=== PATIENT | male | born 1945 | race Hispanic/Latino ===

== ENCOUNTER 2016-12-13 19:35 | Inpatient (IN) | payer MEDICARE, OTHER ==
[2016-12-13] MEDS ORDERED: Insulin Regular 100 units/ml SC STA (20:04)
[2016-12-13] MEDS ORDERED: Sodium Chloride 0.9% 1,000 ML IV STA (20:04)
[2016-12-13 20:28] LABS: BASO % 0.2 % (0.0-2.0); EOS % 0.3 % (0.0-4.0); HEMATOCRIT 36.6 % (35.0-51.0); LYMPH # 0.8 K/uL (1.0-4.3); LYMPH % 7.2 % (20.0-40.0); MEAN CELL VOLUME 82.1 fl (80.0-94.0); MEAN CORPUSCULAR HEMOGLOBIN 26.8 pg (27.0-31.0); MEAN CORPUSCULAR HGB CONC 32.7 g/dL (33.0-37.0); MEAN PLATELET VOLUME 7.2 fl (7.2-11.7); MONO # 0.7 K/uL (0.0-0.8); MONO % 5.7 % (0.0-10.0); NEUT # 9.9 K/uL (1.8-7.0); NEUT % 86.6 % (50.0-75.0); PLATELET COUNT 243 K/uL (130-400); RED CELL DISTRIBUTION WIDTH 15.2 % (11.5-14.5); WHITE BLOOD COUNT 11.4 K/uL (4.8-10.8)
[2016-12-13 20:39] LABS: ALB/GLOB RATIO 1.5 (1.0-2.1); ALKALINE PHOSPHATASE 73 U/L (38-126); ALT/SGPT 30 U/L (21-72); AST/SGOT 16 U/L (17-59); BILIRUBIN,TOTAL 0.3 mg/dl (0.2-1.3); BLOOD UREA NITROGEN 22 mg/dl (9-20); CALCIUM 8.9 mg/dL (8.4-10.2); CARBON DIOXIDE 24 mmol/L (22-30); CHLORIDE 103 mmol/L (98-107); GFR AFRICAN-AMERICAN > 60; GLUCOSE,RANDOM 258 mg/dL (75-110); SODIUM 137 mmol/l (132-148); TOTAL PROTEIN 5.9 G/DL (6.3-8.2)
--- NOTE | 2016-12-13 20:40 | CT ---
EXAM: CT Head Without Intravenous Contrast CLINICAL HISTORY: 71 years old, male; Injury or trauma; Fall; Initial encounter; Blunt trauma (contusions or hematomas); Consciousness not specified; Injury details: Found on floor at home; Patient HX: Diabetic TECHNIQUE: Axial computed tomography images of the head/brain without intravenous contrast. All CT scans at this facility use one or more dose reduction techniques, viz.: automated exposure control; ma/kV adjustment per patient size (including targeted exams where dose is matched to indication; i.e. head); or iterative reconstruction technique. Coronal and sagittal reformatted images were created and reviewed. COMPARISON: CT - HEAD W/O CONTRAST 03/12/2016 5:18:06 PM FINDINGS: Brain: No acute intracranial hemorrhage. Age-appropriate periventricular white matter disease. No edema. Ventricles: Age-appropriate ventriculomegaly. Bones: No acute displaced fracture. Sinuses: Unremarkable as visualized. No acute sinusitis. Mastoid air cells: Unremarkable as visualized. No mastoid effusion. IMPRESSION: No acute intracranial hemorrhage, or suspicious mass effect.
--- NOTE | 2016-12-13 21:01 | ED PDOC ---
HPI: Altered Mental Status Time Seen by Provider: 12/13/16 19:45 Chief Complaint (Nursing): Altered Mental Status Chief Complaint (Provider): AMS History Per: Patient, Family History/Exam Limitations: None Onset/Duration Of Symptoms: Mins Onset Of Symptoms: <3 Hours Current Symptoms Are (Timing): Gone Now Usual Baseline: Alert Oriented Exacerbating Factor(s): Diabetic Additional Complaint(s): The pt is a 71yo male, pmhx of type 2 DM, depression, chronic renal disease, is brought to the ED by EMS for evaluation s/p a syncopal episode. Pt is accompanied by his sister, who reports that another family member of the pt's witnessed the pt "pass out." Pt reports he was feeling dizzy and passed out; he denies any head injury or pain and reports he is unsure of what happened. Pt was given sugar in the field but did not have an accuchek performed. Currently in ED, pt has a sugar level greater than 500. Pt denies any headache, vomiting or pain. He denies any other medical complaints. Past Medical History Reviewed: Historical Data, Nursing Documentation, Vital Signs Vital Signs: Last Vital Signs Temp 97.6 F 12/13/16 19:37 Pulse 84 12/13/16 19:37 Resp 16 12/13/16 19:37 BP 112/60 12/13/16 19:37 Pulse Ox 96 12/13/16 19:37 - Medical History PMH: CVA (Possible), Diabetes, HTN, Chronic Kidney Disease - Surgical History Surgical History: No Surg Hx - Family History Family History: States: Unknown Family Hx - Social History Current smoker - smoking cessation education provided: No Alcohol: None Drugs: Denies - Home Medications Home Medications: Ambulatory Orders Medication Instructions Recorded Tamsulosin [Flomax] 0.4 mg PO DAILY 03/12/16 Venlafaxine [Effexor XR] 150 mg PO BID 03/12/16 metFORMIN [glucOPHAGE] 500 mg PO BID 03/12/16 Enalapril Maleate [Vasotec] 5 mg PO BID 12/13/16 GlipiZIDE [Glucotrol] 5 mg PO BIDAC 12/13/16 - Allergies Allergies/Adverse Reactions: Allergies Allergy/AdvReac Type Severity Reaction Status Date / Time No Known Allergies Allergy Verified 03/22/16 16:40 Review of Systems ROS Statement: Except As Marked, All Systems Reviewed And Found Negative Gastrointestinal: Negative for: Nausea, Vomiting Neurological: Positive for: Altered Mental Status (loss of consciousness). Negative for: Headache Physical Exam - Reviewed Nursing Documentation Reviewed: Yes Vital Signs Reviewed: Yes - Physical Exam Appears: Positive for: Non-toxic, No Acute Distress Skin: Positive for: Normal Color (multiple tattoos and body piercings noted), Warm Eye Exam: Positive for: Normal appearance, EOMI, PERRL Neck: Positive for: Normal, Supple Cardiovascular/Chest: Positive for: Regular Rate, Rhythm Respiratory: Positive for: Normal Breath Sounds. Negative for: Accessory Muscle Use, Respiratory Distress Gastrointestinal/Abdominal: Positive for: Normal Exam, Soft. Negative for: Tenderness Extremity: Positive for: Normal ROM. Negative for: Pedal Edema, Calf Tenderness , Deformity, Swelling Neurologic/Psych: Positive for: Alert, handbag parts cutter II-XII (normal), Oriented, Mood/ Affect (normal), Cerebellar Tests (normal), Gait (steady). Negative for: Motor/ Sensory Deficits, Aphasia, Facial Droop - Laboratory Results Result Diagrams: 12/13/16 20:12 12/13/16 20:12 - ECG ECG: Positive for: Interpreted By Me, Viewed By Me ECG Rhythm: Positive for: Sinus Rhythm. Negative for: ST/T Changes Interpretation Of ECG: LVH Rate: 76 O2 Sat by Pulse Oximetry: 96 (RA) Pulse Ox Interpretation: Normal Medical Decision Making Medical Decision Making: Time: 1999 Impression: R/o DKA, intracranial process Plan: -- Labs -- IV NS 1L, 200ml/hr -- Human Insulin 6 units -- CT Head --Reassess Time: [address] Cooley who primary doc labs shows elevate sugar (but came down with the insulin from gr thatn 500 to 200s on the chemistry. no anion gap noted. cxr appears no infilrate pt without urine sample yet pt appear comfortable in NAD, moving all 4 extremities Time: [address] Rudy Menjivar who is covering for Dr. Cooley, and Dr. Menjivar has accepted the pt. he will place further orders Scribe Attestation: Documented by Carli Booker acting as a scribe for Kristi Lopez MD Provider Scribe Attestation: All medical record entries made by the Scribe were at my direction and personally dictated by me. I have reviewed the chart and agree that the record accurately reflects my personal performance of the history, physical exam, medical decision making, and the department course for this patient. I have also personally directed, reviewed, and agree with the discharge instructions and disposition. Disposition - Clinical Impression Clinical Impression: Syncope - Patient ED Disposition Is Patient to be Admitted: Yes Counseled Patient/Family Regarding: Studies Performed, Diagnosis, Need For Followup - Disposition Disposition: Routine/Home Disposition Time: 21:00 Condition: IMPROVED
[2016-12-13 21:05] LABS: NEUTROPHIL 86 % (42-75); TOTAL CELLS COUNTED 100
[2016-12-13 21:40] LABS: VENOUS BLOOD GAS BASE EXCESS 0.3 mmol/L (0.0-2.0); VENOUS BLOOD GAS PCO2 42 mmHg (40-60); VENOUS BLOOD PH 7.39 (7.32-7.43)
[2016-12-13] MEDS: Insulin Regular 100 units/ml SC SCH (22:47)
--- NOTE | 2016-12-14 07:30 | RAD ---
HISTORY: chest pain COMPARISON: Chest radiographs 03/29/2016. FINDINGS: LUNGS: No acute infiltrate seen once again. There is elevation the right hemidiaphragm which is increased in the current image. Limited fibrotic changes in the medial right base. PLEURA: No significant pleural effusion identified, no pneumothorax apparent. CARDIOVASCULAR: Normal. OSSEOUS STRUCTURES: No significant abnormalities. VISUALIZED UPPER ABDOMEN: Normal. OTHER FINDINGS: None. IMPRESSION: No acute cardiopulmonary disease. Fibrotic changes in the medial right base as well as elevated right hemidiaphragm.
[2016-12-14 07:33] LABS: HEMATOCRIT 35.7 % (35.0-51.0); MEAN CELL VOLUME 82.5 fl (80.0-94.0); MEAN CORPUSCULAR HGB CONC 32.8 g/dL (33.0-37.0); RED CELL DISTRIBUTION WIDTH 14.7 % (11.5-14.5); WHITE BLOOD COUNT 8.9 K/uL (4.8-10.8)
[2016-12-14 07:38] LABS: BLOOD UREA NITROGEN 23 mg/dl (9-20); CALCIUM 8.8 mg/dL (8.4-10.2); CARBON DIOXIDE 27 mmol/L (22-30); CHLORIDE 104 mmol/L (98-107); GFR AFRICAN-AMERICAN > 60; GLUCOSE,RANDOM 99 mg/dL (75-110); SODIUM 140 mmol/l (132-148)
[2016-12-14] MEDS: Venlafaxine 150 mg ER Cap PO SCH ×2 (08:49→16:14)
[2016-12-14] MEDS: Insulin Regular 100 units/ml SC SCH ×4 (08:56→22:12)
--- NOTE | 2016-12-14 11:18 | CP.PCM.HP ---
History of Present Illness - History of Present Illness History of Present Illness: The pt is a 71yo male, pmhx of type 2 DM, depression, chronic renal disease, is brought to the ED by EMS for evaluation s/p a syncopal episode. Pt is accompanied by his sister, who reports that another family member of the pt's witnessed the pt "pass out." Pt reports he was feeling dizzy and passed out; he denies any head injury or pain and reports he is unsure of what happened. Pt was given sugar in the field but did not have an accuchek performed. Currently in ED, pt has a sugar level greater than 500. Pt denies any headache, vomiting or pain. He denies any other medical complaints. CVA, Diabetes, HTN, former smoker Present on Admission - Present on Admission Any Indicators Present on Admission: Yes History of Uncontrolled Diabetes: Yes Review of Systems - Review of Systems Systems not reviewed;Unavailable: Altered Mental Status - EENT Ears: Ear Pain Past Patient History - Past Medical History & Family History Past Medical History?: Yes - Past Social History Smoking Status: Former Smoker Alcohol: None Drugs: Denies - CARDIAC Hx Hypertension: Yes - PULMONARY Hx Respiratory Disorders: No - NEUROLOGICAL Hx Neurological Disorder: Yes Hx Syncope: Yes - HEENT Hx HEENT Problems: Yes (mastoiditis) Hx Sinusitis: Yes - RENAL Hx Chronic Kidney Disease: Yes - ENDOCRINE/METABOLIC Hx Endocrine Disorders: Yes Hx Diabetes Mellitus Type 2: Yes - HEMATOLOGICAL/ONCOLOGICAL Hx Blood Disorders: No - INTEGUMENTARY Hx Dermatological Problems: No - MUSCULOSKELETAL/RHEUMATOLOGICAL Hx Musculoskeletal Disorders: Yes Hx Falls: Yes - GASTROINTESTINAL Hx Gastrointestinal Disorders: No - GENITOURINARY/GYNECOLOGICAL Hx Genitourinary Disorders: Yes Hx Prostate Problems: Yes - PSYCHIATRIC Hx Psychophysiologic Disorder: Yes Hx Depression: Yes Hx Substance Use: No - SURGICAL HISTORY Hx Surgeries: No - ANESTHESIA Hx Anesthesia: Yes Hx Anesthesia Reactions: No Hx Malignant Hyperthermia: No Meds Allergies/Adverse Reactions: Allergies Allergy/AdvReac Type Severity Reaction Status Date / Time No Known Allergies Allergy Verified 03/22/16 16:40 Physical Exam - Constitutional Appears: Confused - Head Exam Head Exam: NORMAL INSPECTION - Eye Exam Eye Exam: Normal appearance - Neck Exam Neck exam: Positive for: Normal Inspection - Cardiovascular Exam Cardiovascular Exam: REGULAR RHYTHM Results - Vital Signs Recent Vital Signs: Last Vital Signs Temp 98.7 F 12/14/16 08:00 Pulse 66 12/14/16 08:00 Resp 20 12/14/16 08:00 BP 218/89 H 12/14/16 08:00 Pulse Ox 95 12/14/16 08:00 - Labs Result Diagrams: 12/14/16 07:05 12/14/16 07:05 Labs: Laboratory Results - last 24 hr 12/14/16 12/14/16 12/14/16 05:46 07:05 07:05 WBC 8.9 RBC 4.33 L Hgb 11.7 L Hct 35.7 MCV 82.5 MCH 27.0 MCHC 32.8 L RDW 14.7 H Plt Count 258 Sodium 140 Potassium 4.0 Chloride 104 Carbon Dioxide 27 Anion Gap 13 BUN 23 H Creatinine 1.4 Est GFR ( Amer) > 60 Est GFR (Non-Af Amer) 50 POC Glucose (mg/dL) 73 Random Glucose 99 Calcium 8.8 Assessment & Plan (1) Syncope Status: Acute (2) Depression Status: Acute (3) Essential (primary) hypertension Status: Acute (4) Type 2 diabetes mellitus with diabetic chronic kidney disease Status: Acute
[2016-12-14] MEDS: Metoprolol Succinate 100 mg XL Tab PO SCH (11:45)
[2016-12-14] MEDS: Enoxaparin 40 mg Syringe SC SCH (14:05)
--- NOTE | 2016-12-14 14:19 | US ---
PROCEDURE: Duplex ultrasound of the carotid and vertebral arteries. HISTORY: syncope COMPARISON: None available. TECHNIQUE: Grayscale and duplex Doppler evaluation of the cervical carotid and vertebral arteries were performed. The common carotid, carotid bifurcations and cervical ICA and proximal ECA were evaluated. The vertebral arteries were evaluated for gross patency and direction. FINDINGS: RIGHT CAROTID ARTERIES: Common Carotid Artery: Widely patent. Maximal flow velocity of 63.8 cm/s. Carotid Bifurcation: Minimal atherosclerotic plaque is seen at the right carotid bulb. Internal Carotid Artery:Widely patent. Maximal flow velocity of 66.1 cm/s. External Carotid Artery (proximal branches): Widely patent. Maximal flow velocity of 104.8 cm/s. ICA/CCA Ratio: 1.0 LEFT CAROTID ARTERIES: Common Carotid Artery: Widely patent. Maximal flow velocity of 43.5 cm/s. Carotid Bifurcation: A mild amount of atherosclerotic plaque is identified at the left carotid bulb. Internal Carotid Artery:Widely patent. Maximal flow velocity of 87.1 cm/s. External Carotid Artery (proximal branches): Widely patent. Maximal flow velocity of 108.1 cm/s. ICA/CCA Ratio: 1.0 VERTEBRAL ARTERIES: Right Vertebral Artery: Patent. Antegrade flow. Left Vertebral Artery: Patent. Antegrade flow. OTHER FINDINGS: None. IMPRESSION: Limit carotid bulbar atherosclerosis is appreciated at the left greater than right sides with no significant stenosis of the bilateral common or internal carotid arteries once again. No significant interval change appreciated grossly.
[2016-12-14 16:10] LABS: RBC URINE 2 /hpf (0-3); URINE BILIRUBIN NEGATIVE (NEGATIVE); URINE BLOOD NEGATIVE (NEGATIVE); URINE COLOR YELLOW (YELLOW); URINE GLUCOSE (UA) 50 mg/dL (Normal); URINE KETONE TRACE mg/dL (NEGATIVE); URINE LEUKOCYTE ESTERASE NEG Leu/uL (Negative); URINE PROTEIN >=500 mg/dL (NEGATIVE); URINE UROBILINOGEN 0.2-1.0 mg/dL (0.2-1.0); WBC URINE 2 /hpf (0-5)
[2016-12-14 16:15] LABS: URINE BACTERIA FEW (<OCC)
[2016-12-14] MEDS ORDERED: EnalaprilAT 1.25 mg/ml Inj IVP ONE (22:21)
[2016-12-15] MEDS ORDERED: Enalaprilat 2.5 MG/2 ML IVP STA (02:33)
--- NOTE | 2016-12-15 03:32 | CON ---
DATE: 12/14/2016 NEUROLOGY CONSULT CHIEF COMPLAINT: Syncope. HISTORY OF PRESENT ILLNESS: This is a 71-year-old man, known to me from his previous admission back in 03/2016, with history of hypertension, dyslipidemia, history of bradycardia secondary to BP medications, history of type 2 diabetes mellitus, chronic renal disease, reported to having a syncopal episode. Apparently, the patient stated that he felt dizzy, intensive lightheaded, and passed out. No seizure-like activity was noted. His blood sugar was greater than 500. He is unsure of what actually had happened, but was lightheaded prior. It was witnessed by his sister. Apparently, his blood pressure is currently systolically elevated. The hemoglobin A1c is 6.9. Initial blood glucose of 73. PAST MEDICAL HISTORY: History of type 2 diabetes mellitus, hypertension, dyslipidemia, and chronic renal insufficiency. REVIEW OF SYSTEMS: A 14-point review of system is negative except in the HPI. FAMILY HISTORY: Noncontributory. SOCIAL HISTORY: No illicit drug use, smoking, no EtOH abuse. MEDICATIONS: Reviewed by nurse per reconciliation sheet. ALLERGIES: NO KNOWN DRUG ALLERGIES. PHYSICAL EXAMINATION VITAL SIGNS: Temperature of 98.6, pulse rate 81, blood pressure 117/98, respiratory rate 20, and oxygen saturation 95% on room air. GENERAL EXAM: The patient sitting up in bed, in no acute distress. HEENT: Head is atraumatic and normocephalic. PERRLA. Extraocular muscles intact. NECK: Supple. No JVD. No adenopathy noted. LUNGS: Clear to auscultation. No adventitious sounds. HEART: S1 and S2. Normal rate and rhythm. No murmur, rubs, or gallops. ABDOMEN: Soft, nontender, nondistended. Bowel sounds present. EXTREMITIES: No clubbing. No cyanosis. Peripheral pulses 2+ felt bilaterally. There are multiple tattoos over his body. NEUROLOGIC EXAM: The patient is alert and oriented to person, place, month, and year. Speech is fluent without any errors. Cranial nerves II through XII intact. Motor exam: Moves all extremities equally. Strength is 5/5 in both upper and lower extremities. No pronator drift . Sensory exam: Decreased light touch and pinprick up to the calves bilaterally. Decreased vibration of the toes. DTRs are 2+ throughout and 1 at the ankle. Coordination: [id number]-[id number] intact. Gait deferred for now. LABORATORY DATA: A1c is 6.9. Sodium is 140, potassium 4, chloride of 104, carbon dioxide of 27, BUN of 22, creatinine 1.4, and random glucose of 99. ASSESSMENT AND PLAN: This is a 71-year-old male with a history of hypertension, dyslipidemia, type 2 diabetes mellitus,and chronic renal insufficiency. He had syncopal episode. He was lightheaded and had passed out. The patient was given D50 in the field, but did not have an Accu-Chek and he came in with a sugar level of greater than 500 and now it is stabilized. His A1c is 6.9. At this time, his syncope seems more like a possible vasovagal superimposed on a metabolic derangement, likely hypoglycemia. At this time, recommend, 1. Keep his blood sugars to 140 to 180. Avoid hypoglycemic and hyperglycemic accelerations. 2. Keep his systolic blood pressure between 130 to 140. 3. Advised diabetic diet. 4. Continue present cardiac management. Thank you for this consult. He can follow with me as an outpatient. He is neurologically stable. Terry Lawson MD
[2016-12-15] MEDS: Insulin Regular 100 units/ml SC SCH ×3 (08:20→22:01)
[2016-12-15] MEDS: Enoxaparin 40 mg Syringe SC SCH (08:32)
[2016-12-15] MEDS: Metoprolol Succinate 100 mg XL Tab PO SCH (08:33)
[2016-12-15] MEDS: Venlafaxine 150 mg ER Cap PO SCH ×2 (08:33→16:49)
--- NOTE | 2016-12-15 11:12 | CP.PCM.PN ---
Subjective - Date & Time of Evaluation Date of Evaluation: 12/15/16 Time of Evaluation: 10:00 - Subjective Subjective: only c/o feeling weak BS being regulated But need endocinology consult DR Lawson's note apprec BP still running high will increase enalapril to 10mg BID Objective - Vital Signs/Intake and Output Vital Signs (last 24 hours): Temp Pulse Resp BP Pulse Ox 98.1 F 58 L 18 213/94 H 98 12/15/16 08:00 12/15/16 08:33 12/15/16 08:00 12/15/16 08:33 12/15/16 08:00 - Medications Medications: Current Medications Acetaminophen (Tylenol 325mg Tab) 650 mg PO Q4 PRN PRN Reason: Pain, moderate (4-7) Acetaminophen (Tylenol 325mg Tab) 650 mg PO Q4 PRN PRN Reason: Fever >100.4 F Enalapril Maleate (Vasotec) 10 mg PO BID [facility] Enoxaparin Sodium (Lovenox) 40 mg SC DAILY [facility] PRN Reason: Protocol Last Admin: 12/15/16 08:32 Dose: 40 mg Glipizide (Glucotrol) 5 mg PO BIDAC [facility] Last Admin: 12/15/16 08:33 Dose: 5 mg Insulin Human Regular (Humulin R) 0 units SC [facility] PRN Reason: Protocol Last Admin: 12/15/16 08:20 Dose: Not Given Metformin HCl (Glucophage) 500 mg PO BID [facility] Last Admin: 12/15/16 08:33 Dose: 500 mg Metoprolol Succinate (Toprol Xl) 100 mg PO DAILY [facility] Last Admin: 12/15/16 08:33 Dose: 100 mg Tamsulosin HCl (Flomax) 0.4 mg PO DAILY [facility] Last Admin: 12/15/16 08:34 Dose: 0.4 mg Venlafaxine HCl (Effexor Xr) 150 mg PO BID [facility] Last Admin: 12/15/16 08:33 Dose: 150 mg - Labs Labs: 12/14/16 07:05 12/14/16 07:05 Assessment and Plan (1) Syncope Status: Acute (2) Depression Status: Acute (3) Essential (primary) hypertension Status: Acute (4) Type 2 diabetes mellitus with diabetic chronic kidney disease Status: Acute
--- NOTE | 2016-12-15 11:18 | PQF GENQUE ---
Dr. 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 Indicators present [] Specify: [] [] Specify: [] [] Specify: [] [] Specify: [] Location in the medical record that reflects the above clinical findings: [] Treatment Provided: [] PHYSICIAN'S RESPONSE Stage 1 Based on your medical judgment of the clinical indicators outlined above please clarify the following: []x Practitioner response [] If unable to determine, please check the box, sign and date. Present On Admission (POA) Indicator: [] Present at the time of admission [] Not present at the time of admission [] Clinically Undetermined In responding to this query, please exercise your independent professional judgment. The fact that a question is asked does not imply that any particular answer is desired or expected. Thank you for your clarification on this documentation. If you have any questions please call. * Thank you, Chiqui Zuniga RN BSN ext. #[phone] MTDD
--- NOTE | 2016-12-15 12:07 | CARD ---
APPROVED REPORT EXAM: Two-dimensional and M-mode echocardiogram with Doppler and color Doppler. Other Information Quality : GoodRhythm : NSR INDICATION Syncope 2D DIMENSIONS IVSd1.56 (0.7-1.1cm)LVDd4.83 (3.9-5.9cm) LVOT Diameter2.39 (1.8-2.4cm)PWd1.34 (0.7-1.1cm) IVSs1.57 (0.8-1.2cm)LVDs3.79 (2.5-4.0cm) FS (%) 21.4 %PWs1.50 (0.8-1.2cm) M-Mode DIMENSIONS Left Atrium (MM)5.04 (2.5-4.0cm)IVSd1.51 (0.7-1.1cm) Aortic Root4.08 (2.2-3.7cm)LVDd6.51 (4.0-5.6cm) Aortic Cusp Exc.1.51 (1.5-2.0cm)PWd1.58 (0.7-1.1cm) IVSs2.24 cmFS (%) 42 % LVDs3.79 (2.0-3.8cm)PWs2.02 cm Aortic Valve AoV Peak Xqhurube634.7cm/sAoV VTI43.4cmAO Peak GR.21mmHg LVOT Peak Kewojkmr02.0cm/sLVOT VTI21.35cmAO Mean GR.11mmHg AGAPITO (VMAX)0.14fu4RCQ (VTI)1.02cm2 Mitral Valve MV E Lefcindw97.0cm/sMV DECEL EHKH262jgVR A Dyhffgsl90.9cm/s MV ALS20zcN/A ratio0.6MVA (PHT)2.88cm2 TDI Lateral E' Peak V5.62cm/sMedial E' Peak V4.07cm/sE/Lateral E'10.0 E/Medial E'13.8 LEFT VENTRICLE The left ventricle is normal size. There is mild concentric left ventricular hypertrophy. The left ventricular function is normal. The left ventricular ejection fraction is 60% There is normal LV segmental wall motion. Transmitral Doppler flow pattern is Grade I-abnormal relaxation pattern. No left ventricle thrombus noted on this study. There is no ventricular septal defect visualized. There is no left ventricular aneurysm. There is no mass noted in the left ventricle. RIGHT VENTRICLE The right ventricle is normal size. There is normal right ventricular wall thickness. The right ventricular systolic function is normal. ATRIA The left atrium size is normal. The right atrium size is normal. The interatrial septum is intact with no evidence for an atrial septal defect. AORTIC VALVE The aortic valve is moderately to severely calcified. There is mild aortic regurgitation. There is mild valvular aortic stenosis. Calculated aortic valve area is 1.8 cm2 with maximum pressure gradient of 20 mmHg and mean pressure gradient of 11 mmHg. There is no aortic valvular vegetation. MITRAL VALVE Mitral annular calcification is mild to moderate. There is no evidence of mitral valve prolapse. There is no mitral valve stenosis. There is no mitral valve regurgitation noted. TRICUSPID VALVE The tricuspid valve is normal in structure and function. There is no tricuspid valve regurgitation noted. There is no tricuspid valve prolapse or vegetation. There is no tricuspid valve stenosis. PULMONIC VALVE The pulmonary valve is normal in structure and function. There is no pulmonic valvular regurgitation. There is no pulmonic valvular stenosis. GREAT VESSELS The aortic root is normal in size. The ascending aorta is normal in size. The IVC is normal in size and collapses >50% with inspiration. PERICARDIAL EFFUSION The pericardium appears normal. There is no pleural effusion. <Conclusion> Normal LV Systolic Function Mild Aortic Valve Stenosis AGAPITO 1.8 cm2 Mild Concentric LVH Impaired Diastolic Relaxation
--- NOTE | 2016-12-15 16:00 | CON ---
ENDOCRINOLOGY CONSULT LOCATION: Room 410. HISTORY OF PRESENT ILLNESS: This is a 71-year-old male with known history of type 2 diabetes and hypertension and admitted here with a recent altered mental status and a recent syncopal event witnessed by the family member and is now being referred for endocrine evaluation and management. PAST MEDICAL HISTORY: As mentioned above, history of type 2 diabetes currently on a combination of metformin given as 500 mg b.i.d. and glipizide given as 5 mg b.i.d. before meals as ordered, history of hypertension and dyslipidemia, history of a previous CVA with no overt residual weakness. History of generalized anxiety and depression, also history of chronic kidney disease. FAMILY HISTORY: Positive for diabetes and hypertension. SOCIAL HISTORY: The patient has supportive family, has a prior history of smoking but quit many years ago. REVIEW OF SYSTEMS: As mentioned above, admits to generalized body weakness with easy fatigability and tiredness and suboptimal energy level. Also admits to episodic bouts of dizziness and lightheadedness, worse on the day of admission. No chest pains or palpitations or PND. His oral intake is variable and suboptimal with nausea, dyspepsia, and vague upper abdominal pain. PHYSICAL EXAMINATION: GENERAL: This is an average built male in no apparent distress. VITAL SIGNS: Blood pressure of 150/90, pulse of 70 beats per minute, regular, temperature 98, respirations 20. Height is 6 feet, weight is 210 pounds. HEENT: Head normocephalic. Eyes: Anicteric with pink conjunctivae. Funduscopy not possible at this time. Ears, nose, and throat otherwise normal. NECK: Supple. Thyroid gland is normal in size. No carotid bruits or cervical adenopathy. CARDIOPULMONARY: Some adynamic precordium. S1 and S2 is rapid and regular. LUNGS: Showed scattered rhonchi. ABDOMEN: Flat, soft with positive bowel sounds. EXTREMITIES: No peripheral edema. Pulses are +2 bilaterally. LABORATORY: Chemistry showed a BUN of 22, sodium 137, potassium 4.0, chloride 103, CO2 of 24, glucose 258, and creatinine 1.3. His hemoglobin A1c is 6.9%. The glucose levels have ranged from 83 to 104 and 171 mg/dL. ASSESSMENT: This is a 71-year-old male with uncontrolled and decompensated type 2 diabetes presenting here with altered mental status and syncopal event and now being referred for diabetic management because of extremes of glycemic fluctuations and possible underlying episode of symptomatic hypoglycemia, although there is no actual documentation as there was no fingerstick glucose done by the paramedics just prior to admission. However, on admission here, his glucose levels were extremely elevated with glucose values over 500 probably related to a rebound hyperglycemic acceleration after D50 bolus injection as noted. There is also evidence of underlying chronic kidney disease and most likely related to underlying diabetic and hypertensive nephrosclerosis. PLAN OF MANAGEMENT: We will prudently discontinue his metformin especially in the light of underlying chronic kidney disease and observe his glycemic fluctuations thereof. We will continue the glipizide given as 5 mg b.i.d. before meals, and we will titrate incrementally as indicated to optimize his metabolic control. We will also hold off any kind of basal insulin for now and modify actually the low-dose correction scale using Humalog insulin as given to obviate hypoglycemia and detailed orders have been given. We will titrate incrementally as indicated to optimize metabolic control. We will follow. Caroline Garrett MD
[2016-12-16] MEDS ORDERED: Enalaprilat 2.5 MG/2 ML IVP ONE (04:14)
[2016-12-16 06:53] LABS: ALB/GLOB RATIO 1.4 (1.0-2.1); ALKALINE PHOSPHATASE 75 U/L (38-126); ALT/SGPT 30 U/L (21-72); AST/SGOT 17 U/L (17-59); BILIRUBIN,TOTAL 0.5 mg/dl (0.2-1.3); BLOOD UREA NITROGEN 26 mg/dl (9-20); CALCIUM 9.1 mg/dL (8.4-10.2); CARBON DIOXIDE 26 mmol/L (22-30); CHLORIDE 102 mmol/L (98-107); CHOLESTEROL 235 mg/dL (0-199); GFR AFRICAN-AMERICAN > 60; GLUCOSE,RANDOM 134 mg/dL (75-110); SODIUM 138 mmol/l (132-148); TOTAL PROTEIN 6.6 G/DL (6.3-8.2)
[2016-12-16 06:54] LABS: HEMATOCRIT 39.9 % (35.0-51.0); MEAN CELL VOLUME 82.6 fl (80.0-94.0); MEAN CORPUSCULAR HEMOGLOBIN 27.4 pg (27.0-31.0); MEAN CORPUSCULAR HGB CONC 33.2 g/dL (33.0-37.0); RED CELL DISTRIBUTION WIDTH 14.8 % (11.5-14.5); WHITE BLOOD COUNT 8.5 K/uL (4.8-10.8)
[2016-12-16 06:56] LABS: POTASSIUM 3.8 MMOL/L (3.6-5.0)
[2016-12-16] MEDS: Insulin Regular 100 units/ml SC SCH ×4 (07:04→22:08)
[2016-12-16 07:16] LABS: THYROID STIMULATING HORMONE 3.07 mIU/ML (0.46-4.68)
[2016-12-16] MEDS: Venlafaxine 150 mg ER Cap PO SCH ×2 (09:09→16:35)
[2016-12-16] MEDS: Metoprolol Succinate 100 mg XL Tab PO SCH (09:09)
[2016-12-16] MEDS: Enoxaparin 40 mg Syringe SC SCH (09:10)
--- NOTE | 2016-12-16 10:05 | CP.PCM.PN ---
Subjective - Date & Time of Evaluation Date of Evaluation: 12/16/16 Time of Evaluation: 09:00 - Subjective Subjective: BP still running high This is a chronic problem Metoprolol bein held 2* to bradycardia Clonidine 0.[address] Garrett's note apprec Objective - Vital Signs/Intake and Output Vital Signs (last 24 hours): Temp Pulse Resp BP Pulse Ox 98.7 F 50 L 18 214/103 H 97 12/16/16 08:18 12/16/16 09:09 12/16/16 08:18 12/16/16 09:09 12/16/16 08:18 - Medications Medications: Current Medications Acetaminophen (Tylenol 325mg Tab) 650 mg PO Q4 PRN PRN Reason: Pain, moderate (4-7) Acetaminophen (Tylenol 325mg Tab) 650 mg PO Q4 PRN PRN Reason: Fever >100.4 F Clonidine HCl (Catapres) 0.1 mg PO BID [facility] Last Admin: 12/16/16 09:09 Dose: 0.1 mg Enalapril Maleate (Vasotec) 10 mg PO BID [facility] Last Admin: 12/16/16 09:09 Dose: 10 mg Enoxaparin Sodium (Lovenox) 40 mg SC DAILY [facility] PRN Reason: Protocol Last Admin: 12/16/16 09:10 Dose: 40 mg Glipizide (Glucotrol) 5 mg PO BIDAC [facility] Last Admin: 12/16/16 09:10 Dose: 5 mg Insulin Human Regular (Humulin R) 0 units SC [facility] PRN Reason: Protocol Last Admin: 12/16/16 07:04 Dose: Not Given Metoprolol Succinate (Toprol Xl) 100 mg PO DAILY [facility] Last Admin: 12/16/16 09:09 Dose: Not Given Tamsulosin HCl (Flomax) 0.4 mg PO DAILY [facility] Last Admin: 12/16/16 09:10 Dose: 0.4 mg Venlafaxine HCl (Effexor Xr) 150 mg PO BID [facility] Last Admin: 12/16/16 09:09 Dose: 150 mg - Labs Labs: 12/16/16 05:00 12/16/16 05:00 Assessment and Plan (1) Syncope Status: Acute (2) Depression Status: Acute (3) Essential (primary) hypertension Status: Acute (4) Type 2 diabetes mellitus with diabetic chronic kidney disease Status: Acute
[2016-12-17] MEDS: Insulin Regular 100 units/ml SC SCH ×4 (06:37→21:30)
--- NOTE | 2016-12-17 08:15 | PN ---
ENDO FOLLOWUP NOTE LOCATION: Room #210. SUMMARY: This is a 71-year-old male with uncontrolled type 2 diabetes, presenting here with extremes of glycemic fluctuations with possible initial bout of hypoglycemia, although there was no documentation available at this time. His latest chemistry is no abdominal pain. Also, admits to variable oral intake as noted. His latest glucose levels have ranged from 122 to 132 mg/dL. His latest chemistry showed a BUN of 26, sodium 138, potassium 3.8, chloride 102, CO2 of 26, glucose and creatinine 1.2. The latest glucose level at lunch time was 330 mg/dL. So at this time, we will add Januvia given as 50 mg once daily in the morning as ordered. We will continue the low-dose correction scale using Regular insulin. We will obtain . We will obtain serial chemistries and supplement accordingly as needed. We will also increase the low-dose glipizide at this time . We will titrate incremental as indicated to optimize metabolic control. Caroline Garrett MD
[2016-12-17] MEDS: Metoprolol Succinate 100 mg XL Tab PO SCH (10:00)
[2016-12-17] MEDS: Enoxaparin 40 mg Syringe SC SCH (10:01)
[2016-12-17] MEDS: Venlafaxine 150 mg ER Cap PO SCH ×2 (10:01→17:02)
--- NOTE | 2016-12-17 11:29 | CARD ---
APPROVED REPORT EKG Measurement Heart [id number] <Conclusion> Sinus bradycardia with 1st degree AV block Voltage criteria for left ventricular hypertrophy Inferior infarct, age undetermined Anteroseptal infarct, age undetermined T wave abnormality, consider lateral ischemia Abnormal ECG
--- NOTE | 2016-12-17 11:34 | CP.PCM.PN ---
Subjective - Date & Time of Evaluation Date of Evaluation: 12/17/16 Time of Evaluation: 10:00 - Subjective Subjective: pt claims he feels sl better less vertigo although BP still running high will increase clonidine to 0.2 mg BID and add lasix Objective - Vital Signs/Intake and Output Vital Signs (last 24 hours): Temp Pulse Resp BP Pulse Ox 97.9 F 51 L 18 216/95 H 95 12/17/16 08:00 12/17/16 10:00 12/17/16 08:00 12/17/16 10:00 12/17/16 08:00 - Medications Medications: Current Medications Acetaminophen (Tylenol 325mg Tab) 650 mg PO Q4 PRN PRN Reason: Pain, moderate (4-7) Acetaminophen (Tylenol 325mg Tab) 650 mg PO Q4 PRN PRN Reason: Fever >100.4 F Atorvastatin Calcium (Lipitor) 20 mg PO HS [facility] Clonidine HCl (Catapres) 0.2 mg PO BID [facility] Last Admin: 12/17/16 10:02 Dose: 0.2 mg Enalapril Maleate (Vasotec) 10 mg PO BID [facility] Last Admin: 12/17/16 10:02 Dose: 10 mg Enoxaparin Sodium (Lovenox) 40 mg SC DAILY [facility] PR[facility] Reason: Protocol Last Admin: 12/17/16 10:01 Dose: 40 mg Glipizide (Glucotrol) 5 mg PO BIDAC [facility] Last Admin: 12/17/16 10:01 Dose: 5 mg Insulin Human Regular (Humulin R) 0 units SC [facility] PRN Reason: Protocol Last Admin: 12/17/16 06:37 Dose: Not Given Metoprolol Succinate (Toprol Xl) 100 mg PO DAILY [facility] Last Admin: 12/17/16 10:00 Dose: Not Given Sitagliptin Phosphate (Januvia) 50 mg PO ACB [facility] Last Admin: 12/17/16 10:01 Dose: 50 mg Tamsulosin HCl (Flomax) 0.4 mg PO DAILY [facility] Last Admin: 12/17/16 10:01 Dose: 0.4 mg Venlafaxine HCl (Effexor Xr) 150 mg PO BID [facility] Last Admin: 12/17/16 10:01 Dose: 150 mg - Labs Labs: 12/16/16 05:00 12/16/16 05:00 Assessment and Plan (1) Syncope Status: Acute (2) Depression Status: Acute (3) Essential (primary) hypertension Status: Acute (4) Type 2 diabetes mellitus with diabetic chronic kidney disease Status: Acute
--- NOTE | 2016-12-18 01:54 | PN ---
DATE: ENDO FOLLOWUP NOTE LOCATION: Room 410. This is a 71-year-old male with recent uncontrolled type 2 diabetes presenting here with a syncopal episode and is now being followed closely for metabolic management. His glycemic levels are fluctuating, but improved and the glucose values have ranged from 154-232 mg/dL, it was 148 at pre-breakfast time this morning as noted. So at this time we will continue the modified dual oral hypoglycemic drug therapy as given with the addition of Januvia given as 50 mg once daily and glipizide given as 5 mg b.i.d. before meals as ordered. We will continue the low-dose correction scale using Humalog insulin as given. We will obtain serial chemistries and supplement accordingly as needed. We will consider the addition of basal insulin only if fasting hyperglycemic levels supervene as noted. For now, we will continue the dual oral hypoglycemic drug therapy as ordered. We will follow and advise accordingly. Caroline Garrett MD
[2016-12-18] MEDS: Insulin Regular 100 units/ml SC SCH ×4 (06:33→22:21)
--- NOTE | 2016-12-18 08:11 | CP.PCM.PN ---
Subjective - Date & Time of Evaluation Date of Evaluation: 12/18/16 Time of Evaluation: 08:00 - Subjective Subjective: BP slowly coming down will increase Clonidine to 0.3mg BID Less vertigo today Objective - Vital Signs/Intake and Output Vital Signs (last 24 hours): Temp Pulse Resp BP Pulse Ox 98.6 F 59 L 18 190/83 H 97 12/18/16 05:11 12/18/16 05:11 12/18/16 05:11 12/18/16 05:11 12/18/16 05:11 - Medications Medications: Current Medications Acetaminophen (Tylenol 325mg Tab) 650 mg PO Q4 PRN PRN Reason: Pain, moderate (4-7) Acetaminophen (Tylenol 325mg Tab) 650 mg PO Q4 PRN PRN Reason: Fever >100.4 F Atorvastatin Calcium (Lipitor) 20 mg PO HS [facility] Last Admin: 12/17/16 21:28 Dose: 20 mg Clonidine HCl (Catapres) 0.3 mg PO BID [facility] Enalapril Maleate (Vasotec) 10 mg PO Q12 [facility] Last Admin: 12/17/16 21:28 Dose: 10 mg Enoxaparin Sodium (Lovenox) 40 mg SC DAILY [facility] PRN Reason: Protocol Last Admin: 12/17/16 10:01 Dose: 40 mg Glipizide (Glucotrol) 5 mg PO BIDAC [facility] Last Admin: 12/17/16 17:02 Dose: 5 mg Insulin Human Regular (Humulin R) 0 units SC [facility] PRN Reason: Protocol Last Admin: 12/18/16 06:33 Dose: Not Given Metoprolol Succinate (Toprol Xl) 100 mg PO DAILY [facility] Last Admin: 12/17/16 10:00 Dose: Not Given Sitagliptin Phosphate (Januvia) 50 mg PO ACB [facility] Last Admin: 12/17/16 10:01 Dose: 50 mg Tamsulosin HCl (Flomax) 0.4 mg PO DAILY [facility] Last Admin: 12/17/16 10:01 Dose: 0.4 mg Venlafaxine HCl (Effexor Xr) 150 mg PO BID [facility] Last Admin: 12/17/16 17:02 Dose: 150 mg - Labs Labs: 12/16/16 05:00 12/16/16 05:00 Assessment and Plan (1) Syncope Status: Acute (2) Depression Status: Acute (3) Essential (primary) hypertension Status: Acute (4) Type 2 diabetes mellitus with diabetic chronic kidney disease Status: Acute
[2016-12-18] MEDS: Enoxaparin 40 mg Syringe SC SCH (08:51)
[2016-12-18] MEDS: Venlafaxine 150 mg ER Cap PO SCH ×2 (08:51→17:12)
[2016-12-18] MEDS: Metoprolol Succinate 100 mg XL Tab PO SCH (08:52)
--- NOTE | 2016-12-18 17:04 | PN ---
ROOM: 410 This is a 71-year-old male with recent uncontrolled type 2 diabetes, presenting here with precordial chest pain and undergoing cardiac workup and management as noted and is also being followed closely for metabolic management. His glucose values are fluctuating but improved and the latest levels have ranged from 139 to 168 and 217 mg/dL. His latest overnight glucose levels have ranged from 154-232 mg/dL and the latest chemistry showed a BUN of 26, sodium 138, potassium 3.8, chloride 102, CO2 26, glucose 134 and creatinine 1.2. So, at this time, we will continue the dual oral hypoglycemic drug therapy as given with Januvia given as 50 mg once daily before breakfast and Glucotrol given as 5 mg b.i.d. before meals as ordered. We will continue the low dose correction scale using regular insulin as ordered. We will obtain serial chemistries and supplement accordingly as needed. We will follow. Caroline Garrett MD
[2016-12-19] MEDS ORDERED: Labetalol 5 mg/ml Inj 20ML IVP STA (06:03)
[2016-12-19] MEDS: Enoxaparin 40 mg Syringe SC SCH (08:31)
[2016-12-19] MEDS: Venlafaxine 150 mg ER Cap PO SCH ×2 (08:33→20:44)
[2016-12-19] MEDS: Insulin Regular 100 units/ml SC SCH ×3 (08:33→22:08)
[2016-12-19] MEDS: Metoprolol Succinate 100 mg XL Tab PO SCH (08:37)
--- NOTE | 2016-12-19 09:45 | CP.PCM.PN ---
Subjective - Date & Time of Evaluation Date of Evaluation: 12/19/16 Time of Evaluation: 08:00 - Subjective Subjective: BP still running high because of bradycardia cannot increase Metoprolol will add diovan 80mg Daily Objective - Vital Signs/Intake and Output Vital Signs (last 24 hours): Temp Pulse Resp BP Pulse Ox 97.9 F 65 18 212/72 H 98 12/19/16 08:21 12/19/16 08:37 12/19/16 08:21 12/19/16 08:37 12/19/16 08:21 - Medications Medications: Current Medications Acetaminophen (Tylenol 325mg Tab) 650 mg PO Q4 PRN PRN Reason: Pain, moderate (4-7) Acetaminophen (Tylenol 325mg Tab) 650 mg PO Q4 PRN PRN Reason: Fever >100.4 F Atorvastatin Calcium (Lipitor) 20 mg PO HS [facility] Last Admin: 12/18/16 22:21 Dose: 20 mg Clonidine HCl (Catapres) 0.3 mg PO BID [facility] Last Admin: 12/19/16 08:29 Dose: 0.3 mg Enalapril Maleate (Vasotec) 10 mg PO Q12 [facility] Last Admin: 12/19/16 08:36 Dose: 10 mg Enoxaparin Sodium (Lovenox) 40 mg SC DAILY [facility] PRN Reason: Protocol Last Admin: 12/19/16 08:31 Dose: 40 mg Glipizide (Glucotrol) 5 mg PO BIDAC [facility] Last Admin: 12/19/16 08:31 Dose: 5 mg Insulin Human Regular (Humulin R) 0 units SC A[facility]S [facility] PRN Reason: Protocol Last Admin: 12/19/16 08:33 Dose: Not Given Metoprolol Succinate (Toprol Xl) 100 mg PO DAILY [facility] Last Admin: 12/19/16 08:37 Dose: 100 mg Sitagliptin Phosphate (Januvia) 50 mg PO ACB [facility] Last Admin: 12/19/16 08:32 Dose: 50 mg Tamsulosin HCl (Flomax) 0.4 mg PO DAILY [facility] Last Admin: 12/19/16 08:31 Dose: 0.4 mg Valsartan (Diovan) 80 mg PO DAILY [facility] Venlafaxine HCl (Effexor Xr) 150 mg PO BID [facility] Last Admin: 12/19/16 08:33 Dose: 150 mg - Labs Labs: 12/16/16 05:00 12/16/16 05:00 Assessment and Plan (1) Syncope Status: Acute (2) Depression Status: Acute (3) Essential (primary) hypertension Status: Acute (4) Type 2 diabetes mellitus with diabetic chronic kidney disease Status: Acute
--- NOTE | 2016-12-19 15:15 | PN ---
ENDOCRINOLOGY FOLLOWUP NOTE LOCATION: Room #410. SUBJECTIVE: This is a 71-year-old male admitted with syncopal episode and now being followed closely for metabolic management. His glycemic values are much improved at this time and the latest glucose levels have ranged from 139 to 184 and 224 mg/dL, so at this time, we will continue the dual oral hypoglycemic drug therapy as given with Januvia given as 50 mg once daily and glipizide given as 10 mg b.i.d. before meals as ordered. We will titrate incrementally as indicated to optimize metabolic control. We will obtain serum chemistries and supplement accordingly as needed. We will follow. Caroline Garrett MD
[2016-12-20 08:09] LABS: HEMATOCRIT 37.3 % (35.0-51.0); MEAN CELL VOLUME 83.1 fl (80.0-94.0); MEAN CORPUSCULAR HEMOGLOBIN 27.5 pg (27.0-31.0); MEAN CORPUSCULAR HGB CONC 33.1 g/dL (33.0-37.0); RED CELL DISTRIBUTION WIDTH 14.8 % (11.5-14.5); WHITE BLOOD COUNT 7.7 K/uL (4.8-10.8)
[2016-12-20 08:18] LABS: BLOOD UREA NITROGEN 37 mg/dl (9-20); CALCIUM 9.2 mg/dL (8.4-10.2); CARBON DIOXIDE 27 mmol/L (22-30); CHLORIDE 102 mmol/L (98-107); GFR AFRICAN-AMERICAN > 60; GLUCOSE,RANDOM 173 mg/dL (75-110); POTASSIUM 4.7 MMOL/L (3.6-5.0); SODIUM 139 mmol/l (132-148)
[2016-12-20 08:41] VITALS: BMI 28.5
[2016-12-20] MEDS: Venlafaxine 150 mg ER Cap PO SCH ×2 (08:49→17:16)
[2016-12-20] MEDS: Insulin Regular 100 units/ml SC SCH ×4 (08:50→23:00)
[2016-12-20] MEDS: Enoxaparin 40 mg Syringe SC SCH (08:51)
--- NOTE | 2016-12-20 11:28 | CP.PCM.PN ---
Subjective - Date & Time of Evaluation Date of Evaluation: 12/20/16 Time of Evaluation: 10:00 - Subjective Subjective: because of persistent elevation of BP meds were readjusted BP after ambulation 151/78 Objective - Vital Signs/Intake and Output Vital Signs (last 24 hours): Temp Pulse Resp BP Pulse Ox 98.2 F 49 L 18 217/89 H 99 12/20/16 08:09 12/20/16 09:23 12/20/16 09:00 12/20/16 09:23 12/20/16 09:00 - Medications Medications: Current Medications Acetaminophen (Tylenol 325mg Tab) 650 mg PO Q4 PRN PRN Reason: Pain, moderate (4-7) Acetaminophen (Tylenol 325mg Tab) 650 mg PO Q4 PRN PRN Reason: Fever >100.4 F Atorvastatin Calcium (Lipitor) 20 mg PO HS [facility] Last Admin: 12/19/16 22:09 Dose: 20 mg Clonidine HCl (Catapres) 0.3 mg PO BID [facility] Last Admin: 12/20/16 09:23 Dose: 0.3 mg Enalapril Maleate (Vasotec) 10 mg PO Q12 [facility] Last Admin: 12/20/16 08:51 Dose: 10 mg Enoxaparin Sodium (Lovenox) 40 mg SC DAILY [facility] PRN Reason: Protocol Last Admin: 12/20/16 08:51 Dose: 40 mg Furosemide (Lasix) 40 mg PO DAILY [facility] Last Admin: 12/20/16 08:53 Dose: 40 mg Glipizide (Glucotrol) 5 mg PO BIDAC [facility] Last Admin: 12/20/16 08:50 Dose: 5 mg Insulin Human Regular (Humulin R) 0 units SC [facility] PRN Reason: Protocol Last Admin: 12/20/16 08:50 Dose: Not Given Sitagliptin Phosphate (Januvia) 50 mg PO ACB [facility] Last Admin: 12/20/16 08:51 Dose: 50 mg Tamsulosin HCl (Flomax) 0.4 mg PO DAILY [facility] Last Admin: 12/20/16 08:49 Dose: 0.4 mg Valsartan (Diovan) 160 mg PO DAILY [facility] Last Admin: 12/20/16 08:56 Dose: 160 mg Venlafaxine HCl (Effexor Xr) 150 mg PO BID [facility] Last Admin: 12/20/16 08:49 Dose: 150 mg - Labs Labs: 12/20/16 07:55 12/20/16 07:55 Assessment and Plan (1) Syncope Status: Acute (2) Depression Status: Acute (3) Essential (primary) hypertension Status: Acute (4) Type 2 diabetes mellitus with diabetic chronic kidney disease Status: Acute
--- NOTE | 2016-12-20 20:35 | PN ---
ENDOCRINOLOGY FOLLOWUP NOTE LOCATION: Room 410 DATE: 12/20/2016 SUBJECTIVE: This is a 71-year-old male admitted with a syncopal episode a month ago and neurological and cardiac workup at this time and is also being followed closely for metabolic management. His glycemic levels are fluctuating, but improved. LABORATORY DATA: The latest chemistry showed a BUN of 37, sodium 139, potassium 4.7, chloride 102, CO2 27, glucose 173, and creatinine 1.3. His glucose values are fluctuating and ranging from 162 to 242 mg/dL. ASSESSMENT AND PLAN: At this time, we will continue the Januvia giving 50 mg once daily as ordered. We will increase glipizide to 10 mg p.o. b.i.d. before meals as ordered. We will titrate incrementally as indicated to optimize metabolic control. We will also continue the low dose correction scale using regular insulin as given. We will titrate incrementally as indicated to optimize metabolic control. We will follow and advise accordingly. Caroline Garrett MD
[2016-12-21] MEDS: Insulin Regular 100 units/ml SC SCH ×4 (06:38→21:52)
[2016-12-21 07:23] LABS: HEMATOCRIT 38.5 % (35.0-51.0); MEAN CELL VOLUME 82.7 fl (80.0-94.0); MEAN CORPUSCULAR HEMOGLOBIN 27.3 pg (27.0-31.0); RED CELL DISTRIBUTION WIDTH 14.5 % (11.5-14.5); WHITE BLOOD COUNT 7.3 K/uL (4.8-10.8)
[2016-12-21 07:32] LABS: CALCIUM 9.3 mg/dL (8.4-10.2); POTASSIUM 4.9 MMOL/L (3.6-5.0)
[2016-12-21 07:43] LABS: T4 8.96 ug/dl (5.5-11.0)
[2016-12-21 07:56] LABS: THYROID STIMULATING HORMONE 3.9 mIU/ML (0.46-4.68)
--- NOTE | 2016-12-21 09:02 | CARD ---
APPROVED REPORT EKG Measurement Heart [id number] ME 216P9 [id number] <Conclusion> Sinus bradycardia with 1st degree AV block Voltage criteria for LVH Abnormal ECG
[2016-12-21] MEDS: Venlafaxine 150 mg ER Cap PO SCH ×2 (09:14→16:35)
[2016-12-21] MEDS: Enoxaparin 40 mg Syringe SC SCH (09:16)
--- NOTE | 2016-12-21 11:41 | CP.PCM.PN ---
Subjective - Date & Time of Evaluation Date of Evaluation: 12/21/16 Time of Evaluation: 11:00 - Subjective Subjective: feels wel c/o drainage from Left ear pt has Hx mastoiditis vasotec increased to 20mg BID will get ENT consult w/ DR Aj he has seen pt in the past Objective - Vital Signs/Intake and Output Vital Signs (last 24 hours): Temp Pulse Resp BP Pulse Ox 98.7 F 60 20 164/77 H 98 12/21/16 08:21 12/21/16 09:15 12/21/16 08:21 12/21/16 09:15 12/21/16 08:21 Intake and Output: 12/21/16 12/21/16 06:59 18:59 Intake Total 350 237 Balance 350 237 - Medications Medications: Current Medications Acetaminophen (Tylenol 325mg Tab) 650 mg PO Q4 PRN PRN Reason: Pain, moderate (4-7) Acetaminophen (Tylenol 325mg Tab) 650 mg PO Q4 PRN PRN Reason: Fever >100.4 F Atorvastatin Calcium (Lipitor) 20 mg PO HS [facility] Last Admin: 12/20/16 21:00 Dose: 20 mg Clonidine HCl (Catapres) 0.3 mg PO BID [facility] Last Admin: 12/21/16 09:15 Dose: 0.3 mg Enalapril Maleate (Vasotec) 20 mg PO Q12 [facility] Enoxaparin Sodium (Lovenox) 40 mg SC DAILY [facility] PRN Reason: Protocol Last Admin: 12/21/16 09:16 Dose: 40 mg Furosemide (Lasix) 40 mg PO DAILY [facility] Last Admin: 12/21/16 09:15 Dose: 40 mg Glipizide (Glucotrol) 10 mg PO BIDAC [facility] Last Admin: 12/21/16 09:14 Dose: 10 mg Insulin Human Regular (Humulin R) 0 units SC [facility] PRN Reason: Protocol Last Admin: 12/21/16 06:38 Dose: Not Given Sitagliptin Phosphate (Januvia) 50 mg PO ACB [facility] Last Admin: 12/21/16 09:13 Dose: 50 mg Tamsulosin HCl (Flomax) 0.4 mg PO DAILY [facility] Last Admin: 12/21/16 09:13 Dose: 0.4 mg Valsartan (Diovan) 160 mg PO DAILY [facility] Last Admin: 12/21/16 09:15 Dose: 160 mg Venlafaxine HCl (Effexor Xr) 150 mg PO BID [facility] Last Admin: 12/21/16 09:14 Dose: 150 mg - Labs Labs: 12/21/16 06:00 12/21/16 06:00 Assessment and Plan (1) Syncope Status: Acute (2) Depression Status: Acute (3) Essential (primary) hypertension Status: Acute (4) Type 2 diabetes mellitus with diabetic chronic kidney disease Status: Acute
--- NOTE | 2016-12-21 21:02 | PN ---
ENDO FOLLOWUP NOTE LOCATION: In room 410. SUBJECTIVE: This is a 71-year-old male with recent uncontrolled type 2 diabetes, presenting here with a syncopal episode and is now being followed closely for metabolic management. His oral intake remains variable at this time and the latest glucose values have improved as noted overnight. His glucose levels are ranging from 149 to 172 and 188 mg/dL. The latest chemistry showed a BUN of 37, sodium 139, potassium 4.9, chloride 102, CO2 of 30, glucose 149, and creatinine 1.6. So at this time, we will continue the dual oral hypoglycemic drug therapy as given with Januvia given as 50 mg once daily in the morning and glipizide given as 10 mg b.i.d. before meals as ordered. We will titrate incrementally as indicated to optimize metabolic control. We will follow and advise accordingly. Caroline Garrett MD
[2016-12-22] MEDS: Enoxaparin 40 mg Syringe SC SCH (09:15)
[2016-12-22] MEDS: Venlafaxine 150 mg ER Cap PO SCH ×2 (09:16→17:08)
[2016-12-22] MEDS: Insulin Regular 100 units/ml SC SCH ×4 (09:20→22:00)
--- NOTE | 2016-12-22 11:12 | CP.PCM.PN ---
Subjective - Date & Time of Evaluation Date of Evaluation: 12/22/16 Time of Evaluation: 10:00 - Subjective Subjective: feels well BP sl lower added norvasc 2.5mg daily Objective - Vital Signs/Intake and Output Vital Signs (last 24 hours): Temp Pulse Resp BP Pulse Ox 98.6 F 69 20 189/69 H 97 12/22/16 08:00 12/22/16 09:20 12/22/16 08:00 12/22/16 09:20 12/22/16 08:00 - Medications Medications: Current Medications Acetaminophen (Tylenol 325mg Tab) 650 mg PO Q4 PRN PRN Reason: Pain, moderate (4-7) Acetaminophen (Tylenol 325mg Tab) 650 mg PO Q4 PRN PRN Reason: Fever >100.4 F Amlodipine Besylate (Norvasc) 2.5 mg PO DAILY [facility] Last Admin: 12/22/16 09:20 Dose: 2.5 mg Atorvastatin Calcium (Lipitor) 20 mg PO HS [facility] Last Admin: 12/21/16 21:51 Dose: 20 mg Clonidine HCl (Catapres) 0.3 mg PO BID [facility] Last Admin: 12/22/16 09:16 Dose: 0.3 mg Enalapril Maleate (Vasotec) 20 mg PO Q12 [facility] Last Admin: 12/22/16 09:16 Dose: 20 mg Enoxaparin Sodium (Lovenox) 40 mg SC DAILY [facility] PRN Reason: Protocol Last Admin: 12/22/16 09:15 Dose: 40 mg Furosemide (Lasix) 40 mg PO DAILY [facility] Last Admin: 12/22/16 09:19 Dose: 40 mg Glipizide (Glucotrol) 10 mg PO BIDAC [facility] Last Admin: 12/22/16 09:15 Dose: 10 mg Insulin Human Regular (Humulin R) [address] [facility] PRN Reason: Protocol Last Admin: 12/22/16 09:20 Dose: Not Given Sitagliptin Phosphate (Januvia) 50 mg PO ACB [facility] Last Admin: 12/22/16 09:16 Dose: 50 mg Tamsulosin HCl (Flomax) 0.4 mg PO DAILY [facility] Last Admin: 12/22/16 09:16 Dose: 0.4 mg Valsartan (Diovan) 160 mg PO DAILY [facility] Last Admin: 12/22/16 09:15 Dose: 160 mg Venlafaxine HCl (Effexor Xr) 150 mg PO BID [facility] Last Admin: 12/22/16 09:16 Dose: 150 mg - Labs Labs: 12/21/16 06:00 12/21/16 06:00 Assessment and Plan (1) Syncope Status: Acute (2) Depression Status: Acute (3) Essential (primary) hypertension Status: Acute (4) Type 2 diabetes mellitus with diabetic chronic kidney disease Status: Acute
--- NOTE | 2016-12-22 16:04 | CP.PCM.PN ---
Subjective - Date & Time of Evaluation Date of Evaluation: 12/22/16 Time of Evaluation: 15:58 - Subjective Subjective: see below Objective - Vital Signs/Intake and Output Vital Signs (last 24 hours): Temp Pulse Resp BP Pulse Ox 97.8 F 69 20 176/89 H 96 12/22/16 12:00 12/22/16 12:00 12/22/16 12:00 12/22/16 12:00 12/22/16 12:00 - Medications Medications: Current Medications Acetaminophen (Tylenol 325mg Tab) 650 mg PO Q4 PRN PRN Reason: Pain, moderate (4-7) Acetaminophen (Tylenol 325mg Tab) 650 mg PO Q4 PRN PRN Reason: Fever >100.4 F Amlodipine Besylate (Norvasc) 2.5 mg PO DAILY [facility] Last Admin: 12/22/16 09:20 Dose: 2.5 mg Atorvastatin Calcium (Lipitor) 20 mg PO HS [facility] Last Admin: 12/21/16 21:51 Dose: 20 mg Clonidine HCl (Catapres) 0.3 mg PO BID [facility] Last Admin: 12/22/16 09:16 Dose: 0.3 mg Enalapril Maleate (Vasotec) 20 mg PO Q12 [facility] Last Admin: 12/22/16 09:16 Dose: 20 mg Enoxaparin Sodium (Lovenox) 40 mg SC DAILY [facility] PRN Reason: Protocol Last Admin: 12/22/16 09:15 Dose: 40 mg Furosemide (Lasix) 40 mg PO DAILY [facility] Last Admin: 12/22/16 09:19 Dose: 40 mg Glipizide (Glucotrol) 10 mg PO BIDAC [facility] Last Admin: 12/22/16 09:15 Dose: 10 mg Insulin Human Regular (Humulin R) 0 units SC [facility] PRN Reason: Protocol Last Admin: 12/22/16 13:25 Dose: Not Given Sitagliptin Phosphate (Januvia) 50 mg PO ACB [facility] Last Admin: 12/22/16 09:16 Dose: 50 mg Tamsulosin HCl (Flomax) 0.4 mg PO DAILY [facility] Last Admin: 12/22/16 09:16 Dose: 0.4 mg Valsartan (Diovan) 160 mg PO DAILY [facility] Last Admin: 12/22/16 09:15 Dose: 160 mg Venlafaxine HCl (Effexor Xr) 150 mg PO BID [facility] Last Admin: 12/22/16 09:16 Dose: 150 mg - Labs Labs: 12/21/16 06:00 12/21/16 06:00 Assessment and Plan - Assessment and Plan (Free Text) Assessment: Chief Complaint ear discomfort History of Present Illness 71 y/o male known to me now admitted with sncope and uncontrolled HTN. I am asked to see him for evaluation of left ear discomfort for one week. Past Medical History Allergies NKDA Exam awake, alert ,comfortable left auricle normal; lobule deformed from prior piercing left EAC narrow (baseline anatomy) face symmetric
--- NOTE | 2016-12-22 21:51 | PN ---
ENDO FOLLOWUP NOTE LOCATION: In room 418. This is a 71-year-old male with recent uncontrolled type 2 diabetes, now being followed closely for metabolic management. His glycemic levels are fluctuating, but much improved at this time and the latest glucose levels have ranged from 120 to 192 and 213 mg/dL. His latest chemistry showed a BUN of 37, sodium 139, potassium 4.9, chloride 102, CO2 of 30, glucose 149 and creatinine 1.6. So at this time, we will continue the dual oral hypoglycemic drug therapy as given with Januvia given as 50 mg once daily and glipizide given as 10 mg b.i.d. as ordered. We will titrate incrementally as indicated to optimize metabolic control. We will obtain serial chemistries and supplement accordingly needed. We will follow. Caroline Garrett MD
[2016-12-23 05:55] LABS: BLOOD UREA NITROGEN 38 mg/dl (9-20); CALCIUM 8.7 mg/dL (8.4-10.2); CARBON DIOXIDE 25 mmol/L (22-30); CHLORIDE 105 mmol/L (98-107); GFR AFRICAN-AMERICAN > 60; GLUCOSE,RANDOM 144 mg/dL (75-110); POTASSIUM 4.3 MMOL/L (3.6-5.0); SODIUM 138 mmol/l (132-148)
[2016-12-23] MEDS: Insulin Regular 100 units/ml SC SCH ×4 (06:56→22:59)
[2016-12-23] MEDS: Venlafaxine 150 mg ER Cap PO SCH ×2 (08:26→17:13)
[2016-12-23] MEDS: Enoxaparin 40 mg Syringe SC SCH (08:27)
--- NOTE | 2016-12-23 11:20 | CP.PCM.PN ---
Subjective - Date & Time of Evaluation Date of Evaluation: 12/23/16 Time of Evaluation: 10:00 - Subjective Subjective: Less dizzy ambulates w/ assistance DR Aj's note apprec Systolic BP ~ 190 will increase Norvasc Objective - Vital Signs/Intake and Output Vital Signs (last 24 hours): Temp Pulse Resp BP Pulse Ox 98.2 F 61 18 193/76 H 99 12/23/16 08:01 12/23/16 08:28 12/23/16 08:01 12/23/16 08:28 12/23/16 08:01 - Medications Medications: Current Medications Acetaminophen (Tylenol 325mg Tab) 650 mg PO Q4 PRN PRN Reason: Pain, moderate (4-7) Acetaminophen (Tylenol 325mg Tab) 650 mg PO Q4 PRN PRN Reason: Fever >100.4 F Amlodipine Besylate (Norvasc) 5 mg PO DAILY [facility] Atorvastatin Calcium (Lipitor) 20 mg PO HS [facility] Last Admin: 12/22/16 21:35 Dose: 20 mg Clonidine HCl (Catapres) 0.3 mg PO BID [facility] Last Admin: 12/23/16 08:27 Dose: 0.3 mg Enalapril Maleate (Vasotec) 20 mg PO Q12 [facility] Last Admin: 12/23/16 08:28 Dose: 20 mg Enoxaparin Sodium (Lovenox) 40 mg SC DAILY [facility] PRN Reason: Protocol Last Admin: 12/23/16 08:27 Dose: 40 mg Furosemide (Lasix) 40 mg PO DAILY [facility] Last Admin: 12/23/16 08:27 Dose: 40 mg Glipizide (Glucotrol) 10 mg PO BIDAC [facility] Last Admin: 12/23/16 08:26 Dose: 10 mg Insulin Human Regular (Humulin R) 0 units SC [facility] PRN Reason: Protocol Last Admin: 12/23/16 06:56 Dose: Not Given Sitagliptin Phosphate (Januvia) 50 mg PO ACB [facility] Last Admin: 12/23/16 08:27 Dose: 50 mg Tamsulosin HCl (Flomax) 0.4 mg PO DAILY [facility] Last Admin: 12/23/16 08:26 Dose: 0.4 mg Valsartan (Diovan) 160 mg PO DAILY [facility] Last Admin: 12/23/16 08:28 Dose: 160 mg Venlafaxine HCl (Effexor Xr) 150 mg PO BID [facility] Last Admin: 12/23/16 08:26 Dose: 150 mg - Labs Labs: 12/21/16 06:00 12/23/16 04:45 Assessment and Plan (1) Syncope Status: Acute (2) Depression Status: Acute (3) Essential (primary) hypertension Status: Acute (4) Type 2 diabetes mellitus with diabetic chronic kidney disease Status: Acute
--- NOTE | 2016-12-23 12:36 | US ---
PROCEDURE: Ultrasound of the Kidneys with duplex Doppler evaluation HISTORY: r/o MARY ALICE COMPARISON: None available. TECHNIQUE: Sonogram of the kidneys. FINDINGS: RIGHT KIDNEY: Measures: 11.3 cm. Normal in size, contour and echogenicity. Septated lower pole cortical cyst, 3.2 x 5.5 x 5.5 cm. Multiple additional cysts are noted. There is a mid renal cortical cyst, exophytic, measuring 2.0 by 1.5 by 1.0 cm. There is a 2nd exophytic mid renal cortical cyst, 2.3 x 1.3 x 1.5 cm. There is a parapelvic cyst measuring 1 point 1 x 1.2 x 1.1 cm. There is no solid mass. There is no calculus or hydronephrosis. LEFT KIDNEY: Measures: 11.8 cm. Normal in size, contour and echogenicity. No stone, solid mass lesion or hydronephrosis visualized. OTHER FINDINGS: Peak aortic systolic velocity: 76.5 cm/sec Measurements of the peak systolic renal artery velocity are as follows: Right renal artery: Proximal: 156.9 cm/sec Mid: 108.1 Distal: 108.1 Renal/aortic ratio: 2.1 Left renal artery: Proximal: 102.1 cm/sec Mid: 142.3 cm/sec Distal: 99.5 Renal/aortic ratio: 1.9 Please note that the renal artery waveforms are normal in appearance bilaterally. IMPRESSION: No sonographic evidence of renal arterial stenosis bilaterally.
--- NOTE | 2016-12-23 13:24 | CP.PCM.CON ---
History of Present Illness - History of Present Illness History of Present Illness: Psychiatry consult called to evaluate for depression CC: "They are trying to control my blood pressure." HPI: 71yo male, pmhx of type 2 DM, depression, chronic renal disease, htn, admitted s/p syncopal episode. Patient reports a history of depression but denies currently feeling depressed. He denies anxiety. He reports normal appetite. He denies paranoia/delusions/hallucinations/roxanna/obsession/ compulsions. Denies suicidal ideation/plan/intent. Denies HI. PMHx: DM, HTN, chronic renal disease, depression, h/o CVA PPHx: Denies h/o psychiatric admissions or suicide attempts. Reports a history of depression several years ago and did not recall when he was started on Effexor. ALL: NKDA SHx: Lives w/ his daughter. 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 Former smoker, denies drugs/ etoh. FHx: Denies family h/o mental illness MSE: A+ O x 3, calm/cooperative, speech normal, +many tattoos on his body, including over his eyelids, mood/affect-neutral, patient told jokes frequently during the interview, no hallucinations, thought process- linear/coherent, thought content- no delusions, no SI/HI, I/J fair, impulse control good, psychomotor normal. Impression: 71 yo male w/ history of DM, HTN, Chronic renal disease, h/o depression, currently psychiatrically stable. -Continue Effexor at current dosage for depression -No acute inpatient psychiatric admission indicated Past Patient History - Past Medical History & Family History Past Medical History?: Yes - Past Social History Smoking Status: Former Smoker Alcohol: None Drugs: Denies - CARDIAC Hx Hypertension: Yes - PULMONARY Hx Respiratory Disorders: No - NEUROLOGICAL Hx Neurological Disorder: Yes Hx Syncope: Yes - HEENT Hx HEENT Problems: Yes (mastoiditis) Hx Sinusitis: Yes - RENAL Hx Chronic Kidney Disease: Yes - ENDOCRINE/METABOLIC Hx Endocrine Disorders: Yes Hx Diabetes Mellitus Type 2: Yes - HEMATOLOGICAL/ONCOLOGICAL Hx Blood Disorders: No - INTEGUMENTARY Hx Dermatological Problems: No - MUSCULOSKELETAL/RHEUMATOLOGICAL Hx Musculoskeletal Disorders: Yes Hx Falls: Yes - GASTROINTESTINAL Hx Gastrointestinal Disorders: No - GENITOURINARY/GYNECOLOGICAL Hx Genitourinary Disorders: Yes Hx Prostate Problems: Yes - PSYCHIATRIC Hx Psychophysiologic Disorder: Yes Hx Depression: Yes Hx Substance Use: No - SURGICAL HISTORY Hx Surgeries: No - ANESTHESIA Hx Anesthesia: Yes Hx Anesthesia Reactions: No Hx Malignant Hyperthermia: No Meds Allergies/Adverse Reactions: Allergies Allergy/AdvReac Type Severity Reaction Status Date / Time No Known Allergies Allergy Verified 03/22/16 16:40 - Medications Medications: Current Medications Acetaminophen (Tylenol 325mg Tab) 650 mg PO Q4 PRN PRN Reason: Pain, moderate (4-7) Acetaminophen (Tylenol 325mg Tab) 650 mg PO Q4 PRN PRN Reason: Fever >100.4 F Amlodipine Besylate (Norvasc) 5 mg PO DAILY [facility] Atorvastatin Calcium (Lipitor) 20 mg PO HS [facility] Last Admin: 12/22/16 21:35 Dose: 20 mg Clonidine HCl (Catapres) 0.3 mg PO BID [facility] Last Admin: 12/23/16 08:27 Dose: 0.3 mg Enalapril Maleate (Vasotec) 20 mg PO Q12 [facility] Last Admin: 12/23/16 08:28 Dose: 20 mg Enoxaparin Sodium (Lovenox) 40 mg SC DAILY [facility] PRN Reason: Protocol Last Admin: 12/23/16 08:27 Dose: 40 mg Furosemide (Lasix) 40 mg PO DAILY [facility] Last Admin: 12/23/16 08:27 Dose: 40 mg Glipizide (Glucotrol) 10 mg PO BIDAC [facility] Last Admin: 12/23/16 08:26 Dose: 10 mg Insulin Human Regular (Humulin R) 0 units SC [facility] PRN Reason: Protocol Last Admin: 12/23/16 06:56 Dose: Not Given Sitagliptin Phosphate (Januvia) 50 mg PO ACB [facility] Last Admin: 12/23/16 08:27 Dose: 50 mg Tamsulosin HCl (Flomax) 0.4 mg PO DAILY [facility] Last Admin: 12/23/16 08:26 Dose: 0.4 mg Valsartan (Diovan) 160 mg PO DAILY [facility] Last Admin: 12/23/16 08:28 Dose: 160 mg Venlafaxine HCl (Effexor Xr) 150 mg PO BID [facility] Last Admin: 12/23/16 08:26 Dose: 150 mg Results - Vital Signs Recent Vital Signs: Last Vital Signs Temp 97.4 F L 12/23/16 12:07 Pulse 59 L 12/23/16 12:07 Resp 18 12/23/16 12:07 BP 134/78 12/23/16 12:07 Pulse Ox 99 12/23/16 12:07 - Labs Result Diagrams: 12/21/16 06:00 12/23/16 04:45 Labs: Laboratory Results - last 24 hr 12/22/16 12/22/16 12/23/16 15:59 21:30 04:45 Sodium 138 Potassium 4.3 Chloride 105 Carbon Dioxide 25 Anion Gap 13 BUN 38 H Creatinine 1.4 Est GFR ( Amer) > 60 Est GFR (Non-Af Amer) 50 POC Glucose (mg/dL) 192 H 196 H Random Glucose 144 H Calcium 8.7 12/23/16 12/23/16 05:03 11:43 Sodium Potassium Chloride Carbon Dioxide Anion Gap BUN Creatinine Est GFR ( Amer) Est GFR (Non-Af Amer) POC Glucose (mg/dL) 129 H 233 H Random Glucose Calcium
--- NOTE | 2016-12-24 01:29 | PN ---
ENDOCRINOLOGY FOLLOWUP NOTE DATE: LOCATION: Room 418. This is a 71-year-old male with recent uncontrolled type 2 diabetes presenting here with syncope and undergoing cardiac workup and management as noted and is now being followed closely also for metabolic management. His glycemic levels are fluctuating, but improved. The latest glucose levels have ranged from 129 to 233 mg/dL. His latest chemistries include a BUN of 38, sodium 138, potassium 4.3, chloride 105, CO2 of 25, glucose 144, and creatinine 1.4, so at this time we will continue dual-oral hypoglycemic drug therapy as given with Januvia, given as 50 mg once daily and glipizide given as 10 mg b.i.d. before meals as ordered. We will titrate incrementally as indicated to optimize metabolic control. We will also obtain serial chemistry and supplement accordingly as needed. We will follow. Caroline Garrett MD
[2016-12-24] MEDS: Insulin Regular 100 units/ml SC SCH ×4 (06:44→22:02)
[2016-12-24] MEDS: Enoxaparin 40 mg Syringe SC SCH (09:12)
[2016-12-24] MEDS: Venlafaxine 150 mg ER Cap PO SCH ×2 (09:14→16:31)
--- NOTE | 2016-12-24 11:37 | CP.PCM.PN ---
Subjective - Date & Time of Evaluation Date of Evaluation: 12/24/16 Time of Evaluation: 11:00 - Subjective Subjective: no complaints Renal US: no renal artery stenosis BP: 185/76 will increase Norvasc to 10 md daily will transfer to [facility]-surg Objective - Vital Signs/Intake and Output Vital Signs (last 24 hours): Temp Pulse Resp BP Pulse Ox 97.7 F 60 18 185/76 H 97 12/24/16 08:00 12/24/16 09:13 12/24/16 08:00 12/24/16 09:15 12/24/16 08:00 - Medications Medications: Current Medications Acetaminophen (Tylenol 325mg Tab) 650 mg PO Q4 PRN PRN Reason: Pain, moderate (4-7) Acetaminophen (Tylenol 325mg Tab) 650 mg PO Q4 PRN PRN Reason: Fever >100.4 F Amlodipine Besylate (Norvasc) 5 mg PO DAILY [facility] Last Admin: 12/24/16 09:13 Dose: 5 mg Atorvastatin Calcium (Lipitor) 20 mg PO HS [facility] Last Admin: 12/23/16 21:23 Dose: 20 mg Clonidine HCl (Catapres) 0.3 mg PO BID [facility] Last Admin: 12/24/16 09:13 Dose: 0.3 mg Enalapril Maleate (Vasotec) 20 mg PO Q12 [facility] Last Admin: 12/24/16 09:13 Dose: 20 mg Enoxaparin Sodium (Lovenox) 40 mg SC DAILY [facility] PRN Reason: Protocol Last Admin: 12/24/16 09:12 Dose: 40 mg Furosemide (Lasix) 40 mg PO DAILY [facility] Last Admin: 12/24/16 09:15 Dose: 40 mg Glipizide (Glucotrol) 10 mg PO BIDAC [facility] Last Admin: 12/24/16 09:14 Dose: 10 mg Insulin Human Regular (Humulin R) 0 units SC [facility] PRN Reason: Protocol Last Admin: 12/24/16 06:44 Dose: Not Given Sitagliptin Phosphate (Januvia) 50 mg PO ACB [facility] Last Admin: 12/24/16 09:13 Dose: 50 mg Tamsulosin HCl (Flomax) 0.4 mg PO DAILY [facility] Last Admin: 12/24/16 09:14 Dose: 0.4 mg Valsartan (Diovan) 160 mg PO DAILY [facility] Last Admin: 12/24/16 09:14 Dose: 160 mg Venlafaxine HCl (Effexor Xr) 150 mg PO BID [facility] Last Admin: 12/24/16 09:14 Dose: 150 mg - Labs Labs: 12/21/16 06:00 12/23/16 04:45 Assessment and Plan (1) Syncope Status: Acute (2) Depression Status: Acute (3) Essential (primary) hypertension Status: Acute (4) Type 2 diabetes mellitus with diabetic chronic kidney disease Status: Acute
--- NOTE | 2016-12-24 15:30 | PQF GENQUE ---
Dr. Cooley, Please clarify the stage of the chronic kidney disease: Stage 1 Stage 2 (mild) Stage 3 (moderate) Stage 4 (severe) Stage 5 Other (please specify) Clinically unable to determine Unknown This form is a permanent part of the medical record Clarification of your documentation is requested to better reflect the severity of illness and intensity of treatment of your patient. Indicators present [] Specify: [] [] Specify: [] [] Specify: [] [] Specify: [] Location in the medical record that reflects the above clinical findings: [] Treatment Provided: [] PHYSICIAN'S RESPONSE Based on your medical judgment of the clinical indicators outlined above please clarify the following: [x] Practitioner response [] If unable to determine, please check the box, sign and date. Present On Admission (POA) Indicator: Stage 1 [] Present at the time of admission [] Not present at the time of admission [] Clinically Undetermined In responding to this query, please exercise your independent professional judgment. The fact that a question is asked does not imply that any particular answer is desired or expected. Thank you for your clarification on this documentation. If you have any questions please call. * Thank you, Chiqui Zuniga RN BSN ext. #[phone]: Valentine RAYA
--- NOTE | 2016-12-25 01:34 | PN ---
ENDO FOLLOWUP NOTE DATE: LOCATION: Room 418. SUBJECTIVE: This is a 71-year-old male with recent uncontrolled type 2 diabetes now being followed closely for metabolic management. His glycemic levels are fluctuating, but improved and the latest glucose levels have ranged from 164 to 184 and 293 mg/dL. His glucose level was 78 early this afternoon as noted. The latest glucose now at bedtime is 239 mg/dL. So, at this time, we will continue the dual oral hypoglycemic drug therapy as given with Januvia given as 50 mg once daily and Glucotrol given as 10 mg p.o. b.i.d. before meals as ordered. We will titrate incrementally as indicated to optimize metabolic control. We will follow and advise accordingly. Caroline Garrett MD
[2016-12-25] MEDS: Insulin Regular 100 units/ml SC SCH ×4 (06:47→21:30)
[2016-12-25] MEDS: Venlafaxine 150 mg ER Cap PO SCH ×2 (08:30→17:05)
[2016-12-25] MEDS ORDERED: Influenza Vaccine 18yr & older 0.5 ML/45 MCG SYR IM ONE (11:10)
--- NOTE | 2016-12-25 20:38 | PN ---
ENDO FOLLOWUP NOTE DATE: LOCATION: Room 664. HISTORY: This is a 71-year-old male with recent uncontrolled type 2 diabetes, now being followed closely for metabolic management. His glycemic levels are fluctuating but much improved at this time and his oral intake although quite variable, remains suboptimal as per the nursing staff. His latest glucose levels have ranged from 105 to 183 and 320 mg/dl. It was 148 fasting glucose this morning as noted. The latest chemistry showed a BUN of 38, sodium 138, potassium 4.3, chloride 105, CO2 of 25, glucose 144 and creatinine 1.4. PLAN: So at this time, we will continue the dual oral hypoglycemic drug therapy as given with glipizide given as 10 mg b.i.d. before meals as ordered with Januvia given as 50 mg once daily as given. We will titrate incrementally as indicated to optimize metabolic control. We will follow and advise accordingly. Caroline Garrett MD
[2016-12-26 07:11] LABS: BASO % 0.4 % (0.0-2.0); EOS # 0.2 K/uL (0.0-0.7); EOS % 3.5 % (0.0-4.0); HEMATOCRIT 38.2 % (35.0-51.0); LYMPH # 1.5 K/uL (1.0-4.3); LYMPH % 21.6 % (20.0-40.0); MEAN CELL VOLUME 82.6 fl (80.0-94.0); MEAN CORPUSCULAR HEMOGLOBIN 27.7 pg (27.0-31.0); MEAN CORPUSCULAR HGB CONC 33.5 g/dL (33.0-37.0); MEAN PLATELET VOLUME 7.5 fl (7.2-11.7); MONO # 0.7 K/uL (0.0-0.8); MONO % 10.7 % (0.0-10.0); NEUT # 4.4 K/uL (1.8-7.0); NEUT % 63.8 % (50.0-75.0); RED CELL DISTRIBUTION WIDTH 14.7 % (11.5-14.5); WHITE BLOOD COUNT 6.9 K/uL (4.8-10.8)
[2016-12-26 07:21] LABS: ALB/GLOB RATIO 1.4 (1.0-2.1); ALKALINE PHOSPHATASE 64 U/L (38-126); ALT/SGPT 29 U/L (21-72); AST/SGOT 19 U/L (17-59); BILIRUBIN,TOTAL 0.4 mg/dl (0.2-1.3); BLOOD UREA NITROGEN 35 mg/dl (9-20); CALCIUM 8.8 mg/dL (8.4-10.2); CARBON DIOXIDE 25 mmol/L (22-30); CHLORIDE 101 mmol/L (98-107); GFR AFRICAN-AMERICAN > 60; GLUCOSE,RANDOM 169 mg/dL (75-110); POTASSIUM 4.5 MMOL/L (3.6-5.0); SODIUM 137 mmol/l (132-148); TOTAL PROTEIN 6.2 G/DL (6.3-8.2)
[2016-12-26] MEDS: Insulin Regular 100 units/ml SC SCH ×4 (08:54→22:13)
[2016-12-26] MEDS: Venlafaxine 150 mg ER Cap PO SCH ×2 (08:55→16:34)
[2016-12-26 11:49] LABS: METANEPHRINES <25 pg/mL (<=57); TOTAL METANEPHRINES 44 pg/mL (<=205)
[2016-12-26 15:14] LABS: ALDO/PRA RATIO 27.3 Ratio (0.9-28.9)
[2016-12-27 07:31] VITALS: BP 177/67; PULSE 53; RESP 20; TEMP 97.9; O2SAT 94
--- NOTE | 2016-12-27 08:21 | PN ---
DATE: ENDO FOLLOWUP NOTE LOCATION: Room 664. This is a 71-year-old male presenting here with syncope and now undergoing neurological workup at this time and is also being followed closely for metabolic management. He also has extremes of glycemic fluctuations also related to the variability of his oral intake as noted. The glucose levels today have ranged from 186 to 195 mg/dL. The latest chemistry showed a BUN of 35, sodium 137, potassium 4.5, chloride 101, CO2 is 25, glucose 169 and creatinine 1.3. So at this time, we will continue the dual oral hypoglycemic drug therapy as given with Januvia given at 50 mg once daily and glipizide given as 10 mg b.i.d. before meals as ordered. We will titrate incrementally as indicated to optimize metabolic control. We will follow and advise accordingly. Caroline Garrett MD
[2016-12-27] MEDS: Venlafaxine 150 mg ER Cap PO SCH (08:44)
[2016-12-27] MEDS: Insulin Regular 100 units/ml SC SCH ×2 (08:46→11:14)
[2016-12-27] MEDS ORDERED: Enoxaparin 40 mg Syringe SC SCH (09:45)
--- NOTE | 2016-12-27 11:21 | CP.PCM.PN ---
Subjective - Date & Time of Evaluation Date of Evaluation: 12/27/16 Time of Evaluation: 10:00 - Subjective Subjective: fells well BP systolic 177 will increase Diovan to 320mg daily candidate for TCU? Objective - Vital Signs/Intake and Output Vital Signs (last 24 hours): Temp Pulse Resp BP Pulse Ox 97.9 F 53 L 20 177/67 H 94 L 12/27/16 07:30 12/27/16 07:30 12/27/16 07:30 12/27/16 08:45 12/27/16 07:30 - Medications Medications: Current Medications Acetaminophen (Tylenol 325mg Tab) 650 mg PO Q4 PRN PRN Reason: Pain, moderate (4-7) Acetaminophen (Tylenol 325mg Tab) 650 mg PO Q4 PRN PRN Reason: Fever >100.4 F Amlodipine Besylate (Norvasc) 10 mg PO DAILY [facility] Last Admin: 12/27/16 08:46 Dose: 10 mg Atorvastatin Calcium (Lipitor) 20 mg PO HS [facility] Last Admin: 12/26/16 22:14 Dose: 20 mg Clonidine HCl (Catapres) 0.3 mg PO BID [facility] Last Admin: 12/27/16 08:45 Dose: 0.3 mg Enalapril Maleate (Vasotec) 20 mg PO Q12 [facility] Last Admin: 12/27/16 08:44 Dose: 20 mg Enoxaparin Sodium (Lovenox) 40 mg SC DAILY [facility] PRN Reason: Protocol Furosemide (Lasix) 40 mg PO DAILY [facility] Last Admin: 12/27/16 08:45 Dose: 40 mg Glipizide (Glucotrol) 10 mg PO BIDAC [facility] Last Admin: 12/27/16 08:45 Dose: 10 mg Insulin Human Regular (Humulin R) 0 units SC [facility] PRN Reason: Protocol Last Admin: 12/27/16 11:14 Dose: Not Given Sitagliptin Phosphate (Januvia) 50 mg PO ACB [facility] Last Admin: 12/27/16 08:45 Dose: 50 mg Tamsulosin HCl (Flomax) 0.4 mg PO DAILY [facility] Last Admin: 12/27/16 08:44 Dose: 0.4 mg Venlafaxine HCl (Effexor Xr) 150 mg PO BID [facility] Last Admin: 12/27/16 08:44 Dose: 150 mg - Labs Labs: 12/26/16 06:00 12/26/16 07:00 Assessment and Plan (1) Syncope Status: Acute (2) Depression Status: Acute (3) Essential (primary) hypertension Status: Acute (4) Type 2 diabetes mellitus with diabetic chronic kidney disease Status: Acute
--- NOTE | 2016-12-27 16:50 | PN ---
DATE: ENDO FOLLOWUP NOTE In room 664. SUBJECTIVE: This is a 71-year-old male admitted here with syncope and currently being followed closely by cardiology and neurology at this time and is also being followed closely for metabolic management because of recent hyperglycemic accelerations as noted thereof. His latest chemistries at this time showed a BUN of 35, sodium 137, potassium 4.5, chloride 101, CO2 of 25, glucose 169 and creatinine 1.3. His glucose levels have ranged from 161-192 and 238 mg/dL. Because of the variability of his oral intake, we will continue the same dual oral hypoglycemic drug therapy as given with glipizide given as 10 mg b.i.d. and Januvia as 50 mg once daily as ordered. We will titrate incremental as indicated, optimize metabolic control. We will follow and advise accordingly. Caroline Garrett MD
--- NOTE | 2016-12-28 10:15 | PQF GENQUE ---
Dr. Cooley pt was admitted for syncope. If known what is the cause or source ? This form is a permanent part of the medical record Clarification of your documentation is requested to better reflect the severity of illness and intensity of treatment of your patient. Indicators present [] Specify: [] [] Specify: [] [] Specify: [] [] Specify: [] Location in the medical record that reflects the above clinical findings: [] Treatment Provided: [] PHYSICIAN'S RESPONSE Based on your medical judgment of the clinical indicators outlined above please clarify the following: [x] Practitioner response Syncope secondary to elevated BS [] If unable to determine, please check the box, sign and date. Present On Admission (POA) Indicator: [] Present at the time of admission [] Not present at the time of admission [] Clinically Undetermined In responding to this query, please exercise your independent professional judgment. The fact that a question is asked does not imply that any particular answer is desired or expected. Thank you for your clarification on this documentation. If you have any questions please call:[ ] * Thank you, [ ]Darcy [facility] [employer] information [employer] supervisor [place]
--- NOTE | 2016-12-28 10:55 | CP.PCM.DIS ---
Provider - Provider Date of Admission: 12/13/16 21:49 Attending physician: Rohan Cooley MD Time Spent in preparation of Discharge (in minutes): 50 Diagnosis - Discharge Diagnosis (1) Syncope Status: Acute (2) Depression Status: Acute (3) Essential (primary) hypertension Status: Acute (4) Type 2 diabetes mellitus with diabetic chronic kidney disease Status: Acute Hospital Course - Lab Results Lab Results: Micro Results 12/14/16 16:05 Urine,Clean Catch Urine Culture - Final No Growth (<1,000 CFU/ML) Most Recent Lab Values WBC 6.9 K/uL (4.8-10.8) 12/26/16 06:00 RBC 4.62 Mil/uL (4.40-5.90) 12/26/16 06:00 Hgb 12.8 g/dL (12.0-18.0) 12/26/16 06:00 Hct 38.2 % (35.0-51.0) 12/26/16 06:00 MCV 82.6 fl (80.0-94.0) 12/26/16 06:00 MCH 27.7 pg (27.0-31.0) 12/26/16 06:00 MCHC 33.5 g/dL (33.0-37.0) 12/26/16 06:00 RDW 14.7 % (11.5-14.5) H 12/26/16 06:00 Plt Count 268 K/uL (130-400) 12/26/16 06:00 MPV 7.5 fl (7.2-11.7) 12/26/16 06:00 Neut % (Auto) 63.8 % (50.0-75.0) 12/26/16 06:00 Lymph % (Auto) 21.6 % (20.0-40.0) 12/26/16 06:00 [place] % (Auto) 10.7 % (0.0-10.0) H 12/26/16 06:00 Eos % (Auto) 3.5 % (0.0-4.0) 12/26/16 06:00 Baso % (Auto) 0.4 % (0.0-2.0) 12/26/16 06:00 Neut # 4.4 K/uL (1.8-7.0) 12/26/16 06:00 Lymph # 1.5 K/uL (1.0-4.3) 12/26/16 06:00 [place] # 0.7 K/uL (0.0-0.8) 12/26/16 06:00 Eos # 0.2 K/uL (0.0-0.7) 12/26/16 06:00 Baso # 0.0 K/uL (0.0-0.2) 12/26/16 06:00 Neutrophils % (Manual) 86 % (42-75) H 12/13/16 20:12 Lymphocytes % (Manual) 8 % (20-50) L 12/13/16 20:12 Monocytes % (Manual) 6 % (0-10) 12/13/16 20:12 Platelet Estimate Normal (NORMAL) 12/13/16 20:12 pO2 40 mm/Hg (30-55) 12/13/16 21:32 VBG pH 7.39 (7.32-7.43) 12/13/16 21:32 VBG pCO2 42 mmHg (40-60) 12/13/16 21:32 VBG HCO3 24.5 mmol/L 12/13/16 21:32 VBG Total CO2 26.7 mmol/L (22-28) 12/13/16 21:32 VBG O2 Sat (Calc) 80.8 % (40-65) H 12/13/16 21:32 VBG Base Excess 0.3 mmol/L (0.0-2.0) 12/13/16 21:32 VBG Potassium 3.8 mmol/L (3.6-5.2) 12/13/16 21:32 Sodium 140.0 mmol/L (132-148) 12/13/16 21:32 Chloride 108.0 mmol/L (98-107) H 12/13/16 21:32 Glucose 131 mg/dL (75-110) H 12/13/16 21:32 Lactate 2.8 mmol/L (0.7-2.1) H 12/13/16 21:32 FiO2 21.0 % 12/13/16 21:32 Blood Gas Comments Lactate 2.8 12/13/16 21:32 Crit Value Called To marilu Ovalle 12/13/16 21:32 Crit Value Called By Barber 12/13/16 21:32 Crit Value Read Back Y 12/13/16 21:32 Blood Gas Notified Time 213812/13/16 21:32 Sodium 137 mmol/l (132-148) 12/26/16 07:00 Potassium 4.5 MMOL/L (3.6-5.0) 12/26/16 07:00 Chloride 101 mmol/L (98-107) 12/26/16 07:00 Carbon Dioxide 25 mmol/L (22-30) 12/26/16 07:00 Anion Gap 15 (10-20) 12/26/16 07:00 BUN 35 mg/dl (9-20) H 12/26/16 07:00 Creatinine 1.3 mg/dL (0.8-1.5) 12/26/16 07:00 Est GFR ( Amer) > 60 12/26/16 07:00 Est GFR (Non-Af Amer) 54 12/26/16 07:00 POC Glucose (mg/dL) 238 mg/dL (65-110) H 12/27/16 10:41 Random Glucose 169 mg/dL (75-110) H 12/26/16 07:00 Hemoglobin A1c 6.9 % (4.2-6.5) H D 12/14/16 12:10 Lactic Acid 1.5 MMOL/L (0.7-2.1) 12/15/16 10:30 Calcium 8.8 mg/dL (8.4-10.2) 12/26/16 07:00 Total Bilirubin 0.4 mg/dl (0.2-1.3) 12/26/16 07:00 AST 19 U/L (17-59) 12/26/16 07:00 ALT 29 U/L (21-72) 12/26/16 07:00 Alkaline Phosphatase 64 U/L (38-126) 12/26/16 07:00 Troponin I < 0.0120 ng/mL (0.00-0.120) 12/13/16 20:12 Total Protein 6.2 G/DL (6.3-8.2) L 12/26/16 07:00 Albumin 3.6 g/dL (3.5-5.0) 12/26/16 07:00 Globulin 2.6 gm/dL (2.2-3.9) 12/26/16 07:00 Albumin/Globulin Ratio 1.4 (1.0-2.1) 12/26/16 07:00 Triglycerides 173 mg/DL (0-149) H 12/16/16 05:00 Cholesterol 235 mg/dL (0-199) H 12/16/16 05:00 LDL Cholesterol Direct 142 mg/dL (0-129) H 12/16/16 05:00 HDL Cholesterol 43 MG/DL (30-70) 12/16/16 05:00 Renin 0.22 ng/mL/h (0.25-5.82) L 12/23/16 08:56 Aldosterone 6 ng/dL 12/23/16 08:56 Aldosterone/Renin Ratio 27.3 Ratio (0.9-28.9) 12/23/16 08:56 Thyroxine (T4) 8.96 ug/dl (5.5-11.0) 12/21/16 06:00 Total T3 1.04 nmol/L (1.49-2.60) L 12/21/16 06:00 TSH 3rd Generation 3.90 mIU/ML (0.46-4.68) 12/21/16 06:00 PTH Intact Whole Molec 58 pg/mL (14-64) 12/23/16 08:43 Cortisol AM Sample 13.4 ug/dL (4.46-22.7) 12/23/16 08:43 ACTH 12 pg/mL (6-50) 12/23/16 08:43 Plasma Metanephrine <25 pg/mL (<=57) 12/23/16 08:43 Plasma Normetanephrine 44 pg/mL (<=148) 12/23/16 08:43 Plas Total Metaneph 44 pg/mL (<=205) 12/23/16 08:43 Venous Blood Potassium 3.8 mmol/L (3.6-5.2) 12/13/16 21:32 Urine Color Yellow (YELLOW) 12/14/16 09: Urine Clarity Slighty-cloudy (Clear) 12/14/16 09:17 Urine pH 5.0 (5.0-8.0) 12/14/16 09:17 Ur Specific Sparks 1.022 (1.003-1.030) 12/14/16 09:17 Urine Protein >=500 mg/dL (NEGATIVE) 12/14/16 09:17 Urine Glucose (UA) 50 mg/dL (Normal) 12/14/16 09:17 Urine Ketones Trace mg/dL (NEGATIVE) 12/14/16 09:17 Urine Blood Negative (NEGATIVE) 12/14/16 09:17 Urine Nitrate Negative (NEGATIVE) 12/14/16 09:17 Urine Bilirubin Negative (NEGATIVE) 12/14/16 09:17 Urine Urobilinogen 0.2-1.0 mg/dL (0.2-1.0) 12/14/16 09:17 Ur Leukocyte Esterase Neg Alphonso/uL (Negative) 12/14/16 09:17 Urine RBC (Auto) 2 /hpf (0-3) 12/14/16 09:17 Urine Microscopic WBC 2 /hpf (0-5) 12/14/16 09: Ur Squamous Epith Cells < 1 /hpf (0-5) 12/14/16 09:17 Urine Bacteria Few (<OCC) H 12/14/16 09:17 - Hospital Course Hospital Course: The pt is a 71yo male, pmhx of type 2 DM, depression, chronic renal disease, is brought to the ED by EMS for evaluation s/p a syncopal episode. Pt is accompanied by his sister, who reports that another family member of the pt's witnessed the pt "pass out." Pt reports he was feeling dizzy and passed out; he denies any head injury or pain and reports he is unsure of what happened. Pt was given sugar in the field but did not have an accuchek performed. Currently in ED, pt has a sugar level greater than 500. Pt denies any headache, vomiting or pain. He denies any other medical complaints. CVA, Diabetes, HTN, former smoker - Date & Time of H&P Date of H&P: 12/28/16 Time of H&P: 10:00 Discharge Exam - Head Exam Head Exam: NORMAL INSPECTION Discharge Plan - Follow Up Plan Condition: GOOD Instructions: Syncope (DC)
== END 2016-12-27 15:26 | disposition home or self-care (01) | DRG 639 ==
LOC: H.ER 19:35 → H.ERHOLD 21:49 → H.TEL 22:38 → H.MEDSURG1 12-25 11:48
PROVIDERS: ADMIT Internal Medicine Cardiovascular Disease; ATTEND Internal Medicine Cardiovascular Disease
PROC: 3E0234Z Introduction of Serum, Toxoid and Vaccine into Muscle, Percutaneous Approach (ICD-10-PCS; principal; 2016-12-25)
DX: E11.65 Type 2 diabetes mellitus with hyperglycemia (principal); E11.22 Type 2 diabetes mellitus with diabetic chronic kidney disease; R00.1 Bradycardia, unspecified; I12.9 Hypertensive chronic kidney disease with stage 1 through stage 4 chronic kidney disease, or unspecified chronic kidney disease; R55 Syncope and collapse; E78.5 Hyperlipidemia, unspecified; N18.1 Chronic kidney disease, stage 1; Z86.73 Personal history of transient ischemic attack (TIA), and cerebral infarction without residual deficits; Z87.891 Personal history of nicotine dependence; Z23 Encounter for immunization; F32.9 Major depressive disorder, single episode, unspecified; F41.1 Generalized anxiety disorder; T44.7X5A Adverse effect of beta-adrenoreceptor antagonists, initial encounter

== ENCOUNTER 2016-12-27 14:39 | Inpatient (IN) | payer OTHER ==
[2016-12-27 14:59] VITALS: BMI 26.4
[2016-12-27] MEDS ORDERED: Dextrose 50% SYRINGE Inj (50 ml) IV PRN (15:39)
[2016-12-27] MEDS ORDERED: Glucagon Recombinant 1 mg Inj IM PRN (15:39)
[2016-12-27 16:15] VITALS: RESP 20
[2016-12-27] MEDS ORDERED: Oxycodone/Acetaminophen 5/325 mg Tab PO ONE (16:26)
[2016-12-27] MEDS: Insulin Regular 100 units/ml SC SCH ×2 (16:34→22:14)
[2016-12-27] MEDS: Venlafaxine 150 mg ER Cap PO SCH (16:37)
[2016-12-28] MEDS: Insulin Regular 100 units/ml SC SCH ×4 (06:59→21:17)
[2016-12-28] MEDS ORDERED: Pneumococcal 23-Valent Vaccine IM ONE (09:00)
[2016-12-28] MEDS: Venlafaxine 150 mg ER Cap PO SCH ×2 (09:39→16:35)
--- NOTE | 2016-12-28 10:52 | CP.PCM.HP ---
History of Present Illness - History of Present Illness History of Present Illness: 71 y/o w/m admitted with syncope secondary to hyperglycemia pt has had uncontrolled BP now on multiple meds The pt is a 71yo male, pmhx of type 2 DM, depression, chronic renal disease, is brought to the ED by EMS for evaluation s/p a syncopal episode. Pt is accompanied by his sister, who reports that another family member of the pt's witnessed the pt "pass out." Pt reports he was feeling dizzy and passed out; he denies any head injury or pain and reports he is unsure of what happened. Pt was given sugar in the field but did not have an accuchek performed. Currently in ED, pt has a sugar level greater than 500. Pt denies any headache, vomiting or pain. He denies any other medical complaints. CVA, Diabetes, HTN, former smoker Present on Admission - Present on Admission Any Indicators Present on Admission: Yes History of Uncontrolled Diabetes: Yes Past Patient History - Past Medical History & Family History Past Medical History?: Yes - Past Social History Smoking Status: Former Smoker - CARDIAC Hx Hypercholesterolemia: Yes Hx Hypertension: Yes - PULMONARY Hx Respiratory Disorders: No - NEUROLOGICAL Hx Neurological Disorder: Yes Hx Syncope: Yes - HEENT Hx HEENT Problems: Yes (mastoiditis) Hx Sinusitis: Yes - RENAL Hx Chronic Kidney Disease: Yes - ENDOCRINE/METABOLIC Hx Endocrine Disorders: Yes Hx Diabetes Mellitus Type 2: Yes - HEMATOLOGICAL/ONCOLOGICAL Hx Blood Disorders: No - INTEGUMENTARY Hx Dermatological Problems: No - MUSCULOSKELETAL/RHEUMATOLOGICAL Hx Musculoskeletal Disorders: Yes Hx Falls: Yes - GASTROINTESTINAL Hx Gastrointestinal Disorders: No - GENITOURINARY/GYNECOLOGICAL Hx Genitourinary Disorders: Yes Hx Prostate Problems: Yes - PSYCHIATRIC Hx Psychophysiologic Disorder: Yes Hx Depression: Yes Hx Substance Use: No - SURGICAL HISTORY Hx Surgeries: No - ANESTHESIA Hx Anesthesia: Yes Hx Anesthesia Reactions: No Hx Malignant Hyperthermia: No Meds Allergies/Adverse Reactions: Allergies Allergy/AdvReac Type Severity Reaction Status Date / Time No Known Allergies Allergy Verified 12/27/16 14:58 Results - Vital Signs Recent Vital Signs: Last Vital Signs Temp 97.2 F L 12/28/16 09:08 Pulse 55 L 12/28/16 09:32 Resp 20 12/28/16 09:08 BP 187/87 H 12/28/16 09:42 Pulse Ox 98 12/28/16 09:32 - Labs Labs: Laboratory Results - last 24 hr 12/27/16 12/27/16 12/28/16 16:04 20:55 06:53 POC Glucose (mg/dL) 146 H 222 H 132 H Assessment & Plan (1) CKD (chronic kidney disease) Status: Acute (2) CVA (cerebral vascular accident) Status: Acute (3) Depression Status: Acute (4) Syncope Status: Acute
[2016-12-28] MEDS: Enoxaparin 40 mg Syringe SC SCH (12:20)
[2016-12-29] MEDS: Insulin Regular 100 units/ml SC SCH ×4 (06:45→21:09)
[2016-12-29] MEDS: Venlafaxine 150 mg ER Cap PO SCH ×2 (08:23→16:57)
[2016-12-29] MEDS: Enoxaparin 40 mg Syringe SC SCH (08:24)
--- NOTE | 2016-12-29 11:41 | CP.PCM.PN ---
Subjective - Date & Time of Evaluation Date of Evaluation: 12/29/16 Time of Evaluation: 10:00 - Subjective Subjective: ambulates with PT No complaints bs: [address] Garrett Objective - Vital Signs/Intake and Output Vital Signs (last 24 hours): Temp Pulse Resp BP Pulse Ox 97.3 F L 77 20 152/66 H 98 12/29/16 07:50 12/29/16 10:46 12/29/16 07:50 12/29/16 10:46 12/29/16 10:46 - Medications Medications: Current Medications Amlodipine Besylate (Norvasc) 10 mg PO DAILY [facility] Last Admin: 12/29/16 08:21 Dose: 10 mg Atorvastatin Calcium (Lipitor) 20 mg PO HS [facility] Last Admin: 12/28/16 21:16 Dose: 20 mg Clonidine HCl (Catapres) 0.3 mg PO BID [facility] Last Admin: 12/29/16 08:22 Dose: 0.3 mg Dextrose (Dextrose 50% Inj) 0 ml IV STAT PRN; Protocol PRN Reason: Hyglycemia Protocol Dextrose (Glutose 15) 0 gm PO ONCE PRN; Protocol PRN Reason: Hypoglycemia Protocol Enalapril Maleate (Vasotec) 20 mg PO Q12 [facility] Last Admin: 12/29/16 08:21 Dose: 20 mg Enoxaparin Sodium (Lovenox) 40 mg SC DAILY [facility] PRN Reason: Protocol Last Admin: 12/29/16 08:24 Dose: 40 mg Furosemide (Lasix) 40 mg PO DAILY [facility] Last Admin: 12/29/16 08:23 Dose: 40 mg Glipizide (Glucotrol) 10 mg PO BIDAC [facility] Last Admin: 12/29/16 08:21 Dose: 10 mg Glucagon (Glucagen Diagnostic Kit) 0 mg IM STAT PRN; Protocol PRN Reason: Hypoglycemia Protocol Insulin Human Regular (Humulin R) 0 units SC ACHS [facility] PRN Reason: Protocol Last Admin: 12/29/16 06:45 Dose: 1 units Lactulose (Enulose) 20 gm PO DAILY PRN PRN Reason: Constipation Sitagliptin Phosphate (Januvia) 50 mg PO ACB [facility] Last Admin: 12/29/16 08:21 Dose: 50 mg Tamsulosin HCl (Flomax) 0.4 mg PO DAILY [facility] Last Admin: 12/29/16 08:22 Dose: 0.4 mg Valsartan (Diovan) 320 mg PO DAILY [facility] Last Admin: 12/29/16 08:22 Dose: 320 mg Venlafaxine HCl (Effexor Xr) 150 mg PO BID [facility] Last Admin: 12/29/16 08:23 Dose: 150 mg Assessment and Plan (1) CKD (chronic kidney disease) Status: Acute (2) CVA (cerebral vascular accident) Status: Acute (3) Depression Status: Acute (4) Syncope Status: Acute
--- NOTE | 2016-12-29 19:16 | PN ---
DATE: ENDO FOLLOWUP NOTE LOCATION: In room 710 U. SUBJECTIVE: This is a 71-year-old male with recent uncontrolled type 2 diabetes now being followed closely for metabolic management. His glycemic levels are fluctuating as with the variability of his oral intake as noted thereof. His glucose levels are ranging from 95-169 and 272 mg/dL. So at this time we will continue the dual oral hypoglycemic drug therapy as given with Januvia given as 50 mg once daily and glipizide given as 10 mg b.i.d. before meals as ordered. We will titrate incremental as indicated to optimize metabolic control. We will also obtain serial chemistries and supplement accordingly needed. We will follow. Caroline Garrett MD
[2016-12-30 05:11] LABS: ALB/GLOB RATIO 1.5 (1.0-2.1); ALKALINE PHOSPHATASE 67 U/L (38-126); ALT/SGPT 32 U/L (21-72); AST/SGOT 16 U/L (17-59); BILIRUBIN,TOTAL 0.3 mg/dl (0.2-1.3); BLOOD UREA NITROGEN 40 mg/dl (9-20); CALCIUM 9.2 mg/dL (8.4-10.2); CARBON DIOXIDE 27 mmol/L (22-30); CHLORIDE 104 mmol/L (98-107); GFR AFRICAN-AMERICAN > 60; GLUCOSE,RANDOM 150 mg/dL (75-110); POTASSIUM 4.6 MMOL/L (3.6-5.0); SODIUM 139 mmol/l (132-148)
[2016-12-30] MEDS: Insulin Regular 100 units/ml SC SCH ×4 (06:30→22:38)
[2016-12-30] MEDS: Venlafaxine 150 mg ER Cap PO SCH ×2 (08:08→17:25)
[2016-12-30] MEDS: Enoxaparin 40 mg Syringe SC SCH (08:08)
--- NOTE | 2016-12-30 10:56 | CP.PCM.PN ---
Subjective - Date & Time of Evaluation Date of Evaluation: 12/30/16 Time of Evaluation: 10:00 - Subjective Subjective: c/o constipation wants Fleets enema will order lactulose BID also Objective - Vital Signs/Intake and Output Vital Signs (last 24 hours): Temp Pulse Resp BP Pulse Ox 97.5 F L 70 20 153/82 H 98 12/30/16 08:05 12/30/16 08:07 12/30/16 08:05 12/30/16 08:07 12/30/16 08:05 - Medications Medications: Current Medications Amlodipine Besylate (Norvasc) 10 mg PO DAILY [facility] Last Admin: 12/30/16 08:06 Dose: 10 mg Atorvastatin Calcium (Lipitor) 20 mg PO HS [facility] Last Admin: 12/29/16 21:09 Dose: 20 mg Clonidine HCl (Catapres) 0.3 mg PO BID [facility] Last Admin: 12/30/16 08:07 Dose: 0.3 mg Dextrose (Dextrose 50% Inj) 0 ml IV STAT PRN; Protocol PRN Reason: Hyglycemia Protocol Dextrose (Glutose 15) 0 gm PO ONCE PRN; Protocol PRN Reason: Hypoglycemia Protocol Enalapril Maleate (Vasotec) 20 mg PO Q12 [facility] Last Admin: 12/30/16 08:06 Dose: 20 mg Enoxaparin Sodium (Lovenox) 40 mg SC DAILY [facility] PRN Reason: Protocol Last Admin: 12/30/16 08:08 Dose: 40 mg Furosemide (Lasix) 40 mg PO DAILY [facility] Last Admin: 12/30/16 08:07 Dose: 40 mg Glipizide (Glucotrol) 10 mg PO BIDAC [facility] Last Admin: 12/30/16 08:06 Dose: 10 mg Glucagon (Glucagen Diagnostic Kit) 0 mg IM STAT PRN; Protocol PRN Reason: Hypoglycemia Protocol Insulin Human Regular (Humulin R) 0 units SC ACHS [facility] PRN Reason: Protocol Last Admin: 12/30/16 06:30 Dose: Not Given Lactulose (Enulose) 20 gm PO DAILY PRN PRN Reason: Constipation Lactulose (Enulose) 20 gm PO BID PRN PRN Reason: Constipation Sitagliptin Phosphate (Januvia) 50 mg PO ACB [facility] Last Admin: 12/30/16 08:05 Dose: 50 mg Sodium Phosphate (Fleet Enema) 135 ml AR ONCE ONE Stop: 12/30/16 10:55 Tamsulosin HCl (Flomax) 0.4 mg PO DAILY [facility] Last Admin: 12/30/16 08:08 Dose: 0.4 mg Valsartan (Diovan) 320 mg PO DAILY [facility] Last Admin: 12/30/16 08:08 Dose: 320 mg Venlafaxine HCl (Effexor Xr) 150 mg PO BID [facility] Last Admin: 12/30/16 08:08 Dose: 150 mg - Labs Labs: 12/30/16 04:30 Assessment and Plan (1) CKD (chronic kidney disease) Status: Acute (2) CVA (cerebral vascular accident) Status: Acute (3) Depression Status: Acute (4) Syncope Status: Acute
--- NOTE | 2016-12-30 19:28 | PN ---
ENDO FOLLOWUP NOTE DATE: ROOM: [address] [place] [address]. SUBJECTIVE: This is a 71-year-old male with recent uncontrolled type 2 diabetes, now being followed closely for metabolic management. His glycemic levels are fluctuating but improved and the latest glucose levels have ranged from 172 to 195 and 202 mg/dL. His latest chemistry showed a BUN of 40, sodium 139, potassium 4.6, chloride 104, CO2 27, glucose 150, creatinine 1.4. PLAN: So, at this time, we will continue the same dual oral hypoglycemic drug regimen to allow for dose equilibration and keep him on the glipizide given as 10 mg b.i.d. before meals and Januvia given as 50 mg once daily as ordered. We will continue the low-dose correction scale using regular insulin as given. We will titrate incremental as indicated to optimize metabolic control. We will follow up with you. Caroline Garrett MD
[2016-12-31] MEDS: Insulin Regular 100 units/ml SC SCH ×4 (06:50→22:27)
[2016-12-31] MEDS: Venlafaxine 150 mg ER Cap PO SCH ×2 (08:15→17:08)
[2016-12-31] MEDS: Enoxaparin 40 mg Syringe SC SCH (08:17)
--- NOTE | 2017-01-01 00:31 | PN ---
DATE: ENDO FOLLOWUP NOTE LOCATION: Room [address] [place] [address]. SUBJECTIVE: This is a 71-year-old male with recent uncontrolled type 2 diabetes, now with improving glycemic levels, although has occasional glycemic fluctuations as noted thereof. LABORATORY DATA: His latest chemistry showed a BUN of 40, sodium 139, potassium 4.6, chloride 104, CO2 of 27, glucose 150 and creatinine 1.4. His glucose levels today have ranged from 139-195 and 277 mg/dL. So at this time, we will continue the dual oral hypoglycemic drug therapy as ordered with glipizide given as 10 mg b.i.d. before meals and Januvia given as 50 mg once daily as ordered. There is increasing renal insufficiency with marked azotemia related to the intercurrent diuretic therapy as given. We will obtain serial chemistries and supplement accordingly needed. We will follow. Caroline Garrett MD
[2017-01-01] MEDS: Insulin Regular 100 units/ml SC SCH ×4 (06:54→21:01)
[2017-01-01] MEDS: Venlafaxine 150 mg ER Cap PO SCH ×2 (08:40→16:21)
--- NOTE | 2017-01-02 02:01 | PN ---
ENDO FOLLOWUP NOTE DATE: LOCATION: Room 710 [facility]. SUBJECTIVE: This is a 71-year-old male with recent uncontrolled type 2 diabetes, now with improving glycemic profile and improving oral intake as noted thereof. His glycemic values today have ranged from 144, 163, and 179 mg/dl. His latest chemistries showed a BUN of 40, sodium 139, potassium 4.6, chloride 104, CO2 27, glucose 150 and creatinine 1.4. So at this time, we will continue the same dual oral hypoglycemic drug therapy to allow for dose equilibration and keep him on the Januvia given as 50 mg daily and glipizide given as 10 mg b.i.d. before meals as ordered. We will titrate incrementally as indicated to optimize metabolic control. We will follow with you. Caroline Garrett MD
[2017-01-02] MEDS: Insulin Regular 100 units/ml SC SCH ×4 (06:59→21:03)
[2017-01-02] MEDS: Venlafaxine 150 mg ER Cap PO SCH ×2 (08:10→16:30)
--- NOTE | 2017-01-02 09:32 | CP.PCM.PN ---
Subjective - Date & Time of Evaluation Date of Evaluation: 01/02/17 Time of Evaluation: 09:00 - Subjective Subjective: Pt doing well resting in bed spoke with him and family about getting out of the house and walking when he goes home he admits he sits at home all day no desire to go out also family told me he does not adhere to diabetic diet at home eats what he wants!!! Objective - Vital Signs/Intake and Output Vital Signs (last 24 hours): Temp Pulse Resp BP Pulse Ox 97.3 F L 56 L 20 176/71 H 96 01/02/17 08:13 01/02/17 08:13 01/02/17 08:13 01/02/17 08:13 01/02/17 08:13 - Medications Medications: Current Medications Amlodipine Besylate (Norvasc) 10 mg PO DAILY [facility] Last Admin: 01/02/17 08:07 Dose: 10 mg Atorvastatin Calcium (Lipitor) 20 mg PO HS [facility] Last Admin: 01/01/17 20:59 Dose: 20 mg Clonidine HCl (Catapres) 0.3 mg PO BID [facility] Last Admin: 01/02/17 08:10 Dose: 0.3 mg Dextrose (Dextrose 50% Inj) 0 ml IV STAT PRN; Protocol PRN Reason: Hyglycemia Protocol Dextrose (Glutose 15) 0 gm PO ONCE PRN; Protocol PRN Reason: Hypoglycemia Protocol Enalapril Maleate (Vasotec) 20 mg PO Q12 [facility] Last Admin: 01/02/17 08:10 Dose: 20 mg Enoxaparin Sodium (Lovenox) 40 mg SC DAILY [facility] PRN Reason: Protocol Furosemide (Lasix) 40 mg PO DAILY [facility] Last Admin: 01/02/17 08:10 Dose: 40 mg Glipizide (Glucotrol) 10 mg PO BIDAC [facility] Last Admin: 01/02/17 06:48 Dose: 10 mg Glucagon (Glucagen Diagnostic Kit) 0 mg IM STAT PRN; Protocol PRN Reason: Hypoglycemia Protocol Insulin Human Regular (Humulin R) 0 units SC [facility] PRN Reason: Protocol Last Admin: 01/02/17 06:59 Dose: Not Given Lactulose (Enulose) 20 gm PO DAILY PRN PRN Reason: Constipation Last Admin: 01/01/17 08:40 Dose: 20 gm Lactulose (Enulose) 20 gm PO BID PRN PRN Reason: Constipation Sitagliptin Phosphate (Januvia) 50 mg PO ACB [facility] Last Admin: 01/02/17 06:48 Dose: 50 mg Tamsulosin HCl (Flomax) 0.4 mg PO DAILY [facility] Last Admin: 01/02/17 08:10 Dose: 0.4 mg Valsartan (Diovan) 320 mg PO DAILY [facility] Last Admin: 01/02/17 08:10 Dose: 320 mg Venlafaxine HCl (Effexor Xr) 150 mg PO BID [facility] Last Admin: 01/02/17 08:10 Dose: 150 mg - Labs Labs: 12/30/16 04:30 Assessment and Plan (1) CKD (chronic kidney disease) Status: Acute (2) CVA (cerebral vascular accident) Status: Acute (3) Depression Status: Acute (4) Syncope Status: Acute
[2017-01-02] MEDS: Enoxaparin 40 mg Syringe SC SCH (11:34)
[2017-01-03] MEDS: Insulin Regular 100 units/ml SC SCH ×3 (06:34→16:58)
[2017-01-03] MEDS: Venlafaxine 150 mg ER Cap PO SCH ×2 (08:37→17:07)
[2017-01-03] MEDS: Enoxaparin 40 mg Syringe SC SCH (08:40)
--- NOTE | 2017-01-03 10:03 | PN ---
ENDO FOLLOWUP NOTE This is a 71-year-old male with uncontrolled type 2 diabetes; now being followed closely for metabolic management. His oral intake remains quite valuable at this time and episodic glycemic fluctuations as noted. His glucose levels have ranged from 123 to 179 and 220 mg/dL. So, at this time, we will continue the same dose oral hypoglycemic drug regimen as ordered with Glucotrol to control given as 10 mg p.o. b.i.d. before meals and Januvia given as 50 mg once daily in the morning as ordered. We will titrate accordingly to optimize metabolic control. We will follow with you. Caroline Garrett MD
--- NOTE | 2017-01-03 11:42 | CP.PCM.PN ---
Subjective - Date & Time of Evaluation Date of Evaluation: 01/03/17 Time of Evaluation: 10:00 - Subjective Subjective: No complaints BS +/- controlled ambulates with PT Objective - Vital Signs/Intake and Output Vital Signs (last 24 hours): Temp Pulse Resp BP Pulse Ox 97.8 F 60 20 135/70 99 01/03/17 08:05 01/03/17 08:37 01/03/17 08:05 01/03/17 08:39 01/03/17 08:05 - Medications Medications: Current Medications Amlodipine Besylate (Norvasc) 10 mg PO DAILY [facility] Last Admin: 01/03/17 08:35 Dose: 10 mg Atorvastatin Calcium (Lipitor) 20 mg PO HS [facility] Last Admin: 01/02/17 21:02 Dose: 20 mg Clonidine HCl (Catapres) 0.3 mg PO BID [facility] Last Admin: 01/03/17 08:37 Dose: 0.3 mg Dextrose (Dextrose 50% Inj) 0 ml IV STAT PRN; Protocol PRN Reason: Hyglycemia Protocol Dextrose (Glutose 15) 0 gm PO ONCE PRN; Protocol PRN Reason: Hypoglycemia Protocol Enalapril Maleate (Vasotec) 20 mg PO Q12 [facility] Last Admin: 01/03/17 08:39 Dose: 20 mg Enoxaparin Sodium (Lovenox) 40 mg SC DAILY [facility] PRN Reason: Protocol Last Admin: 01/03/17 08:40 Dose: 40 mg Furosemide (Lasix) 40 mg PO DAILY [facility] Last Admin: 01/03/17 08:39 Dose: 40 mg Glipizide (Glucotrol) 10 mg PO BIDAC [facility] Last Admin: 01/03/17 06:34 Dose: 10 mg Glucagon (Glucagen Diagnostic Kit) 0 mg IM STAT PRN; Protocol PRN Reason: Hypoglycemia Protocol Insulin Human Regular (Humulin R) 0 units SC [facility] PRN Reason: Protocol Last Admin: 01/03/17 06:34 Dose: Not Given Lactulose (Enulose) 20 gm PO DAILY PRN PRN Reason: Constipation Last Admin: 01/01/17 08:40 Dose: 20 gm Lactulose (Enulose) 20 gm PO BID PRN PRN Reason: Constipation Sitagliptin Phosphate (Januvia) 50 mg PO ACB [facility] Last Admin: 01/03/17 06:34 Dose: 50 mg Tamsulosin HCl (Flomax) 0.4 mg PO DAILY [facility] Last Admin: 01/03/17 08:35 Dose: 0.4 mg Valsartan (Diovan) 320 mg PO DAILY [facility] Last Admin: 01/03/17 08:37 Dose: 320 mg Venlafaxine HCl (Effexor Xr) 150 mg PO BID [facility] Last Admin: 01/03/17 08:37 Dose: 150 mg - Labs Labs: 12/30/16 04:30 Assessment and Plan (1) CKD (chronic kidney disease) Status: Acute (2) CVA (cerebral vascular accident) Status: Acute (3) Depression Status: Acute (4) Syncope Status: Acute
--- NOTE | 2017-01-03 19:41 | PN ---
ENDO FOLLOWUP NOTE DATE: LOCATION: In room [address] [place] [address]. SUBJECTIVE: This is a 71-year-old male with known history of type 2 diabetes, hypertension, currently being followed closely for metabolic management. His glycemic levels are fluctuating but much improved at this time and the latest glucose levels have ranged from 143 to 160 and 209 mg/dL. PLAN: So at this time, we will continue the same dual oral hypoglycemic drug therapy as given with glipizide given as 10 mg b.i.d. before meals and Januvia given as 50 mg once daily as ordered. We will titrate incrementally as indicated to optimize metabolic control. We will obtain serial chemistries and supplement accordingly as needed. We will follow with you. Caroline Garrett MD
[2017-01-04] MEDS: Insulin Regular 100 units/ml SC SCH (06:45)
[2017-01-04 07:07] LABS: BASO % 0.4 % (0.0-2.0); EOS # 0.3 K/uL (0.0-0.7); EOS % 4.5 % (0.0-4.0); HEMATOCRIT 39.3 % (35.0-51.0); LYMPH # 1.8 K/uL (1.0-4.3); LYMPH % 28.4 % (20.0-40.0); MEAN CELL VOLUME 82.8 fl (80.0-94.0); MEAN CORPUSCULAR HEMOGLOBIN 27.2 pg (27.0-31.0); MEAN CORPUSCULAR HGB CONC 32.9 g/dL (33.0-37.0); MEAN PLATELET VOLUME 7.8 fl (7.2-11.7); MONO # 0.9 K/uL (0.0-0.8); MONO % 14.1 % (0.0-10.0); NEUT # 3.3 K/uL (1.8-7.0); NEUT % 52.6 % (50.0-75.0); NRBC % 0.4 % (0.0-0.0); RED CELL DISTRIBUTION WIDTH 14.3 % (11.5-14.5); WHITE BLOOD COUNT 6.2 K/uL (4.8-10.8)
[2017-01-04 07:23] LABS: ALB/GLOB RATIO 1.5 (1.0-2.1); BILIRUBIN,TOTAL 0.3 mg/dl (0.2-1.3); CALCIUM 9.3 mg/dL (8.4-10.2); TOTAL PROTEIN 6.2 G/DL (6.3-8.2)
[2017-01-04 07:46] VITALS: BP 166/75; PULSE 56; TEMP 97.6; O2SAT 98
[2017-01-04] MEDS: Enoxaparin 40 mg Syringe SC SCH (08:36)
[2017-01-04] MEDS: Venlafaxine 150 mg ER Cap PO SCH (08:36)
--- NOTE | 2017-01-04 12:48 | CP.PCM.DIS ---
Provider - Provider Date of Admission: 12/27/16 15:02 Attending physician: Rohan Cooley MD Primary care physician: Nicolás Cooley Consults: Gerry Time Spent in preparation of Discharge (in minutes): 55 Diagnosis - Discharge Diagnosis (1) CKD (chronic kidney disease) Status: Acute (2) CVA (cerebral vascular accident) Status: Acute (3) Depression Status: Acute (4) Syncope Status: Acute Hospital Course - Lab Results Lab Results: Most Recent Lab Values WBC 6.2 K/uL (4.8-10.8) 01/04/17 06:20 RBC 4.75 Mil/uL (4.40-5.90) 01/04/17 06:20 Hgb 12.9 g/dL (12.0-18.0) 01/04/17 06:20 Hct 39.3 % (35.0-51.0) 01/04/17 06:20 MCV 82.8 fl (80.0-94.0) 01/04/17 06:20 MCH 27.2 pg (27.0-31.0) 01/04/17 06:20 MCHC 32.9 g/dL (33.0-37.0) L 01/04/17 06:20 RDW 14.3 % (11.5-14.5) 01/04/17 06:20 Plt Count 198 K/uL (130-400) 01/04/17 06:20 MPV 7.8 fl (7.2-11.7) 01/04/17 06:20 Neut % (Auto) 52.6 % (50.0-75.0) 01/04/17 06:20 Lymph % (Auto) 28.4 % (20.0-40.0) 01/04/17 06:20 Caroline % (Auto) 14.1 % (0.0-10.0) H 01/04/17 06:20 Eos % (Auto) 4.5 % (0.0-4.0) H 01/04/17 06:20 Baso % (Auto) 0.4 % (0.0-2.0) 01/04/17 06:20 Neut # 3.3 K/uL (1.8-7.0) 01/04/17 06:20 Lymph # 1.8 K/uL (1.0-4.3) 01/04/17 06:20 Caroline # 0.9 K/uL (0.0-0.8) H 01/04/17 06:20 Eos # 0.3 K/uL (0.0-0.7) 01/04/17 06:20 Baso # 0.0 K/uL (0.0-0.2) 01/04/17 06:20 Sodium 144 mmol/l (132-148) 01/04/17 06:20 Potassium 5.0 MMOL/L (3.6-5.0) 01/04/17 06:20 Chloride 101 mmol/L (98-107) 01/04/17 06:20 Carbon Dioxide 31 mmol/L (22-30) H 01/04/17 06:20 Anion Gap 17 (10-20) 01/04/17 06:20 BUN 36 mg/dl (9-20) H 01/04/17 06:20 Creatinine 1.6 mg/dL (0.8-1.5) H 01/04/17 06:20 Est GFR ( Amer) 52 01/04/17 06:20 Est GFR (Non-Af Amer) 43 01/04/17 06:20 POC Glucose (mg/dL) 183 mg/dL (65-110) H 01/04/17 11:15 Random Glucose 105 mg/dL (75-110) 01/04/17 06:20 Calcium 9.3 mg/dL (8.4-10.2) 01/04/17 06:20 Total Bilirubin 0.3 mg/dl (0.2-1.3) 01/04/17 06:20 AST 30 U/L (17-59) 01/04/17 06:20 ALT 44 U/L (21-72) 01/04/17 06:20 Alkaline Phosphatase 72 U/L (38-126) 01/04/17 06:20 Total Protein 6.2 G/DL (6.3-8.2) L 01/04/17 06:20 Albumin 3.7 g/dL (3.5-5.0) 01/04/17 06:20 Globulin 2.5 gm/dL (2.2-3.9) 01/04/17 06:20 Albumin/Globulin Ratio 1.5 (1.0-2.1) 01/04/17 06:20 - Hospital Course Hospital Course: The pt is a 71yo male, pmhx of type 2 DM, depression, chronic renal disease, is brought to the ED by EMS for evaluation s/p a syncopal episode. Pt is accompanied by his sister, who reports that another family member of the pt's witnessed the pt "pass out." Pt reports he was feeling dizzy and passed out; he denies any head injury or pain and reports he is unsure of what happened. Pt was given sugar in the field but did not have an accuchek performed. Currently in ED, pt has a sugar level greater than 500. Pt denies any headache, vomiting or pain. He denies any other medical complaints. CVA, Diabetes, HTN, former smoker - Date & Time of H&P Date of H&P: 01/04/17 Time of H&P: 12:47 Discharge Plan - Follow Up Plan Instructions: Syncope (DC) Referrals: Rohan Cooley MD [Family Provider] -
--- NOTE | 2017-01-04 19:37 | PN ---
LOCATION: Room 710, [facility]. SUBJECTIVE: This is a 71-year-old male with recent uncontrolled type 2 diabetes, now being followed closely for metabolic management. His glycemic levels are fluctuating, but much improved at this time. The latest glucose levels have ranged from 100 to 183 mg/dL. His latest chemistry showed a BUN of 36, sodium 144, potassium 5.0, chloride 111, CO2 of 31, glucose 105, and creatinine 1.6. So, at this time, we will continue with dual oral hypoglycemic drug therapy at the present with Januvia 50 mg once daily as ordered. We will continue also the glipizide given at 10 mg b.i.d. before meals as ordered. We will titrate incrementally as indicated to optimize metabolic control. We will also continue the low-dose correction scale using regular insulin as given. We will follow . Caroline Garrett MD
== END 2017-01-04 15:30 | disposition home or self-care (01) | DRG 312 ==
LOC: H.TCU 15:02
PROVIDERS: ADMIT Internal Medicine Cardiovascular Disease; ATTEND Internal Medicine Cardiovascular Disease
PROC: F08Z4FZ Home Management Treatment using Assistive, Adaptive, Supportive or Protective Equipment (ICD-10-PCS; 2016-12-27)
PROC: F07Z9FZ Gait Training/Functional Ambulation Treatment using Assistive, Adaptive, Supportive or Protective Equipment (ICD-10-PCS; 2016-12-27)
PROC: F07L6FZ Therapeutic Exercise Treatment of Musculoskeletal System - Lower Back / Lower Extremity using Assistive, Adaptive, Supportive or Protective Equipment (ICD-10-PCS; 2016-12-27)
PROC: F08Z1ZZ Dressing Techniques Treatment (ICD-10-PCS; 2016-12-27)
PROC: 3E0234Z Introduction of Serum, Toxoid and Vaccine into Muscle, Percutaneous Approach (ICD-10-PCS; principal; 2016-12-28)
DX: R55 Syncope and collapse (principal); E11.22 Type 2 diabetes mellitus with diabetic chronic kidney disease; E11.65 Type 2 diabetes mellitus with hyperglycemia; F32.9 Major depressive disorder, single episode, unspecified; I12.9 Hypertensive chronic kidney disease with stage 1 through stage 4 chronic kidney disease, or unspecified chronic kidney disease; N18.9 Chronic kidney disease, unspecified; K59.00 Constipation, unspecified; Z87.891 Personal history of nicotine dependence; Z86.73 Personal history of transient ischemic attack (TIA), and cerebral infarction without residual deficits; Z23 Encounter for immunization; Z79.84 Long term (current) use of oral hypoglycemic drugs

== ENCOUNTER 2017-04-14 14:42 | Inpatient (IN) | payer MEDICARE, OTHER ==
[2017-04-14 14:42] VITALS: BMI 26.4
--- NOTE | 2017-04-14 15:22 | ED PDOC ---
Syncope/Near Syncope/Dizziness Time Seen by Provider: 04/14/17 15:08 Chief Complaint (Nursing): Dizziness/Lightheaded Chief Complaint (Provider): Near syncope History Per: Patient History/Exam Limitations: no limitations Additional Complaint(s): Patient is a 71 y/o male with a past medical history of hypertension and diabetes brought to the emergency department by EMS for dizziness and near syncope today. States that he has been feeling sick for the past several days and complains of pain to his scalp and a mild headache. Also notes a mild ongoing cough for many months. Patient also notes that he is negative for HIV and hepatitis. Denies trauma, fever, neck pain, vomiting, diarrhea, chest pain, shortness of breath, or other complaints. PCP: Dr. Rohan Cooley Past Medical History Reviewed: Historical Data, Nursing Documentation, Vital Signs Vital Signs: Last Vital Signs Temp 97.8 F 04/14/17 14:44 Pulse 73 04/14/17 14:44 Resp 18 04/14/17 14:44 BP 131/74 04/14/17 14:44 Pulse Ox 100 04/14/17 14:44 - Medical History PMH: CVA (Possible), Depression, Diabetes, HTN, Hypercholesterolemia, Chronic Kidney Disease - Family History Family History: States: Unknown Family Hx - Social History Current smoker - smoking cessation education provided: No Ex-Smoker (has not smoked in the last 12 months): No Alcohol: None - Home Medications Home Medications: Ambulatory Orders Medication Instructions Recorded Tamsulosin [Flomax] 0.4 mg PO DAILY 03/12/16 Venlafaxine [Effexor XR] 150 mg PO BID 03/12/16 GlipiZIDE [Glucotrol] 5 mg PO BIDAC 12/13/16 Atorvastatin [Lipitor] 20 mg PO HS tab 12/27/16 Enalapril Maleate [Vasotec] 20 mg PO Q12 tab 12/27/16 Furosemide [Lasix] 40 mg PO DAILY tab 12/27/16 SITagliptin [Januvia] 50 mg PO ACB tab 12/27/16 Valsartan [Diovan] 320 mg PO DAILY tab 12/27/16 Acyclovir [Zovirax 500 mg Inj] 500 mg IV Q8 #21 vial 04/18/17 Clindamycin 600mg/50ml NS [Cleocin 600 mg IVPB Q8 #21 bag 04/18/17 in Normal Saline] Enoxaparin [Lovenox] 40 mg SC DAILY syr 04/18/17 Gabapentin [Neurontin] 300 mg PO HS cap 04/18/17 Lactobacillus Acidophilus [Bacid 1 cap PO BID cap 04/18/17 Acidophilus] Silver Sulfadiazine 1% 20 gm 1 ea TOP TID 04/18/17 [Silvadene 1% 20 gm] carBAMazepine [Tegretol] 200 mg PO BID tab 04/18/17 oxyCODONE/Acetaminophen [Percocet 1 tab PO Q6 PRN tab 04/18/17 5/325 mg Tab] - Allergies Allergies/Adverse Reactions: Allergies Allergy/AdvReac Type Severity Reaction Status Date / Time No Known Allergies Allergy Verified 04/18/17 16:26 Review of Systems ROS Statement: Except As Marked, All Systems Reviewed And Found Negative Constitutional: Negative for: Fever Cardiovascular: Negative for: Chest Pain Respiratory: Negative for: Shortness of Breath Gastrointestinal: Negative for: Nausea, Vomiting, Diarrhea Musculoskeletal: Positive for: Other (scalp pain). Negative for: Neck Pain Neurological: Positive for: Dizziness, Other (near syncope) Physical Exam - Reviewed Nursing Documentation Reviewed: Yes Vital Signs Reviewed: Yes - Physical Exam Appears: Positive for: Non-toxic Head Exam: Positive for: NORMOCEPHALIC (with multiple tattoos to face including eyeball tattoos to eyelids bilaterally. unilateral extensive erythematous and vesicular lesions to scalp. Periauricular lesions in front of left ear. No lesions to face or nose noted) Skin: Positive for: Pallor (mild), Rash (lesions approach midline but do not cross midline of scalp) Eye Exam: Positive for: Normal appearance, PERRL Neck: Positive for: Normal, Supple Cardiovascular/Chest: Positive for: Regular Rate, Rhythm. Negative for: Murmur Respiratory: Positive for: Normal Breath Sounds. Negative for: Accessory Muscle Use, Respiratory Distress Gastrointestinal/Abdominal: Positive for: Normal Exam, Soft. Negative for: Tenderness Extremity: Positive for: Normal ROM. Negative for: Pedal Edema Neurologic/Psych: Positive for: Alert, Oriented (x3) - Laboratory Results Result Diagrams: 04/18/17 09:20 04/18/17 09:25 - ECG O2 Sat by Pulse Oximetry: 100 (RA) Pulse Ox Interpretation: Normal Medical Decision Making Medical Decision Making: Time: 15:16 Initial impression: Near syncope Initial plan: VBG Shock Panel Head CT without contrast EKG Alcohol serum CMP Creatine Phosphokinase Troponin CBC Partial Thromboplastin Prothrombin Time Chest X-ray Urinalysis Zovirax 800 mg IVPB Rapid HIV screening Reevaluation Will perform workup for syncope with suspicion for herpes zoster to scalp. Will also initiate bloodwork and check HIV status. Scribe Attestation: Documented by Arleth Gama, acting as a scribe for Gumaro Medrano III, DO. Provider Scribe Attestation: All medical record entries made by the Scribe were at my direction and personally dictated by me. I have reviewed the chart and agree that the record accurately reflects my personal performance of the history, physical exam, medical decision making, and the department course for this patient. I have also personally directed, reviewed, and agree with the discharge instructions and disposition. Disposition - Clinical Impression Clinical Impression: Dizziness - Patient ED Disposition Is Patient to be Admitted: Transfer of Care - Disposition Disposition: Transfer of Care Disposition Time: 15:40 Condition: STABLE Patient Signed Over To: Kristi Lopez Handoff Comments: CT scan and labs pending
--- NOTE | 2017-04-14 15:44 | ED PDOC ---
- Laboratory Results Result Diagrams: 04/16/17 09:50 04/16/17 09:50 - ECG O2 Sat by Pulse Oximetry: 100 (RA) Pulse Ox Interpretation: Normal Medical Decision Making Medical Decision Makin:40 Patient signed over to me from Dr. Medrano. Head CT scan and labs pending. 16:17 Chest x-ray reviewed. Findings noted as follows: FINDINGS: LUNGS: The lungs are clear. There is linear scarring in the right mid lung. No focal consolidation PLEURA: No significant pleural effusion identified, no pneumothorax apparent. CARDIOVASCULAR: Normal. OSSEOUS STRUCTURES: No significant abnormalities. VISUALIZED UPPER ABDOMEN: Normal. OTHER FINDINGS: There is chronic elevation of the right hemidiaphragm. IMPRESSION: No active pulmonary disease. 16:[address] reviewed. Findings noted as follows: FINDINGS: HEMORRHAGE: No intracranial hemorrhage. BRAIN: There are mild chronic microangiopathic changes. No mass, mass effect or abnormal extra-axial fluid collection. There are coarse atherosclerotic calcifications in the cavernous carotid arteries. VENTRICLES: There is mild age-related global parenchymal volume loss and proportionate enlargement of the ventricles and cortical sulci. CALVARIUM: There is no calvarial fracture. There is moderate left parietal and posterior vertex peak soft tissue swelling/fluid. PARANASAL SINUSES: Unremarkable as visualized. No significant inflammatory changes. MASTOID AIR CELLS: Unremarkable as visualized. No inflammatory changes. OTHER FINDINGS: None. IMPRESSION: No acute intracranial abnormality. Moderate left parietal and posterior vertex deep soft tissue swelling/fluid. Mild chronic microangiopathic changes and mild age-related global parenchymal volume loss. 17:07 Dr. Cooley is paged. 17:41 Dr. Cooley is paged again. 17:[address] Cooley who agrees to admit patient. Will consult with Dr. Lawson neurology 18:[address] Lawson who recommends gabapentin 400 mg at night and tegretol 200 bid. Scribe Attestation: Documented by Arleth Gama, acting as a scribe for Kristi Lopez MD. Provider Scribe Attestation: All medical record entries made by the Scribe were at my direction and personally dictated by me. I have reviewed the chart and agree that the record accurately reflects my personal performance of the history, physical exam, medical decision making, and the department course for this patient. I have also personally directed, reviewed, and agree with the discharge instructions and disposition. Disposition Counseled Patient/Family Regarding: Studies Performed, Diagnosis, Need For Followup - Clinical Impression Clinical Impression: Dizziness - POA Present On Arrival: None - Disposition Disposition: Admitted as In-Patient Disposition Time: 17:00 Condition: STABLE
[2017-04-14 15:57] LABS: BASO % 0.3 % (0.0-2.0); EOS # 0.1 K/uL (0.0-0.7); EOS % 0.8 % (0.0-4.0); HEMOGLOBIN 13.8 g/dL (12.0-18.0); LYMPH # 0.9 K/uL (1.0-4.3); LYMPH % 13.6 % (20.0-40.0); MEAN CORPUSCULAR HEMOGLOBIN 26.9 pg (27.0-31.0); MEAN CORPUSCULAR HGB CONC 32.8 g/dL (33.0-37.0); MEAN PLATELET VOLUME 7.5 fl (7.2-11.7); MONO # 0.8 K/uL (0.0-0.8); MONO % 12.2 % (0.0-10.0); NEUT # 4.9 K/uL (1.8-7.0); NEUT % 73.1 % (50.0-75.0); NRBC % 0.1 % (0.0-0.0); RBC 5.13 Mil/uL (4.40-5.90); RED CELL DISTRIBUTION WIDTH 14.4 % (11.5-14.5); WHITE BLOOD COUNT 6.7 K/uL (4.8-10.8)
[2017-04-14 16:04] LABS: VENOUS BLOOD GAS BASE EXCESS -1.7 mmol/L (0.0-2.0); VENOUS BLOOD GAS PCO2 50 mmHg (40-60); VENOUS BLOOD GAS PO2 25 mm/Hg (30-55); VENOUS BLOOD PH 7.31 (7.32-7.43)
[2017-04-14 16:09] LABS: INR 1.1 (0.9-1.2); PARTIAL THROMBOPLASTIN TIME 33.8 Seconds (25.6-37.1); PROTHROMBIN TIME 11.7 Seconds (9.8-13.1)
--- NOTE | 2017-04-14 16:18 | RAD ---
HISTORY: Cough and weakness COMPARISON: 12/13/2016. FINDINGS: LUNGS: The lungs are clear. There is linear scarring in the right mid lung. No focal consolidation PLEURA: No significant pleural effusion identified, no pneumothorax apparent. CARDIOVASCULAR: Normal. OSSEOUS STRUCTURES: No significant abnormalities. VISUALIZED UPPER ABDOMEN: Normal. OTHER FINDINGS: There is chronic elevation of the right hemidiaphragm. IMPRESSION: No active pulmonary disease.
[2017-04-14 16:19] LABS: ALB/GLOB RATIO 1.2 (1.0-2.1); ALBUMIN 3.5 g/dL (3.5-5.0); ALT/SGPT 37 U/L (21-72); AST/SGOT 19 U/L (17-59); BLOOD UREA NITROGEN 24 mg/dl (9-20); CALCIUM 8.4 mg/dL (8.4-10.2); GFR AFRICAN-AMERICAN > 60; GFR NON-AFRICAN AMERICAN > 60
--- NOTE | 2017-04-14 16:56 | CT ---
PROCEDURE: CT HEAD WITHOUT CONTRAST. HISTORY: headache, L scalp lesions likely zoster COMPARISON: 12/13/2016 TECHNIQUE: Axial computed tomography images were obtained through the head/brain without intravenous contrast. Radiation dose: Total exam DLP = 917.83 mGy-cm. This CT exam was performed using one or more of the following dose reduction techniques: Automated exposure control, adjustment of the mA and/or kV according to patient size, and/or use of iterative reconstruction technique. FINDINGS: HEMORRHAGE: No intracranial hemorrhage. BRAIN: There are mild chronic microangiopathic changes. No mass, mass effect or abnormal extra-axial fluid collection. There are coarse atherosclerotic calcifications in the cavernous carotid arteries. VENTRICLES: There is mild age-related global parenchymal volume loss and proportionate enlargement of the ventricles and cortical sulci. CALVARIUM: There is no calvarial fracture. There is moderate left parietal and posterior vertex peak soft tissue swelling/fluid. PARANASAL SINUSES: Unremarkable as visualized. No significant inflammatory changes. MASTOID AIR CELLS: Unremarkable as visualized. No inflammatory changes. OTHER FINDINGS: None. IMPRESSION: No acute intracranial abnormality. Moderate left parietal and posterior vertex deep soft tissue swelling/fluid. Mild chronic microangiopathic changes and mild age-related global parenchymal volume loss.
[2017-04-14] MEDS ORDERED: carBAMazepine Chew Tab 100 MG Chew Tab ONE (20:50)
[2017-04-15 05:14] LABS: CALCIUM 8.5 mg/dL (8.4-10.2)
[2017-04-15 05:15] LABS: HEMOGLOBIN 13.3 g/dL (12.0-18.0); MEAN CELL VOLUME 81.8 fl (80.0-94.0); MEAN CORPUSCULAR HEMOGLOBIN 26.8 pg (27.0-31.0); MEAN CORPUSCULAR HGB CONC 32.8 g/dL (33.0-37.0); RBC 4.98 Mil/uL (4.40-5.90); RED CELL DISTRIBUTION WIDTH 14.3 % (11.5-14.5); WHITE BLOOD COUNT 6.3 K/uL (4.8-10.8)
--- NOTE | 2017-04-15 07:23 | CP.PCM.HP ---
History of Present Illness - History of Present Illness History of Present Illness: 71 y/o male brought to the emergency department by EMS for dizziness and near syncope today. States that he has been feeling sick for the past several days and complains of pain to his scalp and a mild headache. Also notes a mild ongoing cough for many months. Patient also notes that he is negative for HIV and hepatitis. Denies trauma, fever, neck pain, vomiting, diarrhea, chest pain, shortness of breath, or other complaints. Also, c/o purulent vescicular rash @Left scalp has had it ~1 month PMH: Hypertension DM II CVA Depression EKG: NSR no change from prior EKG's Troponin: neg Present on Admission - Present on Admission Any Indicators Present on Admission: No Past Patient History - Infectious Disease Hx of Infectious Diseases: None - Past Medical History & Family History Past Medical History?: Yes - Past Social History Smoking Status: Former Smoker - CARDIAC Hx Hypercholesterolemia: Yes Hx Hypertension: Yes - PULMONARY Hx Respiratory Disorders: No - NEUROLOGICAL Hx Neurological Disorder: Yes HX Cerebrovascular Accident: Yes - HEENT Hx HEENT Problems: Yes (mastoiditis) - RENAL Hx Chronic Kidney Disease: Yes - ENDOCRINE/METABOLIC Hx Endocrine Disorders: Yes Hx Diabetes Mellitus Type 2: Yes - HEMATOLOGICAL/ONCOLOGICAL Hx Blood Disorders: No Hx AIDS: No Hx Human Immunodeficiency Virus (HIV): No - INTEGUMENTARY Hx Dermatological Problems: No - MUSCULOSKELETAL/RHEUMATOLOGICAL Hx Musculoskeletal Disorders: Yes Hx Falls: No - GASTROINTESTINAL Hx Gastrointestinal Disorders: No - GENITOURINARY/GYNECOLOGICAL Hx Genitourinary Disorders: Yes - PSYCHIATRIC Hx Depression: Yes Hx Substance Use: No - SURGICAL HISTORY Hx Surgeries: No - ANESTHESIA Hx Anesthesia: Yes Hx Anesthesia Reactions: No Hx Malignant Hyperthermia: No Has any member of the family had a problem w/ anesthesia?: No Meds Allergies/Adverse Reactions: Allergies Allergy/AdvReac Type Severity Reaction Status Date / Time No Known Allergies Allergy Verified 04/14/17 14:44 Results - Vital Signs Recent Vital Signs: Last Vital Signs Temp 98.7 F 04/15/17 05:01 Pulse 80 04/15/17 05:01 Resp 18 04/15/17 05:01 BP 186/94 H 04/15/17 05:01 Pulse Ox 95 04/15/17 05:01 - Labs Result Diagrams: 04/15/17 04:40 04/15/17 04:40 Labs: Laboratory Results - last 24 hr 04/14/17 04/14/17 04/14/17 15:45 15:50 15:50 WBC 6.7 RBC 5.13 Hgb 13.8 Hct 42.1 MCV 82.0 MCH 26.9 L MCHC 32.8 L RDW 14.4 Plt Count 175 MPV 7.5 Neut % (Auto) 73.1 Lymph % (Auto) 13.6 L [place] % (Auto) 12.2 H Eos % (Auto) 0.8 Baso % (Auto) 0.3 Neut # 4.9 Lymph # 0.9 L [place] # 0.8 Eos # 0.1 Baso # 0.0 PT INR APTT pO2 VBG pH VBG pCO2 VBG HCO3 VBG Total CO2 VBG O2 Sat (Calc) VBG Base Excess VBG Potassium Glucose Lactate FiO2 Sodium 135 Potassium 4.2 Chloride 104 Carbon Dioxide 23 Anion Gap 12 BUN 24 H Creatinine 1.1 Est GFR ( Amer) > 60 Est GFR (Non-Af Amer) > 60 POC Glucose (mg/dL) 150 H Random Glucose 185 H Calcium 8.4 Total Bilirubin 0.4 AST 19 ALT 37 Alkaline Phosphatase 68 Total Creatine Kinase 34 L Troponin I 0.0200 Total Protein 6.5 Albumin 3.5 Globulin 3.0 Albumin/Globulin Ratio 1.2 Venous Blood Potassium Alcohol, Quantitative < 10 HIV-1 Ab Rapid Screen 04/14/17 04/14/17 04/14/17 15:50 15:50 16:01 WBC RBC Hgb Hct MCV MCH MCHC RDW Plt Count MPV Neut % (Auto) Lymph % (Auto) [place] % (Auto) Eos % (Auto) Baso % (Auto) Neut # Lymph # [place] # Eos # Baso # PT 11.7 INR 1.1 APTT 33.8 pO2 25 L VBG pH 7.31 L VBG pCO2 50 VBG HCO3 22.0 VBG Total CO2 26.7 VBG O2 Sat (Calc) 44.4 VBG Base Excess -1.7 L VBG Potassium 4.0 Glucose 194 H Lactate 1.4 FiO2 21.0 Sodium 135.0 Potassium Chloride 107.0 Carbon Dioxide Anion Gap BUN Creatinine Est GFR ( Amer) Est GFR (Non-Af Amer) POC Glucose (mg/dL) Random Glucose Calcium Total Bilirubin AST ALT Alkaline Phosphatase Total Creatine Kinase Troponin I Total Protein Albumin Globulin Albumin/Globulin Ratio Venous Blood Potassium 4.0 Alcohol, Quantitative HIV-1 Ab Rapid Screen Non reactive 04/14/17 04/15/17 04/15/17 21:36 04:40 04:40 WBC 6.3 RBC 4.98 Hgb 13.3 Hct 40.7 MCV 81.8 MCH 26.8 L MCHC 32.8 L RDW 14.3 Plt Count 192 MPV Neut % (Auto) Lymph % (Auto) [place] % (Auto) Eos % (Auto) Baso % (Auto) Neut # Lymph # [place] # Eos # Baso # PT INR APTT pO2 VBG pH VBG pCO2 VBG HCO3 VBG Total CO2 VBG O2 Sat (Calc) VBG Base Excess VBG Potassium Glucose Lactate FiO2 Sodium 139 Potassium 3.8 Chloride 105 Carbon Dioxide 26 Anion Gap 12 BUN 24 H Creatinine 1.5 Est GFR ( Amer) 56 Est GFR (Non-Af Amer) 46 POC Glucose (mg/dL) 144 H Random Glucose 157 H Calcium 8.5 Total Bilirubin AST ALT Alkaline Phosphatase Total Creatine Kinase Troponin I Total Protein Albumin Globulin Albumin/Globulin Ratio Venous Blood Potassium Alcohol, Quantitative HIV-1 Ab Rapid Screen 04/15/17 05:49 WBC RBC Hgb Hct MCV MCH MCHC RDW Plt Count MPV Neut % (Auto) Lymph % (Auto) [place] % (Auto) Eos % (Auto) Baso % (Auto) Neut # Lymph # [place] # Eos # Baso # PT INR APTT pO2 VBG pH VBG pCO2 VBG HCO3 VBG Total CO2 VBG O2 Sat (Calc) VBG Base Excess VBG Potassium Glucose Lactate FiO2 Sodium Potassium Chloride Carbon Dioxide Anion Gap BUN Creatinine Est GFR ( Amer) Est GFR (Non-Af Amer) POC Glucose (mg/dL) 173 H Random Glucose Calcium Total Bilirubin AST ALT Alkaline Phosphatase Total Creatine Kinase Troponin I Total Protein Albumin Globulin Albumin/Globulin Ratio Venous Blood Potassium Alcohol, Quantitative HIV-1 Ab Rapid Screen Assessment & Plan (1) Syncope Status: Acute (2) Essential (primary) hypertension Status: Acute (3) Type 2 diabetes mellitus with diabetic chronic kidney disease Status: Acute (4) Depression Status: Acute
[2017-04-15 09:19] LABS: URINE BILIRUBIN NEGATIVE (NEGATIVE); URINE BLOOD NEGATIVE (NEGATIVE); URINE CLARITY SLIGHTY-CLOUDY (Clear); URINE COLOR YELLOW (YELLOW); URINE GLUCOSE (UA) 50 mg/dL (Normal); URINE LEUKOCYTE ESTERASE NEG Leu/uL (Negative); URINE NITRATE NEGATIVE (NEGATIVE); URINE PROTEIN 100 mg/dL (NEGATIVE); URINE UROBILINOGEN 0.2-1.0 mg/dL (0.2-1.0)
--- NOTE | 2017-04-15 10:40 | CARD ---
APPROVED REPORT EKG Measurement Heart [id number] <Conclusion> Sinus rhythm with 1st degree AV block Left axis deviation Incomplete right bundle branch block Voltage criteria for left ventricular hypertrophy Inferior infarct, age undetermined Anteroseptal infarct, age undetermined ST & T wave abnormality, consider lateral ischemia Abnormal ECG
--- NOTE | 2017-04-15 10:50 | CARD ---
APPROVED REPORT EKG Measurement Heart [id number] <Conclusion> Normal sinus rhythm Incomplete right bundle branch block
[2017-04-15] MEDS: Clindamycin 600mg/50ml NS 600 MG/50 ML BAG IVPB SCH ×2 (12:09→16:23)
[2017-04-15] MEDS: Acyclovir 500 MG in Sodium Chloride 0.9% 100 ML IVPB SCH ×2 (12:17→16:28)
[2017-04-15] MEDS: Enoxaparin 40 mg Syringe SC SCH (13:55)
--- NOTE | 2017-04-15 14:29 | CP.PCM.PN ---
Subjective - Date & Time of Evaluation Date of Evaluation: 04/15/16 Time of Evaluation: 14:30 - Subjective Subjective: i d note patient seen ,chart reviewed . 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 ,appropriate care done HERPES ZOSTER c autoreinfection Full consult dictated Objective - Vital Signs/Intake and Output Vital Signs (last 24 hours): Temp Pulse Resp BP Pulse Ox 97.5 F L 77 18 204/100 H 96 04/15/17 12:10 04/15/17 12:23 04/15/17 12:10 04/15/17 12:23 04/15/17 12:10 - Medications Medications: Current Medications Atorvastatin Calcium (Lipitor) 20 mg PO HS [facility] Enalapril Maleate (Vasotec) 20 mg PO Q12 [facility] Last Admin: 04/15/17 08:15 Dose: 20 mg Enoxaparin Sodium (Lovenox) 40 mg SC DAILY [facility] PRN Reason: Protocol Last Admin: 04/15/17 13:55 Dose: 40 mg Furosemide (Lasix) 40 mg PO DAILY [facility] Last Admin: 04/15/17 08:16 Dose: 40 mg Glipizide (Glucotrol) 5 mg PO BIDAC [facility] Hydralazine HCl (Apresoline) 10 mg IV Q6 PRN PRN Reason: other Last Admin: 04/15/17 12:23 Dose: 10 mg Acyclovir 500 mg/ Sodium (Chloride) 100 mls @ 100 mls/hr IVPB Q8 [facility] PRN Reason: Protocol Last Admin: 04/15/17 12:17 Dose: 100 mls/hr Clindamycin Phosphate (Cleocin In Normal Saline) 600 mg in 50 mls @ 50 mls/hr IVPB Q8 [facility] PRN Reason: Protocol Last Admin: 04/15/17 12:09 Dose: 50 mls/hr Silver Sulfadiazine (Silvadene 1% 20 Gm) 20 ea TOP TID [facility] Sitagliptin Phosphate (Januvia) 50 mg PO ACB [facility] Last Admin: 04/15/17 13:54 Dose: 50 mg Tamsulosin HCl (Flomax) 0.4 mg PO DAILY [facility] Last Admin: 04/15/17 13:54 Dose: 0.4 mg Valsartan (Diovan) 320 mg PO DAILY [facility] Last Admin: 04/15/17 08:16 Dose: 320 mg Venlafaxine HCl (Effexor Xr) 150 mg PO DAILY [facility] - Labs Labs: 04/15/17 04:40 04/15/17 04:40 PT 11.7 Seconds (9.8-13.1) 04/14/17 15:50 INR 1.1 (0.9-1.2) 04/14/17 15:50 APTT 33.8 Seconds (25.6-37.1) 04/14/17 15:50
--- NOTE | 2017-04-15 14:54 | PQF GENQUE ---
Dr. Cooley, Etiology of Syncope? if known after the work up is completed OR: Unable to determine This form is a permanent part of the medical record Clarification of your documentation is requested to better reflect the severity of illness and intensity of treatment of your patient. Indicators present [] Specify: [] [] Specify: [] [] Specify: [] [] Specify: [] Location in the medical record that reflects the above clinical findings: [] Treatment Provided: [] PHYSICIAN'S RESPONSE Based on your medical judgment of the clinical indicators outlined above please clarify the following: [] Practitioner response [] If unable to determine, please check the box, sign and date. Present On Admission (POA) Indicator: [] Present at the time of admission [] Not present at the time of admission [] Clinically Undetermined In responding to this query, please exercise your independent professional judgment. The fact that a question is asked does not imply that any particular answer is desired or expected. Thank you for your clarification on this documentation. If you have any questions please call. * Thank you, Chiqui Zuniga RN ext. #[phone] MTDD
--- NOTE | 2017-04-15 14:58 | PQF GENQUE ---
Dr. Cooley, Please clarify the stage of the chronic kidney disease: Stage 1 Stage 2 (mild) Stage 3 (moderate) Stage 4 (severe) Stage 5 Other (please specify) H and P: dxs. include: Type 2 diabetes mellitus with diabetic chronic kidney disease BUN:24->24 Creatinine:1.1-.1.5 Est GFR ( Am/Non-Af Amer);>60/>60--> 56/46 This form is a permanent part of the medical record Clarification of your documentation is requested to better reflect the severity of illness and intensity of treatment of your patient. Indicators present [] Specify: [] [] Specify: [] [] Specify: [] [] Specify: [] Location in the medical record that reflects the above clinical findings: [] Treatment Provided: [] PHYSICIAN'S RESPONSE Based on your medical judgment of the clinical indicators outlined above please clarify the following: [] Practitioner response [] If unable to determine, please check the box, sign and date. Present On Admission (POA) Indicator: [] Present at the time of admission [] Not present at the time of admission [] Clinically Undetermined In responding to this query, please exercise your independent professional judgment. The fact that a question is asked does not imply that any particular answer is desired or expected. Thank you for your clarification on this documentation. If you have any questions please call. * Thank you, Chiqui Zuniga RN ext. #[phone] MTDD
[2017-04-15] MEDS: Silver Sulfadiazine 1% Cream (20 gm) TOP SCH (16:29)
[2017-04-15] MEDS: Venlafaxine 150 mg ER Cap PO SCH (16:30)
--- NOTE | 2017-04-15 18:59 | CON ---
DATE: 04/15/2017 NEUROLOGY CONSULTATION CHIEF COMPLAINT: Left scalp lesion, left headache, and left facial pain. HISTORY OF PRESENT ILLNESS: This is a 71-year-old man who is well known to me from past medical history with history of type 2 diabetes mellitus, chronic renal insufficiency, hypertension, dyslipidemia, history of syncopal episodes in the past who present with a left scalp pain to the left face where there is left scalp lesion seen, which is tender to touch and painful. He was having headaches in the left parietofrontal area as well. CAT scan of the head showed no acute intracranial abnormalities, just moderate left parietal posterior vertex deep soft tissue swelling from underlying what seems like to me herpes zoster. Currently ID is on board, he has been on silver sulfadiazine as well as he is on acylovir. He will be placed on gabapentin 300 mg p.o. q.h.s. and Tegretol 200 mg p.o. b.i.d. for neuropathic relief. No focal weakness of the extremities. PAST MEDICAL HISTORY: Type 2 diabetes mellitus, hypertension, dyslipidemia, syncope. REVIEW OF SYSTEMS: A 14-point review of systems is negative except for the HPI. FAMILY HISTORY: Noncontributory. SOCIAL HISTORY: No illicit drug use, smoking or EtOH abuse. MEDICATIONS: Reviewed by nurse reconciliation sheet. ALLERGIES: NO KNOWN DRUG ALLERGIES. PHYSICAL EXAMINATION: VITAL SIGNS: Temperature 98, pulse rate of 88, blood pressure 186/80, respiratory rate 20, oxygen saturation 95% on room air. GENERAL: Patient is sitting up in bed, in no acute distress. HEENT: Head is atraumatic, normocephalic. PERRLA. Extraocular muscles intact. NECK: Supple. No JVD. No adenopathy noted. LUNGS: Clear to auscultation. No adventitious sounds. HEART: S1, S2, normal rate and rhythm. No murmurs, rubs or gallops. ABDOMEN: Soft, nontender, nondistended. Bowel sounds present. EXTREMITIES: No clubbing. No cyanosis. Peripheral pulses 2+ felt bilaterally. He has multiple tattoos all over his body. NEUROLOGIC: The patient is alert and oriented to person, place, month, and year. Speech is fluent without any errors. Cranial nerves II through XII intact. Motor exam: Moves all extremities equally. Strength is 5/5 both upper and lower extremities. No pronator drift. Sensory exam: Decreased light touch and pinprick up to the calves bilaterally. Decreased vibration of the toes. DTRs are 2+ throughout and 1 at the ankle. Coordination: [id number] intact. Gait is deferred for now. LABORATORY DATA: Sodium 139, potassium 3.8, chloride 105, carbon dioxide 26, BUN 24, creatinine 1.5, random glucose of 157, A1c 6.9. ASSESSMENT AND PLAN: This is a 71-year-old man, history of type 2 diabetes mellitus, chronic renal insufficiency, hypertension, history of syncopal episode, who presented with left scalp lesions, left scalp pain, especially in the left parietal area followed by left facial pain, all of which is secondarily related to herpes zoster infection causing neuropathic pain. At this time, recommend: 1. Tegretol 200 mg p.o. b.i.d. 2. Gabapentin 300 mg p.o. at bedtime for neuropathic relief. 3. Keep his blood pressure between 130 to 140s. 4. Keep his blood sugars between 140 to 180s. 5. Lipitor for dyslipidemia. Continue current present medical management. Thank you for this consult. Terry Lawson MD
[2017-04-16] MEDS: Acyclovir 500 MG in Sodium Chloride 0.9% 100 ML IVPB SCH ×3 (01:00→16:49)
[2017-04-16] MEDS: Clindamycin 600mg/50ml NS 600 MG/50 ML BAG IVPB SCH ×3 (01:01→16:51)
[2017-04-16] MEDS: Silver Sulfadiazine 1% Cream (20 gm) TOP SCH ×3 (09:37→16:47)
[2017-04-16] MEDS: Venlafaxine 150 mg ER Cap PO SCH (09:37)
[2017-04-16] MEDS: Enoxaparin 40 mg Syringe SC SCH (09:37)
[2017-04-16 10:05] LABS: HEMOGLOBIN 14.2 g/dL (12.0-18.0); MEAN CELL VOLUME 81.7 fl (80.0-94.0); MEAN CORPUSCULAR HEMOGLOBIN 27.2 pg (27.0-31.0); MEAN CORPUSCULAR HGB CONC 33.3 g/dL (33.0-37.0); RBC 5.23 Mil/uL (4.40-5.90); RED CELL DISTRIBUTION WIDTH 14.9 % (11.5-14.5); WHITE BLOOD COUNT 5.4 K/uL (4.8-10.8)
[2017-04-16 10:22] LABS: BLOOD UREA NITROGEN 25 mg/dl (9-20); CALCIUM 8.8 mg/dL (8.4-10.2); GFR AFRICAN-AMERICAN > 60; GFR NON-AFRICAN AMERICAN 50
--- NOTE | 2017-04-16 11:38 | CP.PCM.PN ---
Subjective - Date & Time of Evaluation Date of Evaluation: 04/16/17 Time of Evaluation: 10:00 - Subjective Subjective: DR Pham's note appreciated Dx: Herpes Zoster w/ 2* infection BP: still running high I have increased the Hydralizine to 20mg IV Q6h Objective - Vital Signs/Intake and Output Vital Signs (last 24 hours): Temp Pulse Resp BP Pulse Ox 97.4 F L 61 18 228/80 H 98 04/16/17 08:00 04/16/17 09:38 04/16/17 08:00 04/16/17 09:38 04/16/17 08:00 - Medications Medications: Current Medications Atorvastatin Calcium (Lipitor) 20 mg PO HS [facility] Last Admin: 04/15/17 22:09 Dose: 20 mg Carbamazepine (Tegretol) 200 mg PO BID [facility] Last Admin: 04/16/17 09:37 Dose: 200 mg Enalapril Maleate (Vasotec) 20 mg PO Q12 [facility] Last Admin: 04/16/17 09:36 Dose: 20 mg Enoxaparin Sodium (Lovenox) 40 mg SC DAILY [facility] PRN Reason: Protocol Last Admin: 04/16/17 09:37 Dose: 40 mg Furosemide (Lasix) 40 mg PO DAILY [facility] Last Admin: 04/16/17 09:36 Dose: 40 mg Gabapentin (Neurontin) 300 mg PO HS [facility] Last Admin: 04/15/17 22:09 Dose: 300 mg Glipizide (Glucotrol) 5 mg PO BIDAC [facility] Last Admin: 04/16/17 09:36 Dose: 5 mg Hydralazine HCl (Apresoline) 20 mg IV Q6 [facility] Acyclovir 500 mg/ Sodium (Chloride) 100 mls @ 100 mls/hr IVPB Q8 [facility] PRN Reason: Protocol Last Admin: 04/16/17 09:35 Dose: 100 mls/hr Clindamycin Phosphate (Cleocin In Normal Saline) 600 mg in 50 mls @ 50 mls/hr IVPB Q8 [facility] PRN Reason: Protocol Last Admin: 04/16/17 09:34 Dose: 50 mls/hr Silver Sulfadiazine (Silvadene 1% 20 Gm) 0 ea TOP TID [facility] Last Admin: 04/16/17 09:37 Dose: 1 applic Sitagliptin Phosphate (Januvia) 50 mg PO ACB [facility] Last Admin: 04/16/17 09:36 Dose: 50 mg Tamsulosin HCl (Flomax) 0.4 mg PO DAILY [facility] Last Admin: 04/16/17 09:36 Dose: 0.4 mg Valsartan (Diovan) 320 mg PO DAILY [facility] Last Admin: 04/16/17 09:37 Dose: 320 mg Venlafaxine HCl (Effexor Xr) 150 mg PO DAILY [facility] Last Admin: 04/16/17 09:37 Dose: 150 mg - Labs Labs: 04/16/17 09:50 04/16/17 09:50 PT 11.7 Seconds (9.8-13.1) 04/14/17 15:50 INR 1.1 (0.9-1.2) 04/14/17 15:50 APTT 33.8 Seconds (25.6-37.1) 04/14/17 15:50 Assessment and Plan (1) Syncope Status: Acute (2) Essential (primary) hypertension Status: Acute (3) Type 2 diabetes mellitus with diabetic chronic kidney disease Status: Acute (4) Depression Status: Acute
[2017-04-16] MEDS ORDERED: Oxycodone/Acetaminophen 5/325 mg Tab PO ONE (19:00)
[2017-04-17] MEDS: Acyclovir 500 MG in Sodium Chloride 0.9% 100 ML IVPB SCH ×3 (00:33→17:24)
[2017-04-17] MEDS: Clindamycin 600mg/50ml NS 600 MG/50 ML BAG IVPB SCH ×3 (00:34→17:25)
[2017-04-17] MEDS: Venlafaxine 150 mg ER Cap PO SCH (10:39)
[2017-04-17] MEDS: Enoxaparin 40 mg Syringe SC SCH (10:40)
[2017-04-17] MEDS: Silver Sulfadiazine 1% Cream (20 gm) TOP SCH ×3 (10:43→17:27)
[2017-04-17] MEDS: Oxycodone/Acetaminophen 5/325 mg Tab PO PRN ×2 (10:55→17:40)
--- NOTE | 2017-04-17 11:50 | CP.PCM.PN ---
Subjective - Date & Time of Evaluation Date of Evaluation: 04/17/17 Time of Evaluation: 10:00 - Subjective Subjective: pt c/o pain @ left scalp 2* to shingles on IV antibiotics Rx with Percocet BP: 184/66 Objective - Vital Signs/Intake and Output Vital Signs (last 24 hours): Temp Pulse Resp BP Pulse Ox 99.1 F 84 20 184/66 H 94 L 04/17/17 08:15 04/17/17 10:39 04/17/17 08:15 04/17/17 10:39 04/17/17 08:15 - Medications Medications: Current Medications Atorvastatin Calcium (Lipitor) 20 mg PO HS [facility] Last Admin: 04/16/17 21:37 Dose: 20 mg Carbamazepine (Tegretol) 200 mg PO BID [facility] Last Admin: 04/17/17 10:39 Dose: 200 mg Enalapril Maleate (Vasotec) 20 mg PO Q12 [facility] Last Admin: 04/17/17 10:38 Dose: 20 mg Enoxaparin Sodium (Lovenox) 40 mg SC DAILY [facility] PRN Reason: Protocol Last Admin: 04/17/17 10:40 Dose: 40 mg Furosemide (Lasix) 40 mg PO DAILY [facility] Last Admin: 04/17/17 10:38 Dose: 40 mg Gabapentin (Neurontin) 300 mg PO HS [facility] Last Admin: 04/16/17 21:37 Dose: 300 mg Glipizide (Glucotrol) 5 mg PO BIDAC [facility] Last Admin: 04/17/17 10:39 Dose: 5 mg Hydralazine HCl (Apresoline) 20 mg IV Q6 [facility] Last Admin: 04/17/17 10:39 Dose: 20 mg Acyclovir 500 mg/ Sodium (Chloride) 100 mls @ 100 mls/hr IVPB Q8 [facility] PRN Reason: Protocol Last Admin: 04/17/17 10:43 Dose: 100 mls/hr Clindamycin Phosphate (Cleocin In Normal Saline) 600 mg in 50 mls @ 50 mls/hr IVPB Q8 [facility] PRN Reason: Protocol Last Admin: 04/17/17 10:42 Dose: 50 mls/hr Oxycodone/Acetaminophen (Percocet 5/325 Mg Tab) 1 tab PO Q6 PRN PRN Reason: Pain, moderate (4-7) Stop: 04/19/17 18:57 Last Admin: 04/17/17 10:55 Dose: 1 tab Silver Sulfadiazine (Silvadene 1% 20 Gm) 0 ea TOP TID [facility] Last Admin: 04/17/17 10:43 Dose: 1 applic Sitagliptin Phosphate (Januvia) 50 mg PO ACB [facility] Last Admin: 04/17/17 10:38 Dose: 50 mg Tamsulosin HCl (Flomax) 0.4 mg PO DAILY [facility] Last Admin: 04/17/17 10:38 Dose: 0.4 mg Valsartan (Diovan) 320 mg PO DAILY [facility] Last Admin: 04/17/17 10:38 Dose: 320 mg Venlafaxine HCl (Effexor Xr) 150 mg PO DAILY [facility] Last Admin: 04/17/17 10:39 Dose: 150 mg - Labs Labs: 04/16/17 09:50 04/16/17 09:50 PT 11.7 Seconds (9.8-13.1) 04/14/17 15:50 INR 1.1 (0.9-1.2) 04/14/17 15:50 APTT 33.8 Seconds (25.6-37.1) 04/14/17 15:50 Assessment and Plan (1) Syncope Status: Acute (2) Essential (primary) hypertension Status: Acute (3) Type 2 diabetes mellitus with diabetic chronic kidney disease Status: Acute (4) Depression Status: Acute
--- NOTE | 2017-04-17 18:17 | CP.PCM.PN ---
Subjective - Date & Time of Evaluation Date of Evaluation: 04/17/16 Time of Evaluation: 18:16 - Subjective Subjective: I D NOTE LABS NOTED AWAIT VZ TESTING RENAL FUNCTION IS SO FAR STABLE CONTINUE SAME RX MUST CHECK c IT IF CONSULT DICTATED IS IN SYSTEM Objective - Vital Signs/Intake and Output Vital Signs (last 24 hours): Temp Pulse Resp BP Pulse Ox 97.8 F 91 H 18 144/65 93 L 04/17/17 16:08 04/17/17 17:26 04/17/17 16:08 04/17/17 17:26 04/17/17 16:08 - Medications Medications: Current Medications Atorvastatin Calcium (Lipitor) 20 mg PO HS [facility] Last Admin: 04/16/17 21:37 Dose: 20 mg Carbamazepine (Tegretol) 200 mg PO BID [facility] Last Admin: 04/17/17 17:27 Dose: 200 mg Enalapril Maleate (Vasotec) 20 mg PO Q12 [facility] Last Admin: 04/17/17 10:38 Dose: 20 mg Enoxaparin Sodium (Lovenox) 40 mg SC DAILY [facility] PRN Reason: Protocol Last Admin: 04/17/17 10:40 Dose: 40 mg Furosemide (Lasix) 40 mg PO DAILY [facility] Last Admin: 04/17/17 10:38 Dose: 40 mg Gabapentin (Neurontin) 300 mg PO HS [facility] Last Admin: 04/16/17 21:37 Dose: 300 mg Glipizide (Glucotrol) 5 mg PO BIDAC [facility] Last Admin: 04/17/17 17:26 Dose: 5 mg Hydralazine HCl (Apresoline) 20 mg IV Q6 [facility] Last Admin: 04/17/17 17:26 Dose: 20 mg Acyclovir 500 mg/ Sodium (Chloride) 100 mls @ 100 mls/hr IVPB Q8 [facility] PRN Reason: Protocol Last Admin: 04/17/17 17:24 Dose: 100 mls/hr Clindamycin Phosphate (Cleocin In Normal Saline) 600 mg in 50 mls @ 50 mls/hr IVPB Q8 [facility] PRN Reason: Protocol Last Admin: 04/17/17 17:25 Dose: 50 mls/hr Oxycodone/Acetaminophen (Percocet 5/325 Mg Tab) 1 tab PO Q6 PRN PRN Reason: Pain, moderate (4-7) Stop: 04/19/17 18:57 Last Admin: 04/17/17 17:40 Dose: 1 tab Silver Sulfadiazine (Silvadene 1% 20 Gm) 0 ea TOP TID [facility] Last Admin: 04/17/17 17:27 Dose: 1 applic Sitagliptin Phosphate (Januvia) 50 mg PO ACB [facility] Last Admin: 04/17/17 10:38 Dose: 50 mg Tamsulosin HCl (Flomax) 0.4 mg PO DAILY [facility] Last Admin: 04/17/17 10:38 Dose: 0.4 mg Valsartan (Diovan) 320 mg PO DAILY [facility] Last Admin: 04/17/17 10:38 Dose: 320 mg Venlafaxine HCl (Effexor Xr) 150 mg PO DAILY [facility] Last Admin: 04/17/17 10:39 Dose: 150 mg - Labs Labs: 04/16/17 09:50 04/16/17 09:50 PT 11.7 Seconds (9.8-13.1) 04/14/17 15:50 INR 1.1 (0.9-1.2) 04/14/17 15:50 APTT 33.8 Seconds (25.6-37.1) 04/14/17 15:50
[2017-04-18] MEDS: Clindamycin 600mg/50ml NS 600 MG/50 ML BAG IVPB SCH ×2 (00:15→09:05)
[2017-04-18] MEDS: Acyclovir 500 MG in Sodium Chloride 0.9% 100 ML IVPB SCH ×2 (01:35→09:04)
[2017-04-18] MEDS ORDERED: Lactobacillus Acidophilus 500 MU Cap PO SCH (09:00)
[2017-04-18] MEDS: Enoxaparin 40 mg Syringe SC SCH (09:00)
[2017-04-18] MEDS: Silver Sulfadiazine 1% Cream (20 gm) TOP SCH ×2 (09:01→15:35)
[2017-04-18] MEDS: Venlafaxine 150 mg ER Cap PO SCH (09:02)
[2017-04-18] MEDS: Oxycodone/Acetaminophen 5/325 mg Tab PO PRN ×2 (09:22→15:28)
--- NOTE | 2017-04-18 09:31 | CON ---
DATE: INFECTIOUS DISEASE CONSULTATION LOCATION: He is in room 412, bed 1. HISTORY OF PRESENT ILLNESS: Patient is a 71-year-old male brought to the emergency room by EMS with dizziness and near syncopal episode. States he has been feeling sick for the past several days.States for the past week and a half to two weeks, he has been having pain on his scalp with headache and lesions noted behind his ear and on his neck. PAST MEDICAL HISTORY: Includes hypertension, diabetes, CVA, and depression. Of note, the rash on his face is a purulent, vesicular rash he has stated that he has had for at least a month. PHYSICAL EXAMINATION: HEENT: Head is normocephalic. He has vesicular crusted lesions on the left side of the scalp and left neck behind the ear that are painful. It would be unusual for him to have it this long unless these are just some crusted over and also the fact that he may have inoculated himself by scratching it; not known what he has The largest lesions appears one on his scalp and one on his left lateral neck area. GENERAL: He is alert, cooperative, and oriented to time and place. NECK: Previously noted as far as the skin findings. Neck is supple. LUNGS: Clear. HEART: Regular sinus rhythm. ABDOMEN: Soft. Positive bowel sounds. EXTREMITIES: No CCE. SKIN: Patient has significant tattooing all over his body and also his earlobes have had some kind of a disc that had been placed and that has been removed and they are markedly enlarged. The CT of the head shows no acute intracranial abnormality. Chest x-ray has no evidence of pneumonia. LABORATORY DATA: Labs show a white count of 6.7 and hemoglobin of 13.8. Chemistry shows sodium of 139, creatinine is 1.5 and GFR is greater than 60. ASSESSMENT AND PLAN: We will repeat renal functions tomorrow just to be sure in regard to his dose of acyclovir. His HIV is negative and by history his hepatitis C is negative. At present time, treatment is appropriate. I have added clindamycin to cover staph and other Gram-positives. He is already on acyclovir. I have added Silvadene cream topically and he is on all his other medications. A Varicella zoster titer has been ordered as well as herpes simplex virus titers. Darnell Pham MD [place]
[2017-04-18 09:32] LABS: MEAN CELL VOLUME 81.4 fl (80.0-94.0); MEAN CORPUSCULAR HEMOGLOBIN 27.1 pg (27.0-31.0); MEAN CORPUSCULAR HGB CONC 33.4 g/dL (33.0-37.0); RBC 4.78 Mil/uL (4.40-5.90); RED CELL DISTRIBUTION WIDTH 14.5 % (11.5-14.5); WHITE BLOOD COUNT 7.6 K/uL (4.8-10.8)
[2017-04-18 09:50] LABS: BLOOD UREA NITROGEN 25 mg/dl (9-20); CALCIUM 8.6 mg/dL (8.4-10.2); GFR AFRICAN-AMERICAN > 60; GFR NON-AFRICAN AMERICAN 50
--- NOTE | 2017-04-18 15:06 | CP.PCM.PCO ---
Assessment/Plan - Assessment and Plan (Free Text) Assessment: Patient on day 4 of iv acyclovir for shingles. To cont antivirals on TCU with contact precautions. Discussed with Infectious Disease.
[2017-04-18 15:28] VITALS: BP 168/76; PULSE 82; RESP 20; TEMP 98
--- NOTE | 2017-04-19 10:55 | CP.PCM.DIS ---
Provider - Provider Date of Admission: 04/14/17 17:55 Attending physician: Rohan Cooley MD Primary care physician: Dr Cooley Consults: Ankit Time Spent in preparation of Discharge (in minutes): 44 Diagnosis - Discharge Diagnosis (1) Herpes zoster Status: Acute (2) Syncope Status: Acute (3) Essential (primary) hypertension Status: Acute (4) Type 2 diabetes mellitus with diabetic chronic kidney disease Status: Acute (5) Depression Status: Acute Hospital Course - Lab Results Lab Results: Most Recent Lab Values WBC 7.6 K/uL (4.8-10.8) 04/18/17 09:20 RBC 4.78 Mil/uL (4.40-5.90) 04/18/17 09:20 Hgb 13.0 g/dL (12.0-18.0) 04/18/17 09:20 Hct 38.9 % (35.0-51.0) 04/18/17 09:20 MCV 81.4 fl (80.0-94.0) 04/18/17 09:20 MCH 27.1 pg (27.0-31.0) 04/18/17 09:20 MCHC 33.4 g/dL (33.0-37.0) 04/18/17 09:20 RDW 14.5 % (11.5-14.5) 04/18/17 09:20 Plt Count 249 K/uL (130-400) 04/18/17 09:20 MPV 7.5 fl (7.2-11.7) 04/14/17 15:50 Neut % (Auto) 73.1 % (50.0-75.0) 04/14/17 15:50 Lymph % (Auto) 13.6 % (20.0-40.0) L 04/14/17 15:50 Mercer % (Auto) 12.2 % (0.0-10.0) H 04/14/17 15:50 Eos % (Auto) 0.8 % (0.0-4.0) 04/14/17 15:50 Baso % (Auto) 0.3 % (0.0-2.0) 04/14/17 15:50 Neut # 4.9 K/uL (1.8-7.0) 01/04/18 15:50 Lymph # 0.9 K/uL (1.0-4.3) L 04/14/17 15:50 Mercer # 0.8 K/uL (0.0-0.8) 04/14/17 15:50 Eos # 0.1 K/uL (0.0-0.7) 04/14/17 15:50 Baso # 0.0 K/uL (0.0-0.2) 04/14/17 15:50 PT 11.7 Seconds (9.8-13.1) 04/14/17 15:50 INR 1.1 (0.9-1.2) 04/14/17 15:50 APTT 33.8 Seconds (25.6-37.1) 04/14/17 15:50 pO2 25 mm/Hg (30-55) L 04/14/17 16:01 VBG pH 7.31 (7.32-7.43) L 04/14/17 16:01 VBG pCO2 50 mmHg (40-60) 04/14/17 16:01 VBG HCO3 22.0 mmol/L 04/14/17 16:01 VBG Total CO2 26.7 mmol/L (22-28) 04/14/17 16:01 VBG O2 Sat (Calc) 44.4 % (40-65) 04/14/17 16:01 VBG Base Excess -1.7 mmol/L (0.0-2.0) L 04/14/17 16:01 VBG Potassium 4.0 mmol/L (3.6-5.2) 04/14/17 16:01 Sodium 135.0 mmol/L (132-148) 04/14/17 16:01 Chloride 107.0 mmol/L (98-107) 04/14/17 16:01 Glucose 194 mg/dL (75-110) H 04/14/17 16:01 Lactate 1.4 mmol/L (0.7-2.1) 04/14/17 16:01 FiO2 21.0 % 04/14/17 16:01 Sodium 140 mmol/l (132-148) 04/18/17 09:25 Potassium 3.8 MMOL/L (3.6-5.0) 04/18/17 09:25 Chloride 105 mmol/L (98-107) 04/18/17 09:25 Carbon Dioxide 27 mmol/L (22-30) 04/18/17 09:25 Anion Gap 12 (10-20) 04/18/17 09:25 BUN 25 mg/dl (9-20) H 04/18/17 09:25 Creatinine 1.4 mg/dl (0.8-1.5) 04/18/17 09:25 Est GFR ( Amer) > 60 04/18/17 09:25 Est GFR (Non-Af Amer) 50 04/18/17 09:25 POC Glucose (mg/dL) 168 mg/dL (65-110) H 04/18/17 16:59 Random Glucose 301 mg/dL (75-110) H 04/18/17 09:25 Calcium 8.6 mg/dL (8.4-10.2) 04/18/17 09:25 Total Bilirubin 0.4 mg/dl (0.2-1.3) 04/14/17 15:50 AST 19 U/L (17-59) 04/14/17 15:50 ALT 37 U/L (21-72) 04/14/17 15:50 Alkaline Phosphatase 68 U/L (38-126) 04/14/17 15:50 Total Creatine Kinase 34 U/L (55-170) L 04/14/17 15:50 Troponin I 0.0200 ng/mL (0.00-0.120) 04/14/17 15:50 Total Protein 6.5 G/DL (6.3-8.2) 04/14/17 15:50 Albumin 3.5 g/dL (3.5-5.0) 04/14/17 15:50 Globulin 3.0 gm/dL (2.2-3.9) 04/14/17 15:50 Albumin/Globulin Ratio 1.2 (1.0-2.1) 04/14/17 15:50 Venous Blood Potassium 4.0 mmol/L (3.6-5.2) 04/14/17 16:01 Urine Color Yellow (YELLOW) 04/15/17 09:04 Urine Clarity Slighty-cloudy (Clear) 04/15/17 09:04 Urine pH 5.0 (5.0-8.0) 04/15/17 09:04 Ur Specific [place] 1.027 (1.003-1.030) 04/15/17 09:04 Urine Protein 100 mg/dL (NEGATIVE) 04/15/17 09:04 Urine Glucose (UA) 50 mg/dL (Normal) 04/15/17 09:04 Urine Ketones 20 mg/dL (NEGATIVE) 04/15/17 09:04 Urine Blood Negative (NEGATIVE) 04/15/17 09:04 Urine Nitrate Negative (NEGATIVE) 04/15/17 09:04 Urine Bilirubin Negative (NEGATIVE) 04/15/17 09:04 Urine Urobilinogen 0.2-1.0 mg/dL (0.2-1.0) 04/15/17 09:04 Ur Leukocyte Esterase Neg Alphonso/uL (Negative) 04/15/17 09:04 Urine RBC (Auto) 1 /hpf (0-3) 04/15/17 09:04 Urine Microscopic WBC 1 /hpf (0-5) 04/15/17 09:04 Hyaline Casts 3-5 /hpf (0-2) H 04/15/17 09:04 Alcohol, Quantitative < 10 mg/dl (0-10) 04/14/17 15:50 HSV I IgG Ab <0.90 index 04/15/17 14:48 HSV II IgG <0.90 index 04/15/17 14:48 HIV-1 Ab Rapid Screen Non reactive (NON REAC) 04/14/17 15:50 - Hospital Course Hospital Course: 71 y/o male brought to the emergency department by EMS for dizziness and near syncope today. States that he has been feeling sick for the past several days and complains of pain to his scalp and a mild headache. Also notes a mild ongoing cough for many months. Patient also notes that he is negative for HIV and hepatitis. Denies trauma, fever, neck pain, vomiting, diarrhea, chest pain, shortness of breath, or other complaints. Also, c/o purulent vescicular rash @Left scalp has had it ~1 month.. Dx: Herpes Zoster PMH: Hypertension DM II CVA Depression Herpes Zoster EKG: NSR no change from prior EKG's Troponin: neg Discharge Exam - Head Exam Head Exam: NORMOCEPHALIC (with multiple tattoos to face including eyeball tattoos to eyelids bilaterally. unilateral extensive erythematous and vesicular lesions to scalp. Periauricular lesions in front of left ear. No lesions to face or nose noted) Discharge Plan - Discharge Medications Prescriptions: Clindamycin 600mg/50ml NS [Cleocin in Normal Saline] 600 mg IVPB Q8 #21 bag Acyclovir [Zovirax 500 mg Inj] 500 mg IV Q8 #21 vial - Follow Up Plan Condition: STABLE Disposition: TRANSF TO SNF Additional Instructions: pt. cleared for discharge to TCU today by and pt. will require Acyclovir/ Clinda IV f/u Varicella zoster titer results (spoke with cepraveena in Lab- sample send out to [facility]) Referrals: Rohan Cooley MD [Staff Provider] - Darnell Pham MD [Medical Doctor] -
[2017-04-20 14:48] VITALS: O2SAT 100
== END 2017-04-18 16:00 | DRG 74 ==
LOC: H.ER 14:42 → H.ERHOLD 17:55 → H.TEL 21:24
PROVIDERS: ADMIT Internal Medicine Cardiovascular Disease; ATTEND Internal Medicine Cardiovascular Disease
DX: B02.29 Other postherpetic nervous system involvement (principal); E11.22 Type 2 diabetes mellitus with diabetic chronic kidney disease; R55 Syncope and collapse; I12.9 Hypertensive chronic kidney disease with stage 1 through stage 4 chronic kidney disease, or unspecified chronic kidney disease; N18.9 Chronic kidney disease, unspecified; E78.5 Hyperlipidemia, unspecified; F32.9 Major depressive disorder, single episode, unspecified; Z86.73 Personal history of transient ischemic attack (TIA), and cerebral infarction without residual deficits; Z87.891 Personal history of nicotine dependence; Z79.899 Other long term (current) drug therapy; Z79.84 Long term (current) use of oral hypoglycemic drugs

== ENCOUNTER 2017-04-18 14:33 | Inpatient (IN) | payer OTHER ==
[2017-04-18 16:27] VITALS: BMI 30.1
[2017-04-18] MEDS ORDERED: Acyclovir 500 mg Inj IV SCH (18:00)
[2017-04-18] MEDS ORDERED: NORMAL SALINE IVPB SCH (18:15)
[2017-04-18] MEDS ORDERED: NS IVPB SCH (18:15)
[2017-04-18] MEDS ORDERED: CLINDAMYCIN IVPB SCH (18:15)
[2017-04-18 18:35] VITALS: RESP 20
[2017-04-18] MEDS: Acyclovir 500 MG in Sodium Chloride 0.9% 100 ML IV SCH (18:43)
[2017-04-18] MEDS: Clindamycin 600mg/50ml NS 600 MG/50 ML BAG IVPB SCH (18:44)
[2017-04-18] MEDS: Oxycodone/Acetaminophen 5/325 mg Tab PO PRN (19:29)
[2017-04-19] MEDS: Acyclovir 500 MG in Sodium Chloride 0.9% 100 ML IV SCH ×3 (00:48→17:03)
[2017-04-19] MEDS: Clindamycin 600mg/50ml NS 600 MG/50 ML BAG IVPB SCH ×3 (01:50→17:50)
[2017-04-19] MEDS: Lactobacillus Acidophilus 500 MU Cap PO SCH ×2 (08:40→17:00)
[2017-04-19] MEDS: Venlafaxine 150 mg ER Cap PO SCH (08:42)
[2017-04-19] MEDS: Enoxaparin 40 mg Syringe SC SCH (08:43)
[2017-04-19] MEDS: Oxycodone/Acetaminophen 5/325 mg Tab PO PRN ×3 (09:24→17:49)
[2017-04-19] MEDS ORDERED: Labetalol 5mg/ml (4ml) ONE (09:35)
[2017-04-19] MEDS ORDERED: Labetalol 5mg/ml (4ml) IVP STA (09:36)
--- NOTE | 2017-04-19 10:05 | PCM.RRT ---
<Randall Sapp - Last Filed: 04/19/17 16:41> PATTERN STORAGE CLERK Nurse Assessment - Situation PATTERN STORAGE CLERK Responder Arrival Time: 09:33 Location: U Room Number: 712-1 PATTERN STORAGE CLERK Reason for Call: Hypertension PATTERN STORAGE CLERK Called By: RN - IV IV Inserted during PATTERN STORAGE CLERK?: No - Respiratory Oxygen Delivery Method: Room Air Received Nebulizer Treatments: No Was the Patient Intubated?: No Was the Patient Placed on a Ventilator?: No - Medication Medications Administered During PATTERN STORAGE CLERK: Labetalol 20mg IV - Diagnostic Test Ordered EKG: Yes (no new changes) Chest X-Ray: No CT Scan: No - Stat Labs Ordered PATTERN STORAGE CLERK Stat Labs Ordered: TROPONIN PATTERN STORAGE CLERK Other Labs Ordered: CMP CPR started during PATTERN STORAGE CLERK?: No - Vital Signs Vital Signs: BP 212/81 HR 78 O2 Sat 95% RA Temp - - Brooke Coma Scale Coma Scale Eye Opening: Spontaneous Coma Scale Motor: Obeys Commands Movement Coma Scale Verbal: Oriented Coma Scale Total: 15 - Time PATTERN STORAGE CLERK Ended Time PATTERN STORAGE CLERK Ended: 09:48 - Vital Signs at end of PATTERN STORAGE CLERK Vital Signs at end of PATTERN STORAGE CLERK: BP 156/78 HR 65 O2 Sat 95% RA Temp - - Recommendations PATTERN STORAGE CLERK Level of Care Recommendations: Remain in current setting Notifications: Attending Physician - Neurological Status (Select all that apply): Alert, Responsive, Oriented, Verbal, Follows Commands - Respiratory Oxygen Delivery Method: Room Air - Constitutional Appears: No Acute Distress - Head Head Exam: ATRAUMATIC - Eyes Eye Exam: EOMI, Normal appearance, PERRL Plan - Assessment of Findings&Treatment Plan 71 year old male PMHx HTN, DM II, CVA, depression, herpes zoster had PATTERN STORAGE CLERK called by RN after becoming increasingly hypertensive despite being given antihypertensive medications. Vitals on arrival: BP 212/81 HR 78 O2 Sat 95% RA Temp - Plan Labetalol 20mg IV given EKG: ordered and reviewed Stat labs: CMP, Troponin f/u labs <Sandra Wang - Last Filed: 04/19/17 17:20> PATTERN STORAGE CLERK Nurse Assessment - Vital Signs Vital Signs: Rapid Response Vital Sign Blood Pressure 240/115 Pulse Rate 75 Respiratory Rate 20 Temperature 97.8 F Oxygen Saturation 97 - Vital Signs at end of PATTERN STORAGE CLERK Vital Signs at end of PATTERN STORAGE CLERK: Rapid Response End Vital Sign Blood Pressure 165/63 Pulse Rate 64 Respiratory Rate 20 Temperature 97.8 F O2 Sat by Pulse Oximetry 97 Attending/Attestation - Attestation I have personally seen and examined this patient.: Yes I have fully participated in the care of the patient.: Yes I have reviewed all pertinent clinical information, including history, physical exam and plan: Yes Notes (Text): 04/19/17 17:19 patient seen examined discussed with resident. agree with findings and plan as above. Discussed with Dr. Cooley, primary physician. troponins and EKG sent, subsequent management per primary admitting team.
[2017-04-19] MEDS: Silver Sulfadiazine 1% Cream (20 gm) TOP SCH ×3 (10:09→17:02)
[2017-04-19 10:28] LABS: ALBUMIN 3.3 g/dL (3.5-5.0); ALT/SGPT 36 U/L (21-72); AST/SGOT 19 U/L (17-59); BLOOD UREA NITROGEN 23 mg/dl (9-20); CALCIUM 8.6 mg/dL (8.4-10.2); GFR AFRICAN-AMERICAN > 60; GFR NON-AFRICAN AMERICAN 50
[2017-04-19 10:34] LABS: ALB/GLOB RATIO 1.2 (1.0-2.1)
--- NOTE | 2017-04-19 11:41 | CP.PCM.HP ---
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 was called this AM because of high BP Troponin +positive most likely 2* to high BP and infectious process Pt denies chest discomfort SOB Because of extreme scalp/facial pain I have increased the Percocet Also have added Labetolol BUT need to watch his HR Present on Admission - Present on Admission Any Indicators Present on Admission: No Past Patient History - Infectious Disease Hx of Infectious Diseases: None - Past Medical History & Family History Past Medical History?: Yes - Past Social History Smoking Status: Former Smoker - CARDIAC Hx Hypercholesterolemia: Yes Hx Hypertension: Yes - PULMONARY Hx Respiratory Disorders: No - NEUROLOGICAL HX Cerebrovascular Accident: Yes (possible) - HEENT Hx HEENT Problems: Yes (mastoiditis) - RENAL Hx Chronic Kidney Disease: Yes - ENDOCRINE/METABOLIC Hx Diabetes Mellitus Type 2: Yes - HEMATOLOGICAL/ONCOLOGICAL Hx Blood Disorders: No Hx AIDS: No Hx Human Immunodeficiency Virus (HIV): No - INTEGUMENTARY Hx Dermatological Problems: No - MUSCULOSKELETAL/RHEUMATOLOGICAL Hx Musculoskeletal Disorders: Yes Hx Falls: No - GASTROINTESTINAL Hx Gastrointestinal Disorders: No - GENITOURINARY/GYNECOLOGICAL Hx Genitourinary Disorders: Yes Hx Prostate Problems: Yes - PSYCHIATRIC Hx Depression: Yes Hx Substance Use: No - SURGICAL HISTORY Hx Surgeries: No - ANESTHESIA Hx Anesthesia: Yes Hx Anesthesia Reactions: No Hx Malignant Hyperthermia: No Meds Allergies/Adverse Reactions: Allergies Allergy/AdvReac Type Severity Reaction Status Date / Time No Known Allergies Allergy Verified 04/18/17 16:26 Results - Vital Signs Recent Vital Signs: Last Vital Signs Temp 97.9 F 04/19/17 10:13 Pulse 67 04/19/17 10:13 Resp 20 04/19/17 10:13 BP 244/104 H 04/19/17 10:13 Pulse Ox 95 04/19/17 10:13 - Labs Result Diagrams: 04/19/17 10:00 Labs: Laboratory Results - last 24 hr 04/18/17 04/19/17 04/19/17 20:32 06:11 09:33 Sodium Potassium Chloride Carbon Dioxide Anion Gap BUN Creatinine Est GFR ( Amer) Est GFR (Non-Af Amer) POC Glucose (mg/dL) 180 H 160 H 196 H Random Glucose Calcium Total Bilirubin AST ALT Alkaline Phosphatase Troponin I Total Protein Albumin Globulin Albumin/Globulin Ratio 04/19/17 04/19/17 10:00 11:07 Sodium 141 Potassium 3.5 L Chloride 104 Carbon Dioxide 26 Anion Gap 15 BUN 23 H Creatinine 1.4 Est GFR ( Amer) > 60 Est GFR (Non-Af Amer) 50 POC Glucose (mg/dL) 167 H Random Glucose 212 H Calcium 8.6 Total Bilirubin 0.2 AST 19 ALT 36 Alkaline Phosphatase 63 Troponin I 0.4630 H* Total Protein 6.2 L Albumin 3.3 L Globulin 2.9 Albumin/Globulin Ratio 1.2 Assessment & Plan (1) Essential (primary) hypertension Status: Acute (2) Herpes zoster Status: Acute (3) Dizziness Status: Acute (4) Type 2 diabetes mellitus with diabetic chronic kidney disease Status: Acute
[2017-04-20] MEDS: Acyclovir 500 MG in Sodium Chloride 0.9% 100 ML IV SCH ×3 (00:33→16:52)
[2017-04-20] MEDS: Clindamycin 600mg/50ml NS 600 MG/50 ML BAG IVPB SCH ×3 (01:37→18:15)
[2017-04-20] MEDS: Lactobacillus Acidophilus 500 MU Cap PO SCH ×2 (08:38→16:49)
[2017-04-20] MEDS: Silver Sulfadiazine 1% Cream (20 gm) TOP SCH ×3 (08:41→16:52)
[2017-04-20] MEDS: Venlafaxine 150 mg ER Cap PO SCH (08:43)
[2017-04-20] MEDS: Enoxaparin 40 mg Syringe SC SCH (08:43)
--- NOTE | 2017-04-20 10:50 | CARD ---
APPROVED REPORT EKG Measurement Heart [id number] <Conclusion> Sinus rhythm with 1st degree AV block Left axis deviation Incomplete right bundle branch block Left ventricular hypertrophy with repolarization abnormality Abnormal ECG
[2017-04-20] MEDS: Oxycodone/Acetaminophen 5/325 mg Tab PO PRN (10:51)
--- NOTE | 2017-04-20 11:11 | CARD ---
APPROVED REPORT EKG Measurement Heart [id number] <Conclusion> Sinus rhythm with 1st degree AV block Left axis deviation Incomplete right bundle branch block Left ventricular hypertrophy with repolarization abnormality Possible inferior infarct, age undetermined Abnormal ECG
--- NOTE | 2017-04-20 11:28 | CP.PCM.PN ---
Subjective - Date & Time of Evaluation Date of Evaluation: 04/20/17 Time of Evaluation: 10:00 - Subjective Subjective: Still c/o left scalp/face pain controlled slightly better with increased Percocet BP: ~ a little better controlled with Labetalol will probably need to increase it BUT need to monitor his HR Objective - Vital Signs/Intake and Output Vital Signs (last 24 hours): Temp Pulse Resp BP Pulse Ox 98.1 F 80 20 194/67 H 98 04/20/17 08:45 04/20/17 10:11 04/20/17 08:45 04/20/17 10:11 04/20/17 10:11 - Medications Medications: Current Medications Atorvastatin Calcium (Lipitor) 20 mg PO HS [facility] Last Admin: 04/19/17 20:59 Dose: 20 mg Carbamazepine (Tegretol) 200 mg PO BID [facility] Last Admin: 04/20/17 08:39 Dose: 200 mg Enalapril Maleate (Vasotec) 20 mg PO Q12 [facility] Last Admin: 04/20/17 08:39 Dose: 20 mg Enoxaparin Sodium (Lovenox) 40 mg SC DAILY [facility] PRN Reason: Protocol Last Admin: 04/20/17 08:43 Dose: 40 mg Furosemide (Lasix) 40 mg PO DAILY [facility] Last Admin: 04/20/17 08:42 Dose: 40 mg Gabapentin (Neurontin) 300 mg PO HS [facility] Last Admin: 04/19/17 20:59 Dose: 300 mg Glipizide (Glucotrol) 5 mg PO BIDAC [facility] Last Admin: 04/20/17 06:46 Dose: 5 mg Acyclovir 500 mg/ Sodium (Chloride) 100 mls @ 100 mls/hr IV Q8 [facility] Last Admin: 04/20/17 08:39 Dose: 100 mls/hr Clindamycin Phosphate (Cleocin In Normal Saline) 600 mg in 50 mls @ 50 mls/hr IVPB Q8@0200,1000,1800 [facility] Last Admin: 04/20/17 10:01 Dose: 50 mls/hr Labetalol HCl (Trandate) 100 mg PO BID [facility] Lactobacillus Acidophilus (Bacid Acidophilus) 1 cap PO BID [facility] Last Admin: 04/20/17 08:38 Dose: 1 cap Oxycodone/Acetaminophen (Percocet 5/325 Mg Tab) 1 tab PO Q6 PRN PRN Reason: Pain, moderate (4-7) Stop: 04/21/17 11:22 Last Admin: 04/19/17 09:24 Dose: 1 tab Oxycodone/Acetaminophen (Percocet 5/325 Mg Tab) 2 tab PO Q4 PRN PRN Reason: Pain, moderate (4-7) Stop: 04/22/17 11:23 Last Admin: 04/20/17 10:51 Dose: 2 tab Silver Sulfadiazine (Silvadene 1% 20 Gm) 1 ea TOP TID [facility] Last Admin: 04/20/17 08:41 Dose: 1 u Sitagliptin Phosphate (Januvia) 50 mg PO ACB [facility] Last Admin: 04/20/17 06:46 Dose: 50 mg Tamsulosin HCl (Flomax) 0.4 mg PO DAILY [facility] Last Admin: 04/20/17 08:42 Dose: 0.4 mg Valsartan (Diovan) 320 mg PO DAILY [facility] Last Admin: 04/20/17 08:40 Dose: 320 mg Venlafaxine HCl (Effexor Xr) 150 mg PO DAILY [facility] Last Admin: 04/20/17 08:43 Dose: 150 mg - Labs Labs: 04/19/17 10:00 Assessment and Plan (1) Essential (primary) hypertension Status: Acute (2) Herpes zoster Status: Acute (3) Dizziness Status: Acute (4) Type 2 diabetes mellitus with diabetic chronic kidney disease Status: Acute
--- NOTE | 2017-04-20 13:46 | CON ---
DATE: 04/20/2017 NEUROLOGY CONSULT CHIEF COMPLAINT: Left scalp pain and headache. HISTORY OF PRESENT ILLNESS: This is a 71-year-old man who is well known to me with past medical history of type 2 diabetes mellitus, chronic renal insufficiency, hypertension, history of syncopal episodes in the past who presented with left scalp lesion, left scalp pain, especially in the left parietal lobe followed by left facial pain, all of which is secondary to underlying related herpes zoster infection causing neuropathic pain. He is on Tegretol 100 mg p.o. b.i.d. and gabapentin 300 mg p.o. at bedtime. He is still having left scalp pain. He has elevated high blood pressures, which is being managed by Cardiology with Vasotec and labetalol. He is also on oxycodone for acute onset pain. PAST MEDICAL HISTORY: Type 2 diabetes mellitus, hypertension, dyslipidemia and syncope. REVIEW OF SYSTEMS: A 14-point review of systems is negative except for the HPI. FAMILY HISTORY: Noncontributory. SOCIAL HISTORY: No illicit drug use, smoking or EtOH abuse. MEDICATIONS: Reviewed by nursing reconciliation sheet. ALLERGIES: NO KNOWN DRUG ALLERGIES. PHYSICAL EXAMINATION: VITAL SIGNS: Temperature 98.1, pulse rate of 80, blood pressure 194/67, respiratory rate is 20, oxygen saturation 96% on room air. GENERAL: Patient is sitting up in bed, no acute distress. HEENT: Head is atraumatic, normocephalic. PERRLA. Extraocular muscles intact. NECK: Supple. No JVD, no adenopathy noted. LUNGS: Clear to auscultation. No adventitious sounds. HEART: S1, S2, normal rate and rhythm. No murmurs, rubs or gallops. ABDOMEN: Soft, nontender, nondistended. Bowel sounds are present. EXTREMITIES: No clubbing, no cyanosis. Peripheral pulses 2+ felt bilaterally. NEUROLOGIC: Patient is alert, oriented to person, place, month and year. Speech is fluent without any errors. Cranial nerves II through XII intact. Motor: Moves all extremities equally. Strength is 5/5 in both upper and lower extremities. No pronator drift seen. Sensory: Diffuse light touch and pinprick up to the calves bilaterally. Decreased vibration of the toes. DTRs are 2+ throughout and 1 at the ankles. Coordination: Salkxe-qu-wves intact. Gait is deferred for now. LABORATORY DATA: Today's blood glucose is 290, A1c in December was 6.9. ASSESSMENT AND PLAN: This is a 71-year-old man with past medical history of type 2 diabetes mellitus, chronic renal insufficiency, hypertension, history of syncopal episode, who presented with left scalp lesions and left scalp pain especially in the left parietal lobe followed by left facial pain, all of which is secondarily related to herpes zoster infection, which is causing neuropathic pain. He also has elevated blood pressure systolically. At this time, recommend: 1. Tegretol 200 mg p.o. b.i.d. In addition, we will increase his gabapentin to 400 mg p.o. b.i.d. for neuropathic relief. 2. Keep his blood pressures between 130s to 140s since his systolic elevations any stroke like effects. 3. Aspirin 81 mg p.o. daily for stroke prevention. 4. Lipitor for dyslipidemia. 5. Keep his blood sugars between 140 to 180 and continue current present medical management at [facility] for physical therapy. Once again thank you for this consult. Terry Lawson MD
[2017-04-21] MEDS: Acyclovir 500 MG in Sodium Chloride 0.9% 100 ML IV SCH ×3 (01:09→17:09)
[2017-04-21] MEDS: Clindamycin 600mg/50ml NS 600 MG/50 ML BAG IVPB SCH ×3 (02:04→17:09)
[2017-04-21] MEDS: Lactobacillus Acidophilus 500 MU Cap PO SCH ×2 (08:42→17:12)
[2017-04-21] MEDS: Silver Sulfadiazine 1% Cream (20 gm) TOP SCH ×3 (08:43→17:10)
[2017-04-21] MEDS: Venlafaxine 150 mg ER Cap PO SCH (08:44)
[2017-04-21] MEDS: Enoxaparin 40 mg Syringe SC SCH (08:45)
--- NOTE | 2017-04-21 10:37 | CP.PCM.PN ---
Subjective - Date & Time of Evaluation Date of Evaluation: 04/21/17 Time of Evaluation: 10:00 - Subjective Subjective: pt offers no complaints other than the pain from Herpes reasonably controlled with percocet BP: 150/82 HR: 78 BPM Objective - Vital Signs/Intake and Output Vital Signs (last 24 hours): Temp Pulse Resp BP Pulse Ox 97.6 F 82 20 150/82 97 04/21/17 08:11 04/21/17 08:45 04/21/17 08:11 04/21/17 08:45 04/21/17 08:11 - Medications Medications: Current Medications Atorvastatin Calcium (Lipitor) 20 mg PO HS [facility] Last Admin: 04/20/17 22:18 Dose: 20 mg Carbamazepine (Tegretol) 200 mg PO BID [facility] Last Admin: 04/21/17 08:45 Dose: 200 mg Enalapril Maleate (Vasotec) 20 mg PO Q12 [facility] Last Admin: 04/21/17 08:45 Dose: 20 mg Enoxaparin Sodium (Lovenox) 40 mg SC DAILY [facility] PRN Reason: Protocol Last Admin: 04/21/17 08:45 Dose: 40 mg Furosemide (Lasix) 40 mg PO DAILY [facility] Last Admin: 04/21/17 08:44 Dose: 40 mg Gabapentin (Neurontin) 400 mg PO BID [facility] Last Admin: 04/21/17 08:45 Dose: 400 mg Glipizide (Glucotrol) 5 mg PO BIDAC [facility] Last Admin: 04/21/17 08:44 Dose: 5 mg Acyclovir 500 mg/ Sodium (Chloride) 100 mls @ 100 mls/hr IV Q8 [facility] Last Admin: 04/21/17 08:46 Dose: 100 mls/hr Clindamycin Phosphate (Cleocin In Normal Saline) 600 mg in 50 mls @ 50 mls/hr IVPB Q8@0200,1000,1800 [facility] Last Admin: 04/21/17 09:27 Dose: 50 mls/hr Labetalol HCl (Trandate) 100 mg PO BID [facility] Last Admin: 04/21/17 08:45 Dose: 100 mg Lactobacillus Acidophilus (Bacid Acidophilus) 1 cap PO BID [facility] Last Admin: 04/21/17 08:42 Dose: 1 cap Oxycodone/Acetaminophen (Percocet 5/325 Mg Tab) 1 tab PO Q6 PRN PRN Reason: Pain, moderate (4-7) Stop: 04/21/17 11:22 Last Admin: 04/19/17 09:24 Dose: 1 tab Oxycodone/Acetaminophen (Percocet 5/325 Mg Tab) 2 tab PO Q4 PRN PRN Reason: Pain, moderate (4-7) Stop: 04/22/17 11:23 Last Admin: 04/20/17 10:51 Dose: 2 tab Silver Sulfadiazine (Silvadene 1% 20 Gm) 1 ea TOP TID [facility] Last Admin: 04/21/17 08:43 Dose: 1 u Sitagliptin Phosphate (Januvia) 50 mg PO ACB [facility] Last Admin: 04/21/17 08:44 Dose: 50 mg Tamsulosin HCl (Flomax) 0.4 mg PO DAILY [facility] Last Admin: 04/21/17 08:44 Dose: 0.4 mg Valsartan (Diovan) 320 mg PO DAILY [facility] Last Admin: 04/21/17 08:44 Dose: 320 mg Venlafaxine HCl (Effexor Xr) 150 mg PO DAILY [facility] Last Admin: 04/21/17 08:44 Dose: 150 mg - Labs Labs: 04/19/17 10:00 Assessment and Plan (1) Essential (primary) hypertension Status: Acute (2) Herpes zoster Status: Acute (3) Dizziness Status: Acute (4) Type 2 diabetes mellitus with diabetic chronic kidney disease Status: Acute
[2017-04-21] MEDS: Oxycodone/Acetaminophen 5/325 mg Tab PO PRN ×2 (13:41→17:23)
[2017-04-22] MEDS: Acyclovir 500 MG in Sodium Chloride 0.9% 100 ML IV SCH ×3 (00:56→16:08)
[2017-04-22] MEDS: Clindamycin 600mg/50ml NS 600 MG/50 ML BAG IVPB SCH ×3 (01:10→17:05)
[2017-04-22] MEDS: Lactobacillus Acidophilus 500 MU Cap PO SCH ×2 (08:34→16:10)
[2017-04-22] MEDS: Venlafaxine 150 mg ER Cap PO SCH (08:35)
[2017-04-22] MEDS: Silver Sulfadiazine 1% Cream (20 gm) TOP SCH ×3 (08:36→16:08)
[2017-04-22] MEDS: Enoxaparin 40 mg Syringe SC SCH (08:36)
[2017-04-22] MEDS: Oxycodone/Acetaminophen 5/325 mg Tab PO PRN ×3 (09:11→21:58)
--- NOTE | 2017-04-22 12:00 | CP.PCM.PN ---
Subjective - Date & Time of Evaluation Date of Evaluation: 04/22/17 Time of Evaluation: 11:00 - Subjective Subjective: Feels well BP: was elevated now 136/78 Doing well participating with PT Objective - Vital Signs/Intake and Output Vital Signs (last 24 hours): Temp Pulse Resp BP Pulse Ox 98.1 F 81 20 136/87 92 L 04/22/17 09:21 04/22/17 11:13 04/22/17 09:21 04/22/17 11:13 04/22/17 09:21 - Medications Medications: Current Medications Atorvastatin Calcium (Lipitor) 20 mg PO HS [facility] Last Admin: 04/21/17 21:07 Dose: 20 mg Carbamazepine (Tegretol) 200 mg PO BID [facility] Last Admin: 04/22/17 08:36 Dose: 200 mg Enalapril Maleate (Vasotec) 20 mg PO Q12 [facility] Last Admin: 04/22/17 08:36 Dose: 20 mg Furosemide (Lasix) 40 mg PO DAILY [facility] Last Admin: 04/22/17 08:35 Dose: 40 mg Gabapentin (Neurontin) 400 mg PO BID [facility] Last Admin: 04/22/17 08:36 Dose: 400 mg Glipizide (Glucotrol) 5 mg PO BIDAC [facility] Last Admin: 04/22/17 08:35 Dose: 5 mg Acyclovir 500 mg/ Sodium (Chloride) 100 mls @ 100 mls/hr IV Q8 [facility] Last Admin: 04/22/17 08:37 Dose: 100 mls/hr Clindamycin Phosphate (Cleocin In Normal Saline) 600 mg in 50 mls @ 50 mls/hr IVPB Q8@0200,1000,1800 [facility] Last Admin: 04/22/17 09:45 Dose: 50 mls/hr Labetalol HCl (Trandate) 100 mg PO BID [facility] Last Admin: 04/22/17 08:36 Dose: 100 mg Lactobacillus Acidophilus (Bacid Acidophilus) 1 cap PO BID [facility] Last Admin: 04/22/17 08:34 Dose: 1 cap Silver Sulfadiazine (Silvadene 1% 20 Gm) 1 ea TOP TID [facility] Last Admin: 04/22/17 08:36 Dose: 1 u Sitagliptin Phosphate (Januvia) 50 mg PO ACB [facility] Last Admin: 04/22/17 08:35 Dose: 50 mg Tamsulosin HCl (Flomax) 0.4 mg PO DAILY [facility] Last Admin: 04/22/17 08:35 Dose: 0.4 mg Valsartan (Diovan) 320 mg PO DAILY [facility] Last Admin: 04/22/17 08:34 Dose: 320 mg Venlafaxine HCl (Effexor Xr) 150 mg PO DAILY [facility] Last Admin: 04/22/17 08:35 Dose: 150 mg - Labs Labs: 04/19/17 10:00 Assessment and Plan (1) Essential (primary) hypertension Status: Acute (2) Herpes zoster Status: Acute (3) Dizziness Status: Acute (4) Type 2 diabetes mellitus with diabetic chronic kidney disease Status: Acute
[2017-04-23] MEDS: Acyclovir 500 MG in Sodium Chloride 0.9% 100 ML IV SCH ×3 (02:28→17:54)
[2017-04-23] MEDS: Clindamycin 600mg/50ml NS 600 MG/50 ML BAG IVPB SCH ×3 (02:29→17:23)
[2017-04-23] MEDS: Enoxaparin 40 mg Syringe SC SCH (08:49)
[2017-04-23] MEDS: Silver Sulfadiazine 1% Cream (20 gm) TOP SCH ×3 (08:52→17:20)
[2017-04-23] MEDS: Lactobacillus Acidophilus 500 MU Cap PO SCH ×2 (08:54→17:21)
--- NOTE | 2017-04-23 09:58 | CP.PCM.PN ---
Subjective - Date & Time of Evaluation Date of Evaluation: 04/23/17 Time of Evaluation: 09:00 - Subjective Subjective: Pt and son claim that he has a chronic problem with his hands shaking at times to the point he can not hold something. I have not noticed this they request that Dr Lawson see him again will request a consult BP: 143/90 Objective - Vital Signs/Intake and Output Vital Signs (last 24 hours): Temp Pulse Resp BP Pulse Ox 98.1 F 61 20 143/90 93 L 04/23/17 08:31 04/23/17 08:50 04/23/17 08:31 04/23/17 08:51 04/23/17 08:31 - Medications Medications: Current Medications Atorvastatin Calcium (Lipitor) 20 mg PO HS [facility] Last Admin: 04/22/17 21:53 Dose: 20 mg Carbamazepine (Tegretol) 200 mg PO BID [facility] Last Admin: 04/23/17 08:49 Dose: 200 mg Enalapril Maleate (Vasotec) 20 mg PO Q12 [facility] Last Admin: 04/23/17 08:50 Dose: 20 mg Enoxaparin Sodium (Lovenox) 40 mg SC DAILY [facility] PRN Reason: Protocol Last Admin: 04/23/17 08:49 Dose: 40 mg Furosemide (Lasix) 40 mg PO DAILY [facility] Last Admin: 04/23/17 08:51 Dose: 40 mg Gabapentin (Neurontin) 400 mg PO BID [facility] Last Admin: 04/23/17 08:50 Dose: 400 mg Glipizide (Glucotrol) 5 mg PO BIDAC [facility] Last Admin: 04/23/17 08:50 Dose: 5 mg Acyclovir 500 mg/ Sodium (Chloride) 100 mls @ 100 mls/hr IV Q8 [facility] Last Admin: 04/23/17 02:28 Dose: 100 mls/hr Clindamycin Phosphate (Cleocin In Normal Saline) 600 mg in 50 mls @ 50 mls/hr IVPB Q8@0200,1000,1800 [facility] Last Admin: 04/23/17 09:01 Dose: 50 mls/hr Labetalol HCl (Trandate) 100 mg PO BID [facility] Last Admin: 04/23/17 08:50 Dose: 100 mg Lactobacillus Acidophilus (Bacid Acidophilus) 1 cap PO BID [facility] Last Admin: 04/23/17 08:54 Dose: 1 cap Oxycodone/Acetaminophen (Percocet 5/325 Mg Tab) 2 tab PO Q4 PRN PRN Reason: Pain, severe (8-10) Stop: 04/25/17 13:32 Last Admin: 04/22/17 21:58 Dose: 2 tab Silver Sulfadiazine (Silvadene 1% 20 Gm) 1 ea TOP TID [facility] Last Admin: 04/23/17 08:52 Dose: 1 u Sitagliptin Phosphate (Januvia) 50 mg PO ACB [facility] Last Admin: 04/23/17 08:51 Dose: 50 mg Tamsulosin HCl (Flomax) 0.4 mg PO DAILY [facility] Last Admin: 04/23/17 08:50 Dose: 0.4 mg Valsartan (Diovan) 320 mg PO DAILY [facility] Last Admin: 04/23/17 08:50 Dose: 320 mg Venlafaxine HCl (Effexor Xr) 150 mg PO DAILY [facility] Last Admin: 04/22/17 08:35 Dose: 150 mg - Labs Labs: 04/19/17 10:00 Assessment and Plan (1) Essential (primary) hypertension Status: Acute (2) Herpes zoster Status: Acute (3) Dizziness Status: Acute (4) Type 2 diabetes mellitus with diabetic chronic kidney disease Status: Acute
[2017-04-23] MEDS: Venlafaxine 150 mg ER Cap PO SCH (10:52)
[2017-04-23] MEDS: Oxycodone/Acetaminophen 5/325 mg Tab PO PRN (18:32)
[2017-04-24] MEDS: Acyclovir 500 MG in Sodium Chloride 0.9% 100 ML IV SCH ×3 (00:52→17:00)
[2017-04-24] MEDS: Oxycodone/Acetaminophen 5/325 mg Tab PO PRN ×3 (00:58→18:23)
[2017-04-24] MEDS: Clindamycin 600mg/50ml NS 600 MG/50 ML BAG IVPB SCH ×3 (01:02→17:00)
[2017-04-24] MEDS: Lactobacillus Acidophilus 500 MU Cap PO SCH ×2 (09:17→17:03)
[2017-04-24] MEDS: Venlafaxine 150 mg ER Cap PO SCH (09:18)
[2017-04-24] MEDS: Enoxaparin 40 mg Syringe SC SCH (09:18)
[2017-04-24] MEDS: Silver Sulfadiazine 1% Cream (20 gm) TOP SCH ×3 (09:19→17:03)
--- NOTE | 2017-04-24 10:30 | CP.PCM.PN ---
Subjective - Date & Time of Evaluation Date of Evaluation: 04/24/17 Time of Evaluation: 10:00 - Subjective Subjective: Pt christian wel other than pain from Herpes Zoster His BP continues to run high despite increasing his meds Have increased Labetelol to 200mg BID Objective - Vital Signs/Intake and Output Vital Signs (last 24 hours): Temp Pulse Resp BP Pulse Ox 97.9 F 80 20 190/88 H 93 L 04/24/17 09:26 04/24/17 10:05 04/24/17 09:26 04/24/17 10:05 04/24/17 09:26 - Medications Medications: Current Medications Atorvastatin Calcium (Lipitor) 20 mg PO HS [facility] Last Admin: 04/23/17 21:27 Dose: 20 mg Carbamazepine (Tegretol) 200 mg PO BID [facility] Last Admin: 04/24/17 09:18 Dose: 200 mg Enalapril Maleate (Vasotec) 20 mg PO Q12 [facility] Last Admin: 04/24/17 09:18 Dose: 20 mg Enoxaparin Sodium (Lovenox) 40 mg SC DAILY [facility] PRN Reason: Protocol Last Admin: 04/24/17 09:18 Dose: 40 mg Furosemide (Lasix) 40 mg PO DAILY [facility] Last Admin: 04/24/17 09:19 Dose: 40 mg Gabapentin (Neurontin) 400 mg PO BID [facility] Last Admin: 04/24/17 09:19 Dose: 400 mg Glipizide (Glucotrol) 5 mg PO BIDAC [facility] Last Admin: 04/24/17 09:18 Dose: 5 mg Acyclovir 500 mg/ Sodium (Chloride) 100 mls @ 100 mls/hr IV Q8 [facility] Last Admin: 04/24/17 10:05 Dose: 100 mls/hr Clindamycin Phosphate (Cleocin In Normal Saline) 600 mg in 50 mls @ 50 mls/hr IVPB Q8@0200,1000,1800 [facility] Last Admin: 04/24/17 09:20 Dose: 50 mls/hr Labetalol HCl (Trandate) 200 mg PO BID [facility] Last Admin: 04/24/17 10:05 Dose: 200 mg Lactobacillus Acidophilus (Bacid Acidophilus) 1 cap PO BID [facility] Last Admin: 04/24/17 09:17 Dose: 1 cap Oxycodone/Acetaminophen (Percocet 5/325 Mg Tab) 2 tab PO Q4 PRN PRN Reason: Pain, severe (8-10) Stop: 04/25/17 13:32 Last Admin: 04/24/17 09:23 Dose: 2 tab Silver Sulfadiazine (Silvadene 1% 20 Gm) 1 ea TOP TID [facility] Last Admin: 04/24/17 09:19 Dose: 1 u Sitagliptin Phosphate (Januvia) 50 mg PO ACB [facility] Last Admin: 04/24/17 09:18 Dose: 50 mg Tamsulosin HCl (Flomax) 0.4 mg PO DAILY [facility] Last Admin: 04/24/17 09:19 Dose: 0.4 mg Valsartan (Diovan) 320 mg PO DAILY [facility] Last Admin: 04/24/17 09:18 Dose: 320 mg Venlafaxine HCl (Effexor Xr) 150 mg PO DAILY [facility] Last Admin: 04/24/17 09:18 Dose: 150 mg - Labs Labs: 04/19/17 10:00 Assessment and Plan (1) Essential (primary) hypertension Status: Acute (2) Herpes zoster Status: Acute (3) Dizziness Status: Acute (4) Type 2 diabetes mellitus with diabetic chronic kidney disease Status: Acute
[2017-04-25] MEDS: Acyclovir 500 MG in Sodium Chloride 0.9% 100 ML IV SCH ×2 (00:44→08:20)
[2017-04-25] MEDS: Clindamycin 600mg/50ml NS 600 MG/50 ML BAG IVPB SCH ×2 (01:10→10:43)
[2017-04-25] MEDS: Oxycodone/Acetaminophen 5/325 mg Tab PO PRN ×3 (05:36→19:37)
[2017-04-25] MEDS: Venlafaxine 150 mg ER Cap PO SCH (08:18)
[2017-04-25] MEDS: Lactobacillus Acidophilus 500 MU Cap PO SCH ×2 (08:18→17:02)
[2017-04-25] MEDS: Silver Sulfadiazine 1% Cream (20 gm) TOP SCH ×3 (08:19→17:03)
[2017-04-25] MEDS: Enoxaparin 40 mg Syringe SC SCH (08:19)
--- NOTE | 2017-04-25 11:12 | CP.PCM.PN ---
Subjective - Date & Time of Evaluation Date of Evaluation: 04/25/17 Time of Evaluation: 10:00 - Subjective Subjective: pt's BP better controlled BP: 150/70 HR: 60 only complaint is scalp pain Objective - Vital Signs/Intake and Output Vital Signs (last 24 hours): Temp Pulse Resp BP Pulse Ox 97.6 F 60 20 159/71 H 99 04/25/17 08:08 04/25/17 08:20 04/25/17 08:08 04/25/17 08:20 04/25/17 08:08 - Medications Medications: Current Medications Atorvastatin Calcium (Lipitor) 20 mg PO HS [facility] Last Admin: 04/24/17 21:07 Dose: 20 mg Carbamazepine (Tegretol) 200 mg PO BID [facility] Last Admin: 04/25/17 08:19 Dose: 200 mg Enalapril Maleate (Vasotec) 20 mg PO Q12 [facility] Last Admin: 04/25/17 08:20 Dose: 20 mg Enoxaparin Sodium (Lovenox) 40 mg SC DAILY [facility] PRN Reason: Protocol Last Admin: 04/25/17 08:19 Dose: 40 mg Furosemide (Lasix) 40 mg PO DAILY [facility] Last Admin: 04/25/17 08:19 Dose: 40 mg Gabapentin (Neurontin) 400 mg PO BID [facility] Last Admin: 04/25/17 08:19 Dose: 400 mg Glipizide (Glucotrol) 5 mg PO BIDAC [facility] Last Admin: 04/25/17 06:48 Dose: 5 mg Acyclovir 500 mg/ Sodium (Chloride) 100 mls @ 100 mls/hr IV Q8 [facility] Last Admin: 04/25/17 08:20 Dose: 100 mls/hr Clindamycin Phosphate (Cleocin In Normal Saline) 600 mg in 50 mls @ 50 mls/hr IVPB Q8@0200,1000,1800 [facility] Last Admin: 04/25/17 10:43 Dose: 50 mls/hr Labetalol HCl (Trandate) 200 mg PO BID [facility] Last Admin: 04/25/17 08:20 Dose: 200 mg Lactobacillus Acidophilus (Bacid Acidophilus) 1 cap PO BID [facility] Last Admin: 04/25/17 08:18 Dose: 1 cap Oxycodone/Acetaminophen (Percocet 5/325 Mg Tab) 2 tab PO Q4 PRN PRN Reason: Pain, severe (8-10) Stop: 04/25/17 13:32 Last Admin: 04/25/17 05:36 Dose: 2 tab Silver Sulfadiazine (Silvadene 1% 20 Gm) 1 ea TOP TID [facility] Last Admin: 04/25/17 08:19 Dose: 1 u Sitagliptin Phosphate (Januvia) 50 mg PO ACB [facility] Last Admin: 04/25/17 06:48 Dose: 50 mg Tamsulosin HCl (Flomax) 0.4 mg PO DAILY [facility] Last Admin: 04/25/17 08:19 Dose: 0.4 mg Valsartan (Diovan) 320 mg PO DAILY [facility] Last Admin: 04/25/17 08:18 Dose: 320 mg Venlafaxine HCl (Effexor Xr) 150 mg PO DAILY [facility] Last Admin: 04/25/17 08:18 Dose: 150 mg - Labs Labs: 04/19/17 10:00 Assessment and Plan (1) Essential (primary) hypertension Status: Acute (2) Herpes zoster Status: Acute (3) Dizziness Status: Acute (4) Type 2 diabetes mellitus with diabetic chronic kidney disease Status: Acute
--- NOTE | 2017-04-25 16:55 | CP.PCM.PN ---
Subjective - Date & Time of Evaluation Date of Evaluation: 04/15/17 Time of Evaluation: 16:55 - Subjective Subjective: I D NOTE HAVE D/Sina IV ACYCLOVIR/CLINDAMYCIN ORDERED PO Objective - Vital Signs/Intake and Output Vital Signs (last 24 hours): Temp Pulse Resp BP Pulse Ox 97.3 F L 61 20 162/85 H 94 L 04/25/17 16:43 04/25/17 16:43 04/25/17 16:43 04/25/17 16:43 04/25/17 16:43 - Medications Medications: Current Medications Acyclovir (Zovirax) 400 mg PO TID [facility] PRN Reason: Protocol Atorvastatin Calcium (Lipitor) 20 mg PO HS [facility] Last Admin: 04/24/17 21:07 Dose: 20 mg Carbamazepine (Tegretol) 200 mg PO BID [facility] Last Admin: 04/25/17 08:19 Dose: 200 mg Cefdinir (Omnicef) 300 mg PO BID [facility] Enalapril Maleate (Vasotec) 20 mg PO Q12 [facility] Last Admin: 04/25/17 08:20 Dose: 20 mg Enoxaparin Sodium (Lovenox) 40 mg SC DAILY [facility] PRN Reason: Protocol Last Admin: 04/25/17 08:19 Dose: 40 mg Furosemide (Lasix) 40 mg PO DAILY [facility] Last Admin: 04/25/17 08:19 Dose: 40 mg Gabapentin (Neurontin) 400 mg PO BID [facility] Last Admin: 04/25/17 08:19 Dose: 400 mg Glipizide (Glucotrol) 5 mg PO BIDAC [facility] Last Admin: 04/25/17 06:48 Dose: 5 mg Labetalol HCl (Trandate) 200 mg PO BID [facility] Last Admin: 04/25/17 08:20 Dose: 200 mg Lactobacillus Acidophilus (Bacid Acidophilus) 1 cap PO BID [facility] Last Admin: 04/25/17 08:18 Dose: 1 cap Silver Sulfadiazine (Silvadene 1% 20 Gm) 1 ea TOP TID [facility] Last Admin: 04/25/17 12:10 Dose: 1 applic Sitagliptin Phosphate (Januvia) 50 mg PO ACB [facility] Last Admin: 04/25/17 06:48 Dose: 50 mg Tamsulosin HCl (Flomax) 0.4 mg PO DAILY [facility] Last Admin: 01/15/18 08:19 Dose: 0.4 mg Valsartan (Diovan) 320 mg PO DAILY [facility] Last Admin: 04/25/17 08:18 Dose: 320 mg Venlafaxine HCl (Effexor Xr) 150 mg PO DAILY [facility] Last Admin: 04/25/17 08:18 Dose: 150 mg - Labs Labs: 04/19/17 10:00
[2017-04-25] MEDS: Cefdinir 300 MG CAP PO SCH (18:04)
[2017-04-26] MEDS: Oxycodone/Acetaminophen 5/325 mg Tab PO PRN (06:53)
[2017-04-26] MEDS: Cefdinir 300 MG CAP PO SCH ×2 (08:42→16:40)
[2017-04-26] MEDS: Silver Sulfadiazine 1% Cream (20 gm) TOP SCH ×3 (08:43→16:40)
[2017-04-26] MEDS: Enoxaparin 40 mg Syringe SC SCH (08:45)
[2017-04-26] MEDS: Venlafaxine 150 mg ER Cap PO SCH (08:46)
[2017-04-26] MEDS: Lactobacillus Acidophilus 500 MU Cap PO SCH ×2 (08:46→16:39)
--- NOTE | 2017-04-26 12:03 | CP.PCM.PN ---
Subjective - Date & Time of Evaluation Date of Evaluation: 04/26/17 Time of Evaluation: 11:00 - Subjective Subjective: BP still high will start Hydralazine 25mg BID c/o tremor in hands Objective - Vital Signs/Intake and Output Vital Signs (last 24 hours): Temp Pulse Resp BP Pulse Ox 97.9 F 58 L 20 195/90 H 100 04/26/17 08:10 04/26/17 11:34 04/26/17 08:10 04/26/17 10:00 04/26/17 08:10 - Medications Medications: Current Medications Acyclovir (Zovirax) 400 mg PO TID [facility] PRN Reason: Protocol Last Admin: 04/26/17 08:43 Dose: 400 mg Atorvastatin Calcium (Lipitor) 20 mg PO HS [facility] Last Admin: 04/25/17 21:13 Dose: 20 mg Carbamazepine (Tegretol) 200 mg PO BID [facility] Last Admin: 04/26/17 08:43 Dose: 200 mg Cefdinir (Omnicef) 300 mg PO BID [facility] Last Admin: 04/26/17 08:42 Dose: 300 mg Enalapril Maleate (Vasotec) 20 mg PO Q12 [facility] Last Admin: 04/26/17 08:45 Dose: 20 mg Furosemide (Lasix) 40 mg PO DAILY [facility] Last Admin: 04/26/17 08:45 Dose: 40 mg Gabapentin (Neurontin) 400 mg PO BID [facility] Last Admin: 04/26/17 08:42 Dose: 400 mg Glipizide (Glucotrol) 5 mg PO BIDAC [facility] Last Admin: 04/26/17 06:49 Dose: 5 mg Labetalol HCl (Trandate) 200 mg PO BID [facility] Last Admin: 04/26/17 08:44 Dose: 200 mg Lactobacillus Acidophilus (Bacid Acidophilus) 1 cap PO BID [facility] Last Admin: 04/26/17 08:46 Dose: 1 cap Oxycodone/Acetaminophen (Percocet 5/325 Mg Tab) 2 tab PO Q4 PRN PRN Reason: Pain, severe (8-10) Stop: 04/28/17 19:11 Last Admin: 04/26/17 06:53 Dose: 2 tab Silver Sulfadiazine (Silvadene 1% 20 Gm) 1 ea TOP TID [facility] Last Admin: 04/26/17 08:43 Dose: 1 applic Sitagliptin Phosphate (Januvia) 50 mg PO ACB [facility] Last Admin: 04/26/17 06:49 Dose: 50 mg Tamsulosin HCl (Flomax) 0.4 mg PO DAILY [facility] Last Admin: 04/26/17 08:46 Dose: 0.4 mg Valsartan (Diovan) 320 mg PO DAILY [facility] Last Admin: 04/26/17 08:42 Dose: 320 mg Venlafaxine HCl (Effexor Xr) 150 mg PO DAILY [facility] Last Admin: 04/26/17 08:46 Dose: 150 mg - Labs Labs: 04/19/17 10:00 Assessment and Plan (1) Essential (primary) hypertension Status: Acute (2) Herpes zoster Status: Acute (3) Dizziness Status: Acute (4) Type 2 diabetes mellitus with diabetic chronic kidney disease Status: Acute
[2017-04-27] MEDS: Oxycodone/Acetaminophen 5/325 mg Tab PO PRN (00:24)
[2017-04-27 06:29] LABS: BASO % 0.5 % (0.0-2.0); EOS # 0.2 K/uL (0.0-0.7); EOS % 2.2 % (0.0-4.0); HEMOGLOBIN 12.7 g/dL (12.0-18.0); LYMPH # 2.1 K/uL (1.0-4.3); LYMPH % 26.2 % (20.0-40.0); MEAN CELL VOLUME 83.4 fl (80.0-94.0); MEAN CORPUSCULAR HEMOGLOBIN 27.7 pg (27.0-31.0); MEAN CORPUSCULAR HGB CONC 33.2 g/dL (33.0-37.0); MEAN PLATELET VOLUME 7.2 fl (7.2-11.7); MONO # 0.9 K/uL (0.0-0.8); MONO % 10.9 % (0.0-10.0); NEUT # 4.9 K/uL (1.8-7.0); NEUT % 60.2 % (50.0-75.0); NRBC % 0.1 % (0.0-0.0); RBC 4.59 Mil/uL (4.40-5.90); RED CELL DISTRIBUTION WIDTH 14.1 % (11.5-14.5); WHITE BLOOD COUNT 8.2 K/uL (4.8-10.8)
[2017-04-27 06:32] LABS: CALCIUM 9.1 mg/dL (8.4-10.2)
[2017-04-27] MEDS: Lactobacillus Acidophilus 500 MU Cap PO SCH ×2 (09:14→17:09)
[2017-04-27] MEDS: Cefdinir 300 MG CAP PO SCH ×2 (09:14→17:09)
[2017-04-27] MEDS: Venlafaxine 150 mg ER Cap PO SCH (09:18)
[2017-04-27] MEDS: Silver Sulfadiazine 1% Cream (20 gm) TOP SCH ×3 (09:22→17:10)
[2017-04-27] MEDS: Acyclovir 500 MG in Sodium Chloride 0.9% 100 ML IV SCH (20:56)
[2017-04-28] MEDS: Venlafaxine 150 mg ER Cap PO SCH (08:32)
[2017-04-28] MEDS: Silver Sulfadiazine 1% Cream (20 gm) TOP SCH ×3 (08:34→16:05)
[2017-04-28] MEDS: Cefdinir 300 MG CAP PO SCH ×2 (08:35→16:03)
[2017-04-28] MEDS: Lactobacillus Acidophilus 500 MU Cap PO SCH ×2 (08:36→16:07)
--- NOTE | 2017-04-28 11:08 | CP.PCM.DIS ---
Provider - Provider Date of Admission: 04/18/17 16:27 Attending physician: Rohan Cooley MD Primary care physician: chavo Consults: rose marie Time Spent in preparation of Discharge (in minutes): 55 Diagnosis - Discharge Diagnosis (1) Essential (primary) hypertension Status: Acute (2) Herpes zoster Status: Acute (3) Dizziness Status: Acute (4) Type 2 diabetes mellitus with diabetic chronic kidney disease Status: Acute Hospital Course - Lab Results Lab Results: Most Recent Lab Values WBC 8.2 K/uL (4.8-10.8) 04/27/17 05:30 RBC 4.59 Mil/uL (4.40-5.90) 04/27/17 05:30 Hgb 12.7 g/dL (12.0-18.0) 04/27/17 05:30 Hct 38.3 % (35.0-51.0) 04/27/17 05:30 MCV 83.4 fl (80.0-94.0) D 04/27/17 05:30 MCH 27.7 pg (27.0-31.0) 04/27/17 05:30 MCHC 33.2 g/dL (33.0-37.0) 04/27/17 05:30 RDW 14.1 % (11.5-14.5) 04/27/17 05:30 Plt Count 340 K/uL (130-400) 04/27/17 05:30 MPV 7.2 fl (7.2-11.7) 04/27/17 05:30 Neut % (Auto) 60.2 % (50.0-75.0) 04/27/17 05:30 Lymph % (Auto) 26.2 % (20.0-40.0) 04/27/17 05:30 Greenlee % (Auto) 10.9 % (0.0-10.0) H 04/27/17 05:30 Eos % (Auto) 2.2 % (0.0-4.0) 04/27/17 05:30 Baso % (Auto) 0.5 % (0.0-2.0) 04/27/17 05:30 Neut # 4.9 K/uL (1.8-7.0) 04/27/17 05:30 Lymph # 2.1 K/uL (1.0-4.3) 04/27/17 05:30 Greenlee # 0.9 K/uL (0.0-0.8) H 04/27/17 05:30 Eos # 0.2 K/uL (0.0-0.7) 04/27/17 05:30 Baso # 0.0 K/uL (0.0-0.2) 04/27/17 05:30 Sodium 142 mmol/l (132-148) 04/27/17 05:30 Potassium 4.5 MMOL/L (3.6-5.0) 04/27/17 05:30 Chloride 102 mmol/L (98-107) 04/27/17 05:30 Carbon Dioxide 28 mmol/L (22-30) 04/27/17 05:30 Anion Gap 17 (10-20) 04/27/17 05:30 BUN 36 mg/dl (9-20) H 04/27/17 05:30 Creatinine 1.6 mg/dl (0.8-1.5) H 04/27/17 05:30 Est GFR ( Amer) 52 04/27/17 05:30 Est GFR (Non-Af Amer) 43 04/27/17 05:30 POC Glucose (mg/dL) 141 mg/dL (65-110) H 04/28/17 06:44 Random Glucose 162 mg/dL (75-110) H 04/27/17 05:30 Calcium 9.1 mg/dL (8.4-10.2) 04/27/17 05:30 Total Bilirubin 0.2 mg/dl (0.2-1.3) 04/19/17 10:00 AST 19 U/L (17-59) 04/19/17 10:00 ALT 36 U/L (21-72) 04/19/17 10:00 Alkaline Phosphatase 63 U/L (38-126) 04/19/17 10:00 Troponin I 0.4630 ng/mL (0.00-0.120) H* 04/19/17 10:00 Total Protein 6.2 G/DL (6.3-8.2) L 04/19/17 10:00 Albumin 3.3 g/dL (3.5-5.0) L 04/19/17 10:00 Globulin 2.9 gm/dL (2.2-3.9) 04/19/17 10:00 Albumin/Globulin Ratio 1.2 (1.0-2.1) 04/19/17 10:00 - Date & Time of H&P Date of H&P: 04/28/17 Time of H&P: 11:08 Discharge Exam - Head Exam Head Exam: ATRAUMATIC Discharge Plan - Follow Up Plan Condition: GOOD Disposition: HOME/ ROUTINE Instructions: Syncope (DC), Chronic Hypertension (DC) Referrals: Rohan Cooley MD [Family Provider] - Terry Lawson MD [Staff Provider] -
[2017-04-28 17:00] VITALS: PULSE 65; TEMP 97; O2SAT 95
[2017-04-28 17:43] VITALS: BP 164/74
== END 2017-04-28 18:15 | disposition home or self-care (01) | DRG 596 ==
LOC: H.TCU 16:27
PROVIDERS: ADMIT Internal Medicine Cardiovascular Disease; ATTEND Internal Medicine Cardiovascular Disease
PROC: F07Z9FZ Gait Training/Functional Ambulation Treatment using Assistive, Adaptive, Supportive or Protective Equipment (ICD-10-PCS; principal; 2017-04-18)
DX: B02.9 Zoster without complications (principal); E11.22 Type 2 diabetes mellitus with diabetic chronic kidney disease; I12.9 Hypertensive chronic kidney disease with stage 1 through stage 4 chronic kidney disease, or unspecified chronic kidney disease; N18.9 Chronic kidney disease, unspecified; E78.00 Pure hypercholesterolemia, unspecified; Z87.891 Personal history of nicotine dependence; Z86.73 Personal history of transient ischemic attack (TIA), and cerebral infarction without residual deficits; F32.9 Major depressive disorder, single episode, unspecified; E78.5 Hyperlipidemia, unspecified; R25.1 Tremor, unspecified; R55 Syncope and collapse

== ENCOUNTER 2017-05-01 14:31 | Inpatient (IN) | payer MEDICARE, OTHER ==
[2017-05-01 14:31] VITALS: BMI 30.1
--- NOTE | 2017-05-01 14:47 | ED PDOC ---
HPI:STROKE - Time Time: 14:42 - Historian Historian: EMS (EMS states pt found on floor awake and responding. Intermittent episodes of a fib at scene) - Chief Complaint Chief Complaint: Confusion - Onset Date: 05/01/17 Time: 13:30 Onset: Hours (1.5) - Timing Timing: Intermittent - Location Location: Mental Status - Severity of pain Maximum severity:: Mild Pain Scale:: 0 Severity Current: Mild Pain Scale:: 0 - TPA Positive for Contraindication: Yes Reason tPA is not being Administered: Fluctuating sxs NIHSS ) - Notes: Notes:: Brought by EMS son found pt on floor.Pt with intermitent episodes of confusion and disorientation. Denies headache or dizziness. No weakness or parasthesias. C /o double vision. NIHSS Stroke Scale - How Severe is the Stroke Level of Consciousness: 0=Alert LOC to Questions: 0=Both comments correct LOC to commands: 0=Obeys both correctly Best Gaze: 0=Normal Visual: 0=No visual loss Facial: 0=Normal Motor Arm - Left: 0=No drift Motor Arm - Right: 0=No drift Motor Leg - Left: 0=No drift Motor Leg - Right: 0=No drift Limb Ataxia: 0=Absent Sensory: 0=Normal Best Language: 0=No aphasia Dysarthia: 0=Normal articulation Extinction & Inattention (Neglect): 0=Normal, no object Score: 0 rTPA Inclusion/Exclusion - Refusal of Treatment Patient Refused Treatment: No - Inclusion Criteria for Altepase Patient is 18 years or Older: Yes The Clinical Diagnosis of Ischemic Stroke That is Causing a Potentially Disabling Neurological Deficit: No Time of Onset is Well Established to be Less Than 270 Minute Before Treatment Would Begin: Yes Risk/Benefit Discussed With Patient/Family Member Present: No Past Medical History Vital Signs: Last Vital Signs Temp 97.8 F 05/01/17 14:34 Pulse 69 05/01/17 14:34 Resp 16 05/01/17 14:34 BP 168/79 H 05/01/17 14:34 Pulse Ox 100 05/01/17 14:34 - Medical History PMH: CVA (Possible), Depression, Diabetes, HTN, Hypercholesterolemia, Chronic Kidney Disease Denies: HIV - Family History Family History: States: Unknown Family Hx - Home Medications Home Medications: Ambulatory Orders Medication Instructions Recorded Tamsulosin [Flomax] 0.4 mg PO DAILY 03/12/16 Venlafaxine [Effexor XR] 150 mg PO BID 03/12/16 GlipiZIDE [Glucotrol] 5 mg PO BIDAC 12/13/16 Atorvastatin [Lipitor] 20 mg PO HS tab 12/27/16 Enalapril Maleate [Vasotec] 20 mg PO Q12 tab 12/27/16 Furosemide [Lasix] 40 mg PO DAILY tab 12/27/16 SITagliptin [Januvia] 50 mg PO ACB tab 12/27/16 Valsartan [Diovan] 320 mg PO DAILY tab 12/27/16 Gabapentin [Neurontin] 300 mg PO HS cap 04/18/17 Silver Sulfadiazine 1% 20 gm 1 ea TOP TID 04/18/17 [Silvadene 1% 20 gm] carBAMazepine [Tegretol] 200 mg PO BID tab 04/18/17 oxyCODONE/Acetaminophen [Percocet 1 tab PO Q6 PRN tab 04/18/17 5/325 mg Tab] Gabapentin [Neurontin] 400 mg PO BID cap 04/28/17 Labetalol [Trandate] 200 mg PO BID tab 04/28/17 Venlafaxine [Effexor XR] 150 mg PO DAILY cer 04/28/17 hydrALAZINE [Apresoline] 25 mg PO BID tab 04/28/17 oxyCODONE/Acetaminophen [Percocet 2 tab PO Q6 #60 tab 04/28/17 5/325 mg Tab] - Allergies Allergies/Adverse Reactions: Allergies Allergy/AdvReac Type Severity Reaction Status Date / Time No Known Allergies Allergy Verified 04/18/17 16:26 Review of Systems ROS Statement: Except As Marked, All Systems Reviewed And Found Negative Eyes: Positive for: Vision Change (Double vision) Physical Exam - Reviewed Nursing Documentation Reviewed: Yes Vital Signs Reviewed: Yes - Physical Exam Appears: Positive for: Non-toxic, No Acute Distress Head Exam: Positive for: ATRAUMATIC, NORMAL INSPECTION, NORMOCEPHALIC Skin: Positive for: Normal Color, Warm, DRY Eye Exam: Positive for: EOMI, Normal appearance, PERRL ENT: Positive for: Normal ENT Inspection Neck: Positive for: Normal, Painless ROM Cardiovascular/Chest: Positive for: Regular Rate, Rhythm Respiratory: Positive for: CNT, Normal Breath Sounds Gastrointestinal/Abdominal: Positive for: Normal Exam, Bowel Sounds, Soft Back: Positive for: Normal Inspection Extremity: Positive for: Normal ROM Neurologic/Psych: Positive for: Alert, Oriented - Laboratory Results Result Diagrams: 05/01/17 14:56 05/01/17 14:56 - ECG O2 Sat by Pulse Oximetry: 100 Medical Decision Making Medical Decision Making: Time: 14:41 Plan: - Type and Screen - CT Head without Contrast [Code Stroke] - EKG - CMP - Hemoglobin A1C - Lipid Panel - Troponin I - CBC - Partial Thromboplastin Time - Prothrombin Time - Portable Chest X-Ray - ED Obtain Labs STAT - Glucose, Blood, PO STAT - Nursing Swallow Screen - Vital Signs Q15MIN Time: 15:07 CT Head without Contrast HEMORRHAGE: No intracranial hemorrhage. BRAIN: Age-related neuro degenerative changes are reiterated as compared to prior head CT 04/14/2017 with no obvious pattern given acute or subacute brain infarction at this time. There is no mass effect and limited diffuse cerebral atrophy chronic microangiopathy are again identified. No interval hydrocephalus. VENTRICLES: Unremarkable. No hydrocephalus. CALVARIUM: Unremarkable. Prior left temporal scalp fluid collection now resolved. PARANASAL SINUSES: Unremarkable as visualized. No significant inflammatory changes. MASTOID AIR CELLS: Unremarkable as visualized. No inflammatory changes. OTHER FINDINGS: None. IMPRESSION: Stable limited age-related neuro degenerative changes are identified without definite acute intracranial findings as discussed above. Follow-up CT or MRI are available as clinically warranted. Findings reviewed and discussed with Dr. Cuhrch, 05/01/2017, 3:01 p.m. with written down and read back verification. Time: 15:10 Patient to be signed out to Dr. Johnson, pending re-evaluation Disposition - Clinical Impression Clinical Impression: Altered mental status, CVA (cerebral vascular accident), Syncope, Elevated troponin - Patient ED Disposition Is Patient to be Admitted: Transfer of Care - Disposition Disposition: Transfer of Care Disposition Time: 19:00 Condition: FAIR Patient Signed Over To: Melva Johnson
--- NOTE | 2017-05-01 15:08 | CT ---
PROCEDURE: CT HEAD WITHOUT CONTRAST. HISTORY: code stroke COMPARISON: Unenhanced head CT 04/14/2017 TECHNIQUE: Axial computed tomography images were obtained through the head/brain without intravenous contrast. Radiation dose: Total exam DLP = 896.82 mGy-cm. This CT exam was performed using one or more of the following dose reduction techniques: Automated exposure control, adjustment of the mA and/or kV according to patient size, and/or use of iterative reconstruction technique. FINDINGS: HEMORRHAGE: No intracranial hemorrhage. BRAIN: Age-related neuro degenerative changes are reiterated as compared to prior head CT 04/14/2017 with no obvious pattern given acute or subacute brain infarction at this time. There is no mass effect and limited diffuse cerebral atrophy chronic microangiopathy are again identified. No interval hydrocephalus. VENTRICLES: Unremarkable. No hydrocephalus. CALVARIUM: Unremarkable. Prior left temporal scalp fluid collection now resolved. PARANASAL SINUSES: Unremarkable as visualized. No significant inflammatory changes. MASTOID AIR CELLS: Unremarkable as visualized. No inflammatory changes. OTHER FINDINGS: None. IMPRESSION: Stable limited age-related neuro degenerative changes are identified without definite acute intracranial findings as discussed above. Follow-up CT or MRI are available as clinically warranted. Findings reviewed and discussed with Dr. Church, 05/01/2017, 3:01 p.m. with written down and read back verification.
--- NOTE | 2017-05-01 15:32 | ED PDOC ---
- Laboratory Results Result Diagrams: 05/01/17 14:56 05/01/17 14:56 - ECG O2 Sat by Pulse Oximetry: 100 (RA) Pulse Ox Interpretation: Normal Medical Decision Making Medical Decision Making: Time: 15:00 Patient is signed out to me by Dr. Church, pending labs and neurological consult. Time: 16:48 Discussed history, CT scan and labs [elevated Troponin 0.035] with Dr. Butler. Agrees that patient is not a candidate for TPA. Recommends patient to be admitted to hospital for stroke work up. Discussed history, CT scan and labs [elevated Troponin 0.035] with Dr. Menjivar ( covering for Costomiris) and will be admitting under his service as inpatient. Agrees with care and no further recommendations. Scribe Attestation: Documented by Alejo Mari, acting as a scribe for Melva Johnson MD. Provider Scribe Attestation: All medical record entries made by the Scribe were at my direction and personally dictated by me. I have reviewed the chart and agree that the record accurately reflects my personal performance of the history, physical exam, medical decision making, and the department course for this patient. I have also personally directed, reviewed, and agree with the discharge instructions and disposition. Disposition Doctor Will See Patient In The: Hospital Counseled Patient/Family Regarding: Studies Performed, Diagnosis - Clinical Impression Clinical Impression: Altered mental status, CVA (cerebral vascular accident), Syncope - POA Present On Arrival: None - Disposition Disposition: Admitted as In-Patient Disposition Time: 16:48 Condition: FAIR
[2017-05-01 15:35] LABS: BASO % 0.5 % (0.0-2.0); EOS # 0.2 K/uL (0.0-0.7); HEMOGLOBIN 13.5 g/dL (12.0-18.0); LYMPH # 1.5 K/uL (1.0-4.3); LYMPH % 18.2 % (20.0-40.0); MEAN CELL VOLUME 83.8 fl (80.0-94.0); MEAN CORPUSCULAR HEMOGLOBIN 26.7 pg (27.0-31.0); MEAN CORPUSCULAR HGB CONC 31.9 g/dL (33.0-37.0); MEAN PLATELET VOLUME 7.4 fl (7.2-11.7); MONO # 0.7 K/uL (0.0-0.8); MONO % 8.6 % (0.0-10.0); NEUT # 5.8 K/uL (1.8-7.0); NEUT % 70.7 % (50.0-75.0); NRBC % 0.2 % (0.0-0.0); RBC 5.06 Mil/uL (4.40-5.90); RED CELL DISTRIBUTION WIDTH 14.7 % (11.5-14.5); WHITE BLOOD COUNT 8.3 K/uL (4.8-10.8)
[2017-05-01 15:38] LABS: INR 1.1 (0.9-1.2); PROTHROMBIN TIME 11.9 Seconds (9.8-13.1)
[2017-05-01 16:14] LABS: ALB/GLOB RATIO 1.3 (1.0-2.1); ALBUMIN 3.9 g/dL (3.5-5.0); ALT/SGPT 47 U/L (21-72); AST/SGOT 19 U/L (17-59); BLOOD UREA NITROGEN 25 mg/dl (9-20); CALCIUM 9.2 mg/dL (8.4-10.2); GFR AFRICAN-AMERICAN > 60; GFR NON-AFRICAN AMERICAN 54; HDL CHOLESTEROL 43 MG/DL (30-70)
[2017-05-01 16:24] LABS: LDL CHOLESTEROL 107 mg/dL (0-129)
[2017-05-01] MEDS ORDERED: Sodium Chloride 0.9% 1,000 ML IV STA (16:42)
[2017-05-01] MEDS ORDERED: Sodium Chloride 0.9% 50 ML IV ONE (17:07)
[2017-05-01] MEDS ORDERED: Iodixanol 320 MG/ML 100 ML BOTTLE IV ONE (17:07)
[2017-05-01] MEDS ORDERED: Oxycodone/Acetaminophen 5/325 mg Tab PO PRN (17:09)
[2017-05-01] MEDS ORDERED: Sodium Chloride 0.9% 1,000 ML IV SCH (17:30)
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
[2017-05-02] MEDS ORDERED: Labetalol 5 mg/ml Inj 20ML IVP STA (04:43)
[2017-05-02 07:29] LABS: BARBITURATES, UR NEGATIVE (NEGATIVE); BENZODIAZEPINES, UR NEGATIVE (NEGATIVE); OPIATES, UR NEGATIVE (NEGATIVE); PHENCYCLIDINE, UR NEGATIVE (NEGATIVE)
--- NOTE | 2017-05-02 08:16 | RAD ---
HISTORY: CVA COMPARISON: Portable chest 04/14/2017. FINDINGS: LUNGS: Medial right basilar fibrosis or linear atelectasis is again identified with mild elevation the right hemidiaphragm. No definite alveolitis bilaterally. PLEURA: No significant pleural effusion identified, no pneumothorax apparent. CARDIOVASCULAR: Borderline cardiomegaly again noted. No pulmonary vascular derangement demonstrated bilaterally. OSSEOUS STRUCTURES: No significant abnormalities. VISUALIZED UPPER ABDOMEN: Normal. OTHER FINDINGS: None. IMPRESSION: Borderline cardiomegaly. Persistent medial basilar fibrosis or atelectasis at the right base again evident. Right hemidiaphragm elevation again evident. No alveolitis or pleural effusion bilaterally. No pulmonary vascular derangement.
[2017-05-02] MEDS ORDERED: Venlafaxine 150 mg ER Cap PO SCH (09:00)
[2017-05-02] MEDS: Silver Sulfadiazine 1% Cream (20 gm) TOP SCH ×3 (09:07→16:51)
[2017-05-02] MEDS: Venlafaxine 150 mg ER Cap PO SCH (09:09)
--- NOTE | 2017-05-02 09:11 | CP.PCM.HP ---
History of Present Illness - History of Present Illness History of Present Illness: This 71-year-old man a long- standing diabetic and hypertensive who was recently hospitalized with an acute episode off zoster and complains of persistent scalp pain because of it was brought into the emergency room by his son because of periods of confusion and unsteady gait and falling. There was no chest pain or sudden shortness of breath. The patient has had multiple hospitalizations in the past for unsteady gait and near falling. According to his son the patient has been taking his medications in an erratic fashion and takes multiple medications which the patient's son suspects are adding to his unsteady gait and confusion. The patient's son also reports that his care less about taking his medications regularly and takes them in erratic fashion. Physical examination shows an elderly man who is lying virtually flat in bed and converses appropriately during interview. He breathes at 16 breaths per minute and has a heart rate of 70 bpm regular. His blood pressure was 196/84 mmHg. His jugular venous pressure was not elevated and there was no edema over his lower extremity. His pedal pulses were extremely feeble. There were no carotid bruits. The apex was in the fifth space and the first and second heart sounds were normal. A brief ejection systolic murmur was audible in the aortic area the second heart sound was well heard. There were no rales. His electro-cardiogram shows sinus rhythm with a pattern suggestive of left ventricular hypertrophy with poor R-wave progression from V1 to V3 and V4 and Q waves in inferior leads. The electro-cardiogram is similar to his EKG tracings going back to March 2016. There were ST-T changes secondary to LVH. No acute ST-T abnormalities were detected. An echocardiogram done last year shows left ventricular hypertrophy with preserved left ventricular systolic function. His lab test show mildly elevated troponin levels. Review of his lab tests over the last year show multiple abnormal BUN levels indicative of chronic kidney disease. Impression: Confusion and unsteady gait. Polypharmacy including multiple pain medications and antidepressives. Hypertension, diabetes mellitus. The patient was seen by a neurologist an EEG and MRI is planned. I have discussed his case with his son and I started him on additional antihypertensives. Present on Admission - Present on Admission Any Indicators Present on Admission: No Past Patient History - Infectious Disease Hx of Infectious Diseases: None - Past Medical History & Family History Past Medical History?: Yes - Past Social History Smoking Status: Former Smoker - CARDIAC Hx Hypercholesterolemia: Yes Hx Hypertension: Yes - PULMONARY Hx Respiratory Disorders: No - NEUROLOGICAL HX Cerebrovascular Accident: Yes (possible) - HEENT Hx HEENT Problems: Yes (mastoiditis) - RENAL Hx Chronic Kidney Disease: Yes - ENDOCRINE/METABOLIC Hx Diabetes Mellitus Type 2: Yes - HEMATOLOGICAL/ONCOLOGICAL Hx Human Immunodeficiency Virus (HIV): No - INTEGUMENTARY Hx Dermatological Problems: No - MUSCULOSKELETAL/RHEUMATOLOGICAL Hx Falls: No - GASTROINTESTINAL Hx Gastrointestinal Disorders: No - GENITOURINARY/GYNECOLOGICAL Hx Genitourinary Disorders: Yes Hx Prostate Problems: Yes - PSYCHIATRIC Hx Substance Use: No - SURGICAL HISTORY Hx Surgeries: No - ANESTHESIA Hx Anesthesia: Yes Hx Anesthesia Reactions: No Hx Malignant Hyperthermia: No Meds Allergies/Adverse Reactions: Allergies Allergy/AdvReac Type Severity Reaction Status Date / Time No Known Allergies Allergy Verified 04/18/17 16:26 Results - Vital Signs Recent Vital Signs: Last Vital Signs Temp 97.9 F 05/02/17 08:03 Pulse 61 05/02/17 08:03 Resp 18 05/02/17 08:03 BP 203/75 H 05/02/17 06:10 Pulse Ox 96 05/02/17 08:03 - Labs Result Diagrams: 05/01/17 14:56 05/01/17 14:56 Labs: Laboratory Results - last 24 hr 05/01/17 05/01/17 05/01/17 14:38 14:56 14:56 WBC 8.3 RBC 5.06 Hgb 13.5 Hct 42.3 MCV 83.8 MCH 26.7 L MCHC 31.9 L RDW 14.7 H Plt Count 319 MPV 7.4 Neut % (Auto) 70.7 Lymph % (Auto) 18.2 L [place] % (Auto) 8.6 Eos % (Auto) 2.0 Baso % (Auto) 0.5 Neut # 5.8 Lymph # 1.5 [place] # 0.7 Eos # 0.2 Baso # 0.0 PT INR APTT Sodium 142 Potassium 4.5 Chloride 105 Carbon Dioxide 24 Anion Gap 18 BUN 25 H Creatinine 1.3 Est GFR ( Amer) > 60 Est GFR (Non-Af Amer) 54 POC Glucose (mg/dL) 147 H Random Glucose 167 H Calcium 9.2 Total Bilirubin 0.4 AST 19 ALT 47 Alkaline Phosphatase 76 Troponin I 0.3700 H* Total Protein 7.0 Albumin 3.9 Globulin 3.1 Albumin/Globulin Ratio 1.3 Triglycerides 199 H Cholesterol 210 H LDL Cholesterol Direct 107 HDL Cholesterol 43 Urine Opiates Screen Urine Methadone Screen Ur Barbiturates Screen Ur Phencyclidine Scrn Ur Amphetamines Screen U Benzodiazepines Scrn U Oth Cocaine Metabols U Cannabinoids Screen Alcohol, Quantitative < 10 Blood Type Antibody Screen BBK History Checked 05/01/17 05/01/17 05/01/17 14:56 14:56 17:42 WBC RBC Hgb Hct MCV MCH MCHC RDW Plt Count MPV Neut % (Auto) Lymph % (Auto) [place] % (Auto) Eos % (Auto) Baso % (Auto) Neut # Lymph # [place] # Eos # Baso # PT 11.9 INR 1.1 APTT 36.0 Sodium Potassium Chloride Carbon Dioxide Anion Gap BUN Creatinine Est GFR ( Amer) Est GFR (Non-Af Amer) POC Glucose (mg/dL) 149 H Random Glucose Calcium Total Bilirubin AST ALT Alkaline Phosphatase Troponin I Total Protein Albumin Globulin Albumin/Globulin Ratio Triglycerides Cholesterol LDL Cholesterol Direct HDL Cholesterol Urine Opiates Screen Urine Methadone Screen Ur Barbiturates Screen Ur Phencyclidine Scrn Ur Amphetamines Screen U Benzodiazepines Scrn U Oth Cocaine Metabols U Cannabinoids Screen Alcohol, Quantitative Blood Type O NEGATIVE Antibody Screen Negative BBK History Checked Patient has bt 05/02/17 05/02/17 00:49 07:04 WBC RBC Hgb Hct MCV MCH MCHC RDW Plt Count MPV Neut % (Auto) Lymph % (Auto) [place] % (Auto) Eos % (Auto) Baso % (Auto) Neut # Lymph # [place] # Eos # Baso # PT INR APTT Sodium Potassium Chloride Carbon Dioxide Anion Gap BUN Creatinine Est GFR ( Amer) Est GFR (Non-Af Amer) POC Glucose (mg/dL) Random Glucose Calcium Total Bilirubin AST ALT Alkaline Phosphatase Troponin I 0.2240 H* Total Protein Albumin Globulin Albumin/Globulin Ratio Triglycerides Cholesterol LDL Cholesterol Direct HDL Cholesterol Urine Opiates Screen Negative Urine Methadone Screen Negative Ur Barbiturates Screen Negative Ur Phencyclidine Scrn Negative Ur Amphetamines Screen Negative U Benzodiazepines Scrn Negative U Oth Cocaine Metabols Negative U Cannabinoids Screen Negative Alcohol, Quantitative Blood Type Antibody Screen BBK History Checked
[2017-05-02] MEDS: Enoxaparin 40 mg Syringe SC SCH (10:42)
--- NOTE | 2017-05-02 12:13 | CP.PCM.PN ---
Subjective - Date & Time of Evaluation Date of Evaluation: 05/02/17 Time of Evaluation: 12:10 - Subjective Subjective: Mr. Negrete was seen and examined at the bedside. He is alert, oriented. He states that he always have syncopal episodes in the past and he always wake up from it. He denies any headache, dizziness, lightheadedness, blurred vision, weakness. He is able to follow simple commands. MRI of the brain was recommended but with a metal attached to his body, unable to do the procedure. There was no untoward events overnight. Objective - Vital Signs/Intake and Output Vital Signs (last 24 hours): Temp Pulse Resp BP Pulse Ox 97.5 F L 66 18 185/75 H 95 05/02/17 09:00 05/02/17 10:40 05/02/17 09:00 05/02/17 10:40 05/02/17 09:00 Intake and Output: 05/02/17 05/02/17 06:59 18:59 Intake Total 250 Balance 250 - Medications Medications: Current Medications Amlodipine Besylate (Norvasc) 10 mg PO DAILY [facility] Last Admin: 05/02/17 10:40 Dose: 10 mg Atorvastatin Calcium (Lipitor) 20 mg PO HS [facility] Last Admin: 05/01/17 21:10 Dose: 20 mg Carbamazepine (Tegretol) 200 mg PO BID [facility] Last Admin: 05/02/17 09:07 Dose: 200 mg Enalapril Maleate (Vasotec) 20 mg PO Q12 [facility] Last Admin: 05/02/17 09:07 Dose: 20 mg Enoxaparin Sodium (Lovenox) 40 mg SC DAILY [facility] PRN Reason: Protocol Last Admin: 05/02/17 10:42 Dose: 40 mg Gabapentin (Neurontin) 300 mg PO HS [facility] Last Admin: 05/01/17 21:10 Dose: 300 mg Gabapentin (Neurontin) 400 mg PO BID [facility] Last Admin: 05/02/17 09:08 Dose: 400 mg Glipizide (Glucotrol) 5 mg PO BIDAC [facility] Last Admin: 05/02/17 09:08 Dose: 5 mg Hydralazine HCl (Apresoline) 25 mg PO BID [facility] Last Admin: 05/02/17 09:06 Dose: 25 mg Labetalol HCl (Trandate) 200 mg PO BID@0900,2100 [facility] Last Admin: 05/02/17 09:09 Dose: 200 mg Silver Sulfadiazine (Silvadene 1% 20 Gm) 1 ea TOP TID [facility] Last Admin: 05/02/17 09:07 Dose: 1 applic Sitagliptin Phosphate (Januvia) 50 mg PO ACB [facility] Last Admin: 05/02/17 09:07 Dose: 50 mg Tamsulosin HCl (Flomax) 0.4 mg PO DAILY [facility] Last Admin: 05/02/17 09:07 Dose: 0.4 mg Venlafaxine HCl (Effexor Xr) 150 mg PO DAILY [facility] Last Admin: 05/02/17 09:09 Dose: 150 mg - Labs Labs: 05/01/17 14:56 05/01/17 14:56 PT 11.9 Seconds (9.8-13.1) 05/01/17 14:56 INR 1.1 (0.9-1.2) 05/01/17 14:56 APTT 36.0 Seconds (25.6-37.1) 05/01/17 14:56 - Constitutional Appears: No Acute Distress - Head Exam Head Exam: NORMAL INSPECTION - Neurological Exam Neurological Exam: Alert, Awake, Oriented x3 Neuro motor strength exam: Left Upper Extremity: 5, Right Upper Extremity: 5, Left Lower Extremity: 5, Right Lower Extremity: 5 Additional comments: Neurological improved no twitching noted, able to participate during the assessment. Assessment and Plan (1) Encephalopathy acute Assessment & Plan: Case discussed with Dr. mcintosh, continue all current medical regimen, pending carbamazepine level. Recommend CTA of the head and neck to evaluate any brain pathology. Status: Resolved
[2017-05-02] MEDS ORDERED: Iodixanol 320 MG/ML 100 ML BOTTLE IV ONE (15:16)
[2017-05-02] MEDS ORDERED: Sodium Chloride 0.9% 50 ML IV ONE (15:17)
--- NOTE | 2017-05-02 17:10 | CT ---
PROCEDURE: CT Angiography of the Brain and Neck. HISTORY: seizure COMPARISON: None available. TECHNIQUE: CT angiography of the intracranial and neck arteries was performed. Coronal and sagittal maximum intensity projection reformated images were generated. Contrast Dose: Visipaque 320, 99 cc Radiation dose:Total exam DLP = 2266.53 mGy-cm. This CT exam was performed using one or more of the following dose reduction techniques: Automated exposure control, adjustment of the mA and/or kV according to patient size, and/or use of iterative reconstruction technique. FINDINGS: INTERNAL CEREBRAL ARTERIES: Unremarkable. The skull base, petrous, cavernous and supraclinoid segments are bilaterally patent. Limited atherosclerotic changes seen at the bilateral cavernous ICA segments. ANTERIOR CEREBRAL ARTERIES: Unremarkable. A1 and A2 segments are widely patent. Smaller distal branches unremarkable, as visualized. MIDDLE CEREBRAL ARTERIES: Unremarkable. M1 and M2 segments are widely patent. Perisylvian branches grossly symmetric. POSTERIOR CIRCULATION: Basilar Artery: Unremarkable. Distal Vertebral Arteries: Unremarkable. Posterior Cerebral Arteries: The right CHIROPRACTOR ASSISTANT is hypoplastic. Left CHIROPRACTOR ASSISTANT is unremarkable appearing. Posterior Inferior Cerebellar Arteries: Unremarkable. NECK CTA: Common Carotid arteries: The bilateral common carotid appear widely patent from their origins to their bifurcations with no significant stenosis appreciated. Atherosclerotic plaque seen at the bilateral carotid bulb regions without causing significant stenosis posterior No evidence to suggest common carotid artery dissection. Internal Carotid arteries: No significant stenosis is appreciated throughout the cervical internal carotid artery segments bilaterally and there is no evidence of dissection either. External Carotid arteries: Appear unremarkable bilaterally. Vertebral arteries: The bilateral vertebral arteries appear normal in caliber from their origins to their junction with the basilar artery. Vertebrobasilar system appears right dominant. No significant stenosis or definite pattern of dissection. Incidentally, the bilateral subclavian arteries are widely patent as well as the brachiocephalic artery. ANEURYSM/ VASCULAR MALFORMATIONS: None. OTHER FINDINGS: Incidental note is made of a right thyroid lobe cyst or nodule measure 1.9 cm greatest dimension. IMPRESSION: Hypoplastic right CHIROPRACTOR ASSISTANT appear widely patent left CHIROPRACTOR ASSISTANT. Limited bilateral cavernous ICA atherosclerosis without significant stenosis. Limited bilateral carotid bulbar atherosclerotic plaque without causing significant CCA or ICA stenosis bilaterally.
--- NOTE | 2017-05-02 18:29 | CARD ---
APPROVED REPORT EKG Measurement Heart [id number] FL [id number] [id number] <Conclusion> Normal sinus rhythm Incomplete right bundle branch block Left ventricular hypertrophy with repolarization abnormality Inferior infarct, age undetermined Anterior infarct, age undetermined Abnormal ECG
[2017-05-03] MEDS: Venlafaxine 150 mg ER Cap PO SCH (08:47)
[2017-05-03] MEDS: Enoxaparin 40 mg Syringe SC SCH (08:48)
[2017-05-03] MEDS: Silver Sulfadiazine 1% Cream (20 gm) TOP SCH ×3 (08:49→16:26)
--- NOTE | 2017-05-03 11:16 | CP.PCM.PN ---
Subjective - Date & Time of Evaluation Date of Evaluation: 05/03/17 Time of Evaluation: 10:00 - Subjective Subjective: pt seen with Dr Ceja (Psych) who recommended a transfer to Psych unit pt agrees will be transferred as soon as medically stable feels well will start reducing meds Effexor tegretol neurontin Objective - Vital Signs/Intake and Output Vital Signs (last 24 hours): Temp Pulse Resp BP Pulse Ox 98.3 F 55 L 18 149/73 94 L 05/03/17 08:00 05/03/17 08:50 05/03/17 08:00 05/03/17 08:50 05/03/17 08:00 - Medications Medications: Current Medications Amlodipine Besylate (Norvasc) 10 mg PO DAILY [facility] Last Admin: 05/03/17 08:48 Dose: 10 mg Atorvastatin Calcium (Lipitor) 20 mg PO HS [facility] Last Admin: 05/02/17 21:33 Dose: 20 mg Enalapril Maleate (Vasotec) 20 mg PO Q12 [facility] Last Admin: 05/03/17 08:50 Dose: 20 mg Enoxaparin Sodium (Lovenox) 40 mg SC DAILY [facility] PRN Reason: Protocol Last Admin: 05/03/17 08:48 Dose: 40 mg Glipizide (Glucotrol) 5 mg PO BIDAC [facility] Last Admin: 05/03/17 08:47 Dose: 5 mg Hydralazine HCl (Apresoline) 25 mg PO BID [facility] Last Admin: 05/03/17 08:46 Dose: 25 mg Labetalol HCl (Trandate) 200 mg PO BID@0900,2100 [facility] Last Admin: 05/03/17 08:50 Dose: 200 mg Silver Sulfadiazine (Silvadene 1% 20 Gm) 1 ea TOP TID [facility] Last Admin: 05/03/17 08:49 Dose: 1 applic Sitagliptin Phosphate (Januvia) 50 mg PO ACB [facility] Last Admin: 05/03/17 08:48 Dose: 50 mg Tamsulosin HCl (Flomax) 0.4 mg PO DAILY [facility] Last Admin: 05/03/17 08:47 Dose: 0.4 mg Venlafaxine HCl (Effexor Xr) 75 mg PO DAILY [facility] - Labs Labs: 05/01/17 14:56 05/01/17 14:56 PT 11.9 Seconds (9.8-13.1) 05/01/17 14:56 INR 1.1 (0.9-1.2) 05/01/17 14:56 APTT 36.0 Seconds (25.6-37.1) 05/01/17 14:56
--- NOTE | 2017-05-03 14:23 | CP.PCM.CON ---
History of Present Illness - History of Present Illness History of Present Illness: consult requested for depression pt is a 71-year-old male n a long-standing diabetic and hypertensive who was recently hospitalized with an acute episode off zoster and complains of persistent scalp pain because of it was brought into the emergency room by his son because of periods of confusion and unsteady gait and falling. pt on evaluation reported he is a retired [employer], he has retired about a year ago,he stated that he has been feeling down with low interest and low energy, pt was placed by PMD on effexor, it was uptitrated to 150mg, as per pt and his son who was by bed side, pt continues to have depressed mood anhedonia, increased anxiety at times, poor concentration and sense of worthlessness pt denied suicidal or homicidal ideations denied perceptual disturbances requested admission to psychiatry unit for medication stabilization Past Patient History - Infectious Disease Hx of Infectious Diseases: None - Past Medical History & Family History Past Medical History?: Yes - Past Social History Smoking Status: Former Smoker - CARDIAC Hx Hypercholesterolemia: Yes Hx Hypertension: Yes - PULMONARY Hx Respiratory Disorders: No - NEUROLOGICAL HX Cerebrovascular Accident: Yes (possible) - HEENT Hx HEENT Problems: Yes (mastoiditis) - RENAL Hx Chronic Kidney Disease: Yes - ENDOCRINE/METABOLIC Hx Diabetes Mellitus Type 2: Yes - HEMATOLOGICAL/ONCOLOGICAL Hx Human Immunodeficiency Virus (HIV): No - INTEGUMENTARY Hx Dermatological Problems: No - MUSCULOSKELETAL/RHEUMATOLOGICAL Hx Falls: No - GASTROINTESTINAL Hx Gastrointestinal Disorders: No - GENITOURINARY/GYNECOLOGICAL Hx Genitourinary Disorders: Yes Hx Prostate Problems: Yes - PSYCHIATRIC Hx Depression: Yes - SURGICAL HISTORY Hx Surgeries: No - ANESTHESIA Hx Anesthesia: Yes Hx Anesthesia Reactions: No Hx Malignant Hyperthermia: No Meds Allergies/Adverse Reactions: Allergies Allergy/AdvReac Type Severity Reaction Status Date / Time No Known Allergies Allergy Verified 04/18/17 16:26 - Medications Medications: Current Medications Amlodipine Besylate (Norvasc) 10 mg PO DAILY [facility] Last Admin: 05/03/17 08:48 Dose: 10 mg Atorvastatin Calcium (Lipitor) 20 mg PO HS [facility] Last Admin: 05/02/17 21:33 Dose: 20 mg Enalapril Maleate (Vasotec) 20 mg PO Q12 [facility] Last Admin: 05/03/17 08:50 Dose: 20 mg Enoxaparin Sodium (Lovenox) 40 mg SC DAILY [facility] PRN Reason: Protocol Last Admin: 05/03/17 08:48 Dose: 40 mg Glipizide (Glucotrol) 5 mg PO BIDAC [facility] Last Admin: 05/03/17 08:47 Dose: 5 mg Hydralazine HCl (Apresoline) 25 mg PO BID [facility] Last Admin: 05/03/17 08:46 Dose: 25 mg Labetalol HCl (Trandate) 200 mg PO BID@0900,2100 [facility] Last Admin: 05/03/17 08:50 Dose: 200 mg Silver Sulfadiazine (Silvadene 1% 20 Gm) 1 ea TOP TID [facility] Last Admin: 05/03/17 12:36 Dose: 1 applic Sitagliptin Phosphate (Januvia) 50 mg PO ACB [facility] Last Admin: 05/03/17 08:48 Dose: 50 mg Tamsulosin HCl (Flomax) 0.4 mg PO DAILY [facility] Last Admin: 05/03/17 08:47 Dose: 0.4 mg Venlafaxine HCl (Effexor Xr) 75 mg PO DAILY [facility] Physical Exam - Psychiatric Exam Additional comments: seen in bed, partial eye contact speech soft and slow, mood depressed affect depressed and constricted, thought form coherent denied any current suicidal or homicidal ideations, denied perceptual disturbances, alert awake ox3 fair insight and jusgment Results - Vital Signs Recent Vital Signs: Last Vital Signs Temp 97.9 F 05/03/17 12:00 Pulse 64 05/03/17 12:00 Resp 18 05/03/17 12:00 BP 155/66 H 05/03/17 12:00 Pulse Ox 100 05/03/17 13:30 - Labs Result Diagrams: 05/01/17 14:56 05/01/17 14:56 Assessment & Plan - Assessment and Plan (Free Text) Assessment: major depression Plan: pt would benifit from admission to psychiatry unit upon medical clearence for medication stabilization
--- NOTE | 2017-05-03 15:52 | RAD ---
PROCEDURE: Radiographs of the pelvis and bilateral hips HISTORY: fall COMPARISON: CT scan of the abdomen and pelvis dated 01/25/2014. FINDINGS: BONES: Pelvis: Unremarkable. Right hip:Unremarkable. Left hip:Unremarkable. JOINTS: Right hip: Mild narrowing. Left hip: Mild narrowing. Sacroiliac Joints: Unremarkable. Pubic symphysis: Unremarkable. SOFT TISSUES: Normal. OTHER FINDINGS: None. IMPRESSION: No demonstrated fracture or dislocation.
[2017-05-04] MEDS: Enoxaparin 40 mg Syringe SC SCH (08:24)
[2017-05-04] MEDS: Silver Sulfadiazine 1% Cream (20 gm) TOP SCH (08:25)
[2017-05-04] MEDS: Venlafaxine 75 mg ER Cap PO SCH (08:25)
--- NOTE | 2017-05-04 09:26 | CP.PCM.PCO ---
Assessment/Plan - Assessment/Plan Assessment (Free Text): Called to evaluate patient after he sustained a fall in his room. Patient AOx3, denies chest pain shortness of breath, denies LOC. No trauma to head. Moving all limbs freely. Patient with orthostatic hypotension BP labile, Laying 111/61, sitting 84/48. CT scan head ordered stat by neurology for new onset dizziness WIll monitor and start ivf as per Neurology recommendations. - Problems Patient Problems: Problem List (Active/Current) Problem Status Onset Code Altered mental status Acute R41.82 CVA (cerebral vascular accident) Acute I63.9 Elevated troponin Acute R74.8 Syncope Acute R55 Encephalopathy acute Resolved G93.40
[2017-05-04] MEDS ORDERED: Sodium Chloride 0.9% 1,000 ML IV SCH (10:15)
--- NOTE | 2017-05-04 10:36 | PQF GENQUE ---
This form is a permanent part of the medical record 05/04/17 Dr. Rudy Menjivar, Would you please clarify if there is an associated diagnosis or not to go along with the elevated troponin levels. Brought into the er with periods of confusion, unsteady gait and falling. According to his son the patient takes multiple medications in an erratic fashion. His electro-cardiogram shows sinus rhythm with a pattern suggestive of left ventricular hypertrophy with poor R-wave progression from V1 to V3 and V4 and Q waves in inferior leads. The electro- cardiogram is similar to his EKG tracings going back to March 2016. No acute ST-T abnormalities were detected. Troponin levels: 0.37, 0.224, 0.173. BUN 25, creatinine 1.3, GFR 54 Clarification of your documentation is requested to better reflect the severity of illness and intensity of treatment of your patient. Indicators present []x Specify: [] The pt did not have an AMI His troponins are elevated most likely to MS trauma after a fall and his general medical condition. [] Specify: [] [] Specify: [] [] Specify: [] Location in the medical record that reflects the above clinical findings: [] Treatment Provided: [] PHYSICIAN'S RESPONSE Based on your medical judgment of the clinical indicators outlined above please clarify the following: x[] Practitioner response [] If unable to determine, please check the box, sign and date. Present On Admission (POA) Indicator: [x] Present at the time of admission [] Not present at the time of admission [] Clinically Undetermined In responding to this query, please exercise your independent professional judgment. The fact that a question is asked does not imply that any particular answer is desired or expected. Thank you for your clarification on this documentation. If you have any questions please call:[phone] * Thank you, Valentine iCsneros RN CDMP [facility]
--- NOTE | 2017-05-04 10:48 | CP.PCM.PN ---
Subjective - Date & Time of Evaluation Date of Evaluation: 05/04/17 Time of Evaluation: 10:00 - Subjective Subjective: Feels weak pain in scalp is less BP still running high Objective - Vital Signs/Intake and Output Vital Signs (last 24 hours): Temp Pulse Resp BP Pulse Ox 97.7 F 68 18 103/58 L 95 05/04/17 09:10 05/04/17 09:10 05/04/17 08:00 05/04/17 09:10 05/04/17 08:00 - Medications Medications: Current Medications Amlodipine Besylate (Norvasc) 10 mg PO DAILY [facility] Last Admin: 05/04/17 08:26 Dose: 10 mg Atorvastatin Calcium (Lipitor) 20 mg PO HS [facility] Last Admin: 05/03/17 21:15 Dose: 20 mg Enalapril Maleate (Vasotec) 20 mg PO Q12 [facility] Last Admin: 05/04/17 08:25 Dose: 20 mg Enoxaparin Sodium (Lovenox) 40 mg SC DAILY [facility] PRN Reason: Protocol Last Admin: 05/04/17 08:24 Dose: 40 mg Glipizide (Glucotrol) 5 mg PO BIDAC [facility] Last Admin: 05/04/17 08:26 Dose: 5 mg Hydralazine HCl (Apresoline) 25 mg PO BID [facility] Last Admin: 05/04/17 08:26 Dose: 25 mg Sodium Chloride (Sodium Chloride 0.9%) 1,000 mls @ 100 mls/hr IV .Q10H [facility] Stop: 05/05/17 10:02 Labetalol HCl (Trandate) 200 mg PO BID@0900,2100 [facility] Last Admin: 05/04/17 08:25 Dose: 200 mg Silver Sulfadiazine (Silvadene 1% 20 Gm) 1 ea TOP TID [facility] Last Admin: 05/04/17 08:25 Dose: 1 applic Sitagliptin Phosphate (Januvia) 50 mg PO ACB [facility] Last Admin: 05/04/17 08:26 Dose: 50 mg Tamsulosin HCl (Flomax) 0.4 mg PO DAILY [facility] Last Admin: 05/04/17 08:26 Dose: 0.4 mg Venlafaxine HCl (Effexor Xr) 75 mg PO DAILY [facility] Last Admin: 05/04/17 08:25 Dose: 75 mg - Labs Labs: 05/01/17 14:56 05/01/17 14:56 PT 11.9 Seconds (9.8-13.1) 05/01/17 14:56 INR 1.1 (0.9-1.2) 05/01/17 14:56 APTT 36.0 Seconds (25.6-37.1) 05/01/17 14:56
--- NOTE | 2017-05-04 11:50 | CP.PCM.PN ---
Subjective - Date & Time of Evaluation Date of Evaluation: 05/04/17 Time of Evaluation: 11:48 - Subjective Subjective: Mr. Negrete was seen and examined at the bedside. He is alert, oriented and states that he had a dizzy spell aerlier that he went down to the floor with his knees. He denies hitting his head to anything. He was able to move all his extremities without any problem. Lying BP 111/64, and sitting 85/48. He claims of dizziness with change of position. Objective - Vital Signs/Intake and Output Vital Signs (last 24 hours): Temp Pulse Resp BP Pulse Ox 97.7 F 68 18 103/58 L 95 05/04/17 09:10 05/04/17 09:10 05/04/17 08:00 05/04/17 09:10 05/04/17 08:00 - Medications Medications: Current Medications Amlodipine Besylate (Norvasc) 10 mg PO DAILY [facility] Last Admin: 05/04/17 08:26 Dose: 10 mg Atorvastatin Calcium (Lipitor) 20 mg PO HS [facility] Last Admin: 05/03/17 21:15 Dose: 20 mg Enalapril Maleate (Vasotec) 20 mg PO Q12 [facility] Last Admin: 05/04/17 08:25 Dose: 20 mg Enoxaparin Sodium (Lovenox) 40 mg SC DAILY [facility] PRN Reason: Protocol Last Admin: 05/04/17 08:24 Dose: 40 mg Glipizide (Glucotrol) 5 mg PO BIDAC [facility] Last Admin: 05/04/17 08:26 Dose: 5 mg Hydralazine HCl (Apresoline) 25 mg PO BID [facility] Last Admin: 05/04/17 08:26 Dose: 25 mg Sodium Chloride (Sodium Chloride 0.9%) 1,000 mls @ 100 mls/hr IV .Q10H [facility] Stop: 05/05/17 10:02 Labetalol HCl (Trandate) 200 mg PO BID@0900,2100 [facility] Last Admin: 05/04/17 08:25 Dose: 200 mg Sitagliptin Phosphate (Januvia) 50 mg PO ACB [facility] Last Admin: 05/04/17 08:26 Dose: 50 mg Tamsulosin HCl (Flomax) 0.4 mg PO DAILY [facility] Last Admin: 05/04/17 08:26 Dose: 0.4 mg Venlafaxine HCl (Effexor Xr) 75 mg PO DAILY [facility] Last Admin: 05/04/17 08:25 Dose: 75 mg - Labs Labs: 05/01/17 14:56 05/01/17 14:56 PT 11.9 Seconds (9.8-13.1) 05/01/17 14:56 INR 1.1 (0.9-1.2) 05/01/17 14:56 APTT 36.0 Seconds (25.6-37.1) 05/01/17 14:56 - Constitutional Appears: No Acute Distress - Head Exam Head Exam: NORMAL INSPECTION - Neurological Exam Neurological Exam: Alert, Awake Neuro motor strength exam: Left Upper Extremity: 4, Right Upper Extremity: 4, Left Lower Extremity: 4, Right Lower Extremity: 4 Additional comments: He is able to answer questiosn and follow commands. Sensation remains intact. Assessment and Plan (1) Encephalopathy acute Assessment & Plan: Case discussed with Dr. Peterson, continue all current medical regimen, Recommend evaluation of his hypertension medications. Repeat CT of the head without contrast. Hydrate the patient with 0.9 NS at 100 ml/hr. Status: Resolved
--- NOTE | 2017-05-04 12:15 | CT ---
PROCEDURE: CT HEAD WITHOUT CONTRAST. HISTORY: dizziness COMPARISON: 04/14/2017 TECHNIQUE: Axial computed tomography images were obtained through the head/brain without intravenous contrast. Radiation dose: Total exam DLP = 986 mGy-cm. This CT exam was performed using one or more of the following dose reduction techniques: Automated exposure control, adjustment of the mA and/or kV according to patient size, and/or use of iterative reconstruction technique. FINDINGS: HEMORRHAGE: No intracranial hemorrhage. BRAIN: No mass effect or edema. Mild chronic microangiopathic changes -similar-appearing VENTRICLES: Unremarkable. No hydrocephalus. CALVARIUM: Unremarkable. 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 No inflammatory changes. OTHER FINDINGS: None. IMPRESSION: No intracranial hemorrhage or mass effect. Left sphenoid sinus retention cyst/inflammatory change. 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
[2017-05-04] MEDS ORDERED: Oxycodone/Acetaminophen 5/325 mg Tab PO STA (20:28)
[2017-05-05] MEDS: Venlafaxine 75 mg ER Cap PO SCH (08:47)
[2017-05-05] MEDS: Enoxaparin 40 mg Syringe SC SCH (08:48)
--- NOTE | 2017-05-05 09:35 | CP.PCM.PN ---
Subjective - Date & Time of Evaluation Date of Evaluation: 05/05/17 Time of Evaluation: 09:32 - Subjective Subjective: Mr. Negrete was seen and examined at the bedside. He is alert, oriented in all spheres. He vented his feelings regarding the telesitter. He is frustrated that he is unable to ambulate around his room without any assistance. Explained to him that due to his previous incidents that the telesitter was place for his safety. He is able to follow all commands and states of feeling better after the IV hydration. He denies any headache, dizziness, blurred vision, diplopia. Objective - Vital Signs/Intake and Output Vital Signs (last 24 hours): Temp Pulse Resp BP Pulse Ox 98.2 F 59 L 18 220/86 H 97 05/05/17 08:00 05/05/17 08:48 05/05/17 08:00 05/05/17 08:48 05/05/17 08:00 - Medications Medications: Current Medications Amlodipine Besylate (Norvasc) 10 mg PO DAILY [facility] Last Admin: 05/05/17 08:46 Dose: 10 mg Atorvastatin Calcium (Lipitor) 20 mg PO HS [facility] Last Admin: 05/04/17 21:29 Dose: 20 mg Enalapril Maleate (Vasotec) 20 mg PO Q12 [facility] Last Admin: 05/05/17 08:48 Dose: 20 mg Enoxaparin Sodium (Lovenox) 40 mg SC DAILY [facility] PRN Reason: Protocol Last Admin: 05/05/17 08:48 Dose: 40 mg Glipizide (Glucotrol) 5 mg PO BIDAC [facility] Last Admin: 05/05/17 08:47 Dose: 5 mg Hydralazine HCl (Apresoline) 25 mg PO BID [facility] Last Admin: 05/05/17 08:47 Dose: 25 mg Labetalol HCl (Trandate) 200 mg PO BID@0900,2100 [facility] Last Admin: 05/05/17 08:48 Dose: 200 mg Oxycodone/Acetaminophen (Percocet 5/325 Mg Tab) 1 tab PO Q6 PRN PRN Reason: Pain, moderate (4-7) Stop: 05/07/17 20:30 Sitagliptin Phosphate (Januvia) 50 mg PO ACB [facility] Last Admin: 05/05/17 08:46 Dose: 50 mg Tamsulosin HCl (Flomax) 0.4 mg PO DAILY [facility] Last Admin: 05/05/17 08:47 Dose: 0.4 mg Venlafaxine HCl (Effexor Xr) 75 mg PO DAILY [facility] Last Admin: 05/05/17 08:47 Dose: 75 mg - Labs Labs: 05/01/17 14:56 05/01/17 14:56 PT 11.9 Seconds (9.8-13.1) 05/01/17 14:56 INR 1.1 (0.9-1.2) 05/01/17 14:56 APTT 36.0 Seconds (25.6-37.1) 05/01/17 14:56 - Constitutional Appears: No Acute Distress - Head Exam Head Exam: NORMAL INSPECTION - Neurological Exam Neurological Exam: Alert, Awake, CN II-XII Intact, Oriented x3 Neuro motor strength exam: Left Upper Extremity: 5, Right Upper Extremity: 5, Left Lower Extremity: 5, Right Lower Extremity: 5 Additional comments: Neurological improved from previous examination, alert, oriented in all spheres , follows commands. Assessment and Plan (1) Encephalopathy acute Assessment & Plan: Case discussed with Dr. Peterson, continue all current medical, physical therapies. Recommend BP control to treat him with his dizziness CT of the head without contrast (05/04/2017).- no intarcranial hemorrhage or mass effect noted. Status: Resolved
--- NOTE | 2017-05-05 09:49 | EEG ---
DATE: 05/01/2017 TECHNICAL DESCRIPTION: This is a standard EEG obtained with 16 channels placed according to the 10-[employer] Electrode System. EEG activity was digitally recorded referentially to P1/P2 or A1/A2 electrodes. Digital analysis with the use of spike detection. INTERPRETATION AND DISCUSSION: There is a normal 8 to 10 Hz posterior dominant rhythm that is reactive, symmetric, and attenuates with eye opening. Normal amounts of drowsiness was seen with bifrontal beta in bihemispheric regions. There is no sleep captured. Hyperventilation and photic stimulation did produce normal activity. There is a tremendous amount of muscle artifact throughout the study. There were no clinical or subclinical seizures. IMPRESSION: This is a normal awake and drowsy EEG. Mau Peterson MD
--- NOTE | 2017-05-05 11:04 | CP.PCM.PN ---
Subjective - Date & Time of Evaluation Date of Evaluation: 05/05/17 Time of Evaluation: 10:00 - Subjective Subjective: no complaints still with residual neuralgia pain @ scalp Objective - Vital Signs/Intake and Output Vital Signs (last 24 hours): Temp Pulse Resp BP Pulse Ox 98.2 F 59 L 18 220/86 H 97 05/05/17 08:00 05/05/17 08:48 05/05/17 08:00 05/05/17 08:48 05/05/17 08:00 - Medications Medications: Current Medications Amlodipine Besylate (Norvasc) 10 mg PO DAILY [facility] Last Admin: 05/05/17 08:46 Dose: 10 mg Atorvastatin Calcium (Lipitor) 20 mg PO HS [facility] Last Admin: 05/04/17 21:29 Dose: 20 mg Enalapril Maleate (Vasotec) 20 mg PO Q12 [facility] Last Admin: 05/05/17 08:48 Dose: 20 mg Enoxaparin Sodium (Lovenox) 40 mg SC DAILY [facility] PRN Reason: Protocol Last Admin: 05/05/17 08:48 Dose: 40 mg Glipizide (Glucotrol) 5 mg PO BIDAC [facility] Last Admin: 05/05/17 08:47 Dose: 5 mg Hydralazine HCl (Apresoline) 25 mg PO BID [facility] Last Admin: 05/05/17 08:47 Dose: 25 mg Labetalol HCl (Trandate) 200 mg PO BID@0900,2100 [facility] Last Admin: 05/05/17 08:48 Dose: 200 mg Oxycodone/Acetaminophen (Percocet 5/325 Mg Tab) 1 tab PO Q6 PRN PRN Reason: Pain, moderate (4-7) Stop: 05/07/17 20:30 Sitagliptin Phosphate (Januvia) 50 mg PO ACB [facility] Last Admin: 05/05/17 08:46 Dose: 50 mg Tamsulosin HCl (Flomax) 0.4 mg PO DAILY [facility] Last Admin: 05/05/17 08:47 Dose: 0.4 mg Venlafaxine HCl (Effexor Xr) 75 mg PO DAILY [facility] Last Admin: 05/05/17 08:47 Dose: 75 mg - Labs Labs: 05/01/17 14:56 05/01/17 14:56 PT 11.9 Seconds (9.8-13.1) 05/01/17 14:56 INR 1.1 (0.9-1.2) 05/01/17 14:56 APTT 36.0 Seconds (25.6-37.1) 05/01/17 14:56
[2017-05-05] MEDS: Oxycodone/Acetaminophen 5/325 mg Tab PO PRN ×2 (16:14→22:33)
[2017-05-06] MEDS: Venlafaxine 75 mg ER Cap PO SCH (08:32)
[2017-05-06] MEDS: Enoxaparin 40 mg Syringe SC SCH (08:32)
--- NOTE | 2017-05-06 10:01 | CP.PCM.PN ---
Subjective - Date & Time of Evaluation Date of Evaluation: 05/06/17 Time of Evaluation: 09:53 - Subjective Subjective: Mr. Negrete was seen and examined at the bedside. He is alert, oriented in all spheres. He is able to follow simple commands. He denies any headache, dizziness , lightheadedness, nausea, or vomiting. His blood pressure has been labile including his HR. He is requesting for the avasys to be discontinue, but had episode last night of confusion. He remains on telesitter for patient safety. Objective - Vital Signs/Intake and Output Vital Signs (last 24 hours): Temp Pulse Resp BP Pulse Ox 98.1 F 54 L 18 204/73 H 98 05/06/17 09:25 05/06/17 09:25 05/06/17 09:25 05/06/17 09:25 05/06/17 09:25 - Medications Medications: Current Medications Amlodipine Besylate (Norvasc) 10 mg PO DAILY [facility] Last Admin: 05/06/17 08:34 Dose: 10 mg Atorvastatin Calcium (Lipitor) 20 mg PO HS [facility] Last Admin: 05/05/17 21:12 Dose: 20 mg Enalapril Maleate (Vasotec) 20 mg PO Q12 [facility] Last Admin: 05/06/17 08:33 Dose: 20 mg Enoxaparin Sodium (Lovenox) 40 mg SC DAILY [facility] PRN Reason: Protocol Last Admin: 05/06/17 08:32 Dose: 40 mg Glipizide (Glucotrol) 5 mg PO BIDAC [facility] Last Admin: 05/06/17 08:32 Dose: 5 mg Hydralazine HCl (Apresoline) 25 mg PO BID [facility] Last Admin: 05/06/17 08:33 Dose: 25 mg Labetalol HCl (Trandate) 200 mg PO BID@0900,2100 [facility] Last Admin: 05/06/17 08:32 Dose: 200 mg Oxycodone/Acetaminophen (Percocet 5/325 Mg Tab) 1 tab PO Q6 PRN PRN Reason: Pain, moderate (4-7) Stop: 05/07/17 20:30 Last Admin: 05/05/17 22:33 Dose: 1 tab Sitagliptin Phosphate (Januvia) 50 mg PO ACB [facility] Last Admin: 05/06/17 08:33 Dose: 50 mg Tamsulosin HCl (Flomax) 0.4 mg PO DAILY [facility] Last Admin: 05/06/17 08:33 Dose: 0.4 mg Venlafaxine HCl (Effexor Xr) 75 mg PO DAILY [facility] Last Admin: 05/06/17 08:32 Dose: 75 mg - Labs Labs: 05/01/17 14:56 05/01/17 14:56 PT 11.9 Seconds (9.8-13.1) 05/01/17 14:56 INR 1.1 (0.9-1.2) 05/01/17 14:56 APTT 36.0 Seconds (25.6-37.1) 05/01/17 14:56 - Constitutional Appears: No Acute Distress - Head Exam Head Exam: NORMAL INSPECTION - Neurological Exam Neurological Exam: Alert, Awake, Oriented x3 Neuro motor strength exam: Left Upper Extremity: 5, Right Upper Extremity: 5, Left Lower Extremity: 5, Right Lower Extremity: 5 Additional comments: Neurological unchanged from previous examination. Assessment and Plan (1) Encephalopathy acute Assessment & Plan: Case discussed with Dr. Peterson, continue all current medical and physical therapy, blood pressure control. There is no new recommendations from neurology. Status: Resolved
--- NOTE | 2017-05-06 11:31 | CP.PCM.PN ---
Subjective - Date & Time of Evaluation Date of Evaluation: 05/06/17 Time of Evaluation: 10:00 - Subjective Subjective: No complaints BP still running high NB: pt did not have AMI Objective - Vital Signs/Intake and Output Vital Signs (last 24 hours): Temp Pulse Resp BP Pulse Ox 98.1 F 54 L 18 204/73 H 98 05/06/17 09:25 05/06/17 09:25 05/06/17 09:25 05/06/17 09:25 05/06/17 09:25 - Medications Medications: Current Medications Amlodipine Besylate (Norvasc) 10 mg PO DAILY [facility] Last Admin: 05/06/17 08:34 Dose: 10 mg Atorvastatin Calcium (Lipitor) 20 mg PO HS [facility] Last Admin: 05/05/17 21:12 Dose: 20 mg Enalapril Maleate (Vasotec) 20 mg PO Q12 [facility] Last Admin: 05/06/17 08:33 Dose: 20 mg Enoxaparin Sodium (Lovenox) 40 mg SC DAILY [facility] PRN Reason: Protocol Last Admin: 05/06/17 08:32 Dose: 40 mg Glipizide (Glucotrol) 5 mg PO BIDAC [facility] Last Admin: 05/06/17 08:32 Dose: 5 mg Hydralazine HCl (Apresoline) 25 mg PO BID [facility] Last Admin: 05/06/17 08:33 Dose: 25 mg Labetalol HCl (Trandate) 200 mg PO BID@0900,2100 [facility] Last Admin: 05/06/17 08:32 Dose: 200 mg Oxycodone/Acetaminophen (Percocet 5/325 Mg Tab) 1 tab PO Q6 PRN PRN Reason: Pain, moderate (4-7) Stop: 05/07/17 20:30 Last Admin: 05/05/17 22:33 Dose: 1 tab Sitagliptin Phosphate (Januvia) 50 mg PO ACB [facility] Last Admin: 05/06/17 08:33 Dose: 50 mg Tamsulosin HCl (Flomax) 0.4 mg PO DAILY [facility] Last Admin: 05/06/17 08:33 Dose: 0.4 mg Venlafaxine HCl (Effexor Xr) 75 mg PO DAILY [facility] Last Admin: 05/06/17 08:32 Dose: 75 mg - Labs Labs: 05/01/17 14:56 05/01/17 14:56 PT 11.9 Seconds (9.8-13.1) 05/01/17 14:56 INR 1.1 (0.9-1.2) 05/01/17 14:56 APTT 36.0 Seconds (25.6-37.1) 05/01/17 14:56
[2017-05-07] MEDS: Enoxaparin 40 mg Syringe SC SCH (09:10)
[2017-05-07] MEDS: Venlafaxine 75 mg ER Cap PO SCH (09:11)
[2017-05-07] MEDS: Oxycodone/Acetaminophen 5/325 mg Tab PO PRN ×2 (14:02→22:25)
[2017-05-08] MEDS: Venlafaxine 75 mg ER Cap PO SCH (08:59)
--- NOTE | 2017-05-08 09:09 | CP.PCM.PN ---
Subjective - Date & Time of Evaluation Date of Evaluation: 05/08/17 Time of Evaluation: 09:08 - Subjective Subjective: Mr. Negrete was seen and examined at the bedside. He is alert, oriented. He claims that he had an episode of low blood pressure yesterday, but did not affect his gait. He follow commands. He remains on telesitter for patient safety. There was no untoward events overnight. Objective - Vital Signs/Intake and Output Vital Signs (last 24 hours): Temp Pulse Resp BP Pulse Ox 98.3 F 61 20 201/76 H 96 05/08/17 08:00 05/08/17 09:00 05/08/17 08:00 05/08/17 09:00 05/08/17 08:00 - Medications Medications: Current Medications Amlodipine Besylate (Norvasc) 10 mg PO DAILY [facility] Last Admin: 05/08/17 09:00 Dose: 10 mg Atorvastatin Calcium (Lipitor) 20 mg PO HS [facility] Last Admin: 05/07/17 21:32 Dose: 20 mg Enalapril Maleate (Vasotec) 20 mg PO Q12 [facility] Last Admin: 05/08/17 09:00 Dose: 20 mg Glipizide (Glucotrol) 5 mg PO BIDAC [facility] Last Admin: 05/08/17 08:59 Dose: 5 mg Hydralazine HCl (Apresoline) 25 mg PO TID@0600,1400,2200 [facility] Last Admin: 05/08/17 05:48 Dose: 25 mg Labetalol HCl (Trandate) 200 mg PO BID@0900,2100 [facility] Last Admin: 05/08/17 09:00 Dose: 200 mg Oxycodone/Acetaminophen (Percocet 5/325 Mg Tab) 1 tab PO Q6 PRN PRN Reason: Pain, severe (8-10) Stop: 05/10/17 22:10 Last Admin: 05/07/17 22:25 Dose: 1 tab Sitagliptin Phosphate (Januvia) 50 mg PO ACB [facility] Last Admin: 05/08/17 08:59 Dose: 50 mg Tamsulosin HCl (Flomax) 0.4 mg PO DAILY [facility] Last Admin: 05/08/17 08:59 Dose: 0.4 mg Venlafaxine HCl (Effexor Xr) 75 mg PO DAILY [facility] Last Admin: 05/08/17 08:59 Dose: 75 mg - Labs Labs: 05/01/17 14:56 05/01/17 14:56 PT 11.9 Seconds (9.8-13.1) 05/01/17 14:56 INR 1.1 (0.9-1.2) 05/01/17 14:56 APTT 36.0 Seconds (25.6-37.1) 05/01/17 14:56 - Constitutional Appears: No Acute Distress - Head Exam Head Exam: NORMAL INSPECTION - Neurological Exam Neurological Exam: Alert, Awake, Oriented x3 Neuro motor strength exam: Left Upper Extremity: 5, Right Upper Extremity: 5, Left Lower Extremity: 5, Right Lower Extremity: 5 Additional comments: Neurological unchanged from previous examination. Assessment and Plan (1) Encephalopathy acute Assessment & Plan: Case discussed with Dr. Peterson, continue all current medical, physical therapies. Recommend blood pressure control. Status: Resolved
[2017-05-08] MEDS: Oxycodone/Acetaminophen 5/325 mg Tab PO PRN (14:12)
[2017-05-08] MEDS: Enoxaparin 40 mg Syringe SC SCH (14:13)
[2017-05-08] MEDS ORDERED: Oxycodone/Acetaminophen 5/325 mg Tab PO STA (15:34)
[2017-05-09] MEDS: Venlafaxine 75 mg ER Cap PO SCH (09:19)
[2017-05-09] MEDS: Enoxaparin 40 mg Syringe SC SCH (09:19)
--- NOTE | 2017-05-09 10:11 | CP.PCM.PN ---
Subjective - Date & Time of Evaluation Date of Evaluation: 05/09/17 Time of Evaluation: 10:10 - Subjective Subjective: Mr. Negrete was seen and examined at the bedside. He is alert, oriented . He is able to answer questions appropriately and follow commands. He denies any headache, dizziness, lightheadedness, nausea, or vomiting.He remains on telesitter for patient safety. There was no untoward events overnight. Objective - Vital Signs/Intake and Output Vital Signs (last 24 hours): Temp Pulse Resp BP Pulse Ox 98.2 F 63 18 215/88 H 97 05/09/17 08:00 05/09/17 09:20 05/09/17 08:00 05/09/17 09:20 05/09/17 08:00 - Medications Medications: Current Medications Amlodipine Besylate (Norvasc) 10 mg PO DAILY [facility] Last Admin: 05/09/17 09:20 Dose: 10 mg Atorvastatin Calcium (Lipitor) 20 mg PO HS [facility] Last Admin: 05/08/17 21:09 Dose: 20 mg Enalapril Maleate (Vasotec) 20 mg PO Q12 [facility] Last Admin: 05/09/17 09:19 Dose: 20 mg Enoxaparin Sodium (Lovenox) 40 mg SC DAILY [facility] PRN Reason: Protocol Last Admin: 05/09/17 09:19 Dose: 40 mg Glipizide (Glucotrol) 5 mg PO BIDAC [facility] Last Admin: 05/09/17 09:20 Dose: 5 mg Hydralazine HCl (Apresoline) 25 mg PO TID@0600,1400,2200 [facility] Last Admin: 05/09/17 04:49 Dose: 25 mg Labetalol HCl (Trandate) 200 mg PO BID@0900,2100 [facility] Last Admin: 05/08/17 21:08 Dose: 200 mg Oxycodone/Acetaminophen (Percocet 5/325 Mg Tab) 1 tab PO Q6 PRN PRN Reason: Pain, severe (8-10) Stop: 05/10/17 22:10 Last Admin: 05/08/17 14:12 Dose: 1 tab Sitagliptin Phosphate (Januvia) 50 mg PO ACB [facility] Last Admin: 05/09/17 09:19 Dose: 50 mg Tamsulosin HCl (Flomax) 0.4 mg PO DAILY [facility] Last Admin: 05/09/17 09:19 Dose: 0.4 mg Venlafaxine HCl (Effexor Xr) 75 mg PO DAILY [facility] Last Admin: 05/09/17 09:19 Dose: 75 mg - Labs Labs: 05/01/17 14:56 05/01/17 14:56 PT 11.9 Seconds (9.8-13.1) 05/01/17 14:56 INR 1.1 (0.9-1.2) 05/01/17 14:56 APTT 36.0 Seconds (25.6-37.1) 05/01/17 14:56 - Constitutional Appears: No Acute Distress - Head Exam Head Exam: NORMAL INSPECTION - Neurological Exam Neurological Exam: Alert, Awake Neuro motor strength exam: Left Upper Extremity: 5, Right Upper Extremity: 5, Left Lower Extremity: 5, Right Lower Extremity: 5 Additional comments: Neurological unchanged from previous examination. Assessment and Plan (1) Encephalopathy acute Assessment & Plan: Case discussed with Dr. Butler, continue all current medical and physical therapies. Recommend blood pressure control. Status: Resolved
--- NOTE | 2017-05-09 11:09 | CP.PCM.PN ---
Subjective - Date & Time of Evaluation Date of Evaluation: 05/09/17 Time of Evaluation: 10:00 - Subjective Subjective: BP cotinues to be elevated pt remains asymptomatic offers no complaints Objective - Vital Signs/Intake and Output Vital Signs (last 24 hours): Temp Pulse Resp BP Pulse Ox 98.2 F 63 18 215/88 H 97 05/09/17 08:00 05/09/17 09:20 05/09/17 08:00 05/09/17 09:20 05/09/17 08:00 - Medications Medications: Current Medications Amlodipine Besylate (Norvasc) 10 mg PO DAILY [facility] Last Admin: 05/09/17 09:20 Dose: 10 mg Atorvastatin Calcium (Lipitor) 20 mg PO HS [facility] Last Admin: 05/08/17 21:09 Dose: 20 mg Enalapril Maleate (Vasotec) 20 mg PO Q12 [facility] Last Admin: 05/09/17 09:19 Dose: 20 mg Enoxaparin Sodium (Lovenox) 40 mg SC DAILY [facility] PRN Reason: Protocol Last Admin: 05/09/17 09:19 Dose: 40 mg Glipizide (Glucotrol) 5 mg PO BIDAC [facility] Last Admin: 05/09/17 09:20 Dose: 5 mg Hydralazine HCl (Apresoline) 25 mg PO TID@0600,1400,2200 [facility] Last Admin: 05/09/17 04:49 Dose: 25 mg Labetalol HCl (Trandate) 200 mg PO BID@0900,2100 [facility] Last Admin: 05/08/17 21:08 Dose: 200 mg Oxycodone/Acetaminophen (Percocet 5/325 Mg Tab) 1 tab PO Q6 PRN PRN Reason: Pain, severe (8-10) Stop: 05/10/17 22:10 Last Admin: 05/08/17 14:12 Dose: 1 tab Sitagliptin Phosphate (Januvia) 50 mg PO ACB [facility] Last Admin: 05/09/17 09:19 Dose: 50 mg Tamsulosin HCl (Flomax) 0.4 mg PO DAILY [facility] Last Admin: 05/09/17 09:19 Dose: 0.4 mg Venlafaxine HCl (Effexor Xr) 75 mg PO DAILY [facility] Last Admin: 05/09/17 09:19 Dose: 75 mg - Labs Labs: 05/01/17 14:56 01/21/18 14:56 PT 11.9 Seconds (9.8-13.1) 05/01/17 14:56 INR 1.1 (0.9-1.2) 05/01/17 14:56 APTT 36.0 Seconds (25.6-37.1) 05/01/17 14:56
[2017-05-09] MEDS: Oxycodone/Acetaminophen 5/325 mg Tab PO PRN (12:41)
[2017-05-10] MEDS: Enoxaparin 40 mg Syringe SC SCH (09:12)
[2017-05-10] MEDS: Venlafaxine 75 mg ER Cap PO SCH (09:13)
[2017-05-10] MEDS: Oxycodone/Acetaminophen 5/325 mg Tab PO PRN (09:23)
--- NOTE | 2017-05-10 10:58 | CP.PCM.PN ---
Subjective - Date & Time of Evaluation Date of Evaluation: 05/10/17 Time of Evaluation: 10:00 - Subjective Subjective: feels well BP remains elevated but pt is asymptomatic he is cleared to go to Psych unit Objective - Vital Signs/Intake and Output Vital Signs (last 24 hours): Temp Pulse Resp BP Pulse Ox 98.4 F 65 18 192/77 H 98 05/10/17 08:00 05/10/17 09:13 05/10/17 08:00 05/10/17 09:13 05/10/17 08:00 - Medications Medications: Current Medications Amlodipine Besylate (Norvasc) 10 mg PO DAILY [facility] Last Admin: 05/10/17 09:13 Dose: 10 mg Atorvastatin Calcium (Lipitor) 20 mg PO HS [facility] Last Admin: 05/09/17 21:17 Dose: 20 mg Enalapril Maleate (Vasotec) 20 mg PO Q12 [facility] Last Admin: 05/10/17 09:14 Dose: 20 mg Enoxaparin Sodium (Lovenox) 40 mg SC DAILY [facility] PRN Reason: Protocol Last Admin: 05/10/17 09:12 Dose: 40 mg Glipizide (Glucotrol) 5 mg PO BIDAC [facility] Last Admin: 05/10/17 09:13 Dose: 5 mg Hydralazine HCl (Apresoline) 25 mg PO TID@0600,1400,2200 [facility] Last Admin: 05/10/17 05:25 Dose: 25 mg Labetalol HCl (Trandate) 200 mg PO BID@0900,2100 [facility] Last Admin: 05/10/17 09:13 Dose: 200 mg Oxycodone/Acetaminophen (Percocet 5/325 Mg Tab) 1 tab PO Q6 PRN PRN Reason: Pain, severe (8-10) Stop: 05/10/17 22:10 Last Admin: 05/10/17 09:23 Dose: 1 tab Sitagliptin Phosphate (Januvia) 50 mg PO ACB [facility] Last Admin: 05/10/17 09:13 Dose: 50 mg Tamsulosin HCl (Flomax) 0.4 mg PO DAILY [facility] Last Admin: 05/10/17 09:14 Dose: 0.4 mg Venlafaxine HCl (Effexor Xr) 75 mg PO DAILY [facility] Last Admin: 05/10/17 09:13 Dose: 75 mg - Labs Labs: 05/01/17 14:56 05/01/17 14:56 PT 11.9 Seconds (9.8-13.1) 05/01/17 14:56 INR 1.1 (0.9-1.2) 05/01/17 14:56 APTT 36.0 Seconds (25.6-37.1) 05/01/17 14:56
--- NOTE | 2017-05-10 11:52 | CP.PCM.CON ---
History of Present Illness - History of Present Illness History of Present Illness: Psychiatry follow-up note CC: "I'm depressed.' HPI: 71 yo male w/ DM and HTN, chronic pain initially admitted for periods of confusion, unsteady gait and falling. He continues to report feelings of depression, w/ low interest/ low energy, anhedonia, periods of anxiety, poor concentration and sense of worthlessness. NO AH/VH/SI/HI. He is aggreeable to inpatient psychiatric admission at this time MSE: A + O x 3, calm, cooperative, good eye contact, mood/affect-depressed, thought process-linear/coherent, thought content- no delusions, no AH/VH/SI/HI, I/J fair Impression: 71 yo male w/ MDD, would benefit from inpatient psychiatric admission. -Transfer to 3 when patient is medically stable Past Patient History - Infectious Disease Hx of Infectious Diseases: None - Past Medical History & Family History Past Medical History?: Yes - Past Social History Smoking Status: Former Smoker - CARDIAC Hx Hypercholesterolemia: Yes Hx Hypertension: Yes - PULMONARY Hx Respiratory Disorders: No - NEUROLOGICAL HX Cerebrovascular Accident: Yes (possible) - HEENT Hx HEENT Problems: Yes (mastoiditis) - RENAL Hx Chronic Kidney Disease: Yes - ENDOCRINE/METABOLIC Hx Diabetes Mellitus Type 2: Yes - HEMATOLOGICAL/ONCOLOGICAL Hx Human Immunodeficiency Virus (HIV): No - INTEGUMENTARY Hx Dermatological Problems: No - MUSCULOSKELETAL/RHEUMATOLOGICAL Hx Falls: No - GASTROINTESTINAL Hx Gastrointestinal Disorders: No - GENITOURINARY/GYNECOLOGICAL Hx Genitourinary Disorders: Yes Hx Prostate Problems: Yes - PSYCHIATRIC Hx Depression: Yes - SURGICAL HISTORY Hx Surgeries: No - ANESTHESIA Hx Anesthesia: Yes Hx Anesthesia Reactions: No Hx Malignant Hyperthermia: No Meds Allergies/Adverse Reactions: Allergies Allergy/AdvReac Type Severity Reaction Status Date / Time No Known Allergies Allergy Verified 04/18/17 16:26 - Medications Medications: Current Medications Amlodipine Besylate (Norvasc) 10 mg PO DAILY [facility] Last Admin: 05/10/17 09:13 Dose: 10 mg Atorvastatin Calcium (Lipitor) 20 mg PO HS [facility] Last Admin: 05/09/17 21:17 Dose: 20 mg Enalapril Maleate (Vasotec) 20 mg PO Q12 [facility] Last Admin: 05/10/17 09:14 Dose: 20 mg Enoxaparin Sodium (Lovenox) 40 mg SC DAILY [facility] PRN Reason: Protocol Last Admin: 05/10/17 09:12 Dose: 40 mg Glipizide (Glucotrol) 5 mg PO BIDAC [facility] Last Admin: 05/10/17 09:13 Dose: 5 mg Hydralazine HCl (Apresoline) 25 mg PO TID@0600,1400,2200 [facility] Last Admin: 05/10/17 05:25 Dose: 25 mg Labetalol HCl (Trandate) 200 mg PO BID@0900,2100 [facility] Last Admin: 05/10/17 09:13 Dose: 200 mg Oxycodone/Acetaminophen (Percocet 5/325 Mg Tab) 1 tab PO Q6 PRN PRN Reason: Pain, severe (8-10) Stop: 05/10/17 22:10 Last Admin: 05/10/17 09:23 Dose: 1 tab Sitagliptin Phosphate (Januvia) 50 mg PO ACB [facility] Last Admin: 05/10/17 09:13 Dose: 50 mg Tamsulosin HCl (Flomax) 0.4 mg PO DAILY [facility] Last Admin: 05/10/17 09:14 Dose: 0.4 mg Venlafaxine HCl (Effexor Xr) 75 mg PO DAILY [facility] Last Admin: 05/10/17 09:13 Dose: 75 mg Results - Vital Signs Recent Vital Signs: Last Vital Signs Temp 98.4 F 05/10/17 08:00 Pulse 65 05/10/17 09:13 Resp 18 05/10/17 08:00 BP 192/77 H 05/10/17 09:13 Pulse Ox 98 05/10/17 08:00 - Labs Result Diagrams: 05/01/17 14:56 05/01/17 14:56 Labs: Laboratory Results - last 24 hr 05/08/17 05/09/17 05/09/17 16:05 16:05 21:13 POC Glucose (mg/dL) 230 H 147 H 209 H 05/10/17 05/10/17 05:23 10:40 POC Glucose (mg/dL) 172 H 272 H
[2017-05-10 16:21] VITALS: BP 138/62; PULSE 62; RESP 14; TEMP 97.7; O2SAT 96
== END 2017-05-10 18:46 | DRG 72 ==
LOC: H.ER 14:31 → H.ERHOLD 17:02 → H.TEL 18:31
PROVIDERS: ADMIT Internal Medicine Cardiovascular Disease; ATTEND Internal Medicine Cardiovascular Disease
DX: G93.40 Encephalopathy, unspecified (principal); I95.1 Orthostatic hypotension; E11.22 Type 2 diabetes mellitus with diabetic chronic kidney disease; I12.9 Hypertensive chronic kidney disease with stage 1 through stage 4 chronic kidney disease, or unspecified chronic kidney disease; N18.9 Chronic kidney disease, unspecified; M79.2 Neuralgia and neuritis, unspecified; E78.5 Hyperlipidemia, unspecified; G89.29 Other chronic pain; R26.81 Unsteadiness on feet; R74.8 Abnormal levels of other serum enzymes; H53.2 Diplopia; F32.9 Major depressive disorder, single episode, unspecified; F41.9 Anxiety disorder, unspecified; Z91.81 History of falling; Z86.73 Personal history of transient ischemic attack (TIA), and cerebral infarction without residual deficits; Z79.84 Long term (current) use of oral hypoglycemic drugs; Z87.891 Personal history of nicotine dependence

== ENCOUNTER 2017-05-10 19:01 | Inpatient (IN) | payer MEDICARE, OTHER ==
--- NOTE | 2017-05-10 19:44 | PCM.BM ---
<Jayme Fraire - Last Filed: 05/10/17 19:39> Treatment Plan Problems - Problems identified on initial assessmt Hopelessness/Helplessness Date Initiated: 05/10/17 Time Initiated: 19:39 Assessment reference: NA Status: Active Feelings of Worthlessness Date Initiated: 05/10/17 Time Initiated: 19:40 Assessment reference: NA Status: Active Treatment assets and liabiliti Patient Assests: cooperative, ADL independent, good support system, negotiates basic needs Patient Liabilities: physical pain, medical problems, auditory impairment - Milieu Protocol Maintain good personal hygiene: every shift Encourage regular showers, every shift Remind patient to perform daily oral care, every shift Assist patient to perform ADL's Maintain personal safety: daily Educate patient to report safety concerns to staff, daily Monitor environment for contraband/sharps Medication safety: Monitor for expected outcome, potential side effects: daily, Assess barriers to learning: daily, Assess readiness for medication education: daily <Georgia Burnham - Last Filed: 05/11/17 12:51> - Diagnosis (1) Major depressive disorder Status: Acute Interventions: Medication management, Individual and group therapy, Psychoeducation 05/11/17 12:51 <Andres Dickey - Last Filed: 05/13/17 12:14> Family Contact Family involvement: Family/SO is involved Family contact: Patient agrees to contact, Family has been contacted by patient , Telephone contact initiated by staff Family contact name: Yusuf Negrete Jr (son) Family contacted how many times per week?: 4 Family contact comment: Pt's son, Yusuf Georges, returned call and said that he and his family have been very concerned with pt as he has become increasingly depressed and apathetic regarding his health. Pt has become doubtful about his abilities and "lazy." Yusuf worries that he is being over-medicated with his medical medications and is hoping to take pt to a doctor that specializes in geriatric medicine. Pt's son reported that at this time pt only sees a Plate Washer who monitors all of pt's medications. Pt has also become increasingly dependent and has been hospitalized numerous times recently. Pt is weak and has difficulty walking and is fearful of falling when he does walk. Yusuf Georges is hopeful that [facility] can help pt with mood and motivation, so he can have more energy. - Goals for Treatment Patient goals for treatment: Pt reported that he would like to be taken off of his current anti-depressant, Effexor, as his doctor recommended that. Pt offered no further goals. Patient's family/SO goals for treatment: Pt's family would like pt to have increased energy and motivation. Discharge/Continuing Care - Education Needs Education Needs: Family Medication, Family Diagnosis/Disease Process, Family Coping Skills, Family Community resources, Family Personal Hygiene/Grooming, Family Aftercare Safety Plan, Patient Medication, Patient Diagnosis/Disease Process, Patient Coping Skills, Patient Community resources, Patient Personal Hygiene/Grooming, Patient Aftercare Safety Plan - Discharge Discharge Criteria: Tolerates medication w/o severe side effects, Free of agitation, Normal sleep pattern, Reduction of target symptoms Discharge to:: Home, With Family - Additional Comments 05/13/17 12:11 Pt presented in team as brighter, more awake and alert. Pt denied depression and did not initially understand that Effexor was an anti-depressant but acknowledged that he was taking Effexor. Pt acknowledge that his memory has declined since being hospitalized. Dr. Burnham explained the tapering down of the Effexor and beginning Remeron. Pt offered no complaints regarding the change in medications. Pt appeared apathetic throughout team and often said things like "nothing" and "things are fine." - Treatment Team Participation Discussed with Family/SO: Yes Was Patient/Family/SO present at Treatment Team Meeting: Yes
[2017-05-10] MEDS ORDERED: Magnesium Hydroxide Susp 30 ml UD PO PRN (20:03)
[2017-05-10] MEDS ORDERED: Bismuth Subsalicylate 262 mg/15 ml Sus (240 ml) PO PRN (20:03)
[2017-05-10] MEDS ORDERED: Alum-Mag Hydrox-Simethicone Susp (30 mL) PO PRN (20:03)
[2017-05-10] MEDS ORDERED: Oxycodone/Acetaminophen 5/325 mg Tab PO PRN (20:25)
[2017-05-11 07:40] LABS: IRON 52 ug/dL (49-181)
[2017-05-11 07:49] LABS: % IRON SATURATION 20 % (20-55); TOTAL IRON BINDING CAPACITY 262 ug/dL (250-450)
[2017-05-11 07:51] LABS: T4 7.38 ug/dl (5.5-11.0)
[2017-05-11 08:09] LABS: FERRITIN 82.3 ng/Ml (17.9-464)
[2017-05-11] MEDS ORDERED: Venlafaxine 75 mg ER Cap PO SCH (09:00)
--- NOTE | 2017-05-11 11:27 | CP.PCM.CON ---
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 Syncope and uncontrolled Hypertenion and Herpes Zoster to Left Scalp and face x > 1 week [facility] Because of c/o depression Psych was consulted and pt agreed to Tx PMH: Hypertension DM II CVA Depression Herpes Zoster left scalp EKG: NSR Review of Systems - Psychiatric Psychiatric: Depression Past Patient History - Infectious Disease Hx of Infectious Diseases: None - Past Medical History & Family History Past Medical History?: Yes - Past Social History Smoking Status: Former Smoker - CARDIAC Hx Hypercholesterolemia: Yes Hx Hypertension: Yes - PULMONARY Hx Respiratory Disorders: No - NEUROLOGICAL HX Cerebrovascular Accident: Yes (possible) - HEENT Hx HEENT Problems: Yes (mastoiditis) - RENAL Hx Chronic Kidney Disease: Yes - ENDOCRINE/METABOLIC Hx Diabetes Mellitus Type 2: Yes - HEMATOLOGICAL/ONCOLOGICAL Hx Human Immunodeficiency Virus (HIV): No - INTEGUMENTARY Hx Dermatological Problems: Yes Other/Comment: Shingles - MUSCULOSKELETAL/RHEUMATOLOGICAL Hx Falls: Yes - GASTROINTESTINAL Hx Gastrointestinal Disorders: No - GENITOURINARY/GYNECOLOGICAL Hx Genitourinary Disorders: Yes Hx Prostate Problems: Yes - PSYCHIATRIC Hx Depression: Yes Hx Substance Use: No - SURGICAL HISTORY Hx Surgeries: No - ANESTHESIA Hx Anesthesia: Yes Hx Anesthesia Reactions: No Hx Malignant Hyperthermia: No Meds Allergies/Adverse Reactions: Allergies Allergy/AdvReac Type Severity Reaction Status Date / Time No Known Allergies Allergy Verified 04/18/17 16:26 - Medications Medications: Current Medications Acetaminophen (Tylenol 325mg Tab) 650 mg PO Q4 PRN PRN Reason: Pain, moderate (4-7) Al Hydrox/Mg Hydrox/Simethicone (Maalox Plus 30 Ml) 30 ml PO Q4 PRN PRN Reason: Dyspepsia Amlodipine Besylate (Norvasc) 10 mg PO DAILY [facility] Last Admin: 05/11/17 09:06 Dose: 10 mg Atorvastatin Calcium (Lipitor) 20 mg PO HS [facility] Last Admin: 05/10/17 21:05 Dose: 20 mg Bismuth Subsalicylate (Pepto-Bismol) 524 mg PO Q4 PRN PRN Reason: Diarrhea Enalapril Maleate (Vasotec) 20 mg PO Q12 [facility] Last Admin: 05/11/17 09:07 Dose: 20 mg Glipizide (Glucotrol) 5 mg PO BIDAC [facility] Last Admin: 05/11/17 09:06 Dose: 5 mg Hydralazine HCl (Apresoline) 25 mg PO TID@0600,1400,2200 [facility] Last Admin: 05/11/17 09:08 Dose: 25 mg Labetalol HCl (Trandate) 200 mg PO Q12 [facility] Last Admin: 05/11/17 09:07 Dose: 200 mg Lorazepam (Ativan) 0.5 mg PO HS PRN PRN Reason: Insomnia Stop: 05/24/17 20:04 Lorazepam (Ativan) 0.5 mg PO Q6 PRN PRN Reason: Anixety/Agitation Stop: 05/24/17 20:04 Magnesium Hydroxide (Milk Of Magnesia) 30 ml PO HS PRN PRN Reason: Constipation Oxycodone/Acetaminophen (Percocet 5/325 Mg Tab) 1 tab PO Q6 PRN PRN Reason: Pain, severe (8-10) Stop: 05/13/17 20:26 Sitagliptin Phosphate (Januvia) 50 mg PO ACB [facility] Last Admin: 05/11/17 09:06 Dose: 50 mg Tamsulosin HCl (Flomax) 0.4 mg PO DAILY [facility] Last Admin: 05/11/17 09:05 Dose: 0.4 mg Physical Exam - Constitutional Appears: Well - Head Exam Head Exam: NORMAL INSPECTION - Eye Exam Eye Exam: Normal appearance Pupil Exam: NORMAL ACCOMODATION - ENT Exam ENT Exam: Normal Exam - Neck Exam Neck exam: Positive for: Normal Inspection - Respiratory Exam Respiratory Exam: NORMAL BREATHING PATTERN - Cardiovascular Exam Cardiovascular Exam: REGULAR RHYTHM Results - Vital Signs Recent Vital Signs: Last Vital Signs Temp 97.1 F L 05/11/17 06:00 Pulse 87 05/11/17 09:08 Resp 18 05/11/17 06:00 BP 138/73 05/11/17 09:08 Pulse Ox - Labs Labs: Laboratory Results - last 24 hr 05/11/17 05/11/17 05/11/17 05:51 06:50 06:50 POC Glucose (mg/dL) 191 H Iron 52 TIBC 262 % Saturation 20 Ferritin 82.3 Triglycerides 91 D Cholesterol 141 LDL Cholesterol Direct 67 HDL Cholesterol 46 Vitamin B12 310 Free T4 Thyroxine (T4) 7.38 TSH 3rd Generation 3.34 05/11/17 06:50 POC Glucose (mg/dL) Iron TIBC % Saturation Ferritin Triglycerides Cholesterol LDL Cholesterol Direct HDL Cholesterol Vitamin B12 Free T4 0.87 Thyroxine (T4) TSH 3rd Generation Assessment & Plan (1) Depression Status: Acute (2) Essential (primary) hypertension Status: Acute (3) Herpes zoster Status: Acute (4) Type 2 diabetes mellitus with diabetic chronic kidney disease Status: Acute
--- NOTE | 2017-05-11 12:52 | PCM.PSYCH ---
Initial Psychiatric Evaluation - Initial Psychiatric Evaluation Type of Admission: Voluntary Legal Status: Capacity Chief Complaint (in patient's own words): "I'm depressed." Patient's Reaction to Hospitalization: HPI: 71 yo male w/ h/o depression, initially was consulted on the medical unit whre he was admitted for dizzines and uncontrolled HTN, now transfered to psychiatry for future treatment of his depression. Patient is irritable with typewriter tester today, unwilling to engage in psychiatric interview and now stating that he does not want to change his medications. Yesterday he reported feelings of depression, w/ low interest/ low energy, anhedonia, periods of anxiety, poor concentration and sense of worthlessness. NO AH/VH/SI/HI. He is aggreeable to inpatient psychiatric admission at this time PMHx: Hypertension, DM II, CVA, Depression, Herpes Zoster left scalp EKG: NSR PPHx: History of outpatient treatment for depression w/ Effexor. Denies h/o psychiatric admissions or suicide attempts. ALL: NKDA SHx: Lives w/ his daughter. 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 Former smoker, denies drugs/ etoh. FHx: Denies family h/o mental illness Current Medications: Active Medications Generic Name Dose Route Start Last Admin Trade Name Freq PRN Reason Stop Dose Admin Acetaminophen 650 mg 05/10/17 20:03 Tylenol 325mg Tab PO Q4 PRN Pain, moderate (4-7) Al Hydrox/Mg Hydrox/Simethicone 30 ml 05/10/17 20:03 Maalox Plus 30 Ml PO Q4 PRN Dyspepsia Amlodipine Besylate 10 mg 05/11/17 09:00 05/11/17 09:06 Norvasc PO 10 mg DAILY SILVER Administration Atorvastatin Calcium 20 mg 05/10/17 22:00 05/10/17 21:05 Lipitor PO 20 mg HS SILVER Administration Bismuth Subsalicylate 524 mg 05/10/17 20:03 Pepto-Bismol PO Q4 PRN Diarrhea Enalapril Maleate 20 mg 05/10/17 21:00 05/11/17 09:07 Vasotec PO 20 mg Q12 SILVER Administration Glipizide 5 mg 05/11/17 07:30 05/11/17 09:06 Glucotrol PO 5 mg BIDAC SILVER Administration Hydralazine HCl 25 mg 05/10/17 22:00 05/11/17 09:08 Apresoline PO 25 mg TID@0600,1400,2200 SILVER Administration Labetalol HCl 200 mg 05/10/17 21:00 05/11/17 09:07 Trandate PO 200 mg Q12 SILVER Administration Lorazepam 0.5 mg 05/10/17 20:03 Ativan PO 05/24/17 20:04 HS PRN Insomnia Lorazepam 0.5 mg 05/10/17 20:03 Ativan PO 05/24/17 20:04 Q6 PRN Anixety/Agitation Magnesium Hydroxide 30 ml 05/10/17 20:03 Milk Of Magnesia PO HS PRN Constipation Oxycodone/Acetaminophen 1 tab 05/10/17 20:25 Percocet 5/325 Mg Tab PO 05/13/17 20:26 Q6 PRN Pain, severe (8-10) Sitagliptin Phosphate 50 mg 05/11/17 07:30 05/11/17 09:06 Januvia PO 50 mg ACB SILVER Administration Tamsulosin HCl 0.4 mg 05/11/17 09:00 05/11/17 09:05 Flomax PO 0.4 mg DAILY SILVER Administration Past Psychiatric History - Past Psychiatric History Pertinent Medical Hx (Current Medical&Sleep Prob, Allergies): Allergies Allergy/AdvReac Type Severity Reaction Status Date / Time No Known Allergies Allergy Verified 04/18/17 16:26 Tamsulosin [Flomax] 0.4 mg PO DAILY 03/12/16 GlipiZIDE [Glucotrol] 5 mg PO BIDAC 12/13/16 Atorvastatin [Lipitor] 20 mg PO HS tab 12/27/16 Enalapril Maleate [Vasotec] 20 mg PO Q12 tab 12/27/16 SITagliptin [Januvia] 50 mg PO ACB tab 12/27/16 Enoxaparin [Lovenox] 40 mg SC DAILY syr 05/10/17 Labetalol [Trandate] 200 mg PO Q12 05/10/17 Venlafaxine [Effexor XR] 75 mg PO DAILY cer 05/10/17 amLODIPine [Norvasc] 10 mg PO DAILY tab 05/10/17 hydrALAZINE [Apresoline] 25 mg PO TID@0600,1400,2200 tab 05/10/17 oxyCODONE/Acetaminophen [Percocet 5/325 mg Tab] 1 tab PO Q6 PRN #20 tab Review of Systems - Psychiatric Psychiatric: As Per HPI, Abnormal Sleep Pattern, Change in Appetite, Depression , Difficulty Concentrating, Hopelessness, Irritability, Mood Swings Mental Status Examination - Personal Presentation Personal Presentation: Looks stated age Additional comments: Many body tattoos - Affect Affect: Constricted, Depressed - Motor Activity Motor Activity: Calm - Reliability in Providing Information Reliability in Providing Information: Other (Poor due to unwillingness to engage in interview) - Speech Speech: Coherent - Mood Mood: Depressed - Formal Thought Process Formal Thought Process: No Impairment - Hallucinations/Delusions Additional comments: No AH/VH/paranoia/delusions - Obsessions/Compulsions Obsessions: No Compulsions: No - Cognitive Functions Orientation: Person, Place, Situation, Time Sensorium: Alert Judgement: Intact, as evidence by: Insight regarding need for hospitalization - Risk Risk: Diminished functioning - Strength & Assets Inventory Strength & Assets Inventory: Family support - Limitations Limitations: Decreased memory, recent DSM 5 DX - DSM 5 DSM 5 Diagnosis: Major Depressive Disorder - Recommended/Plan of Treatment Treatment Recommendations and Plan of Treatment: Major Depressive Disorder; r/o Dementia -Admit to geriatric psychiatry unit -Individual and group therapy -Patient unwilling to discuss medication changes at this time -Continue Effexor 75 mg PO Daily -Psychology consult to evaluate for neurocogntive impairment -Physical therapy -Medicine consult -Obtain collateral history -Disposition planning Projected ELOS: 4-7 days Discharge Plan and Discharge Criteria: Discharge patient when psychiatrically stable - Smoking Cessation Smoking Cessation Initiated: No Reason for not providing: Not indicated
[2017-05-11] MEDS: Venlafaxine 75 mg ER Cap PO SCH (15:20)
[2017-05-11 17:49] LABS: FOLATE 10.5 ng/mL
[2017-05-12] MEDS: Venlafaxine 75 mg ER Cap PO SCH (08:57)
--- NOTE | 2017-05-12 10:46 | PCM.PYCHPN ---
Psychiatric Progress Note - Psychiatric Progress Note Patient seen today, length of contact: Patient evaluated, case discussed with team, chart reviewed Patient Chief Complaint: "I'm depressed." Problems Identified/Issues Discussed: Patient continues to be depressed w/ low motivation and low energy. Patient is interested in stopping Effexor and switching antidepressant. We discussed starting Remeron 7.5 mg PO HS. R/b/se reviewed. NO current AH/VH/SI/HI. Medication Change: Yes (Lower Effexor to 37.5 mg PO Daily; Start Remeron 7.5 mg PO HS) Medical Record Reviewed: Yes Consults ordered or reviewed: Medicine consult Mental Status Examination - Cognitive Function Orientation: Person, Place, Situation, Time Memory: Intact Association: WNL Fund of Knowledge: [facility] Decription of patient's judgement and insights: Fair I/J - Mood Mood: Depressed - Affect Affect: Constricted, Depressed - Speech Speech: Appropriate - Formal Thought Process Formal Thought Process: No Impairment Psychotic Thoughts and Behaviors: NO AH/VH/paranoia/delusions - Suicidal Ideation Suicidal Ideation: No - Homicidal Ideation Homicidal Ideation: No Goal/Treatment Plan - Goal/Treatment Plan Need for Continued Stay: Remain at risks for inpatient hospitalization, Severe depression anxiety, Discharge may exacerbated symptoms Progress Toward Problem(s) and Goals/Treatment Plan: Major Depressive Disorder -Individual and group therapy -Lower Effexor to 37.5 mg PO Daily -Start Remeron 7.5 mg PO HS -Psychology consult to evaluate for neurocogntive impairment -Physical therapy -Medicine consult -Obtain collateral history -Disposition planning Estimated Date of D/C: 05/17/17
[2017-05-12] MEDS: Oxycodone/Acetaminophen 5/325 mg Tab PO PRN (13:31)
--- NOTE | 2017-05-13 09:11 | CP.PCM.CON ---
History of Present Illness - History of Present Illness History of Present Illness: Pt is a 71 year old male admitted to the geropsych unit of [place] and referred to the typewriter ribbon winder for cognitive testing. On the DRS, Pt scored within normal limits on Memory, Conceptualization, and Attention tasks. Pt's Initiation skills fell in the deficient range though patient was poorly motivated to complete the task. Pt's performance is judged to be an underestimate of his true abilities. Construction skills too fell in the Borderline Range. His overall performance will likely improve as his mood/motiavation improves Overall 113 Attention 35 (WNL) Construction 3 Conceptualization 36 (WNL Initiation 18 Memory 21 (WNL) Thank you for this referral- No signifcant deficits were revealed. Past Patient History - Infectious Disease Hx of Infectious Diseases: None - Past Medical History & Family History Past Medical History?: Yes - Past Social History Smoking Status: Former Smoker - CARDIAC Hx Hypercholesterolemia: Yes Hx Hypertension: Yes - PULMONARY Hx Respiratory Disorders: No - NEUROLOGICAL HX Cerebrovascular Accident: Yes (possible) - HEENT Hx HEENT Problems: Yes (mastoiditis) - RENAL Hx Chronic Kidney Disease: Yes - ENDOCRINE/METABOLIC Hx Diabetes Mellitus Type 2: Yes - HEMATOLOGICAL/ONCOLOGICAL Hx Human Immunodeficiency Virus (HIV): No - INTEGUMENTARY Hx Dermatological Problems: Yes Other/Comment: Shingles - MUSCULOSKELETAL/RHEUMATOLOGICAL Hx Falls: Yes - GASTROINTESTINAL Hx Gastrointestinal Disorders: No - GENITOURINARY/GYNECOLOGICAL Hx Genitourinary Disorders: Yes Hx Prostate Problems: Yes - PSYCHIATRIC Hx Depression: Yes Hx Substance Use: No - SURGICAL HISTORY Hx Surgeries: No - ANESTHESIA Hx Anesthesia: Yes Hx Anesthesia Reactions: No Hx Malignant Hyperthermia: No Meds Allergies/Adverse Reactions: Allergies Allergy/AdvReac Type Severity Reaction Status Date / Time No Known Allergies Allergy Verified 04/18/17 16:26 - Medications Medications: Current Medications Acetaminophen (Tylenol 325mg Tab) 650 mg PO Q4 PRN PRN Reason: Pain, moderate (4-7) Al Hydrox/Mg Hydrox/Simethicone (Maalox Plus 30 Ml) 30 ml PO Q4 PRN PRN Reason: Dyspepsia Amlodipine Besylate (Norvasc) 10 mg PO DAILY [facility] Last Admin: 05/12/17 09:00 Dose: 10 mg Atorvastatin Calcium (Lipitor) 20 mg PO HS [facility] Last Admin: 05/12/17 21:02 Dose: 20 mg Bismuth Subsalicylate (Pepto-Bismol) 524 mg PO Q4 PRN PRN Reason: Diarrhea Enalapril Maleate (Vasotec) 20 mg PO Q12 [facility] Last Admin: 05/12/17 21:02 Dose: 20 mg Glipizide (Glucotrol) 5 mg PO BIDAC [facility] Last Admin: 05/12/17 17:01 Dose: 5 mg Hydralazine HCl (Apresoline) 25 mg PO TID@0600,1400,2200 [facility] Last Admin: 05/12/17 21:01 Dose: 25 mg Labetalol HCl (Trandate) 200 mg PO Q12 [facility] Last Admin: 05/12/17 21:01 Dose: 200 mg Lorazepam (Ativan) 0.5 mg PO HS PRN PRN Reason: Insomnia Stop: 05/24/17 20:04 Lorazepam (Ativan) 0.5 mg PO Q6 PRN PRN Reason: Anixety/Agitation Stop: 05/24/17 20:04 Magnesium Hydroxide (Milk Of Magnesia) 30 ml PO HS PRN PRN Reason: Constipation Mirtazapine (Remeron) 7.5 mg PO HS [facility] Last Admin: 05/12/17 21:02 Dose: 7.5 mg Oxycodone/Acetaminophen (Percocet 5/325 Mg Tab) 2 tab PO Q6 PRN PRN Reason: Pain, severe (8-10) Stop: 05/15/17 12:48 Last Admin: 05/12/17 13:31 Dose: 2 tab Sitagliptin Phosphate (Januvia) 50 mg PO ACB [facility] Last Admin: 05/12/17 08:58 Dose: 50 mg Tamsulosin HCl (Flomax) 0.4 mg PO DAILY [facility] Last Admin: 05/12/17 08:58 Dose: 0.4 mg Venlafaxine HCl (Effexor Xr) 37.5 mg PO DAILY [facility] Results - Vital Signs Recent Vital Signs: Last Vital Signs Temp 97.8 F 05/13/17 06:00 Pulse 62 05/13/17 06:00 Resp 20 05/13/17 06:00 BP 163/87 H 05/13/17 06:00 Pulse Ox - Labs Labs: Laboratory Results - last 24 hr 05/12/17 05/12/17 05/13/17 10:58 15:16 06:05 POC Glucose (mg/dL) 230 H 159 H 149 H
[2017-05-13] MEDS: Venlafaxine 37.5 mg ER Cap PO SCH (09:19)
--- NOTE | 2017-05-13 11:02 | PCM.PYCHPN ---
Psychiatric Progress Note - Psychiatric Progress Note Patient seen today, length of contact: Patient evaluated, case discussed with team, chart reviewed Patient Chief Complaint: "I'm depressed." Problems Identified/Issues Discussed: Patient continues to have depression w/ low motivation, low energy and low interest in activities. We discussed continued titration of Remeron. No adverse effects to medications reported. No AH/VH/SI/HI. Medication Change: Yes (Increase Remeron to 15 mg PO HS) Medical Record Reviewed: Yes Consults ordered or reviewed: Psychology consult 05/13/17: Pt is a 71 year old male admitted to the geropsych unit of [place] and referred to the personal lines underwriter for cognitive testing. On the DRS, Pt scored within normal limits on Memory, Conceptualization, and Attention tasks. Pt's Initiation skills fell in the deficient range though patient was poorly motivated to complete the task. Pt's performance is judged to be an underestimate of his true abilities. Construction skills too fell in the Borderline Range. His overall performance will likely improve as his mood/motiavation improves Overall 113 Attention 35 (WNL) Construction 3 Conceptualization 36 (WNL Initiation 18 Memory 21 (WNL) Thank you for this referral- No signifcant deficits were revealed. Mental Status Examination - Cognitive Function Orientation: Person, Place, Situation, Time Memory: Intact Association: WNL Fund of Knowledge: [facility] Decription of patient's judgement and insights: Fair I/J - Mood Mood: Depressed - Affect Affect: Constricted, Depressed - Formal Thought Process Formal Thought Process: No Impairment Psychotic Thoughts and Behaviors: No AH/VH/paranoia/delusions - Suicidal Ideation Suicidal Ideation: No - Homicidal Ideation Homicidal Ideation: No Goal/Treatment Plan - Goal/Treatment Plan Need for Continued Stay: Remain at risks for inpatient hospitalization, Severe depression anxiety, Discharge may exacerbated symptoms Progress Toward Problem(s) and Goals/Treatment Plan: Major Depressive Disorder -Individual and group therapy -Continue Effexor 37.5 mg PO Daily -Increase Remeron to 15 mg PO HS -Psychology consult -Physical therapy -Medicine consult -Obtain collateral history -Disposition planning Estimated Date of D/C: 05/17/17 - Smoking Cessation Smoking Cessation Initiated: No Reason for not providing: Not indicated
[2017-05-13] MEDS: Oxycodone/Acetaminophen 5/325 mg Tab PO PRN ×2 (16:13→22:49)
[2017-05-14] MEDS: Venlafaxine 37.5 mg ER Cap PO SCH (08:09)
--- NOTE | 2017-05-14 10:51 | PCM.PYCHPN ---
Psychiatric Progress Note - Psychiatric Progress Note Patient seen today, length of contact: Patient evaluated, case discussed with team, chart reviewed Patient Chief Complaint: pt has remained very depressed and withdrawn and remains with anhedonia and cognitive dysfunction.denies side effects to remeron and tolerating it well. Medication Change: Yes (Increase Remeron to 15 mg PO HS) Medical Record Reviewed: Yes Mental Status Examination - Cognitive Function Orientation: Person, Place, Situation, Time Memory: Intact Association: WNL Fund of Knowledge: WNL - Mood Mood: Depressed - Affect Affect: Constricted, Depressed - Speech Speech: Appropriate - Formal Thought Process Formal Thought Process: No Impairment - Suicidal Ideation Suicidal Ideation: No - Homicidal Ideation Homicidal Ideation: No Goal/Treatment Plan - Goal/Treatment Plan Need for Continued Stay: Remain at risks for inpatient hospitalization, Severe depression anxiety, Discharge may exacerbated symptoms Progress Toward Problem(s) and Goals/Treatment Plan: will continue to titrate remeron as needed to stabilize the pt and engage pt in therapy. d/c planning as per dr bright Estimated Date of D/C: 05/17/17
[2017-05-14] MEDS: Oxycodone/Acetaminophen 5/325 mg Tab PO PRN (15:24)
[2017-05-15] MEDS: Venlafaxine 37.5 mg ER Cap PO SCH (08:01)
--- NOTE | 2017-05-15 13:49 | PCM.PYCHPN ---
Psychiatric Progress Note - Psychiatric Progress Note Patient seen today, length of contact: Patient evaluated, case discussed with team, chart reviewed Patient Chief Complaint: pt has shown some improvement in his mood is more out of room and has been less depressed .pt still becomes withdrawn at times and remains with anhedonia and cognitive dysfunction.denies side effects to remeron and tolerating it well. pt 's family is concerned about pt not on any meds for shingles as he has acute symptoms of herpes zoster. Medication Change: Yes (Increase Remeron to 15 mg PO HS) Medical Record Reviewed: Yes Mental Status Examination - Cognitive Function Orientation: Person, Place, Situation, Time Memory: Intact Association: WNL Fund of Knowledge: WNL - Mood Mood: Depressed - Affect Affect: Constricted, Depressed - Speech Speech: Appropriate - Formal Thought Process Formal Thought Process: No Impairment - Suicidal Ideation Suicidal Ideation: No - Homicidal Ideation Homicidal Ideation: No Goal/Treatment Plan - Goal/Treatment Plan Need for Continued Stay: Remain at risks for inpatient hospitalization, Severe depression anxiety, Discharge may exacerbated symptoms Progress Toward Problem(s) and Goals/Treatment Plan: will continue to titrate remeron as needed to stabilize the pt and engage pt in therapy. d/c planning as per dr bright will have hospitalist consult today to evaluate pt for shingles and start him on treatment . Estimated Date of D/C: 05/17/17
--- NOTE | 2017-05-16 09:01 | PCM.PYCHPN ---
Psychiatric Progress Note - Psychiatric Progress Note Patient seen today, length of contact: Patient evaluated, case discussed with team, chart reviewed Patient Chief Complaint: "I'm okay." Problems Identified/Issues Discussed: Patient reports that his mood is improving. He is more motivated and engaged in the community. +Improved sleep and appetite. No current AH/VH/paranoia/ delusions. No adverse effects to medications reported. We discussed likely discharge on tomorrow if patient continues to improve clinically. No SI/HI. Medication Change: Yes (Stop Effexor) Medical Record Reviewed: Yes Consults ordered or reviewed: Psychology consult 05/13/17: Pt is a 71 year old male admitted to the geropsych unit of [place] and referred to the video game script writer for cognitive testing. On the DRS, Pt scored within normal limits on Memory, Conceptualization, and Attention tasks. Pt's Initiation skills fell in the deficient range though patient was poorly motivated to complete the task. Pt's performance is judged to be an underestimate of his true abilities. Construction skills too fell in the Borderline Range. His overall performance will likely improve as his mood/motiavation improves Overall 113 Attention 35 (WNL) Construction 3 Conceptualization 36 (WNL Initiation 18 Memory 21 (WNL) Thank you for this referral- No signifcant deficits were revealed. Mental Status Examination - Cognitive Function Orientation: Person, Place, Situation, Time Memory: Intact Association: WNL Fund of Knowledge: [facility] Decription of patient's judgement and insights: Fair I/J - Mood Mood: Neutral - Affect Affect: Constricted - Speech Speech: Appropriate - Formal Thought Process Formal Thought Process: No Impairment Psychotic Thoughts and Behaviors: NO AH/VH/paranoia/delusions - Suicidal Ideation Suicidal Ideation: No - Homicidal Ideation Homicidal Ideation: No Goal/Treatment Plan - Goal/Treatment Plan Need for Continued Stay: Severe depression anxiety Progress Toward Problem(s) and Goals/Treatment Plan: Major Depressive Disorder -Individual and group therapy -Stop Effexor 37.5 mg PO Daily -Continue Remeron 15 mg PO HS -Psychology consult -Physical therapy -Medicine consult -Obtain collateral history -Disposition planning- likely discharge to home tomorrow if patient continues to improve clinically Estimated Date of D/C: 05/17/17 - Smoking Cessation Smoking Cessation Initiated: No Reason for not providing: Not indicated
[2017-05-16] MEDS ORDERED: Oxycodone/Acetaminophen 5/325 mg Tab PO PRN (11:40)
[2017-05-16] MEDS: Oxycodone/Acetaminophen 5/325 mg Tab PO PRN (13:28)
[2017-05-17 05:48] VITALS: BP 131/52; PULSE 54; RESP 20; TEMP 97.1
--- NOTE | 2017-05-17 11:00 | PCM.PYCHDC ---
Mental Status Examination - Mental Status Examination Orientation: Person, Place, Situation, Time Memory: Intact Mood: Neutral Affect: Broad Speech: Appropriate Attention: WNL Association: WNL Fund of Knowledge: WNL Formal Thought Process: No Impairment Description of patient's judgement and insight: Fair I/J Psychotic Thoughts and Behaviors: NO AH/VH/paranoia/delusions Suicidal Ideation: No Current Homicidal Ideation?: No Discharge Summary - Discharge Note Reason for Hospitalization: HPI: 71 yo male w/ h/o depression, initially was consulted on the medical unit whre he was admitted for dizzines and uncontrolled HTN, now transfered to psychiatry for future treatment of his depression. Patient is irritable with advertising copywriter today, unwilling to engage in psychiatric interview and now stating that he does not want to change his medications. Yesterday he reported feelings of depression, w/ low interest/ low energy, anhedonia, periods of anxiety, poor concentration and sense of worthlessness. NO AH/VH/SI/HI. He is aggreeable to inpatient psychiatric admission at this time PMHx: Hypertension, DM II, CVA, Depression, Herpes Zoster left scalp EKG: NSR PPHx: History of outpatient treatment for depression w/ Effexor. Denies h/o psychiatric admissions or suicide attempts. ALL: NKDA SHx: Lives w/ his daughter. 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 Former smoker, denies drugs/ etoh. FHx: Denies family h/o mental illness Laboratory Data: Abnormal Lab Results 05/16/17 05/17/17 05/17/17 15:04 05:40 10:51 POC Glucose (mg/dL) 164 H 132 H 213 H Consultations:: List each consultation separately and include: 1. Reason for request. 2. Findings. 3. Follow-up Consultations: Psychology consult 05/13/17: Pt is a 71 [facility] [place] and referred to the advertising copywriter for cognitive testing. On the DRS, Pt scored within normal limits on Memory, Conceptualization, and Attention tasks. Pt's Initiation skills fell in the deficient range though patient was poorly motivated to complete the task. Pt's performance is judged to be an underestimate of his true abilities. Construction skills too fell in the Borderline Range. His overall performance will likely improve as his mood/motiavation improves Overall 113 Attention 35 (WNL) Construction 3 Conceptualization 36 (WNL Initiation 18 Memory 21 (WNL) Thank you for this referral- No signifcant deficits were revealed. Summary of Hospital Course include:: 1. Description of specific treatment plan utilized for patients during their course of treatmen. 2. Summarize the time- course for resolution of acute symptoms and/or regressed behaviors. 3. Describe issues identified and worked on during hospitalization. 4. Describe medication utilized. 5. Describe medical problems identified and treated. 6. Reassessment of suicide risk Summary of Hospital Course: Patient was admitted to the geriatric psychiatry unit. Individual and group therapy were provided. Patient was tapered off of Effexor and stabilized on Remeron 15 mg PO HS. He reports improvement in mood, increased motivation and has brighter affect. He is psychiatrically stable for discharge with outpatient follow-up. NO AH/VH/SI/HI. - Diagnosis (1) Major depressive disorder Current Visit: Yes Status: Chronic - Final Diagnosis (DSM 5) Condition upon Discharge: STABLE DSM 5: Major Depressive Disorder Disposition: HOME/ ROUTINE Follow-up Treatment Plan: -Continue Remeron 15 mg PO HS Prescriptions/Medication Reconciliation: amLODIPine [Norvasc] 10 mg PO DAILY #30 tab Atorvastatin [Lipitor] 20 mg PO HS #30 tab Enalapril Maleate [Vasotec] 20 mg PO Q12 #60 tab GlipiZIDE [Glucotrol] 5 mg PO BIDAC #60 tab hydrALAZINE [Apresoline] 25 mg PO TID@0600,1400,2200 #90 tab Labetalol [Trandate] 200 mg PO Q12 #60 tab Mirtazapine [Remeron] 15 mg PO HS #30 tab oxyCODONE/Acetaminophen [Percocet 5/325 mg Tab] 1 tab PO Q12 #10 tab SITagliptin [Januvia] 50 mg PO ACB #30 tab Tamsulosin [Flomax] 0.4 mg PO DAILY #30 cap - Smoking Cessation Smoking Cessation Medication prescribed: No Reason for not providing: Not indicated - Antipsychotic Medications Pt discharged on 2 or more routine antipsychotic medications: No
== END 2017-05-17 15:40 | disposition home or self-care (01) | DRG 881 ==
LOC: H.STEP 19:26
PROVIDERS: ADMIT Psychiatry & Neurology Psychiatry; ATTEND Psychiatry & Neurology Psychiatry
PROC: GZHZZZZ Group Psychotherapy (ICD-10-PCS; principal; 2017-05-10)
PROC: GZ58ZZZ Individual Psychotherapy, Cognitive-Behavioral (ICD-10-PCS; 2017-05-10)
DX: F32.9 Major depressive disorder, single episode, unspecified (principal); B02.9 Zoster without complications; I13.10 Hypertensive heart and chronic kidney disease without heart failure, with stage 1 through stage 4 chronic kidney disease, or unspecified chronic kidney disease; E11.22 Type 2 diabetes mellitus with diabetic chronic kidney disease; N18.9 Chronic kidney disease, unspecified; E78.00 Pure hypercholesterolemia, unspecified; F41.9 Anxiety disorder, unspecified; Z86.73 Personal history of transient ischemic attack (TIA), and cerebral infarction without residual deficits; Z87.891 Personal history of nicotine dependence

== ENCOUNTER 2017-11-03 12:06 | Inpatient (IN) | payer MEDICARE, OTHER ==
[2017-11-03 12:07] VITALS: BMI 30.1
[2017-11-03] MEDS ORDERED: Sodium Chloride 0.9% 1,000 ML IV STA (13:02)
--- NOTE | 2017-11-03 13:23 | ED PDOC ---
HPI: General Adult Time Seen by Provider: 11/03/17 12:47 Chief Complaint (Nursing): Weakness/Neurological Deficit Chief Complaint (Provider): Weakness/Neurological Deficit History Per: Patient History/Exam Limitations: no limitations Onset/Duration Of Symptoms: Days Current Symptoms Are (Timing): Still Present Additional Complaint(s): 71 y/o male with a PMHx of HTN, hyperglycemia and diabetes presents to the ED complaining of chronic generalized weakness for "as long as he remembers". Patient states he was feeling weak and that his sugar was high. Patient reports he did not eat today. Patient states he was supposed to see Dr. Cooley for symptoms but "didn't feel like going" because of his weakness and instead called EMS to bring him to the ED. Patient reports he called Dr. Cooley who agreed with this decision and advised him to go to the ED. Patient also complains of decreased appetite and increase thirst. Denies fever, headache, chest pain and diarrhea. PMD: Rohan Cooley Past Medical History Vital Signs: Last Vital Signs Temp 98.3 F 11/03/17 12:09 Pulse 62 11/03/17 15:52 Resp 19 11/03/17 12:09 BP 119/61 11/03/17 12:09 Pulse Ox 95 11/03/17 15:52 - Medical History PMH: CVA (Possible), Depression, Diabetes, HTN, Hypercholesterolemia, Chronic Kidney Disease Denies: HIV - Surgical History Surgical History: No Surg Hx - Family History Family History: States: Unknown Family Hx - Home Medications Home Medications: Ambulatory Orders Medication Instructions Recorded Atorvastatin [Lipitor] 20 mg PO HS #30 tab 05/17/17 Enalapril Maleate [Vasotec] 20 mg PO Q12 #60 tab 05/17/17 Labetalol [Trandate] 200 mg PO Q12 #60 tab 05/17/17 Mirtazapine [Remeron] 15 mg PO HS #30 tab 05/17/17 Tamsulosin [Flomax] 0.4 mg PO DAILY #30 cap 05/17/17 amLODIPine [Norvasc] 10 mg PO DAILY #30 tab 05/17/17 Furosemide [Lasix] 40 mg PO BID 11/03/17 SITagliptin [Januvia] 100 mg PO DAILY 11/03/17 hydrALAZINE [Apresoline] 25 mg PO Q8 11/03/17 - Allergies Allergies/Adverse Reactions: Allergies Allergy/AdvReac Type Severity Reaction Status Date / Time No Known Allergies Allergy Verified 11/03/17 12:19 Review of Systems ROS Statement: Except As Marked, All Systems Reviewed And Found Negative Constitutional: Positive for: Weakness. Negative for: Fever Cardiovascular: Negative for: Chest Pain Gastrointestinal: Positive for: Other (Decreased PO intake and increase thirst) . Negative for: Diarrhea Neurological: Negative for: Headache Physical Exam - Reviewed Nursing Documentation Reviewed: Yes Vital Signs Reviewed: Yes - Physical Exam Appears: Positive for: No Acute Distress (comfortable) Head Exam: Positive for: ATRAUMATIC, NORMOCEPHALIC Skin: Positive for: Normal Color (Multiple tattoos ), Warm, Dry. Negative for: Rash Eye Exam: Positive for: Normal appearance, EOMI, PERRL ENT: Positive for: Normal ENT Inspection Neck: Positive for: Normal, Painless ROM Cardiovascular/Chest: Positive for: Regular Rate, Rhythm. Negative for: Murmur Respiratory: Positive for: Normal Breath Sounds. Negative for: Respiratory Distress Gastrointestinal/Abdominal: Positive for: Normal Exam, Soft. Negative for: Tenderness Back: Positive for: Normal Inspection Extremity: Positive for: Normal ROM. Negative for: Pedal Edema, Deformity Neurologic/Psych: Positive for: Alert, Oriented (x3). Negative for: Motor/ Sensory Deficits - Laboratory Results Result Diagrams: 11/03/17 13:20 11/03/17 13:20 - ECG ECG Rhythm: Positive for: Sinus Rhythm, 1st Degree Heart Block, Right Bundle Branch Block. Negative for: ST/T Changes Rate: 62 O2 Sat by Pulse Oximetry: 95 (RA) Pulse Ox Interpretation: Normal Medical Decision Making Medical Decision Making: Time: 1306 Impression: Generalized weakness Differentials include but not limited to uncontrolled DM, dehydration, electrolyte abnormality, UTI Rule out DKA Plan: -- Venous Blood Gas -- EKG -- Alcohol Serum -- CMP -- ED Urine Dipstick -- CBC with differentials -- Sodium Chloride IV 1000 mls/hr -- IV Insertion Time: 1545 -- Patient continues to be persistently hypoglycemic. Creatinine levels elevated consistent with acute renal failure. Normal ABG. No DKA. -- Case discussed with Dr. Cooley who agrees with plan of care for the patient. Patient to be diagnosed with uncontrolled diabetes and will be admitted. Scribe Attestation: Documented by Manuela Guzman acting as a scribe for Dr. Melva Johnson MD. Provider Scribe Attestation: All medical record entries made by the Scribe were at my direction and personally dictated by me. I have reviewed the chart and agree that the record accurately reflects my personal performance of the history, physical exam, medical decision making, and the department course for this patient. I have also personally directed, reviewed, and agree with the discharge instructions and disposition. Disposition - Clinical Impression Clinical Impression: Uncontrolled diabetes mellitus, Dehydration, Hyperglycemia, ARF (acute renal failure) - Patient ED Disposition Is Patient to be Admitted: Yes Discussed With : Rohan Cooley Doctor Will See Patient In The: Hospital Counseled Patient/Family Regarding: Studies Performed, Diagnosis - Disposition Disposition Time: 15:15 Condition: FAIR - Pt Status Changed To: Hospital Disposition Of: Inpatient - Admit Certification Admit to Inpatient:: After my assessment, the patient will require hospitalization for at least two midnights. This is because of the severity of symptoms shown, intensity of services needed, and/or the medical risk in this patient being treated as an outpatient. - POA Present On Arrival: Poor Glycemic Control
[2017-11-03 13:36] LABS: VENOUS BLOOD GAS BASE EXCESS 1.1 mmol/L (0.0-2.0); VENOUS BLOOD GAS PCO2 50 mmHg (40-60); VENOUS BLOOD GAS PO2 24 mm/Hg (30-55); VENOUS BLOOD PH 7.35 (7.32-7.43)
[2017-11-03 13:43] LABS: BASO % 0.3 % (0.0-2.0); EOS # 0.1 K/uL (0.0-0.7); EOS % 1.5 % (0.0-4.0); HEMOGLOBIN 13.1 g/dL (12.0-18.0); LYMPH # 0.9 K/uL (1.0-4.3); LYMPH % 9.3 % (20.0-40.0); MEAN CELL VOLUME 81.9 fl (80.0-94.0); MEAN CORPUSCULAR HEMOGLOBIN 27.9 pg (27.0-31.0); MEAN PLATELET VOLUME 8.5 fl (7.2-11.7); MONO # 0.5 K/uL (0.0-0.8); MONO % 5.8 % (0.0-10.0); NEUT # 7.6 K/uL (1.8-7.0); NEUT % 83.1 % (50.0-75.0); NRBC % 0.1 % (0.0-0.0); PLATELET COUNT 204 K/uL (130-400); RBC 4.68 Mil/uL (4.40-5.90); RED CELL DISTRIBUTION WIDTH 13.5 % (11.5-14.5); WHITE BLOOD COUNT 9.2 K/uL (4.8-10.8)
[2017-11-03 13:52] LABS: ALB/GLOB RATIO 1.5 (1.0-2.1); ALT/SGPT 27 U/L (21-72); AST/SGOT 14 U/L (17-59); BLOOD UREA NITROGEN 44 mg/dl (9-20); CALCIUM 9.4 mg/dL (8.4-10.2); GFR NON-AFRICAN AMERICAN 28
[2017-11-03] MEDS ORDERED: Insulin Regular 100 units/ml IVP STA ×2 (14:01)
[2017-11-03 14:38] LABS: ABG ALLEN TEST YES; ARTERIAL BLOOD GAS HEMOGLOBIN 12.9 g/dL (11.7-17.4); ARTERIAL BLOOD GAS O2 CAPACITY 17.3 mL/dL (16-24); ARTERIAL BLOOD GAS O2 SAT 98.4 % (95-98); ARTERIAL BLOOD GAS PCO2 38 mm/Hg (35-45); ARTERIAL BLOOD GAS PO2 73 mm/Hg (80-100); ARTERIAL BLOOD GAS TCO2 24.7 mmol/L (22-28)
[2017-11-03 15:46] LABS: LYMPHOCYTE 8 % (20-50); MONOCYTE 3 % (0-10); NEUTROPHIL 89 % (42-75); PLATELET ESTIMATE NORMAL (NORMAL); TOTAL CELLS COUNTED 100
[2017-11-03] MEDS ORDERED: Sodium Chloride 0.9% 1,000 ML IV SCH (16:00)
--- NOTE | 2017-11-03 16:12 | CP.PCM.HP ---
History of Present Illness - History of Present Illness History of Present Illness: 71 y/o male with a PMHx of HTN, hyperglycemia and diabetes presents to the ED complaining of chronic generalized weakness for weeks. Patient states he was feeling weak and that his sugar was high. Pt admits to non compliance with his diet BS: on admission: 426 PMH: Hypertension DM II Hx CVA Depression EKG: NSR; Inc RBBB Present on Admission - Present on Admission Any Indicators Present on Admission: Yes History of Uncontrolled Diabetes: Yes Review of Systems - Constitutional Constitutional: Fatigue, Lethargy Past Patient History - Infectious Disease Hx of Infectious Diseases: None - Past Medical History & Family History Past Medical History?: Yes - Past Social History Smoking Status: Former Smoker Home Situation {Lives}: Alone - CARDIAC Hx Hypercholesterolemia: Yes Hx Hypertension: Yes - PULMONARY Hx Respiratory Disorders: No - NEUROLOGICAL HX Cerebrovascular Accident: Yes (possible) - HEENT Hx HEENT Problems: Yes (mastoiditis) - RENAL Hx Chronic Kidney Disease: Yes - ENDOCRINE/METABOLIC Hx Diabetes Mellitus Type 2: Yes - HEMATOLOGICAL/ONCOLOGICAL Hx Human Immunodeficiency Virus (HIV): No - INTEGUMENTARY Hx Dermatological Problems: Yes Other/Comment: Shingles - MUSCULOSKELETAL/RHEUMATOLOGICAL Hx Falls: Yes - GASTROINTESTINAL Hx Gastrointestinal Disorders: No - GENITOURINARY/GYNECOLOGICAL Hx Genitourinary Disorders: Yes Hx Prostate Problems: Yes - PSYCHIATRIC Hx Depression: Yes - SURGICAL HISTORY Hx Surgeries: No - ANESTHESIA Hx Anesthesia: Yes Hx Anesthesia Reactions: No Hx Malignant Hyperthermia: No Meds Allergies/Adverse Reactions: Allergies Allergy/AdvReac Type Severity Reaction Status Date / Time No Known Allergies Allergy Verified 11/03/17 12:19 Physical Exam - Constitutional Appears: Well - Head Exam Head Exam: ATRAUMATIC - Eye Exam Eye Exam: Normal appearance - ENT Exam ENT Exam: Normal Exam - Neck Exam Neck exam: Positive for: Normal Inspection - Respiratory Exam Respiratory Exam: NORMAL BREATHING PATTERN - Cardiovascular Exam Cardiovascular Exam: REGULAR RHYTHM - GI/Abdominal Exam GI & Abdominal Exam: Soft Results - Vital Signs Recent Vital Signs: Last Vital Signs Temp 98.3 F 11/03/17 12:09 Pulse 62 11/03/17 15:56 Resp 19 11/03/17 12:09 BP 119/61 11/03/17 12:09 Pulse Ox 95 11/03/17 15:56 - Labs Result Diagrams: 11/03/17 13:20 11/03/17 13:20 Labs: Laboratory Results - last 24 hr 11/03/17 11/03/17 11/03/17 12:19 13:02 13:20 WBC RBC Hgb Hct MCV MCH MCHC RDW Plt Count MPV Neut % (Auto) Lymph % (Auto) [place] % (Auto) Eos % (Auto) Baso % (Auto) Neut # (Auto) Lymph # (Auto) [place] # (Auto) Eos # (Auto) Baso # (Auto) Neutrophils % (Manual) Lymphocytes % (Manual) Monocytes % (Manual) Platelet Estimate RBC Morphology pCO2 pO2 24 L HCO3 ABG pH ABG Total CO2 ABG O2 Saturation ABG O2 Content ABG Base Excess ABG Hemoglobin ABG Carboxyhemoglobin 1.8 H POC ABG HHb (Measured) 51.0 H ABG Methemoglobin 3.2 H ABG O2 Capacity Osvaldo Test VBG pH 7.35 VBG pCO2 50 VBG HCO3 24.3 VBG O2 Sat (Calc) 46.3 VBG Base Excess 1.1 VBG Hgb O2 Saturation 44.0 L A-a O2 Difference Hemoglobin 13.9 Hgb O2 Saturation FiO2 Crit Value Called To Dr eryn castellano Crit Value Called By 15 Crit Value Read Back Y Blood Gas Notified Time 1336 Sodium 132 Potassium 5.3 H Chloride 97 L Carbon Dioxide 23 Anion Gap 17 BUN 44 H Creatinine 2.3 H Est GFR ( Amer) 34 Est GFR (Non-Af Amer) 28 POC Glucose (mg/dL) 426 H* Random Glucose 570 H* D Calcium 9.4 Total Bilirubin 0.6 AST 14 L D ALT 27 Alkaline Phosphatase 102 Total Protein 6.6 Albumin 4.0 Globulin 2.6 Albumin/Globulin Ratio 1.5 Alcohol, Quantitative < 10 11/03/17 11/03/17 11/03/17 13:20 14:01 14:11 WBC 9.2 RBC 4.68 Hgb 13.1 Hct 38.3 MCV 81.9 MCH 27.9 MCHC 34.0 RDW 13.5 Plt Count 204 D MPV 8.5 Neut % (Auto) 83.1 H Lymph % (Auto) 9.3 L [place] % (Auto) 5.8 Eos % (Auto) 1.5 Baso % (Auto) 0.3 Neut # (Auto) 7.6 H Lymph # (Auto) 0.9 L [place] # (Auto) 0.5 Eos # (Auto) 0.1 Baso # (Auto) 0.0 Neutrophils % (Manual) 89 H Lymphocytes % (Manual) 8 L Monocytes % (Manual) 3 Platelet Estimate Normal RBC Morphology Normal pCO2 38 pO2 73 L HCO3 24.0 ABG pH 7.40 ABG Total CO2 24.7 ABG O2 Saturation 98.4 H ABG O2 Content 17.0 ABG Base Excess -1.1 ABG Hemoglobin 12.9 ABG Carboxyhemoglobin 2.5 H POC ABG HHb (Measured) 1.5 ABG Methemoglobin 2.6 ABG O2 Capacity 17.3 Osvaldo Test Yes VBG pH VBG pCO2 VBG HCO3 VBG O2 Sat (Calc) VBG Base Excess VBG Hgb O2 Saturation A-a O2 Difference 29.0 Hemoglobin Hgb O2 Saturation 93.5 L FiO2 21.0 Crit Value Called To Dr adilia morgan Crit Value Called By 15 Crit Value Read Back Y Blood Gas Notified Time 1438 Sodium Potassium Chloride Carbon Dioxide Anion Gap BUN Creatinine Est GFR ( Amer) Est GFR (Non-Af Amer) POC Glucose (mg/dL) 414 H* Random Glucose Calcium Total Bilirubin AST ALT Alkaline Phosphatase Total Protein Albumin Globulin Albumin/Globulin Ratio Alcohol, Quantitative 11/03/17 15:14 WBC RBC Hgb Hct MCV MCH MCHC RDW Plt Count MPV Neut % (Auto) Lymph % (Auto) [place] % (Auto) Eos % (Auto) Baso % (Auto) Neut # (Auto) Lymph # (Auto) [place] # (Auto) Eos # (Auto) Baso # (Auto) Neutrophils % (Manual) Lymphocytes % (Manual) Monocytes % (Manual) Platelet Estimate RBC Morphology pCO2 pO2 HCO3 ABG pH ABG Total CO2 ABG O2 Saturation ABG O2 Content ABG Base Excess ABG Hemoglobin ABG Carboxyhemoglobin POC ABG HHb (Measured) ABG Methemoglobin ABG O2 Capacity Osvaldo Test VBG pH VBG pCO2 VBG HCO3 VBG O2 Sat (Calc) VBG Base Excess VBG Hgb O2 Saturation A-a O2 Difference Hemoglobin Hgb O2 Saturation FiO2 Crit Value Called To Crit Value Called By Crit Value Read Back Blood Gas Notified Time Sodium Potassium Chloride Carbon Dioxide Anion Gap BUN Creatinine Est GFR ( Amer) Est GFR (Non-Af Amer) POC Glucose (mg/dL) 385 H Random Glucose Calcium Total Bilirubin AST ALT Alkaline Phosphatase Total Protein Albumin Globulin Albumin/Globulin Ratio Alcohol, Quantitative Assessment & Plan (1) Uncontrolled diabetes mellitus Assessment and Plan: Dr Savannah Garrett on consult IVF Status: Acute (2) CKD (chronic kidney disease) Status: Acute (3) Depression Status: Acute (4) Essential (primary) hypertension Status: Acute (5) Type 2 diabetes mellitus with diabetic chronic kidney disease Status: Acute Decision To Admit - Pt Status Changed To: Hospital Disposition Of: Inpatient - Admit Certification Admit to Inpatient:: After my assessment, the patient will require hospitalization for at least two midnights. This is because of the severity of symptoms shown, intensity of services needed, and/or the medical risk in this patient being treated as an outpatient. - . Bed Request Type: Med/Surg Admitting Physician: Rohan Cooley
--- NOTE | 2017-11-03 17:05 | CARD ---
APPROVED REPORT Date of service: 11/03/2017 EKG Measurement Heart [id number] <Conclusion> Sinus rhythm with 1st degree AV block Incomplete right bundle branch block Inferior infarct, age undetermined Anteroseptal infarct, age undetermined Abnormal ECG
[2017-11-03] MEDS ORDERED: Insulin Regular 100 units/ml SC SCH (22:00)
[2017-11-03] MEDS ORDERED: Insulin Detemir 100 Units/ml Inj SC STA (22:17)
[2017-11-03] MEDS: Sodium Chloride 0.9% 1,000 ML IV SCH (22:36)
[2017-11-04 06:38] LABS: ALB/GLOB RATIO 1.3 (1.0-2.1); ALBUMIN 3.4 g/dL (3.5-5.0); CALCIUM 8.8 mg/dL (8.4-10.2)
[2017-11-04] MEDS: Insulin Lispro (humaLOG) 100 Units/ml Inj SC SCH ×7 (07:28→22:03)
[2017-11-04] MEDS: Enoxaparin 40 mg Syringe SC SCH (08:25)
[2017-11-04] MEDS: Sodium Chloride 0.9% 1,000 ML IV SCH ×2 (08:26→14:30)
--- NOTE | 2017-11-04 09:55 | CON ---
DATE: 11/03/2017ENDOCRINOLOGY CONSULT LOCATION: Room 669. HISTORY OF PRESENT ILLNESS: This is a 71-year-old male with known history of type 2 diabetes and hypertension, admitted with generalized body weakness and supervening marked hyperglycemic accelerations and is now being referred for diabetic evaluation and management. PAST MEDICAL HISTORY: As mentioned above, history of type 2 diabetes, currently on Januvia, taken at 100 mg once daily, history of hypertension, cardiovascular disease and dyslipidemia, history of previous CVA with no apparent residual weakness, history of diabetic retinopathy, polyneuropathy and nephropathy with underlying chronic kidney disease, history of generalized anxiety and depression. FAMILY HISTORY: Positive for hypertension and heart disease. SOCIAL HISTORY: The patient has supportive family. No known substance use. REVIEW OF SYSTEMS: As mentioned above, admits to generalized body weakness with progressive bouts of dizziness and lightheadedness, worse on the day of admission. Also admits to increasing hypersomnolence and lethargy with bifrontal headaches and visual blurring, again worse in the last few days prior to admission. No chest pains or palpitations or PND. His oral intake has been variable with nausea, dyspepsia and vague upper abdominal pain. Also admits to marked polyuria, nocturia and polydipsia with lower extremity paresthesia, especially nocturnally. PHYSICAL EXAMINATION: GENERAL: This is an average built male in no apparent distress with a blood pressure of 140/80, pulse of 90 beats per minute and regular, temperature 98, respirations 20, height is 5 feet 10 inches, weight is 210 pounds. HEENT: Head normocephalic. Eyes anicteric with pink conjunctivae. Funduscopy not possible at this time. Ears, nose and throat otherwise normal. NECK: Supple. Thyroid gland is normal in size. No carotid bruits or any cervical adenopathy. CARDIOPULMONARY: Some adynamic precordium. S1, S2 is rapid and regular. LUNGS: Clear to auscultation. ABDOMEN: Flat, soft with positive bowel sounds. EXTREMITIES: No peripheral edema. Pulses are +2 bilaterally. LABORATORY DATA: His chemistry showed a BUN of 44, sodium 132, potassium 5.3, chloride 97, CO2 of 23, glucose 570, and creatinine 2.3. His initial fingerstick glucose was 426 mg/dL. The subsequent glucose levels have ranged from 385 to 414 mg/dL. ASSESSMENT: This is a 71-year-old male with uncontrolled and decompensated type 2 insulin-requiring diabetes presenting here with marked hyperglycemic accelerations and biochemical evidence of prerenal azotemia with spurious hyponatremia and is now being referred for diabetic evaluation and management. He also has diabetic microvascular complications of diabetic retinopathy, polyneuropathy and nephropathy with underlying chronic kidney disease. Moreover, he also has diabetic macrovascular complications of cerebrovascular disease and coronary artery disease and vasculopathy. PLAN OF MANAGEMENT: As discussed with the patient and staff, we will continue the IV hydration as ordered to replenish the lost fluids and electrolytes, especially with increased osmotic diuresis thereof and will increase the normal saline to 100 mL/hour as ordered. We will also start him on a more physiologic basal and bolus insulin regimen to optimize metabolic control. We will initiate Levemir given as basal insulin with a stat dose of 12 units tonight as ordered. We will also increase and titrate his basal insulin to Levemir given as 20 units subcu at bedtime daily, to start tomorrow. We will also add prandial insulin with Humalog given as 6 units subcu t.i.d. before meals, to start at breakfast time tomorrow morning as ordered, with Humalog coverage scale to be given only for glucose above 300 to obviate hypoglycemia and detailed orders have been given. Hemoglobin A1c will be done to confirm his prior glycemic control and baseline thyroid function studies will be ordered. We will also obtain a lipid panel and also a parathyroid hormone intact level as ordered. We will continue his glipizide given as 10 mg b.i.d. before meals as ordered. We will obtain serial chemistries and supplement accordingly as needed. We will also initiate diabetic education to include insulin self-administration as the patient will clearly be going home on insulin therapy at this point in time. We will follow up. Caroline Garrett MD
--- NOTE | 2017-11-04 11:57 | CP.PCM.PN ---
Subjective - Date & Time of Evaluation Date of Evaluation: 11/04/17 Time of Evaluation: 10:00 - Subjective Subjective: Feeling better not lethargic FBS: 196 Dr Garrett's note appreciated participated with PT Objective - Vital Signs/Intake and Output Vital Signs (last 24 hours): Temp Pulse Resp BP Pulse Ox 98.2 F 52 L 20 153/54 H 96 11/04/17 07:54 11/04/17 07:54 11/04/17 07:54 11/04/17 07:54 11/04/17 07:54 - Medications Medications: Current Medications Atorvastatin Calcium (Lipitor) 20 mg PO HS SILVER Enoxaparin Sodium (Lovenox) 40 mg SC DAILY [facility] PRN Reason: Protocol Last Admin: 11/04/17 08:25 Dose: 40 mg Glipizide (Glucotrol) 10 mg PO BIDAC [facility] Last Admin: 11/04/17 08:25 Dose: 10 mg Hydralazine HCl (Apresoline) 25 mg PO Q8 [facility] Sodium Chloride (Sodium Chloride 0.9%) 1,000 mls @ 100 mls/hr IV .Q10H [facility] Stop: 11/04/17 22:00 Last Admin: 11/04/17 08:26 Dose: Not Given Insulin Detemir (Levemir) 20 units SC HS SILVER Insulin Human Lispro (Humalog) 0 units SC ACHS [facility] Last Admin: 11/04/17 11:10 Dose: Not Given Insulin Human Lispro (Humalog) 6 units SC AC [facility] Last Admin: 11/04/17 11:09 Dose: 6 units Mirtazapine (Remeron) 15 mg PO HS SILVER Sitagliptin Phosphate (Januvia) 100 mg PO DAILY [facility] Last Admin: 11/04/17 11:05 Dose: 100 mg Tamsulosin HCl (Flomax) 0.4 mg PO DAILY [facility] Last Admin: 11/04/17 11:07 Dose: 0.4 mg - Labs Labs: 11/03/17 13:20 11/04/17 05:50 - Constitutional Appears: Well - Eye Exam Eye Exam: Normal appearance - ENT Exam ENT Exam: Normal Exam - Neck Exam Neck Exam: Normal Inspection - Respiratory Exam Respiratory Exam: NORMAL BREATHING PATTERN - Cardiovascular Exam Cardiovascular Exam: REGULAR RHYTHM Assessment and Plan (1) Uncontrolled diabetes mellitus Assessment & Plan: coming under control Status: Acute (2) CKD (chronic kidney disease) Status: Acute (3) Depression Status: Acute (4) Essential (primary) hypertension Status: Acute (5) Type 2 diabetes mellitus with diabetic chronic kidney disease Status: Acute
[2017-11-04] MEDS: Insulin Detemir 100 Units/ml Inj SC SCH (22:01)
[2017-11-05] MEDS: Sodium Chloride 0.9% 1,000 ML IV SCH (00:47)
--- NOTE | 2017-11-05 04:25 | PN ---
DATE: 11/04/2017 ENDO FOLLOWUP NOTE LOCATION: Room 669. SUBJECTIVE: This is a 71-year-old male with recent uncontrolled type 2 insulin-requiring diabetes, presenting here with marked hyperglycemic accelerations and supervening generalized body weakness, progressive dizziness, and lightheadedness with underlying constitutional manifestations and is now being followed closely for metabolic management. His glycemic levels are fluctuating but much improved at this time, and the latest glucose levels have ranged from 196 to 249 and 194 mg/dL. His hemoglobin A1c was reported as 13.8%, clearly elevated and indicative of suboptimal metabolic control of his diabetic condition even prior to this admission. His chemistry showed a BUN of 39, sodium 141, potassium 4.5, chloride 107, CO2 of 25, glucose 198, and creatinine 2. ASSESSMENT: This is a 71-year-old male with uncontrolled and decompensated type 2 insulin-requiring diabetes, presenting here with marked hyperglycemic accelerations and associated constitutional symptoms despite the outpatient management of oral hypoglycemic therapy as given and the possibility of the so-called secondary pancreatic failure and the need for insulin at this point in time, especially with the extremely elevated A1c values of 13% indicating refractory response to oral hypoglycemic therapy at this time. He also has diabetic microvascular complications of retinopathy and polyneuropathy and nephropathy with underlying chronic kidney disease and progressive renal insufficiency as noted. Moreover, he has diabetic macrovascular complications of cerebrovascular disease with no apparent residual weakness and coronary artery disease and underlying peripheral arterial disease and vasculopathy. PLAN OF MANAGEMENT: I discussed with the patient lengthily today at bedside, the imperative need for the initiation of a basal and bolus insulin drug combination is quite essential to optimize his metabolic control and also to hopefully delay the microvascular complications as already present and noted at this time, especially with underlying progressive renal insufficiency. The patient has agreed to go on insulin therapy at this time, and I spoke to the nursing staff regarding the diabetic education and teaching of insulin self-administration by the patient using the insulin pens, preferably if available. To continue with the plan of management, we will modify his current basal and bolus insulin regimen and increase the Humalog to 6 units subcu t.i.d. before meals to start today. We will also modify his Januvia to 25 mg once daily especially with underlying progressive renal insufficiency. We will continue the basal insulin added as Levemir 20 units subcu at bedtime daily to start tonight. We will modify the coverage scale to obviate hypoglycemia and detailed orders have been given. We will obtain serial chemistries and supplement accordingly as needed. We will follow. Caroline Garrett MD
[2017-11-05] MEDS: Insulin Lispro (humaLOG) 100 Units/ml Inj SC SCH ×8 (06:37→22:10)
[2017-11-05 07:19] LABS: BASO % 0.6 % (0.0-2.0); EOS # 0.2 K/uL (0.0-0.7); EOS % 3.7 % (0.0-4.0); HEMOGLOBIN 11.8 g/dL (12.0-18.0); LYMPH # 1.5 K/uL (1.0-4.3); LYMPH % 26.7 % (20.0-40.0); MEAN CELL VOLUME 82.9 fl (80.0-94.0); MEAN CORPUSCULAR HEMOGLOBIN 27.2 pg (27.0-31.0); MEAN CORPUSCULAR HGB CONC 32.9 g/dL (33.0-37.0); MEAN PLATELET VOLUME 7.9 fl (7.2-11.7); MONO # 0.6 K/uL (0.0-0.8); MONO % 10.8 % (0.0-10.0); NEUT # 3.3 K/uL (1.8-7.0); NEUT % 58.2 % (50.0-75.0); RBC 4.35 Mil/uL (4.40-5.90); RED CELL DISTRIBUTION WIDTH 13.6 % (11.5-14.5); WHITE BLOOD COUNT 5.7 K/uL (4.8-10.8)
[2017-11-05 07:46] LABS: CALCIUM 8.6 mg/dL (8.4-10.2)
[2017-11-05] MEDS: Enoxaparin 40 mg Syringe SC SCH (09:01)
--- NOTE | 2017-11-05 11:00 | CP.PCM.PN ---
Subjective - Date & Time of Evaluation Date of Evaluation: 11/05/17 Time of Evaluation: 11:00 - Subjective Subjective: Pt reports marked improvement in symptoms at adm With resolution of hyperglycemia ( 570 to 131mg) Na+ levels and Azotemia due to osmotic diuresis has improved Pt accepts need for insulin use Vital signs are stable Will consider D/C once insulin doses are finalised and pt is comfortable with self administration Objective - Vital Signs/Intake and Output Vital Signs (last 24 hours): Temp Pulse Resp BP Pulse Ox 98.3 F 63 18 168/69 H 95 11/05/17 00:07 11/05/17 09:00 11/05/17 00:07 11/05/17 09:00 11/05/17 00:07 - Medications Medications: Current Medications Atorvastatin Calcium (Lipitor) 20 mg PO HS [facility] Last Admin: 11/04/17 21:17 Dose: 20 mg Enoxaparin Sodium (Lovenox) 40 mg SC DAILY [facility] PRN Reason: Protocol Last Admin: 11/05/17 09:01 Dose: 40 mg Glipizide (Glucotrol) 10 mg PO BIDAC [facility] Last Admin: 11/05/17 08:59 Dose: 10 mg Hydralazine HCl (Apresoline) 25 mg PO Q8 [facility] Last Admin: 11/05/17 09:00 Dose: 25 mg Insulin Detemir (Levemir) 20 units SC HS [facility] Last Admin: 11/04/17 22:01 Dose: 20 units Insulin Human Lispro (Humalog) 0 units SC ACHS [facility] Last Admin: 11/05/17 06:37 Dose: Not Given Insulin Human Lispro (Humalog) 6 units SC AC [facility] Last Admin: 11/05/17 09:05 Dose: 6 units Mirtazapine (Remeron) 15 mg PO HS [facility] Last Admin: 11/04/17 21:17 Dose: 15 mg Sitagliptin Phosphate (Januvia) 25 mg PO DAILY [facility] Tamsulosin HCl (Flomax) 0.4 mg PO DAILY [facility] Last Admin: 11/05/17 09:01 Dose: 0.4 mg - Labs Labs: 11/05/17 05:20 11/05/17 05:20
[2017-11-05] MEDS: Insulin Detemir 100 Units/ml Inj SC SCH (22:02)
[2017-11-06 07:11] LABS: BASO % 0.6 % (0.0-2.0); EOS # 0.2 K/uL (0.0-0.7); EOS % 3.3 % (0.0-4.0); HEMOGLOBIN 11.7 g/dL (12.0-18.0); LYMPH # 1.5 K/uL (1.0-4.3); LYMPH % 26.1 % (20.0-40.0); MEAN CELL VOLUME 82.2 fl (80.0-94.0); MEAN CORPUSCULAR HEMOGLOBIN 27.6 pg (27.0-31.0); MEAN CORPUSCULAR HGB CONC 33.6 g/dL (33.0-37.0); MEAN PLATELET VOLUME 7.8 fl (7.2-11.7); MONO # 0.6 K/uL (0.0-0.8); MONO % 11.2 % (0.0-10.0); NEUT # 3.3 K/uL (1.8-7.0); NEUT % 58.8 % (50.0-75.0); NRBC % 0.1 % (0.0-0.0); RBC 4.23 Mil/uL (4.40-5.90); RED CELL DISTRIBUTION WIDTH 13.5 % (11.5-14.5); WHITE BLOOD COUNT 5.6 K/uL (4.8-10.8)
[2017-11-06 07:22] LABS: BLOOD UREA NITROGEN 21 mg/dl (9-20); CALCIUM 8.7 mg/dL (8.4-10.2); GFR NON-AFRICAN AMERICAN 54
[2017-11-06] MEDS: Insulin Lispro (humaLOG) 100 Units/ml Inj SC SCH ×7 (07:33→23:12)
[2017-11-06] MEDS: Enoxaparin 40 mg Syringe SC SCH (09:34)
--- NOTE | 2017-11-06 09:51 | CP.PCM.PN ---
Subjective - Date & Time of Evaluation Date of Evaluation: 11/06/17 Time of Evaluation: 09:30 - Subjective Subjective: Quite symptom free BP 176/80 mm Hg No signs of CHF Labs stable Blood sugar levels much improved Pt appears comfortable with the prospect of taking Insulin daily Have restarted pt on antihypertensives Objective - Vital Signs/Intake and Output Vital Signs (last 24 hours): Temp Pulse Resp BP Pulse Ox 98.1 F 60 20 180/79 H 96 11/06/17 08:02 11/06/17 09:38 11/06/17 08:02 11/06/17 09:38 11/06/17 08:02 - Medications Medications: Current Medications Amlodipine Besylate (Norvasc) 10 mg PO DAILY [facility] Last Admin: 11/06/17 09:38 Dose: 10 mg Atorvastatin Calcium (Lipitor) 20 mg PO HS [facility] Last Admin: 11/05/17 21:33 Dose: 20 mg Enalapril Maleate (Vasotec) 20 mg PO BID [facility] Enoxaparin Sodium (Lovenox) 40 mg SC DAILY [facility] PRN Reason: Protocol Last Admin: 11/06/17 09:34 Dose: 40 mg Glipizide (Glucotrol) 10 mg PO BIDAC [facility] Last Admin: 11/06/17 09:36 Dose: 10 mg Hydralazine HCl (Apresoline) 25 mg PO Q8 [facility] Last Admin: 11/06/17 09:34 Dose: 25 mg Insulin Detemir (Levemir) 20 units SC HS [facility] Last Admin: 11/05/17 22:02 Dose: 20 units Insulin Human Lispro (Humalog) 0 units SC ACHS [facility] Last Admin: 11/06/17 07:33 Dose: Not Given Insulin Human Lispro (Humalog) 6 units SC AC [facility] Last Admin: 11/06/17 08:39 Dose: 6 units Mirtazapine (Remeron) 15 mg PO HS [facility] Last Admin: 11/05/17 21:33 Dose: 15 mg Sitagliptin Phosphate (Januvia) 25 mg PO DAILY [facility] Last Admin: 11/06/17 09:36 Dose: 25 mg Tamsulosin HCl (Flomax) 0.4 mg PO DAILY [facility] Last Admin: 11/06/17 09:36 Dose: 0.4 mg - Labs Labs: 11/06/17 05:20 11/06/17 05:20
--- NOTE | 2017-11-06 16:25 | PN ---
DATE: 11/06/2017 ENDO FOLLOWUP NOTE. LOCATION: Room 669. SUBJECTIVE: This is a 71-year-old male with recent uncontrolled type 2 insulin-requiring diabetes presenting here with hyperglycemic acceleration that has now improved clinically and metabolically as noted overnight. His glucose levels have ranged now from 110 to 164 mg/dL. His latest chemistry shows a BUN of 21, sodium 144, potassium 4.2, chloride 113, CO2 of 23, glucose 111, and creatinine 1.3. ASSESSMENT AND PLAN: At this time, we will continue the same combination of oral hypoglycemic therapy with insulin therapy to allow for dose equilibration. We will continue with Levemir given as 10 units subcu at bedtime daily as given. We will also continue the Humalog given as 6 units subcu t.i.d. before meals as ordered. We will continue the low-dose correction scale using Humalog insulin as ordered. We will continue the p.o. oral hypoglycemic therapy as given with Januvia given as 25 mg daily and glipizide at 10 mg b.i.d. before meals as ordered. We will obtain serial chemistries and supplement accordingly as needed. We will follow. Caroline Garrett MD
[2017-11-06] MEDS: Insulin Detemir 100 Units/ml Inj SC SCH (21:57)
[2017-11-07 06:39] LABS: BASO % 0.5 % (0.0-2.0); EOS # 0.2 K/uL (0.0-0.7); EOS % 3.5 % (0.0-4.0); HEMOGLOBIN 12.4 g/dL (12.0-18.0); LYMPH # 1.5 K/uL (1.0-4.3); LYMPH % 25.8 % (20.0-40.0); MEAN CELL VOLUME 80.8 fl (80.0-94.0); MEAN CORPUSCULAR HEMOGLOBIN 27.9 pg (27.0-31.0); MEAN CORPUSCULAR HGB CONC 34.6 g/dL (33.0-37.0); MEAN PLATELET VOLUME 7.6 fl (7.2-11.7); MONO # 0.6 K/uL (0.0-0.8); MONO % 10.7 % (0.0-10.0); NEUT # 3.5 K/uL (1.8-7.0); NEUT % 59.5 % (50.0-75.0); NRBC % 0.1 % (0.0-0.0); RBC 4.45 Mil/uL (4.40-5.90); RED CELL DISTRIBUTION WIDTH 13.6 % (11.5-14.5); WHITE BLOOD COUNT 5.8 K/uL (4.8-10.8)
[2017-11-07] MEDS: Insulin Lispro (humaLOG) 100 Units/ml Inj SC SCH ×6 (06:56→17:33)
[2017-11-07 07:33] LABS: ALB/GLOB RATIO 1.2 (1.0-2.1); ALBUMIN 3.2 g/dL (3.5-5.0); ALT/SGPT 15 U/L (21-72); AST/SGOT 17 U/L (17-59); BLOOD UREA NITROGEN 18 mg/dl (9-20); GFR NON-AFRICAN AMERICAN 54
[2017-11-07 08:14] VITALS: RESP 20
[2017-11-07] MEDS: Enoxaparin 40 mg Syringe SC SCH (08:22)
--- NOTE | 2017-11-07 08:25 | PN ---
DATE: 11/05/2017 ENDO FOLLOWUP LOCATION: Room 669. SUBJECTIVE: This is a 71-year-old male with recent uncontrolled type 2 insulin-requiring diabetes, presenting here with marked hyperglycemic accelerations and extremely elevated A1c value of 13.8% indicative of suboptimal metabolic control of his diabetic condition even prior to this admission. His glucose levels today are remarkably improved overnight with glucose levels ranging from 133 to 194 mg/dL. LABORATORY DATA: His chemistry showed a BUN of 32, sodium 143, potassium 4, chloride 112, CO2 22, glucose 131, and creatinine 1.6. 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 He also has diabetic microvascular complications of retinopathy, polyneuropathy, and nephropathy with macrovascular complications of cerebrovascular disease, coronary artery disease, peripheral arterial disease, and vasculopathy. PLAN OF MANAGEMENT: We will continue the same basal and bolus insulin dose regimen as modified last night to allow for dose equilibration and keep him on the Humalog given as 6 units subcu t.i.d. before meals as ordered. We will also continue the basal insulin given as Levemir at 20 units subcu at bedtime daily as given. He is also on Januvia given as 25 mg once daily as ordered. We will continue also the glipizide given as 10 mg b.i.d. before meals as ordered. We will titrate incrementally as indicated to optimize metabolic control. We will initiate diabetic education. At this time, since the patient was never on insulin therapy on the outpatient, we will teach him insulin self-administration techniques thereof. We will follow. Caroline Garrett MD
[2017-11-07 16:46] VITALS: BP 167/77; PULSE 66; TEMP 98.5; O2SAT 96
--- NOTE | 2017-11-07 22:37 | PN ---
DATE: 11/07/2017 ENDO FOLLOWUP LOCATION: 669 SUBJECTIVE: This is a 71-year-old male with recent uncontrolled type 2 insulin-requiring diabetes, now being followed closely for metabolic management. His glycemic levels are fluctuating but much improved at this time, and the glucose values have ranged from 101 to 104 and 132 and 258 mg/dL. His chemistries showed a BUN of 18, sodium 146, potassium 4.2, chloride 114, CO2 of 22, glucose 102, and creatinine 1.3. So at this time as discussed lengthily with the patient and the nurse practitioner at bedside, the patient is slightly reluctant to go home on multiple insulin injections. Because of his remarkable response with the above-mentioned insulin regimen, we will decide to keep the patient only on basal insulin at this time with Levemir to be given as 20 units subcu at bedtime daily as given. We will continue the oral hypoglycemic therapy with glipizide given as 10 mg b.i.d. before meals and Januvia given as 25 mg once daily in the morning as ordered. We will even decide to go higher on his Januvia to 50 mg as indicated if hyperglycemic levels persist. We will hold off on the Humalog given as 6 units subcu t.i.d. before meals as ordered. This will simplify his home insulin management and make the patient less stressed out with multiple insulin injections at this time. We will obtain serial chemistries and supplement accordingly as needed. We will follow. Caroline Garrett MD
--- NOTE | 2017-11-15 10:57 | PQF ---
PROVIDER RESPONSE TEXT: Pt has CKD Stage 3 REVIEWER QUERY TEXT: Kidney Disease, Chronic CKD Stage Chronic Kidney Disease (CKD) is documented in the Medical Record. Please specify the disease stage ( includes probable or suspected) Such as: -- Chronic kidney disease Stage 1 -- Chronic kidney disease Stage 2 -- Chronic kidney disease Stage 3 -- Chronic kidney disease Stage 4 -- Chronic kidney disease Stage 5 -- Chronic kidney disease Stage 5, requiring dialysis -- End Stage Renal Disease -- Acute kidney failure on chronic kidney disease specify stage -- Other, please specify Stages are defined by the [employer] as follows: CKD Stage I GFR >= 90 ml / min per 1.73 m2 and persistent albuminuria CKD Stage 2 GFR between 60 and 89 with persistent albuminuria CKD Stage 3 GFR between 30 and 59 CKD Stage 4 GFR between 15 and 29 CKD Stage 5 GFR between <15 or End Stage Renal Disease The patient's Clinical Indicators include: Documentation that the patient has Diabetic CKD. BUN 44-> 18 Creatinine 2.3-> 1.3 GFR 28-> 54 Treated with IVF Query created by: Valentine Cisneros on 11/07/2017 1:52 PM Electronically signed by: Rohan Cooley MD 11/15/2017 10:54 AM
--- NOTE | 2017-11-17 11:09 | CP.PCM.DIS ---
Provider - Provider Date of Admission: 11/03/17 15:47 Attending physician: Rohan Cooley MD Primary care physician: ESTER Cooley Consults: Dr Garrett Time Spent in preparation of Discharge (in minutes): 55 Diagnosis - Discharge Diagnosis (1) Uncontrolled diabetes mellitus Status: Acute (2) CKD (chronic kidney disease) Status: Acute Comment: Stage 3 (3) Depression Status: Acute (4) Essential (primary) hypertension Status: Acute (5) Type 2 diabetes mellitus with diabetic chronic kidney disease Status: Acute Hospital Course - Lab Results Lab Results: Most Recent Lab Values WBC 5.8 K/uL (4.8-10.8) 11/07/17 06:20 RBC 4.45 Mil/uL (4.40-5.90) 11/07/17 06:20 Hgb 12.4 g/dL (12.0-18.0) 11/07/17 06:20 Hct 35.9 % (35.0-51.0) 11/07/17 06:20 MCV 80.8 fl (80.0-94.0) 11/07/17 06:20 MCH 27.9 pg (27.0-31.0) 11/07/17 06:20 MCHC 34.6 g/dL (33.0-37.0) 11/07/17 06:20 RDW 13.6 % (11.5-14.5) 11/07/17 06:20 Plt Count 214 K/uL (130-400) 11/07/17 06:20 MPV 7.6 fl (7.2-11.7) 11/07/17 06:20 Neut % (Auto) 59.5 % (50.0-75.0) 11/07/17 06:20 Lymph % (Auto) 25.8 % (20.0-40.0) 11/07/17 06:20 Hudspeth % (Auto) 10.7 % (0.0-10.0) H 11/07/17 06:20 Eos % (Auto) 3.5 % (0.0-4.0) 11/07/17 06:20 Baso % (Auto) 0.5 % (0.0-2.0) 11/07/17 06:20 Neut # (Auto) 3.5 K/uL (1.8-7.0) 11/07/17 06:20 Lymph # (Auto) 1.5 K/uL (1.0-4.3) 11/07/17 06:20 [place]speth # (Auto) 0.6 K/uL (0.0-0.8) 11/07/17 06:20 Eos # (Auto) 0.2 K/uL (0.0-0.7) 11/07/17 06:20 Baso # (Auto) 0.0 K/uL (0.0-0.2) 11/07/17 06:20 Neutrophils % (Manual) 89 % (42-75) H 11/03/17 13:20 Lymphocytes % (Manual) 8 % (20-50) L 11/03/17 13:20 Monocytes % (Manual) 3 % (0-10) 11/03/17 13:20 Platelet Estimate Normal (NORMAL) 11/03/17 13:20 RBC Morphology Normal (NORMAL) 11/03/17 13:20 pCO2 38 mm/Hg (35-45) 11/03/17 14:01 pO2 73 mm/Hg (80-100) L 11/03/17 14:01 HCO3 24.0 mmol/L (21-28) 11/03/17 14:01 ABG pH 7.40 (7.35-7.45) 11/03/17 14:01 ABG Total CO2 24.7 mmol/L (22-28) 11/03/17 14:01 ABG O2 Saturation 98.4 % (95-98) H 11/03/17 14:01 ABG O2 Content 17.0 ML/dL (15-23) 11/03/17 14:01 ABG Base Excess -1.1 mmol/L (-2.0-3.0) 11/03/17 14:01 ABG Hemoglobin 12.9 g/dL (11.7-17.4) 11/03/17 14:01 ABG Carboxyhemoglobin 2.5 % (0.5-1.5) H 11/03/17 14:01 POC ABG HHb (Measured) 1.5 % (0.0-5.0) 11/03/17 14:01 ABG Methemoglobin 2.6 % (0.0-3.0) 11/03/17 14:01 ABG O2 Capacity 17.3 mL/dL (16-24) 11/03/17 14:01 Osvaldo Test Yes 11/03/17 14:01 VBG pH 7.35 (7.32-7.43) 11/03/17 13:02 VBG pCO2 50 mmHg (40-60) 11/03/17 13:02 VBG HCO3 24.3 mmol/L 11/03/17 13:02 VBG O2 Sat (Calc) 46.3 % (40-65) 11/03/17 13:02 VBG Base Excess 1.1 mmol/L (0.0-2.0) 11/03/17 13:02 VBG Hgb O2 Saturation 44.0 % (95.0-98.0) L 11/03/17 13:02 A-a O2 Difference 29.0 mm/Hg 11/03/17 14:01 Hemoglobin 13.9 g/dL (11.7-17.4) 11/03/17 13:02 Hgb O2 Saturation 93.5 % (95.0-98.0) L 11/03/17 14:01 FiO2 21.0 % 11/03/17 14:01 Crit Value Called To Dr adilia morgan 11/03/17 14:01 Crit Value Called By 15 11/03/17 14:01 Crit Value Read Back Y 11/03/17 14:01 Blood Gas Notified Time 1438 11/03/17 14:01 Sodium 146 mmol/l (132-148) 11/07/17 06:20 Potassium 4.2 MMOL/L (3.6-5.0) 11/07/17 06:20 Chloride 114 mmol/L (98-107) H 11/07/17 06:20 Carbon Dioxide 22 mmol/L (22-30) 11/07/17 06:20 Anion Gap 14 (10-20) 11/07/17 06:20 BUN 18 mg/dl (9-20) 11/07/17 06:20 Creatinine 1.3 mg/dl (0.8-1.5) 11/07/17 06:20 Est GFR ( Amer) > 60 11/07/17 06:20 Est GFR (Non-Af Amer) 54 11/07/17 06:20 POC Glucose (mg/dL) 111 mg/dL (65-110) H 11/07/17 15:35 Random Glucose 102 mg/dL (75-110) 11/07/17 06:20 Hemoglobin A1c 13.8 % (4.2-6.5) H D 11/04/17 05:50 Calcium 9.0 mg/dL (8.4-10.2) 11/07/17 06:20 Total Bilirubin 0.5 mg/dl (0.2-1.3) 11/07/17 06:20 AST 17 U/L (17-59) D 11/07/17 06:20 ALT 15 U/L (21-72) L D 11/07/17 06:20 Alkaline Phosphatase 58 U/L (38-126) 11/07/17 06:20 Total Protein 5.8 G/DL (6.3-8.2) L 11/07/17 06:20 Albumin 3.2 g/dL (3.5-5.0) L 11/07/17 06:20 Globulin 2.6 gm/dL (2.2-3.9) 11/07/17 06:20 Albumin/Globulin Ratio 1.2 (1.0-2.1) 11/07/17 06:20 Triglycerides 237 mg/DL (0-149) H D 11/04/17 05:50 Cholesterol 130 mg/dL (0-199) 11/04/17 05:50 LDL Cholesterol Direct 39 mg/dL (0-129) 11/04/17 05:50 HDL Cholesterol 35 MG/DL (30-70) 11/04/17 05:50 TSH 3rd Generation 2.17 mIU/ML (0.46-4.68) 11/04/17 05:50 PTH Intact Whole Molec 76 pg/mL (14-64) H 11/04/17 05:50 Alcohol, Quantitative < 10 mg/dl (0-10) 11/03/17 13:20 - Hospital Course Hospital Course: 71 y/o male with a PMHx of HTN, hyperglycemia and diabetes presents to the ED complaining of chronic generalized weakness for weeks. Patient states he was feeling weak and that his sugar was high. Pt admits to non compliance with his diet BS: on admission: 426 PMH: Hypertension DM II Hx CVA Depression EKG: NSR; Inc RBBB Discharge Exam - Head Exam Head Exam: ATRAUMATIC Discharge Plan - Discharge Medications Prescriptions: GlipiZIDE [Glucotrol] 10 mg PO BIDAC #60 tab SITagliptin [Januvia] 25 mg PO DAILY #30 tab Insulin Detemir [Levemir] 20 units SC HS #1 vial - Follow Up Plan Condition: FAIR Instructions: Hyperglycemia, Adult (DC), Diabetes and Diet Additional Instructions: follow up with your primary MD 1 week Referrals: Caroline Garrett MD [Medical Doctor] - Rohan Cooley MD [Staff Provider] - Mak Menjivar MD [Staff Provider] -
== END 2017-11-07 17:40 | disposition home or self-care (01) | DRG 638 ==
LOC: H.ER 12:06 → H.ERHOLD 15:47 → H.MEDSURG1 18:00
PROVIDERS: ADMIT Internal Medicine Cardiovascular Disease; ATTEND Internal Medicine Cardiovascular Disease
DX: E11.65 Type 2 diabetes mellitus with hyperglycemia (principal); N17.9 Acute kidney failure, unspecified; E78.00 Pure hypercholesterolemia, unspecified; E78.5 Hyperlipidemia, unspecified; E86.0 Dehydration; F32.9 Major depressive disorder, single episode, unspecified; I12.9 Hypertensive chronic kidney disease with stage 1 through stage 4 chronic kidney disease, or unspecified chronic kidney disease; N18.3 Chronic kidney disease, stage 3 (moderate); I25.10 Atherosclerotic heart disease of native coronary artery without angina pectoris; I67.9 Cerebrovascular disease, unspecified; Z79.4 Long term (current) use of insulin; Z86.73 Personal history of transient ischemic attack (TIA), and cerebral infarction without residual deficits; Z87.891 Personal history of nicotine dependence; Z91.11 Patient's noncompliance with dietary regimen; H70.90 Unspecified mastoiditis, unspecified ear; I45.10 Unspecified right bundle-branch block; Z79.84 Long term (current) use of oral hypoglycemic drugs; Z79.899 Other long term (current) drug therapy; R79.89 Other specified abnormal findings of blood chemistry; E11.21 Type 2 diabetes mellitus with diabetic nephropathy; E11.22 Type 2 diabetes mellitus with diabetic chronic kidney disease; E11.319 Type 2 diabetes mellitus with unspecified diabetic retinopathy without macular edema; E11.42 Type 2 diabetes mellitus with diabetic polyneuropathy; E11.51 Type 2 diabetes mellitus with diabetic peripheral angiopathy without gangrene